=== PATIENT | male | born 1940 | race Caucasian/White ===

== ENCOUNTER 2020-10-21 09:58 | Outpatient (REF) | payer MEDICARE, OTHER, SELFPAY ==
--- NOTE | ~2020-10-21 | US_ITS ---
EXAMINATION: US ABDOMEN COMPLETE CLINICAL INFORMATION: Left upper quadrant pain. COMPARISON: CT abdomen and pelvis 06/17/2015. Renal ultrasound 06/08/2018. TECHNIQUE: Real-time imaging of the abdominal viscera. Technically difficult study secondary to bowel gas, and rib spaces. FINDINGS: PANCREAS: The body of the pancreas is normal. The head and tail of the pancreas are not well visualized due to bowel gas. ABDOMINAL AORTA: Not well visualized due to bowel gas. INFERIOR VENA CAVA: Not well visualized due to bowel gas LIVER: The left lobe of the liver is not well visualized. The liver is normal in size. The liver contour is normal. Liver echotexture is increased probably representing fatty infiltration. No focal hepatic lesion. There is no intrahepatic biliary duct dilatation seen. GALLBLADDER: The gallbladder is physiologically distended. Multiple mobile gallstones are present. No evidence of gallbladder wall thickening or pericholecystic fluid. COMMON BILE DUCT: Not seen. RIGHT KIDNEY: Normal. No hydronephrosis. No renal calculi or focal parenchymal lesions. The kidney measures 9.7 cm in maximum dimension. LEFT KIDNEY: Normal. No hydronephrosis. No renal calculi or focal parenchymal lesions. The kidney measures 10.4 cm in maximum dimension. SPLEEN: Normal. The spleen measures 10.1 cm in maximum dimension. FREE FLUID: None. US/US abdomen complete IMPRESSION: Limited exam due to body habitus. In particular, the pancreas, aorta, common bile duct and left lobe of the liver are not well seen. Gallstones. Echogenic liver probably representing fatty lesion.
== END 2020-10-21 09:59 | disposition home or self-care (01) ==
LOC: HO.US 09:58
PROVIDERS: PCP Family Medicine; Visit Provider Family Medicine
DX: R10.9 Unspecified abdominal pain (principal)
CPT/HCPCS: 76700

== ENCOUNTER 2021-01-27 13:38 | Outpatient (REF) | payer MEDICARE, OTHER, SELFPAY ==
--- NOTE | ~2021-01-27 | XR_ITS ---
EXAMINATION: XR SHOULDER , RIGHT CLINICAL INFORMATION: Pain COMPARISON: None available at the time of this dictation. TECHNIQUE: AP external rotation, Grashey, scapular Y, and axillary views of the shoulder. FINDINGS: BONES: There is no fracture or dislocation, no osteolytic or osteoblastic lesion. JOINTS: Loss of joint space and sclerotic changes of articular surfaces suggest degenerative osteoarthritis of the glenohumeral joint. There is mild degenerative osteoarthritis of the acromioclavicular joint. SOFT TISSUE AND INCLUDED LUNG: Soft tissue calcification superior to humeral head suggesting calcific tendinitis. XR/XR shoulder RT min 2V IMPRESSION: 1. 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 2. Soft tissue calcifications suggest calcific tendinosis.
== END 2021-01-27 13:39 | disposition home or self-care (01) ==
LOC: HO.XRAY 13:38
PROVIDERS: PCP Family Medicine; Visit Provider Family Medicine
DX: M25.511 Pain in right shoulder (principal)
CPT/HCPCS: 73030

== ENCOUNTER 2021-09-27 12:51 | Outpatient (REF) | payer MEDICARE, OTHER, SELFPAY ==
--- NOTE | ~2021-09-27 | CT_ITS ---
EXAMINATION: CT HEAD WITHOUT CONTRAST CLINICAL INFORMATION: Unspecified injury. COMPARISON: None TECHNIQUE: Contiguous axial imaging was performed from the skull base to vertex without intravenous administration of contrast. This CT examination was performed using dose optimization techniques as appropriate, variously including the following: *Automated exposure control *Adjustment of mA and/or kV according to patient size (this includes techniques or standardized protocols for targeted exams where dose is matched to indication/reason for exam; i.e. extremities or head) *Use of iterative reconstruction technique DLP: 1335 mGy-cm FINDINGS: There is a low-density subdural collection along the right frontoparietal convexity which measures up to 6 mm in thickness on coronal imaging and may represent a subdural hygroma or chronic subdural hematoma. There is a mixed attenuation left frontoparietal cerebral convexity extra-axial subdural collection with small areas of high attenuation and measures up to 7 mm in short axis dimension on coronal imaging, indicative for a subacute on chronic subdural hematoma. Generalized parenchymal volume loss is noted. There are no imaging findings of hydrocephalus. There is no evidence of an acute territorial infarction. No abnormal mass effect or midline shift is seen. Yanez to white matter differentiation is well preserved. Mild chronic white matter microangiopathic changes present. The osseous structures and soft tissues are normal. The mastoid air cells and visualized portions of the paranasal sinuses are well aerated. CT/CT head/brain wo con IMPRESSION: Low-density right cerebral convexity subdural collection which may represent a chronic subdural hematoma or subdural hygroma. Additional mixed attenuation left cerebral convexity subdural collection, indicative for a subacute on chronic subdural hematoma. No significant mass effect or midline shift of structures.
== END 2021-09-27 12:52 | disposition home or self-care (01) ==
LOC: HO.CT 12:51
PROVIDERS: Visit Provider Student in an Organized Health Care Education/Training Program
DX: S09.90XA Unspecified injury of head, initial encounter (principal)
CPT/HCPCS: 70450

== ENCOUNTER 2021-10-15 09:57 | Outpatient (REF) | payer MEDICARE, OTHER, SELFPAY ==
--- NOTE | ~2021-10-15 | XR_ITS ---
EXAMINATION: RIGHT SHOULDER AND CERVICAL SPINE. CLINICAL INFORMATION: Unspecified injury. COMPARISON: None TECHNIQUE: Right shoulder 3 views. Cervical spine 5 views. FINDINGS: Cervical spine: There is normal cervical lordosis. The vertebral heights and alignment is normal. There is loss of C3-C4, C4-C5, C5-C6 and C6-C7 disc heights with mild ventral spondylosis. The vertebral heights and alignment is normal. The neural foramina are bilaterally narrowed from C3-C4, C4-C5 and C5-C6 disc levels from uncovertebral hypertrophic changes. No visible acute fracture or dislocation seen. There is no lytic process. The prevertebral soft tissues are normal. Right shoulder: There is moderate loss of glenohumeral joint space with inferior large enthesophyte along the humeral head. There is a diffuse AC joint space as well. There are small calcifications along the insertion of rotator cuff suggestive of calcific tendinitis. No acute fractures seen there is no dislocation. XR/XR cervical spine min 6V IMPRESSION: Degenerative disc changes C3-C4, C4-C5, C5-C6 and C6-C7 disc levels with bilateral moderate narrowing of neural foramina C3-C4 through C5-C6 disc levels. No visible acute fracture or dislocation seen. Significant degenerative arthritic changes right shoulder glenohumeral joint. Calcific right rotator cuff tendinitis.
--- NOTE | ~2021-10-15 | XR_ITS ---
EXAMINATION: RIGHT SHOULDER AND CERVICAL SPINE. CLINICAL INFORMATION: Unspecified injury. COMPARISON: None TECHNIQUE: Right shoulder 3 views. Cervical spine 5 views. FINDINGS: Cervical spine: There is normal cervical lordosis. The vertebral heights and alignment is normal. There is loss of C3-C4, C4-C5, C5-C6 and C6-C7 disc heights with mild ventral spondylosis. The vertebral heights and alignment is normal. The neural foramina are bilaterally narrowed from C3-C4, C4-C5 and C5-C6 disc levels from uncovertebral hypertrophic changes. No visible acute fracture or dislocation seen. There is no lytic process. The prevertebral soft tissues are normal. Right shoulder: There is moderate loss of glenohumeral joint space with inferior large enthesophyte along the humeral head. There is a diffuse AC joint space as well. There are small calcifications along the insertion of rotator cuff suggestive of calcific tendinitis. No acute fractures seen there is no dislocation. XR/XR shoulder RT min 2V IMPRESSION: Degenerative disc changes C3-C4, C4-C5, C5-C6 and C6-C7 disc levels with bilateral moderate narrowing of neural foramina C3-C4 through C5-C6 disc levels. No visible acute fracture or dislocation seen. Significant degenerative arthritic changes right shoulder glenohumeral joint. Calcific right rotator cuff tendinitis.
== END 2021-10-15 09:58 | disposition home or self-care (01) ==
LOC: HO.XRAY 09:57
PROVIDERS: PCP Family Medicine; Visit Provider Emergency Medicine
DX: S19.9XXD Unspecified injury of neck, subsequent encounter (principal); S49.91XD Unspecified injury of right shoulder and upper arm, subsequent encounter; X58.XXXD Exposure to other specified factors, subsequent encounter
CPT/HCPCS: 72052; 73030

== ENCOUNTER 2021-11-08 17:02 | Emergency (ER) | payer MEDICARE, OTHER, SELFPAY ==
--- NOTE | ~2021-11-08 | CT_ITS ---
EXAMINATION: CT HEAD WITHOUT CONTRAST CLINICAL INFORMATION: Fall, head strike/injury COMPARISON: 09/27/2021 TECHNIQUE: Contiguous axial imaging was performed from the skull base to vertex without intravenous administration of contrast. This CT examination was performed using dose optimization techniques as appropriate, variously including the following: *Automated exposure control *Adjustment of mA and/or kV according to patient size (this includes techniques or standardized protocols for targeted exams where dose is matched to indication/reason for exam; i.e. extremities or head) *Use of iterative reconstruction technique DLP: 690 mGy-cm FINDINGS: Previously seen mixed attenuation extra-axial fluid collection at the left vertex is decreased in size and density it measures at most 4 mm in width, previously 6 mm. The low density subdural collection along the right frontoparietal convexity is similar in density, essentially CSF density and similar in width, 5-6 mm. No new acute intracranial hemorrhage. Ventricles and sulci are similar in configuration to the prior study. No mass effect or midline shift. Globes and orbits are normal. No evidence of acute sinusitis. CT/CT head/brain wo con IMPRESSION: No new/acute intracranial hemorrhage since the prior study 09/27/2021. Previously seen mixed attenuation extra-axial fluid collection at the left cerebral convexity is decreased in thickness in density consistent with an improving acute on chronic subdural hematoma. Low density right subdural fluid collection remains CSF density, perhaps minimally smaller in size, consistent with a subdural hygroma or chronic subdural hematoma.
[2021-11-08 18:52] VITALS: BP 124/84; PULSE 61; RESP 18; TEMP 36.7; O2SAT 96; BMI 28.1
--- NOTE | 2021-11-08 22:42 | ED.HEATRA ---
HPI - Head Injury General Chief complaint: Head Injury Stated complaint: dr fitzgerald-previous/hit head yestarday, has lump Time Seen by Provider: 11/08/21 22:42 Source: patient Mode of arrival: ambulatory Limitations: no limitations History of Present Illness HPI Narrative: Patient with history of recurrent falls with history of subdural hematoma in 10/03 yesterday patient fell again with no loss of consciousness complained of slight headache according to him his legs gave out and fell hitting his head to the ground patient with baby aspirin no seizures no loss of consciousness patient called his PCP was seemed to get CT scan Related Data Allergies Allergy/AdvReac Type Severity Reaction Status Date / Time tetracycline [TETRACYCLINE] Allergy Intermediate RASH Verified 11/08/21 18:54 Review of Systems Review of Systems: Yes all other systems are reviewed and are negative [facility] Social History Social History Alcohol intake: never Patient Tobacco Use Status: Former Tobacco user Smoked in Last 30 Days: No Use of substances other than those prescribed or required for medical reasons: No Physical Exam Vital Signs: Vital Signs: Last Vital Signs Temp 98.1 F 11/08/21 18:52 Pulse 61 11/08/21 18:52 Resp 18 11/08/21 18:52 BP 124/84 11/08/21 18:52 Pulse Ox 96 11/08/21 18:52 O2 Del Method 11/08/21 18:52 BMI result Body Mass Index 28.1 Appearance: Alert. Oriented X3. No acute distress. Eyes: PERRLA, No Nystagmus HEENT: Pharynx normal. Oral Mucosa moist soft tissue swelling neck in occipital area Neck: Normal inspection. Neck supple. CVS: Normal heart rate and rhythm. Pulses normal. Respiratory: No respiratory distress. Equal air entry bilateral, no wheezing/rales/rhonchi Abdomen: Soft and nontender. Bowel sounds are present, no mass palpable, no CVA tenderness Skin: Skin warm and dry. Normal skin color. Normal skin turgor. Extremities: No lower extremity edema. No calf tenderness bilateral arthritis Neuro: Oriented X 3. No motor deficit. MDM - Head Injury MDM Narrative Medical decision making narrative: Patient head CT scan showed resolving subdural hematoma no acute bleed patient ambulated discharge patient home Differential Diagnosis Differential diagnosis: Likely closed head injury and subarachnoid hematoma Imaging Data CT scan - head: Attestation: I personally reviewed and interpreted this imaging study as follows: Radiologist's impression: No new/acute intracranial hemorrhage since the prior study 09/27/2021. ? Previously seen mixed attenuation extra-axial fluid collection at the left cerebral convexity is decreased in thickness in density consistent with an improving acute on chronic subdural hematoma. ? Low density right subdural fluid collection remains CSF density, perhaps minimally smaller in size, consistent with a subdural hygroma or chronic subdural hematoma. Discharge Plan Discharge Clinical Impression: Closed head injury Patient Disposition: Home, Self-Care Instructions: Fall Prevention for Older Adults (ED), Head Injury (ED) Additional Instructions: Care and advised as advised Tylenol for headache
--- NOTE | 2021-11-08 23:03 | PC.NURSE ---
Pt presented to ER after hitting his head yesterday. There is a bruise on the back of his head that it tender to the touch. Pt presents A&O, GCS 15. Pt passed neurological tests, equal strength in all four quadrants. 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
[2021-11-08 23:05] VITALS: BP 148/88; PULSE 65; RESP 16; O2SAT 96
== END 2021-11-08 23:14 | disposition home or self-care (01) ==
LOC: HO.ED 23:13
PROVIDERS: Emergency Provider Internal Medicine; PCP Emergency Medicine
DX: S00.03XA Contusion of scalp, initial encounter (principal); R51.9 Headache, unspecified; W01.0XXA Fall on same level from slipping, tripping and stumbling without subsequent striking against object, initial encounter; Y93.9 Activity, unspecified; Y92.9 Unspecified place or not applicable; Y99.9 Unspecified external cause status; Z87.891 Personal history of nicotine dependence; Z91.81 History of falling
CPT/HCPCS: 70450; 99284

== ENCOUNTER → 2021-12-30 14:52 | Outpatient (BNVA) | payer MEDICARE, OTHER, SELFPAY | PROVIDERS: PCP Emergency Medicine; Visit Provider Physician Assistant | DX: M19.011 Primary osteoarthritis, right shoulder (principal) | CPT/HCPCS: 99202 ==

== ENCOUNTER 2023-01-05 12:03 | Outpatient (REF) | payer MEDICARE, SELFPAY ==
[2023-01-05 13:44] LABS: MANUAL DIFF FLAG NO
[2023-01-05 13:50] LABS: Basophils Percent Auto 0.4 % (0-2); Eosinophils Absolute Auto 0.2 X10*3/uL (0.0-0.4); Eosinophils Percent Auto 2.1 % (0-4); Hematocrit 43.7 % (42.0-52.0); Hemoglobin 14.4 g/dl (14.0-18.0); Imm Gran Abs Auto 0.01 X10*3/uL (0.00-0.03); Imm Gran Pct Auto 0.1 % (0.0-0.4); Lymphocytes Absolute Auto 1.8 X10*3/uL (1.2-4.9); Lymphocytes Percent Auto 25.6 % (20-40); Mean Corpuscular Hemoglobin 30.8 pg (27.0-33.0); Mean Corpuscular Volume 93.6 fL (80.0-98.0); Mean Platelet Volume 11.2 fL (9.4-12.4); Monocytes Absolute Auto 0.8 X10*3/uL (0.1-1.2); Monocytes Percent Auto 10.5 % (2-11); Neutrophils Absolute Auto 4.4 x10*3/uL (2.0-8.3); Neutrophils Percent Auto 61.3 % (45-73); Platelet Count 206 X10*3/uL (160-400); Red Blood Count 4.67 X10*6/uL (4.60-5.80); Red Cell Distribution Width 13.4 % (11.0-16.0); White Blood Count 7.2 X10*3/uL (4.8-10.8)
[2023-01-05 14:32] LABS: Alanine Aminotransferase 10 U/L (0-40); Albumin Level 3.9 g/dL (3.5-5.0); Alkaline Phosphatase 58 U/L (39-117); Anion Gap 8 (12-20); Aspartate Amino Transferase 14 U/L (5-37); Bilirubin Total 0.6 mg/dL (0.0-1.0); Blood Urea Nitrogen 15 mg/dL (9-16); C Reactive Protein 0.15 mg/dL (< or = 0.50); Calcium 9.1 mg/dL (8.4-10.2); Carbon Dioxide 28 mmol/L (22-29); Chloride 110 mmol/L (96-108); Estimated Glomerular Filt Rate > 60; Glucose Random 96 mg/dL (60-115); Potassium 3.9 mmol/L (3.3-5.1); Sodium 142 mmol/L (135-145); Total Protein 6.5 g/dL (6.5-8.0)
[2023-01-05 14:35] LABS: TSH reflex Free T4 0.75 uIU/mL (0.32-4.0)
[2023-01-05 16:20] LABS: Erythrocyte Sedimentation Rate 4 MM/HR (0-15)
[2023-01-05 17:22] LABS: Folate 13.5 ng/mL (> or = 4.0); Vitamin B12 186 pg/mL (200-900)
== END 2023-01-05 12:04 | disposition home or self-care (01) ==
LOC: HO.HHCL 12:03
PROVIDERS: Visit Provider Family Medicine
DX: E53.8 Deficiency of other specified B group vitamins (principal); I49.3 Ventricular premature depolarization; R63.4 Abnormal weight loss; I10 Essential (primary) hypertension
CPT/HCPCS: 36415; 80053; 82607; 82746; 84443; 85025; 85652; 86140

== ENCOUNTER 2023-06-29 12:25 | Outpatient (REF) | payer MEDICARE, MEDICAID, SELFPAY ==
--- NOTE | ~2023-06-29 | XR_ITS ---
EXAMINATION: XR CHEST CLINICAL INFORMATION: Chest tightness. Bradycardia. Cough. COMPARISON: Most recent chest radiograph dated 06/27/2019. TECHNIQUE: 2 views of the chest were obtained. FINDINGS: Minimal linear atelectasis versus scarring redemonstrated within the right lung base. No new airspace consolidation. No pleural effusion or pneumothorax. Stable cardiomediastinal silhouette. XR/XR chest 2V IMPRESSION: No acute cardiopulmonary findings.
== END 2023-06-29 12:26 | disposition home or self-care (01) ==
LOC: HO.HHCX 12:25
PROVIDERS: Visit Provider Family Medicine
DX: R07.89 Other chest pain (principal); K21.9 Gastro-esophageal reflux disease without esophagitis
CPT/HCPCS: 36415; 71046; 80053; 84443

== ENCOUNTER 2023-06-29 12:42 | Outpatient (REF) | payer MEDICARE, SELFPAY ==
[2023-06-29 16:32] LABS: Alanine Aminotransferase 11 U/L (0-40); Albumin Level 4.2 g/dL (3.5-5.0); Alkaline Phosphatase 74 U/L (39-117); Anion Gap 11 (12-20); Aspartate Amino Transferase 14 U/L (5-37); Bilirubin Total 0.6 mg/dL (0.0-1.0); Blood Urea Nitrogen 11 mg/dL (9-16); Calcium 9.9 mg/dL (8.4-10.2); Carbon Dioxide 29 mmol/L (22-29); Chloride 107 mmol/L (96-108); Estimated Glomerular Filt Rate > 60; Glucose Random 92 mg/dL (60-115); Sodium 143 mmol/L (135-145); Total Protein 7.1 g/dL (6.5-8.0)
[2023-06-29 16:40] LABS: TSH reflex Free T4 0.88 uIU/mL (0.32-4.0)
== END 2023-06-29 12:43 | disposition home or self-care (01) ==
LOC: HO.HHCL 12:42
PROVIDERS: Visit Provider Family Medicine
DX: Z13.89 Encounter for screening for other disorder (principal)
CPT/HCPCS: 36415; 80053; 84443

== ENCOUNTER → 2023-07-10 09:00 | Outpatient (BNV) | payer MEDICARE, SELFPAY | PROVIDERS: PCP Emergency Medicine; Visit Provider Internal Medicine Cardiovascular Disease | DX: I48.91 Unspecified atrial fibrillation (principal) | CPT/HCPCS: 93227 ==

== ENCOUNTER → 2023-07-10 10:51 | Outpatient (REF) | payer MEDICARE, SELFPAY ==
--- NOTE | 2023-07-10 | HM_ITS ---
Conclusion: 1. Patient was monitored for total period of 1 day and 2 hours 2. Baseline was normal sinus rhythm with intermittent atrial fibrillation/flutter 22% of the time with average heart of 74 beats per minute during sinus rhythm 3. No significant pauses noted 4. Frequent PACs noted, 2.6% of the time 5. Patient marked 1 counter with no associated symptoms correlating with isolated PVCs MTDD
== END ==
LOC: HO.CARD 10:51
PROVIDERS: PCP Emergency Medicine; Visit Provider Family Medicine
DX: R00.1 Bradycardia, unspecified (principal)
CPT/HCPCS: 93225

== ENCOUNTER 2023-08-11 10:05 | Emergency (ER) | payer MEDICARE, OTHER, SELFPAY ==
--- NOTE | ~2023-08-11 | US_ITS ---
EXAMINATION: US VENOUS ULTRASOUND WITH DOPPLER LOWER EXTREMITY, LEFT CLINICAL INFORMATION: Swelling COMPARISON: None available. TECHNIQUE: Ultrasound of the deep veins is performed from the hip to the calf with compression sonography and color and pulse Doppler assessment. Spectral analysis with color-flow imaging is performed. FINDINGS: There is normal venous compression and respiratory variation and augmented flow. The visualized common femoral vein, superficial femoral vein, profunda femoral vein, popliteal vein, and the trifurcation region shows no evidence of deep venous thrombosis. Left peroneal veins not well visualized. There is no significant popliteal fossa cyst. If the patient's symptoms persist, followup ultrasound in 5 days 7 days might be of value to exclude proximal propagation from a non-visualized calf vein. US/US venous duplex LE LT IMPRESSION: No DVT demonstrated in the left lower extremity. Left peroneal veins not well visualized.
--- NOTE | ~2023-08-11 | XR_ITS ---
EXAMINATION: XR CHEST CLINICAL INFORMATION: Cough COMPARISON: Previous chest x-ray June 2023 TECHNIQUE: Frontal view of the chest was obtained. FINDINGS: No significant abnormality is noted involving the heart, lungs, mediastinum, bony thorax or soft tissues. Degenerative changes of the spine and right shoulder. XR/XR chest 1V IMPRESSION: No evidence for acute disease in the chest.
[2023-08-11 10:14] VITALS: BP 124/67; PULSE 60; RESP 16; TEMP 36.8; O2SAT 97; BMI 27.5
--- NOTE | 2023-08-11 10:22 | ECG_ITS ---
Test Reason : SWOLLEN ANKLES Blood Pressure : / mmHG Vent. Rate : 054 BPM Atrial Rate : 286 BPM P-R Int : 000 ms QRS Dur : 092 ms QT Int : 420 ms P-R-T Axes : 043 -23 -01 degrees QTc Int : 398 ms Atrial flutter with variable A-V block Nonspecific ST abnormality Abnormal ECG No previous ECGs available Referred By: Generic ED Physician Electronically Signed By:Julius Beavers
[2023-08-11 10:43] LABS: MANUAL DIFF FLAG NO
[2023-08-11 10:48] LABS: Basophils Percent Auto 0.3 % (0-2); Eosinophils Absolute Auto 0.1 X10*3/uL (0.0-0.4); Eosinophils Percent Auto 0.9 % (0-4); Hematocrit 43.3 % (42.0-52.0); Hemoglobin 14.2 g/dl (14.0-18.0); Imm Gran Abs Auto 0.03 X10*3/uL (0.00-0.03); Imm Gran Pct Auto 0.3 % (0.0-0.4); Lymphocytes Absolute Auto 1.3 X10*3/uL (1.2-4.9); Mean Corpuscular HGB Conc 32.8 g/dl (31.0-36.0); Mean Corpuscular Hemoglobin 30.6 pg (27.0-33.0); Mean Corpuscular Volume 93.3 fL (80.0-98.0); Mean Platelet Volume 10.5 fL (9.4-12.4); Monocytes Percent Auto 10.4 % (2-11); Neutrophils Absolute Auto 7.1 x10*3/uL (2.0-8.3); Neutrophils Percent Auto 74.1 % (45-73); Platelet Count 203 X10*3/uL (160-400); Red Blood Count 4.64 X10*6/uL (4.60-5.80); White Blood Count 9.6 X10*3/uL (4.8-10.8)
--- NOTE | 2023-08-11 10:51 | ED.GENADULT ---
HPI - General Adult General Chief complaint: General Medical Stated complaint: sent from [facility], [facility] Time Seen by Provider: 08/11/23 10:36 Source: patient Mode of arrival: ambulatory History of Present Illness HPI narrative: 83-year-old male who states that he has a remote history of irregular heartbeat and states that for the past couple weeks he has had issues with swelling within his lower extremities but denies any shortness of breath. He also reports that over the past week he has noted a wound to the instep of the left foot with surrounding erythema that he attributes to his underlying bone spur. He denies being on any chronic anticoagulation. [facility] sent patient in for noting irregular heartbeat in the swollen extremity. Related Data Home Medications Medication Instructions Recorded Confirmed acetaminophen 500 mg capsule 500 mg PO QID PRN 12/30/21 amlodipine 2.5 mg tablet 2.5 mg PO DAILY 12/30/21 aspirin 81 mg tablet,delayed 81 mg PO DAILY 12/30/21 release cholecalciferol (vitamin D3) 25 25 mcg PO DAILY 12/30/21 mcg (1,000 unit) capsule (Vitamin D3) cyanocobalamin (vitamin B-12) 1,000 mcg PO DAILY 12/30/21 1,000 mcg tablet fluticasone propionate 50 1 spray intranasal BID 12/30/21 mcg/actuation nasal spray,suspension loratadine 10 mg tablet (Allergy 10 mg PO DAILY 12/30/21 Relief (loratadine)) omeprazole 20 mg capsule,delayed 20 mg PO DAILY 12/30/21 release ondansetron HCl 4 mg tablet 4 mg PO Q6H 12/30/21 simethicone 125 mg capsule (Gas 125 mg PO BID-QID PRN 12/30/21 Relief (simethicone)) Previous Rx's Medication Instructions Recorded apixaban 5 mg tablet (Eliquis) 5 mg PO BID 30 days #60 tabs 08/11/23 Allergies Allergy/AdvReac Type Severity Reaction Status Date / Time tetracycline [TETRACYCLINE] Allergy Intermediate RASH Verified 12/30/21 15:17 Review of Systems Review of Systems: Pertinent positives and negatives as stated in HPI [facility] Past Medical History Source: nursing notes reviewed Medical History Subdural hematoma History of kidney stones Dysthymic disorder Calculus of gallbladder without cholangitis or cholecystitis Ganglion cyst of finger of left hand B12 deficiency Sensorineural hearing loss Pes planovalgus Malignant neoplasm of urinary bladder Actinic keratosis Osteoarthritis Depression Allergic rhinitis Primary osteoarthritis involving multiple joints Pulmonary hypertension Essential hypertension Pain, dental GERD (gastroesophageal reflux disease) Frequent PVCs Social History Social History Alcohol intake: never Patient Tobacco Use Status: Former Tobacco user Smoked in Last 30 Days: No Advance Directives: Yes Advance Directives Information Provided: Yes Advance Directives on File: No Physical Exam ED Vital Signs: Vital Signs - 24 hr 08/11/23 10:14 08/11/23 11:16 Temperature 98.3 F 98.4 F Pulse Rate 60 77 Respiratory Rate 16 16 Blood Pressure 124/67 131/75 Pulse Oximetry 97 97 Oxygen Delivery Method Room Air Room Air BMI result Body Mass Index 27.5 VITAL SIGNS: Reviewed. GENERAL: Well developed, well nourished, in no acute distress. HEAD: Normocephalic/atraumatic EYES: PERRLA, EOMI EARS: Ext canals without abnormality NOSE: Nares patent bilateral OROPHARYNX: no oral lesions noted, posterior pharynx clear NECK: Supple, no adenopathy LUNGS: Normal breath sounds. No adventitious sounds or accessory muscle use. SpO2<97> CARDIOVASCULAR: Regular rate and rhythm without noted murmurs, no JVD but left lower extremity 2+ pitting edema noted ABDOMEN: Soft, non-tender, non-distended with bowel sounds. MUSCULOSKELETAL: No tenderness, deformities, or effusions noted on gross inspection. EXTREMITIES: No cyanosis, clubbing or edema. LLE: There is edema noted to the left lower extremity as well as what appears to be a noninfectious wound but there is surrounding erythema without ulceration. SKIN: Inspection of the skin reveals no rashes NEUROLOGIC: Alert and oriented x 4. Strength and sensation to light touch were grossly intact x 4. Medications Administered Discontinued Medications Generic Name Dose Route Start Last Admin Trade Name Freq PRN Reason Stop Dose Admin Apixaban 5 mg 08/11/23 11:31 08/11/23 11:52 Apixaban 5 Mg Tablet PO 08/11/23 11:32 5 mg ONCE ONE Administration Medical Decision Making Medical Decision Making MDM Narrative: 83-year-old male with history and clinical presentation, DDX: Intermittent irregular heartbeat, at this presentation most consistent with atrial flutter but during my interview with the patient he was noted to no longer be in atrial flutter and repeat EKG was obtained. My concern at this time is that patient may have DVT within the left lower extremity. Chads Vasc-4 and will be started on Eliquis. 1137: Discussed with Dr Beavers who agrees with plan to discharge patient on chronic anticoagulation. I reviewed all investigations and hematologic indices are negative for leukocytosis/anemia/thrombocytopenia. Chemistry indices are grossly within normal limits without evidence of CATE or electrolyte/liver enzyme derangements. BNP-77. Chest x-ray negative for infiltrate or venous congestion otherwise my interpretation is in agreement with radiology's impression. Venous duplex negative for evidence to suggest DVT. 1345: Venous duplex negative for evidence of DVT, patient has no respiratory symptoms, all results and findings were discussed with him at bedside as well as the explanation for being on blood thinners. He was also instructed to stop taking aspirin and to avoid ibuprofen. Differential Diagnosis Differential Diagnoses: The differential diagnosis associated with the presentation includes Please see the discussion above Admission/Observation Consideration of admission/observation: Escalation of care including admission/observation considered Please see the discussion above Consult Healthcare Provider Management of the patient was discussed with: Supervisor [employer] Please see the discussion above Lab Data MDM Lab Attestation statement: I reviewed the patient's lab results. Please see the discussion above 08/11/23 10:35 08/11/23 10:35 Labs: Lab Results 08/11/23 08/11/23 Range/Units 10:35 10:57 WBC 9.6 (4.8-10.8) X10*3/uL RBC 4.64 (4.60-5.80) X10*6/uL Hgb 14.2 (14.0-18.0) g/dl Hct 43.3 (42.0-52.0) % MCV 93.3 (80.0-98.0) fL MCH 30.6 (27.0-33.0) pg MCHC 32.8 (31.0-36.0) g/dl RDW 14.0 (11.0-16.0) % Plt Count 203 (160-400) X10*3/uL MPV 10.5 (9.4-12.4) fL Immature Gran % (Auto) 0.3 (0.0-0.4) % Neut % (Auto) 74.1 H (45-73) % Lymph % (Auto) 14.0 L (20-40) % Gooding % (Auto) 10.4 (2-11) % Eos % (Auto) 0.9 (0-4) % Baso % (Auto) 0.3 (0-2) % Lymph # (Auto) 1.3 (1.2-4.9) X10*3/uL Gooding # (Auto) 1.0 (0.1-1.2) X10*3/uL Eos # (Auto) 0.1 (0.0-0.4) X10*3/uL Baso # (Auto) 0.0 (0.0-0.2) X10*3/uL Abs Immat Gran (auto) 0.03 (0.00-0.03) X10*3/uL Absolute Neuts (auto) 7.1 (2.0-8.3) x10*3/uL Absolute Nucleated RBC 0.000 (0.0-0.012) X10*3/uL Nucleated RBC % (auto) 0.0 (0.0-0.2) /100WBC Sodium 143 (135-145) mmol/L Potassium 3.8 (3.3-5.1) mmol/L Chloride 111 H (96-108) mmol/L Carbon Dioxide 25 (22-29) mmol/L Anion Gap 11 L (12-20) BUN 15 (9-16) mg/dL Creatinine 0.80 (0.5-1.4) mg/dL Estim Creat Clear Calc 69.6 Estimated GFR > 60 Random Glucose 99 (60-115) mg/dL Calcium 8.9 D (8.4-10.2) mg/dL Total Bilirubin 0.7 (0.0-1.0) mg/dL AST 15 (5-37) U/L ALT 13 (0-40) U/L Alkaline Phosphatase 69 (39-117) U/L B-Natriuretic Peptide 77 (<100) pg/mL Total Protein 6.6 (6.5-8.0) g/dL Albumin 3.9 (3.5-5.0) g/dL Independent Interpretation I performed an independent interpretation of an: EKG Interpretation: 1026: Atrial flutter with variable AV block, HR-54, QRS/QTC within normal limits. 1113: Sinus rhythm, HR-81, KS/QRS/QTC is within normal limits. Radiology Impression Discussion of test interpretation with radiology: I have reviewed the radiologist's reading. External Record Review External record reviewed: Office record, Outpatient record, Prior outpatient labs and Prior outpatient radiology Critical Care Time Critical Care Time Critical Care Time: Yes Total Critical Care Time: 60 Attestation: I personally attest to this time spent taking care of the patient. Discharge Plan Discharge Clinical Impression: Paroxysmal atrial fibrillation Patient Disposition: Home, Self-Care Instructions: A-fib (Atrial Fibrillation) (ED), Blood Thinners (ED) Additional Instructions: 1. Resume all home medications except aspirin, you should no longer use aspirin or ibuprofen as you have now been started on blood thinners. 2. Please follow-up with your primary care doctor and call the office of Cardiology, the referral is provided to you below. Return to the ER for any worsening symptoms. Prescriptions: New Eliquis 5 mg tablet 5 mg PO BID 30 Days Qty: 60 0RF No Action cholecalciferol (vitamin D3) [Vitamin D3] 25 mcg (1,000 unit) capsule 25 mcg PO DAILY cyanocobalamin (vitamin B-12) 1,000 mcg tablet 1,000 mcg PO DAILY omeprazole 20 mg capsule,delayed release(DR/EC) 20 mg PO DAILY fluticasone propionate 50 mcg/actuation spray,suspension 1 spray intranasal BID amlodipine 2.5 mg tablet 2.5 mg PO DAILY aspirin 81 mg tablet,delayed release (DR/EC) 81 mg PO DAILY simethicone [Gas Relief (simethicone)] 125 mg capsule 125 mg PO BID-QID PRN loratadine [Allergy Relief (loratadine)] 10 mg tablet 10 mg PO DAILY ondansetron HCl 4 mg tablet 4 mg PO Q6H acetaminophen 500 mg capsule 500 mg PO QID PRN Referrals: Apolonia Ragland MD [Primary Care Provider] - Julius Beavers MD [Physician] -
--- NOTE | 2023-08-11 11:07 | ECG_ITS ---
Test Reason : RHYTHM CHANGE Blood Pressure : / mmHG Vent. Rate : 081 BPM Atrial Rate : 081 BPM P-R Int : 200 ms QRS Dur : 092 ms QT Int : 392 ms P-R-T Axes : 000 -22 005 degrees QTc Int : 455 ms Sinus rhythm with marked sinus arrhythmia with occasional Premature ventricular complexes Nonspecific ST abnormality Abnormal ECG When compared with ECG of 11-AUG-2023 10:26, Sinus rhythm has replaced Atrial flutter Vent. rate has increased BY 27 BPM QT has lengthened Referred By: Candie Paz Electronically Signed By:Julius Beavers
[2023-08-11 11:11] LABS: Alanine Aminotransferase 13 U/L (0-40); Albumin Level 3.9 g/dL (3.5-5.0); Alkaline Phosphatase 69 U/L (39-117); Anion Gap 11 (12-20); Aspartate Amino Transferase 15 U/L (5-37); Bilirubin Total 0.7 mg/dL (0.0-1.0); Blood Urea Nitrogen 15 mg/dL (9-16); Calcium 8.9 mg/dL (8.4-10.2); Carbon Dioxide 25 mmol/L (22-29); Chloride 111 mmol/L (96-108); Creatinine Clr Calc Pharmacy 69.6; Estimated Glomerular Filt Rate > 60; Glucose Random 99 mg/dL (60-115); Potassium 3.8 mmol/L (3.3-5.1); Sodium 143 mmol/L (135-145); Total Protein 6.6 g/dL (6.5-8.0)
[2023-08-11 11:16] VITALS: BP 131/75; PULSE 77; RESP 16; TEMP 36.9; O2SAT 97
[2023-08-11 11:24] LABS: B Type Natriuretic Peptide 77 pg/mL (<100)
[2023-08-11] MEDS: Apixaban 5 MG TABLET PO (11:52)
--- NOTE | 2023-08-11 11:58 | PC.NURSE ---
this RN resumed care of pt at this time. a&ox4. vss and up to date. nsr on the pvc monitor. pt no longer in aflutter - repeat ekg performed by tech. pt denies chest pain/palpitations. pt denies feeling sob. no signs of wob noted. respirations even and unlabored. pt medicated per provider order. pt aware of plan of care in regards to US/chest xray being taken. plan of care ongoing. call ghosh placed within reach.
[2023-08-11 14:13] VITALS: BP 146/77; PULSE 73; RESP 16; TEMP 36.9; O2SAT 96
[2023-08-11] MEDS: Acetaminophen 325 MG TABLET 975 MG PO (14:19)
[2023-08-11 14:33] VITALS: BP 146/77; PULSE 73; RESP 16; TEMP 36.9; O2SAT 96
== END 2023-08-11 14:33 | disposition home or self-care (01) ==
PROVIDERS: Emergency Provider Student in an Organized Health Care Education/Training Program; PCP Family Medicine
DX: I48.0 Paroxysmal atrial fibrillation (principal); M79.89 Other specified soft tissue disorders; I10 Essential (primary) hypertension; Z85.51 Personal history of malignant neoplasm of bladder
CPT/HCPCS: 36415; 71045; 80053; 83880; 85025; 93005; 93971; 99284

== ENCOUNTER → 2023-08-11 10:22 | Outpatient (BNV) | payer MEDICARE, SELFPAY | PROVIDERS: Emergency Provider Student in an Organized Health Care Education/Training Program; PCP Family Medicine; Visit Provider Internal Medicine Cardiovascular Disease | DX: R00.0 Tachycardia, unspecified (principal) | CPT/HCPCS: 93010 ==

== ENCOUNTER 2023-08-17 14:17 | Outpatient (REF) | payer MEDICARE, SELFPAY ==
--- NOTE | ~2023-08-17 | XR_ITS ---
EXAMINATION: XR FOOT, LEFT CLINICAL INFORMATION: Left foot pain and cellulitis, rule out osteomyelitis. COMPARISON: None available. TECHNIQUE: AP, lateral, and oblique views of the left foot. FINDINGS: There is hallux valgus deformity and changes of osteoarthritis in the first and second metatarsophalangeal joints. There is pes planus deformity and plantar calcaneus spur. There is significant soft tissue edema seen dorsally without evidence of gas in the soft tissues. XR/XR foot LT min 3V IMPRESSION: Hallux valgus deformity and changes of osteoarthritis in the first and second metatarsophalangeal joints. Cellulitis
--- NOTE | ~2023-08-17 | XR_ITS ---
EXAMINATION: XR ABDOMEN KUB CLINICAL INDICATION: Hematuria rule out kidney stones COMPARISON: None available. TECHNIQUE: AP view of the abdomen. FINDINGS: The bowel gas pattern is normal with no evidence of ileus or obstruction. No unusual soft tissue calcifications are noted. There is levoscoliosis of lumbar spine and changes of degenerative spondylosis. XR/XR KUB IMPRESSION: No evidence of nephrolithiasis
== END 2023-08-17 14:18 | disposition home or self-care (01) ==
LOC: HO.HHCX 14:17
PROVIDERS: Visit Provider Internal Medicine
DX: M79.672 Pain in left foot (principal); M21.962 Unspecified acquired deformity of left lower leg; L03.818 Cellulitis of other sites; R31.9 Hematuria, unspecified; R39.9 Unspecified symptoms and signs involving the genitourinary system
CPT/HCPCS: 73630; 74018; 87086

== ENCOUNTER 2023-08-24 13:31 | Outpatient (REF) | payer MEDICARE, SELFPAY ==
[2023-08-24 16:05] LABS: MANUAL DIFF FLAG NO
[2023-08-24 16:19] LABS: Basophils Percent Auto 0.4 % (0-2); Eosinophils Absolute Auto 0.2 X10*3/uL (0.0-0.4); Eosinophils Percent Auto 2.9 % (0-4); Hematocrit 43.1 % (42.0-52.0); Imm Gran Abs Auto 0.03 X10*3/uL (0.00-0.03); Imm Gran Pct Auto 0.4 % (0.0-0.4); Lymphocytes Absolute Auto 1.5 X10*3/uL (1.2-4.9); Lymphocytes Percent Auto 21.8 % (20-40); Mean Corpuscular HGB Conc 32.5 g/dl (31.0-36.0); Mean Corpuscular Hemoglobin 30.8 pg (27.0-33.0); Mean Corpuscular Volume 94.9 fL (80.0-98.0); Mean Platelet Volume 11.1 fL (9.4-12.4); Monocytes Absolute Auto 0.8 X10*3/uL (0.1-1.2); Monocytes Percent Auto 11.2 % (2-11); Neutrophils Absolute Auto 4.4 x10*3/uL (2.0-8.3); Neutrophils Percent Auto 63.3 % (45-73); Platelet Count 224 X10*3/uL (160-400); Red Blood Count 4.54 X10*6/uL (4.60-5.80); Red Cell Distribution Width 14.2 % (11.0-16.0); White Blood Count 6.9 X10*3/uL (4.8-10.8)
[2023-08-24 16:31] LABS: Alanine Aminotransferase 14 U/L (0-40); Albumin Level 3.7 g/dL (3.5-5.0); Alkaline Phosphatase 66 U/L (39-117); Anion Gap 9 (12-20); Aspartate Amino Transferase 13 U/L (5-37); Bilirubin Total 0.4 mg/dL (0.0-1.0); Blood Urea Nitrogen 13 mg/dL (9-16); Calcium 8.9 mg/dL (8.4-10.2); Carbon Dioxide 25 mmol/L (22-29); Chloride 110 mmol/L (96-108); Estimated Glomerular Filt Rate > 60; Glucose Random 102 mg/dL (60-115); Potassium 4.3 mmol/L (3.3-5.1); Sodium 140 mmol/L (135-145); Total Protein 6.4 g/dL (6.5-8.0)
== END 2023-08-24 13:32 | disposition home or self-care (01) ==
LOC: HO.CHCLDS 13:31
PROVIDERS: Visit Provider General Practice
DX: R31.9 Hematuria, unspecified (principal)
CPT/HCPCS: 36415; 80053; 85025

== ENCOUNTER 2023-08-25 13:59 | Outpatient (AMB) | payer MEDICARE, MEDICAID, SELFPAY ==
--- NOTE | 2023-08-25 14:19 | MHC.OFFVIS ---
Intake Vital Signs 08/25/23 14:21 Height 5 ft 6 in Weight 149 lb 14.629 oz BMI 24.2 BP 122/70 Blood Pressure Location Lt brachial Position Sitting Pulse 72 Intake Visit [place]asons[place] [facility] [place]- ([place]) Intake Note: pt states he is having nose bleeds , is tired and discolored urine after taking Eliquis Allergies tetracycline [TETRACYCLINE] Allergy (Intermediate, Verified 12/30/21 15:17) RASH Medication List - Last Reconciled 08/25/23 by Barbie Mendoza NP acetaminophen 500 mg PO QID PRN amlodipine 2.5 mg PO DAILY apixaban (Eliquis) 5 mg PO BID 30 days cholecalciferol (vitamin D3) (Vitamin D3) 25 mcg PO DAILY cyanocobalamin (vitamin B-12) 1,000 mcg PO DAILY fluticasone propionate 50 mcg/actuation 1 spray intranasal BID loratadine (Allergy Relief (loratadine)) 10 mg PO DAILY omeprazole 20 mg PO DAILY ondansetron HCl 4 mg PO Q6H simethicone (Gas Relief (simethicone)) 125 mg PO BID-QID PRN HPI HPI Comments History of Present Illness Details 83-year-old male presents today for a follow-up after the emergency room / new patient for paroxysmal atrial fibrillation. Patient was in the emergency room on 08/11/2023 for atrial fibrillation. He was sent from [facility]. He was started on Eliquis. He had seen [facility], [place] in the past - will request records. He reports he does not feel when he is in atrial fibrillation. He reports he feels fatigue but otherwise normal. He reports he has been getting nose bleeds which he is able to control. [facility] Medical History (Updated 08/25/23 @ 16:01 by Barbie Mendoza NP) Epistaxis Hypersomnia Paroxysmal atrial fibrillation Subdural hematoma History of kidney stones Dysthymic disorder Calculus of gallbladder without cholangitis or cholecystitis Ganglion cyst of finger of left hand B12 deficiency Sensorineural hearing loss Pes planovalgus Malignant neoplasm of urinary bladder Actinic keratosis Osteoarthritis Depression Allergic rhinitis Primary osteoarthritis involving multiple joints Pulmonary hypertension Essential hypertension Pain, dental GERD (gastroesophageal reflux disease) Frequent PVCs Social History Alcohol intake: never Patient Tobacco Use Status: Former Tobacco user Review of Systems Const Denies weakness ENT Denies dizziness Card Denies chest pain, Denies chest pain with activity, Denies syncope, Denies rapid heart rate, Denies pedal edema, Denies edema, Denies leg edema, Denies lightheadedness, Denies palpitations, Denies dyspnea, Denies dyspnea on exertion and Denies orthopnea Resp Denies cough, Denies dyspnea and Denies dyspnea on exertion GI Denies hematochezia and Denies change in stool character Musc Denies abnormal gait, Denies muscle cramps, Denies muscle weakness, Denies numbness, Denies radiating pain into limb and Denies tingling Neuro Denies abnormal gait, Denies dizziness, Denies syncope, Denies numbness, Denies tingling and Denies weakness Endo Denies palpitations Physical Exam Vital Signs: Last Vital Signs Pulse 72 08/25/23 14:21 BP 122/70 08/25/23 14:21 BMI result Body Mass Index 24.2 Const General: healthy appearing and no acute distress Orientation/consciousness: patient oriented x3 HEENT Head: Yes normal to inspection Eyes General: appearance normal, both eyes and all related structures Neck Neck: Yes normal visual inspection Chest Chest palpation & inspection: normal inspection of the chest Resp Effort & Inspection: normal respiratory effort Auscultation: clear to auscultation bilaterally Cardio Jugular venous distension: no JVD Palpation: normal PMI Rate: regular rate Rhythm: regular rhythm Heart sounds: S1 normal heart sound present, S2 normal heart sound present, no click, no gallops, no murmurs and no rubs GI Inspection: Yes normal to inspection Palpation (GI): Soft to palpation Skin General skin exam: no rashes or lesions noted Neuro General: patient oriented x3 Extrem General: Yes normal to inspection Psych Appearance: grossly normal Assessment & Plan Assessment & Plan (1) Paroxysmal atrial fibrillation: Code(s): I48.0 - Paroxysmal atrial fibrillation (2) Hypersomnia: Code(s): G47.10 - Hypersomnia, unspecified Plan Paroxysmal atrial fibrillation noted at [facility]. Will get holter to assess rhythm and rate. Echo to assess for structural changes. Will assess for ischemia with stress testing. Will Request records from prior management professor. Patient isnt aware of what testing he has had done. Sleep study for hypersomnia. Last HGB 14, HCT 43.1, and Cr 0.85. Orders: Orders RT home sleep study 08/25/23 G47.10 - Hypersomnia, unspecified CA lexiscan stress w arnel 08/25/23 CA echo transthoracic complete 08/25/23 I48.0 - Paroxysmal atrial fibrillation NM cardiolite stress test 08/25/23 I48.91 - Unspecified atrial fibrillation Coding Level of Care Code New Pt Level 3 (85128) Diagnoses Paroxysmal atrial fibrillation I48.0 Hypersomnia G47.10
[2023-08-25 14:21] VITALS: BP 122/70; PULSE 72; BMI 24.2
== END 2023-08-25 15:17 | disposition home or self-care (01) ==
PROVIDERS: PCP Family Medicine; Visit Provider Nurse Practitioner
DX: I48.0 Paroxysmal atrial fibrillation (principal); G47.10 Hypersomnia, unspecified
CPT/HCPCS: 99203

== ENCOUNTER → 2023-08-25 13:59 | Outpatient (BNVA) | payer MEDICARE, MEDICAID, SELFPAY | PROVIDERS: PCP Family Medicine; Visit Provider Nurse Practitioner | DX: I48.0 Paroxysmal atrial fibrillation (principal); G47.10 Hypersomnia, unspecified | CPT/HCPCS: 99202 ==

== ENCOUNTER 2023-09-28 08:15 | Outpatient (REF) | payer MEDICARE, MEDICAID, SELFPAY ==
[2023-09-28 11:51] LABS: C Reactive Protein 0.33 mg/dL (< or = 0.50); Cholesterol 144 mg/dL (<200); HDL Cholesterol 43 mg/dL (>40); LDL Cholesterol Calculated 85 mg/dL (<100); Triglycerides 83 mg/dL (<150); Uric Acid 5.5 mg/dL (3.4-7.0)
[2023-09-28 12:17] LABS: Erythrocyte Sedimentation Rate 5 MM/HR (0-15)
[2023-09-28 12:43] LABS: Reflex LDLD? No
[2023-09-28 13:03] LABS: Microalbumin Urine < 5.0 mg/L
== END 2023-09-28 08:16 | disposition home or self-care (01) ==
LOC: HO.HHCL 08:15
PROVIDERS: Visit Provider Family Medicine
DX: M25.50 Pain in unspecified joint (principal); I10 Essential (primary) hypertension
CPT/HCPCS: 80061; 82043; 82570; 84550; 85652; 86140

== ENCOUNTER → 2023-10-06 08:43 | Outpatient (REF) | payer MEDICARE, MEDICAID, SELFPAY ==
--- NOTE | ~2023-10-06 | NM_ITS ---
Lexiscan Myocardial perfusion study Indication: Premature ventricular ectopy, atrial fibrillation Technique: The patient was brought in for a Lexiscan perfusion study on 10/06/2023 and was injected 0.4 mg of Lexiscan intravenously. Within a minute of this injection 25 mCi of sestamibi was given intravenously. Images were obtained using the SPECT gamma camera interlaced with the gating device. Images were obtained in supine position. Resting perfusion study was performed on 10/13/2023. Patient was administered 25 mCi of sestamibi intravenously at rest. Images were then obtained in supine position. Total DLP 120mGy-cm. Images were processed with the software and compared side to side in short axis, horizontal long axis and vertical long axis views. Findings: Raw acquisition reviewed. Arms by the patient's side. The stress perfusion study showed no significant perfusion abnormality. Both uncorrected as well as CT attenuation corrected images were reviewed. The gated study shows normal LV systolic function with calculated LVEF of 60%. LV cavity is normal in size. The gated study shows normal wall thickening and contraction of segments. Resting study shows no significant perfusion abnormality. Gating at rest reveals normal wall motion with ejection fraction at 59%. The findings are consistent with no clear reversible or fixed perfusion abnormality. NM/NM cardiolite stress test Impression: 1. Myocardial perfusion imaging study shows normal myocardial perfusion. 2. Gated LVEF is 50% during stress and 59% during rest. 3. Transient ischemic dilatation not present. EKG component of the test reported separately.
--- NOTE | 2023-10-06 08:49 | CA_ITS ---
Acquisition Time: 2023-10-06 10:17:20 Total Exercise Time: 00:02:00 Test Indications: PVC'S AFIB Medications: SEE H Protocol: LEXISCAN Max HR: 084 BPM 60% of Pred: 138 BPM Max BP: 140/090 mmHG Max Work Load: 1.0 METS Pharmacological stress test with Lexiscan inejction while sitting, without anginal symptoms, with isolated PVCS, with normotensive resposne to injection, with nondiagnoisitic EKGs. Aminophylline 75mg IVP given to reverse Lexiscan. Nuclear images pending. Test reviewed with Dr. Beavers. Referred By: Barbie Mendoza Overread By: Barbie Mendoza
--- NOTE | 2023-10-06 08:49 | CA_ITS ---
Transthoracic Echocardiogram Patient (Last, First, Middle): Colton Black, Gender: Male Date of : 1940 Age: 83 Procedure Date: 10/06/2023 Procedure Type: Transthoracic Echocardiogram Location: OP Height: 167.64 cm Weight: 79.38 kg BSA: 1.89 m2 Heart Rate: bpm BP: 110 / 70 mmHg Bad Work Gatherer: TO Referring MD: Barbie Mendoza NP Symptoms: I48.0 - Paroxysmal atrial fibrillation Study Quality: Fair Conclusions: - Normal left ventricular size and systolic function. There is mildly increased left ventricular wall thickness. The visually estimated ejection fraction is between 55-60%. - Normal right ventricular cavity size and systolic function. - The left atrium is moderately dilated. - There is mild dilatation of the sinuses of Valsalva measuring 3.80 cm and mild dilatation of the ascending aorta measuring 3.90 cm. Findings Left Ventricle Normal left ventricular size and systolic function. There is mildly increased left ventricular wall thickness. The visually estimated ejection fraction is between 55-60%. There is no evidence of regional wall motion abnormalities. Diastolic function is indeterminate on the basis of available data. Right Ventricle Normal right ventricular cavity size and systolic function. Atria The left atrium is moderately dilated. The right atrium is normal in size. Aortic Valve Normal aortic valve structure and function. There is no aortic valve stenosis. There is no aortic valve regurgitation. Mitral Valve Normal mitral valve structure and function. There is no mitral valve regurgitation. There is no mitral valve stenosis. Pulmonic Valve The pulmonic valve is normal. There is trace pulmonic valve regurgitation. Tricuspid Valve Normal tricuspid valve structure. There is no tricuspid valve regurgitation. Normal right atrial pressure. There is no evidence of pulmonary hypertension. Great Vessels There is mild dilatation of the sinuses of Valsalva measuring 3.80 cm and mild dilatation of the ascending aorta measuring 3.90 cm. The visualized portions of the pulmonary artery and branches are normal. Venous The inferior vena cava is normal in size and collapses greater than 50% with inspiration. Pericardium/Pleural There is no evidence of pericardial effusion. Measurements 2D Linear Measurements IVSd: 1.29 0.6-0.9/0.6-1.0 cm LVIDd: 3.44 3.9-5.3/4.2-5.9 cm LVIDd Index: 1.82 2.4-3.2/2.2-3.1 cm/m2 LVIDs: 2.73 2.0-3.6 cm LVPWd: 1.03 0.7-1.1 cm LA Diam: 3.50 2.7-3.8/3.0-4.0 cm LAIDs Index: 1.85 1.5-2.3 cm/m2 LV Mass: 156.41 67-162/88-224 g LV Mass Index: 82.76 43-95/49-115 g/m2 LVOT Diam: 2.20 3.0+(-)1.3 cm 2D Systolic Function EF 4C: 49.40 >55% EF 2C: 54.70 >55% EF BiP: 52.60 >55% Mitral Valve MV Pk E: 0.77 MV Decel Time: 234.00 E'Lateral: 8.74 E'Medial: 7.39 E/E' Med: 10.40 E/E' Lat: 8.80 PHT: 68.00 MVA PHT: 3.24 Decel Cayey: 3.36 Aortic Valve AoV Pk Jayson: 0.94 AoV Mn Jayson: 0.62 AoV VTI: 0.19 AoV Pk Grad: 4.00 Aov Mn Grad: 2.00 GO Cont.VTI: 2.56 LVOT LVOT Pk Jayson: 0.65 LVOT Mn Jayson: 0.42 LVOT VTI: 0.13 LVOT Pk Grad: 2.00 LVOT Mn Grad: 1.00 LVOT Diam: 2.20 LVOT Area: 3.80 Diastolic Function MV Pk E: 0.77 E'Medial: 7.39 E/E' Med: 10.40 E' Laterial: 8.74 E/E' Lat: 8.80 Right Ventricle TAPSE (mm): 17.50 TVS' Jayson: 10.70 Tricuspid Valve TR Pk Jayson: 2.06 TR Pk Grad: 17.00 RA Press: 3.00 RVSP: 20.00 Great Vessels Aorta Sinus of Valsalva: 3.80 2.0-3.5 cm Ao Asc: 3.90 2.1-3.4 cm Ao Arch: 3.10 Updated in Other Vendor System with Status of Final Julius Beavers MD electronically signed on 10/09/2023 9:28:36 PM with status of Final
== END ==
LOC: HO.CARD 08:43
PROVIDERS: PCP Family Medicine; Visit Provider Nurse Practitioner
DX: I48.0 Paroxysmal atrial fibrillation (principal)
CPT/HCPCS: 78452; 93017; 93306; A9500; J0280; J2785

== ENCOUNTER → 2023-10-06 08:49 | Outpatient (BNV) | payer MEDICARE, SELFPAY | PROVIDERS: PCP Family Medicine; Visit Provider Internal Medicine Cardiovascular Disease | DX: I51.7 Cardiomegaly (principal); I48.0 Paroxysmal atrial fibrillation; R93.1 Abnormal findings on diagnostic imaging of heart and coronary circulation | CPT/HCPCS: 78452; 93016; 93018; 93350 ==

== ENCOUNTER 2023-10-17 13:59 | Outpatient (AMB) | payer MEDICARE, SELFPAY ==
--- NOTE | 2023-10-17 14:05 | A.OFFVIS_ITS ---
Vital Signs 10/17/23 14:06 Height 5 ft 6 in Weight 174 lb 2.643 oz BMI 28.1 BP 118/60 Blood Pressure Location Lt brachial Position Sitting Pulse 86 Pulse Source Pulse Oximeter Intake Visit Reasons: 8wk f/wh-ytyw-gihn-home sleep Allergies tetracycline [TETRACYCLINE] Allergy (Intermediate, Verified 12/30/21 15:17) RASH Medication List - Last Reconciled 10/23/23 by Barbie Mendoza NP acetaminophen 500 mg PO QID PRN amlodipine 2.5 mg PO DAILY apixaban (Eliquis) 5 mg PO BID cholecalciferol (vitamin D3) (Vitamin D3) 25 mcg PO DAILY fluticasone propionate 50 mcg/actuation 1 spray intranasal BID loratadine (Allergy Relief (loratadine)) 10 mg PO DAILY omeprazole 20 mg PO DAILY ondansetron HCl 4 mg PO Q6H simethicone (Gas Relief (simethicone)) 125 mg PO BID-QID PRN HPI Comments Details: 83-year-old male presents today for a follow-up regarding paroxysmal atrial fibrillation. Patient was in the emergency room on 08/11/2023 for atrial fibrillation. He was sent from [facility]. He was started on Eliquis but recently switched to Xarelto but went back to Eliquis due to Xarelto making nose bleeds worse. He reports he does not feel when he is in atrial fibrillation. He reports he feels fatigue but otherwise normal. He reports he has been getting nose bleeds which he is able to control and has improved. Denies any other signs of bleeding currently. Patient refused sleep study. [facility] Medical History Paroxysmal atrial fibrillation Epistaxis Hypersomnia Subdural hematoma History of kidney stones Dysthymic disorder Calculus of gallbladder without cholangitis or cholecystitis Ganglion cyst of finger of left hand B12 deficiency Sensorineural hearing loss Pes planovalgus Malignant neoplasm of urinary bladder Actinic keratosis Osteoarthritis Depression Allergic rhinitis Primary osteoarthritis involving multiple joints Pulmonary hypertension Essential hypertension Pain, dental GERD (gastroesophageal reflux disease) Frequent PVCs Social History Alcohol intake: never Patient Tobacco Use Status: Former Tobacco user Review of Systems Const Denies weakness ENT Denies dizziness Card Denies chest pain, Denies chest pain with activity, Denies syncope, Denies rapid heart rate, Denies pedal edema, Denies edema, Denies leg edema, Denies lightheadedness, Denies palpitations, Denies dyspnea, Denies dyspnea on exertion and Denies orthopnea Resp Denies cough, Denies dyspnea and Denies dyspnea on exertion GI Denies hematochezia and Denies change in stool character Musc Denies abnormal gait, Denies muscle cramps, Denies muscle weakness, Denies numbness, Denies radiating pain into limb and Denies tingling Neuro Denies abnormal gait, Denies dizziness, Denies syncope, Denies numbness, Denies tingling and Denies weakness Endo Denies palpitations Physical Exam Vital Signs: Last Vital Signs Pulse 86 10/17/23 14:06 BP 118/60 10/17/23 14:06 BMI result Body Mass Index 28.1 Results Reviewed Results Reviewed: Echo Conclusions: - Normal left ventricular size and systolic function. There is mildly increased left ventricular wall thickness. The visually estimated ejection fraction is between 55-60%. - Normal right ventricular cavity size and systolic function. - The left atrium is moderately dilated. - There is mild dilatation of the sinuses of Valsalva measuring 3.80 cm and mild dilatation of the ascending aorta measuring 3.90 cm. NM/NM cardiolite stress test Impression: 1. Myocardial perfusion imaging study shows normal myocardial perfusion. 2. Gated LVEF is 50% during stress and 59% during rest. 3. Transient ischemic dilatation not present. Assessment & Plan Assessment & Plan (1) Paroxysmal atrial fibrillation: Code(s): I48.0 - Paroxysmal atrial fibrillation Category: Medical Plan: Does not feel atrial fibrillation. Discussed pathophysiology of atrial fibrillation, signs and symptoms, and risk of stroke. He resumed back to [facility]. Mildly dilated atrium and mildly increased left ventricular wall thickness on echocardiogram. Normal EF. Blood pressure and rate control importance discussed. (2) Epistaxis: Code(s): R04.0 - Epistaxis Category: Medical Plan: He reports has gotten better. He is going to see ENT. Coding Level of Care Code Est Pt Level 3 (10339) Diagnoses Paroxysmal atrial fibrillation I48.0 Epistaxis R04.0
[2023-10-17 14:06] VITALS: BP 118/60; PULSE 86; BMI 28.1
== END 2023-10-17 14:57 | disposition home or self-care (01) ==
PROVIDERS: PCP Family Medicine; Visit Provider Nurse Practitioner
DX: I48.0 Paroxysmal atrial fibrillation (principal); R04.0 Epistaxis
CPT/HCPCS: 99213

== ENCOUNTER → 2023-10-17 13:59 | Outpatient (BNVA) | payer MEDICARE, OTHER, SELFPAY | PROVIDERS: PCP Family Medicine; Visit Provider Nurse Practitioner | DX: I48.0 Paroxysmal atrial fibrillation (principal); R04.0 Epistaxis; Z79.01 Long term (current) use of anticoagulants | CPT/HCPCS: 99212 ==

== ENCOUNTER 2023-11-01 12:12 | Outpatient (REF) | payer MEDICARE, SELFPAY ==
--- NOTE | ~2023-11-01 | XR_ITS ---
EXAMINATION: XR RIGHT KNEE XR LEFT KNEE XR RIGHT SHOULDER CLINICAL INFORMATION: Left knee pain, right knee pain, swelling medial aspect. Right shoulder pain with decreased range of motion, patient unable to abduct arm COMPARISON: 04/20/2016, 03/20/2015. TECHNIQUE: 3 views of each knee. FINDINGS: RIGHT KNEE: The bones are diffusely demineralized. Trace joint effusion. Advanced degenerative changes with marked narrowing of the medial and patellofemoral compartments as well as marginal osteophytes. Redemonstration of a cortical defect along the articular surface of the right medial femoral condyle suggestive of a possible osteochondral defect. Vascular calcifications. LEFT KNEE: Moderate narrowing of the medial compartment. Small medial marginal and posterior patellar osteophytes. Vascular calcifications. RIGHT SHOULDER: The bones are diffusely demineralized. Severe degenerative changes in the glenohumeral joint with subchondral sclerosis, and remodeling of articular surfaces and narrowing of the glenohumeral joint space. Mild degenerative changes in the acromioclavicular joint with joint space narrowing and hypertrophic change. Increased calcifications along the lateral aspect of the humeral head are suggestive of rotator cuff pathology. XR/XR knee LT 3V IMPRESSION: 1. Advanced degenerative changes right knee. 2. Moderate degenerative changes left knee. 3. Severe degenerative changes in the glenohumeral joint.
--- NOTE | ~2023-11-01 | XR_ITS ---
EXAMINATION: XR RIGHT KNEE XR LEFT KNEE XR RIGHT SHOULDER CLINICAL INFORMATION: Left knee pain, right knee pain, swelling medial aspect. Right shoulder pain with decreased range of motion, patient unable to abduct arm COMPARISON: 04/20/2016, 03/20/2015. TECHNIQUE: 3 views of each knee. FINDINGS: RIGHT KNEE: The bones are diffusely demineralized. Trace joint effusion. Advanced degenerative changes with marked narrowing of the medial and patellofemoral compartments as well as marginal osteophytes. Redemonstration of a cortical defect along the articular surface of the right medial femoral condyle suggestive of a possible osteochondral defect. Vascular calcifications. LEFT KNEE: Moderate narrowing of the medial compartment. Small medial marginal and posterior patellar osteophytes. Vascular calcifications. RIGHT SHOULDER: The bones are diffusely demineralized. Severe degenerative changes in the glenohumeral joint with subchondral sclerosis, and remodeling of articular surfaces and narrowing of the glenohumeral joint space. Mild degenerative changes in the acromioclavicular joint with joint space narrowing and hypertrophic change. Increased calcifications along the lateral aspect of the humeral head are suggestive of rotator cuff pathology. XR/XR shoulder RT min 2V IMPRESSION: 1. Advanced degenerative changes right knee. 2. Moderate degenerative changes left knee. 3. Severe degenerative changes in the glenohumeral joint.
--- NOTE | ~2023-11-01 | XR_ITS ---
EXAMINATION: XR RIGHT KNEE XR LEFT KNEE XR RIGHT SHOULDER CLINICAL INFORMATION: Left knee pain, right knee pain, swelling medial aspect. Right shoulder pain with decreased range of motion, patient unable to abduct arm COMPARISON: 04/20/2016, 03/20/2015. TECHNIQUE: 3 views of each knee. FINDINGS: RIGHT KNEE: The bones are diffusely demineralized. Trace joint effusion. Advanced degenerative changes with marked narrowing of the medial and patellofemoral compartments as well as marginal osteophytes. Redemonstration of a cortical defect along the articular surface of the right medial femoral condyle suggestive of a possible osteochondral defect. Vascular calcifications. LEFT KNEE: Moderate narrowing of the medial compartment. Small medial marginal and posterior patellar osteophytes. Vascular calcifications. RIGHT SHOULDER: The bones are diffusely demineralized. Severe degenerative changes in the glenohumeral joint with subchondral sclerosis, and remodeling of articular surfaces and narrowing of the glenohumeral joint space. Mild degenerative changes in the acromioclavicular joint with joint space narrowing and hypertrophic change. Increased calcifications along the lateral aspect of the humeral head are suggestive of rotator cuff pathology. XR/XR knee RT 3V IMPRESSION: 1. Advanced degenerative changes right knee. 2. Moderate degenerative changes left knee. 3. Severe degenerative changes in the glenohumeral joint.
== END 2023-11-01 12:13 | disposition home or self-care (01) ==
LOC: HO.XRAY 12:12
PROVIDERS: PCP Family Medicine; Visit Provider Family Medicine
DX: M25.561 Pain in right knee (principal); M25.562 Pain in left knee; M25.511 Pain in right shoulder; G89.29 Other chronic pain
CPT/HCPCS: 73030; 73562

== ENCOUNTER 2023-11-17 11:33 | Outpatient (AMB) | payer MEDICARE, MEDICAID, SELFPAY ==
--- NOTE | 2023-11-17 11:36 | MHC.OFFVIS ---
Intake Visit Reasons: hematuria/ hx of bladder cancer Intake Note: Patient is present for HEMATURIA/HX OF BLADDER CANCER Urology Medication:NONE Antibiotic Allergy:TETRACTCLINE Blood Thinner:NONE Commercial Airline Pilot Required: No Allergies tetracycline [TETRACYCLINE] Allergy (Intermediate, Verified 11/17/23 11:38) RASH HPI Comments Details: Colton is a pleasant male. He is a patient of Dr. Ragland. He has seen for the following urologic conditions. - hematuria Hematuria Had multiple episodes of hematuria after starting anticoagulation for AFib Has mostly resolved after cutting down anticoagulation dosage Per history had bladder lesion in the past Recommend check cystoscopy [facility] Medical History Paroxysmal atrial fibrillation Epistaxis Hypersomnia Subdural hematoma History of kidney stones Dysthymic disorder Calculus of gallbladder without cholangitis or cholecystitis Ganglion cyst of finger of left hand B12 deficiency Sensorineural hearing loss Pes planovalgus Malignant neoplasm of urinary bladder Actinic keratosis Osteoarthritis Depression Allergic rhinitis Primary osteoarthritis involving multiple joints Pulmonary hypertension Essential hypertension Pain, dental GERD (gastroesophageal reflux disease) Frequent PVCs Social History Alcohol intake: never Patient Tobacco Use Status: Former Tobacco user Review of Systems Const Denies chills and Denies fever(s) Card Reports no additional complaints and Denies syncope Resp Denies cough GI Denies abdominal pain and Denies heartburn Reports as per HPI and Denies change in libido Neuro Denies syncope Psych Denies change in libido Endo Denies change in libido Physical Exam Const General: cooperative, healthy appearing, comfortable and no acute distress Orientation/consciousness: patient oriented x3 HEENT Face and sinus: Yes normal facial exam Mouth: moist mucous membranes Neck Neck: Yes normal visual inspection, Yes full ROM and Yes trachea midline Chest Chest palpation & inspection: normal inspection of the chest Resp Effort & Inspection: normal respiratory effort, able to speak in complete sentences and no respiratory distress GI Inspection: Yes normal to inspection Back/Spine/Pelvis Cervical Spine: normal cervical lordosis Thoracic/Lumbar Spine: thoracic and lumbar spine normal to inspection Skin General skin exam: no rashes or lesions noted Neuro General: patient oriented x3, gait normal, tone normal and moves all extremities Extrem General: Yes normal to inspection and Yes capillary refill normal Results AMB Urinalysis, Automated UA Leukoctes 15 Leila/uL Last Edit by MILEY Frey on 11/17/23 11:49 UA Nitrite Negative Last Edit by MILEY Frey on 11/17/23 11:49 UA Urobilinogen 0.2 mg/dL Last Edit by Bethanie Mooney [facility] on 11/17/23 11:49 UA Protein 15 mg/dL Last Edit by Bethanie Mooney [facility] on 11/17/23 11:49 UA pH 6.0 Last Edit by Bethanie Mooney [facility] on 11/17/23 11:49 UA Blood 25 Diego/uL Last Edit by Bethanie Mooney [facility] on 11/17/23 11:49 UA Specific [place] 1.020 Last Edit by MILEY Frey on 11/17/23 11:49 UA Ketone Negative Last Edit by Bethanie Mooney [facility] on 11/17/23 11:49 UA Bilirubin 0 mg/dL Last Edit by Bethanie Mooney [facility] on 11/17/23 11:49 UA Glucose 0 mg/dL Last Edit by Bethanie Mooney [facility] on 11/17/23 11:49 Assessment & Plan Assessment & Plan (1) Gross hematuria: Code(s): R31.0 - Gross hematuria Category: Medical Plan Office cystoscopy Orders: Orders AMB Urinalysis Automated Today Z13.9 - Encounter for screening, unspecified Patient Instructions: Imaging studies, laboratory and physical exam results were discussed and reviewed in detail. No major barriers to patient understanding were identified. An opportunity to ask questions regarding the treatment plan was provided. All questions were answered. The patient expressed understanding and agreement with the above treatment plan. The patient is aware they should contact our office by phone for worsening of their current condition or the appearance of new urologic symptoms. Compliance is encouraged with any medications and followup testing that is ordered. It is a privilege to participate in the urologic care of your patient. If you have any questions or concerns regarding treatment for the above conditions, or other urologic issues, please do not hesitate to contact me. The office telephone contact is [phone]. This note is constructed using voice recognition software. While every effort has been made to ensure accuracy financial institution vice president errors may have been included. Yours sincerely, Dr Ronald Maxwell MD, PAVEL [facility] - Urology Providers of Expert, Compassionate Care for the Genitourinary System Coding Level of Care Code New Pt Level 4 (77707) Diagnoses Gross hematuria R31.0
== END 2023-11-17 12:06 | disposition home or self-care (01) ==
PROVIDERS: PCP Family Medicine; Visit Provider Urology
DX: R31.0 Gross hematuria (principal); Z13.9 Encounter for screening, unspecified
CPT/HCPCS: 99204

== ENCOUNTER → 2023-11-17 11:33 | Outpatient (BNVA) | payer MEDICARE, MEDICAID, SELFPAY | PROVIDERS: PCP Family Medicine; Visit Provider Urology | DX: R31.0 Gross hematuria (principal); Z85.51 Personal history of malignant neoplasm of bladder | CPT/HCPCS: 81003; 99202 ==

== ENCOUNTER 2024-03-13 14:03 | Outpatient (REF) | payer MEDICARE, MEDICAID, SELFPAY ==
[2024-03-13 16:39] LABS: Urine Cytology See Pathology rpt
== END 2024-03-13 14:04 | disposition home or self-care (01) ==
LOC: HO.LAB 14:03
PROVIDERS: PCP Family Medicine; Visit Provider Urology
DX: C67.9 Malignant neoplasm of bladder, unspecified (principal); R31.0 Gross hematuria; I48.91 Unspecified atrial fibrillation; Z79.01 Long term (current) use of anticoagulants; Z98.890 Other specified postprocedural states
CPT/HCPCS: 52000; 81003; 88112; 99212

== ENCOUNTER 2024-03-13 14:03 | Outpatient (AMB) | payer MEDICARE, MEDICAID, SELFPAY ==
--- NOTE | 2024-03-13 14:27 | A.OFFVIS_ITS ---
Intake Visit Reasons: Cystoscopy(HX Bladder CA) Intake Note: Patient is Present for Cystoscopy(Hx Bladder Ca) Urology Med: None Antibiotic Allergy: Tertracycline Blood Thinner: Eliquis Bladder Biopsy report scanned in. Dr Velez performed biopsy in 2019 Uro G HD Disposable Cystoscope: LOT: [id number] EXP:06/15/2026 Bleaching Machine Operator Required: No Accompanied by: Self / Same As Patient Allergies tetracycline [TETRACYCLINE] Allergy (Intermediate, Verified 03/13/24 14:40) RASH Medication List - Last Reconciled 03/13/24 by Ronald Maxwell MD acetaminophen 500 mg PO QID PRN amlodipine 2.5 mg PO DAILY apixaban (Eliquis) 5 mg PO BID cholecalciferol (vitamin D3) (Vitamin D3) 25 mcg PO DAILY fluticasone propionate 50 mcg/actuation 1 spray intranasal BID loratadine (Allergy Relief (loratadine)) 10 mg PO DAILY omeprazole 20 mg PO DAILY ondansetron HCl 4 mg PO Q6H simethicone (Gas Relief (simethicone)) 125 mg PO BID-QID PRN HPI Comments Details: Colton is a pleasant male. He is a patient of Dr. Ragland. He has seen for the following urologic conditions. - hematuria - bladder cancer Here for check cystoscopy Recurrent multifocal superficial bladder cancer Recommend TURBT with mitomycin-C Will need upper tract imaging Hematuria Had multiple episodes of hematuria after starting anticoagulation for AFib Has mostly resolved after cutting down anticoagulation dosage Bladder cancer - high-grade T1 2019 TURBT 2019 high-grade T1 PFSH Medical History (Updated 03/13/24 @ 15:01 by Ronald Maxwell MD) Paroxysmal atrial fibrillation Epistaxis Hypersomnia Subdural hematoma History of kidney stones Dysthymic disorder Calculus of gallbladder without cholangitis or cholecystitis Ganglion cyst of finger of left hand B12 deficiency Sensorineural hearing loss Pes planovalgus Malignant neoplasm of urinary bladder Actinic keratosis Osteoarthritis Depression Allergic rhinitis Primary osteoarthritis involving multiple joints Pulmonary hypertension Essential hypertension Pain, dental GERD (gastroesophageal reflux disease) Frequent PVCs Social History Alcohol intake: never Patient Tobacco Use Status: Former Tobacco user Review of Systems Const Denies chills and Denies fever(s) Card Reports no additional complaints and Denies syncope Resp Denies cough GI Denies abdominal pain and Denies heartburn Reports as per HPI and Denies change in libido Neuro Denies syncope Psych Denies change in libido Endo Denies change in libido Physical Exam Const General: cooperative, healthy appearing, comfortable and no acute distress Orientation/consciousness: patient oriented x3 HEENT Face and sinus: Yes normal facial exam Mouth: moist mucous membranes Neck Neck: Yes normal visual inspection, Yes full ROM and Yes trachea midline Chest Chest palpation & inspection: normal inspection of the chest Resp Effort & Inspection: normal respiratory effort, able to speak in complete sentences and no respiratory distress GI Inspection: Yes normal to inspection Back/Spine/Pelvis Cervical Spine: normal cervical lordosis Thoracic/Lumbar Spine: thoracic and lumbar spine normal to inspection Skin General skin exam: no rashes or lesions noted Neuro General: patient oriented x3, gait normal, tone normal and moves all extremities Extrem General: Yes normal to inspection and Yes capillary refill normal Office Procedures Cystoscopy Consent Discussed risk and benefit or proposed procedure with the patient. Information consent for procedure given to the patient. Discussed technical aspects, risks, benefits and alternatives in full. Addressed all of the patient's questions and concerns regarding the procedure. The patient demonstrated knowledge and understanding. They wish to proceed with this procedure. Preparation The patient was prepped in the usual manner. A fabrication operator was present and in the room. Genitalia was prepped with betadine solution in a sterile manner. Lidocaine Jelly 2% was placed into the urethra and 16Fr flexible Olympus cystoscope was inserted into the meatus after adequate lubrication. Procedure Cystoscopy performed using a disposable Urovue digital 16 Montserratian cystoscope. Meatus circumcised Urethra anterior and posterior urethra normal Prostatic Urethra TURP defect with superficial bladder cancer Bladder examination with retroflexion of cystoscope Bladder Orifices normal shape and position Bladder Capacity median Trabeculations grade 2 Cellule Formation yes Diverticulum Formation no Mucosal Erythema normal Bladder Tumor multifocal superficial 1 cm bladder cancer [id number] DISPOSABLE SCOPE URO-G FLEXIBLE SCOPE Procedure code (CPT) selection complete Office Meds lidocaine HCl 2 % mucosal jelly in applicator Performing Provider: Ronald Maxwell MD [facility] Administered by: Venkat Monteiro LPN on 03/13/24 14:42 Dose Route Admin Location Dispensed Lot Number Expiration Date [facility] Day Care Aide 10 mL intra-urethral 10 mL nitrofurantoin monohydrate/macrocrystals 100 mg capsule Performing Provider: Ronald Maxwell MD Performing Location: [facility] Documented (not given) by: Venkat Monteiro LPN on 03/13/24 14:42 Reason Not Given: No Longer Necessary naproxen 500 mg tablet Performing Provider: Ronald Maxwell MD Performing Location: [facility] Administered by: Venkat Monteiro LPN on 03/13/24 14:42 Dose Route Admin Location Dispensed Lot Number Expiration Date [facility] Day Care Aide 500 mg PO 1 tab Results AMB Urinalysis, Automated UA Leukoctes 0 Leila/uL Last Edit by Marcelle Nayak [facility] on 03/13/24 14:40 UA Nitrite Negative Last Edit by Marcelle Nayak [facility] on 03/13/24 14:40 UA Urobilinogen 0.2 mg/dL Last Edit by Marcelle Nayak A on 03/13/24 14:4 0 UA Protein 0 mg/dL Last Edit by Marcelle Nayak [facility] on 03/13/24 14:40 UA pH 6.0 Last Edit by Marcelle Nayak A on 03/13/24 14:40 UA Blood 0 Diego/uL Last Edit by Marcelle Nayak [facility] on 03/13/24 14:40 UA Specific [place] 1.015 Last Edit by Marcelle Nayak [facility] on 03/13/24 14: 40 UA Ketone Negative Last Edit by Marcelle Nayak [facility] on 03/13/24 14:40 UA Bilirubin 0 mg/dL Last Edit by Marcelle Nayak [facility] on 03/13/24 14:40 UA Glucose 0 mg/dL Last Edit by Marcelle Nayak [facility] on 03/13/24 14:40 Results Reviewed Results Reviewed: Laboratory Last Values Urine pH (Auto) 6.0 03/13/24 14:39 Specific [place] (Auto) 1.015 03/13/24 14:39 Urine Protein (Auto) 0 mg/dL 03/13/24 14:39 Glucose (UA)(Auto) 0 mg/dL 03/13/24 14:39 Urine Ketones (Auto) Negative 03/13/24 14:39 Urine Blood (Auto) 0 Diego/uL 03/13/24 14:39 Urine Nitrite (Auto) Negative 03/13/24 14:39 Urine Bilirubin (Auto) 0 mg/dL 03/13/24 14:39 Urine Urobilinogen (Auto) 0.2 mg/dL 03/13/24 14:39 Leukocyte Esterase (Auto) 0 Leila/uL 03/13/24 14:39 Assessment & Plan Assessment & Plan (1) Malignant neoplasm of urinary bladder: Code(s): C67.9 - Malignant neoplasm of bladder, unspecified Category: Medical (2) Gross hematuria: Code(s): R31.0 - Gross hematuria Category: Medical Plan Risks, benefits and alternatives to therapy were discussed. These include but are not limited to infection, bleeding, damage to local organs and tissues, need for further interventions. Anesthetic risks regarding cardiac arrhythmia, blood clots, and potential mortality were discussed. The patient understands the typical recovery time and the outpatient nature of the procedure. After consideration of these risks the patient gives full infor med consent and they wish to move ahead with the procedure. TURBT with mitomycin instillation Orders: Orders CT urogram Today C67.9 - Malignant neoplasm of bladder, unspecified, R31.0 - Gross hematuria AMB Urinalysis Automated Today Z13.9 - Encounter for screening, unspecified Urine Cytology Today Z85.51 - Personal history of malignant neoplasm of bladder AMB Cystoscopy Today R31.0 - Gross hematuria Patient Instructions: Imaging studies, laboratory and physical exam results were discussed and reviewed in detail. No major barriers to patient understanding were identified. An opportunity to ask questions regarding the treatment plan was provided. All questions were answered. The patient expressed understanding and agreement with the above treatment plan. The patient is aware they should contact our office by phone for worsening of their current condition or the appearance of new urologic symptoms. Compliance is encouraged with any medications and followup testing that is ordered. It is a privilege to participate in the urologic care of your patient. If you have any questions or concerns regarding treatment for the above conditions, or other urologic issues, please do not hesitate to contact me. The office telephone contact is [phone]. This note is constructed using voice recognition software. While every effort has been made to ensure accuracy copper tapper errors may have been included. Yours sincerely, Dr Ronald Maxwell MD, PAVEL [facility] - Urology Providers of Expert, Compassionate Care for the Genitourinary System Coding Level of Care Code Est Pt Level 4 (27745) Diagnoses Malignant neoplasm of urinary bladder C67.9 Gross hematuria R31.0 CPT Codes Cystoscopy - CPT: [id number] ([id number])
== END 2024-03-13 15:09 | disposition home or self-care (01) ==
LOC: HO.HUSH 14:03
PROVIDERS: PCP Family Medicine; Visit Provider Urology
DX: C67.9 Malignant neoplasm of bladder, unspecified (principal); R31.0 Gross hematuria; Z13.9 Encounter for screening, unspecified
CPT/HCPCS: 52000; 99214

== ENCOUNTER 2024-03-22 10:34 | Outpatient (AMB) | payer MEDICARE, MEDICAID, SELFPAY ==
[2024-03-22 10:58] VITALS: BP 134/62; PULSE 60; BMI 28.4
--- NOTE | 2024-03-22 10:58 | A.OFFVIS_ITS ---
Vital Signs 03/22/24 10:58 Height 5 ft 6 in Weight 175 lb 14.862 oz BMI 28.4 BP 134/62 Blood Pressure Location Rt brachial Position Sitting Pulse 60 Pulse Source Pulse Oximeter Intake Visit Reasons: 4 mth f/up per AC Intake Note: 4 mth f/up Chop Saw Operator Required: No Accompanied by: Self / Same As Patient Allergies tetracycline [TETRACYCLINE] Allergy (Intermediate, Verified 03/13/24 14:40) RASH Medication List - Last Reconciled 03/22/24 by Julius Beavers MD acetaminophen 500 mg PO QID PRN amlodipine 2.5 mg PO DAILY apixaban (Eliquis) 5 mg PO BID cholecalciferol (vitamin D3) (Vitamin D3) 25 mcg PO DAILY fluticasone propionate 50 mcg/actuation 1 spray intranasal BID loratadine (Allergy Relief (loratadine)) 10 mg PO DAILY omeprazole 20 mg PO DAILY ondansetron HCl 4 mg PO Q6H simethicone (Gas Relief (simethicone)) 125 mg PO BID-QID PRN HPI Comments Details: [age] year gentleman with background history of paroxysmal atrial fibrillation. He is on apixaban 5 mg twice a day. He returns for follow-up today. He is saying that he was getting left nostril nosebleeds and he has been using Eliquis twice a day 3 times a week. We discussed in detail that this strategy is not studied and he still has stroke risk if he does not take Eliquis regularly. He unfortunately also has been diagnosed with bladder cancer and will require surgery. He is quite concerned about bleeding and apprehensive about the surgery. He had Lexiscan recently which is normal. His ECHO did not show any LV dysfunction. He is denying any chest pain or shortness of breath otherwise too. [facility] Medical History (Updated 03/13/24 @ 15:01 by Ronald Maxwell MD) Paroxysmal atrial fibrillation Epistaxis Hypersomnia Subdural hematoma History of kidney stones Dysthymic disorder Calculus of gallbladder without cholangitis or cholecystitis Ganglion cyst of finger of left hand B12 deficiency Sensorineural hearing loss Pes planovalgus Malignant neoplasm of urinary bladder Actinic keratosis Osteoarthritis Depression Allergic rhinitis Primary osteoarthritis involving multiple joints Pulmonary hypertension Essential hypertension Pain, dental GERD (gastroesophageal reflux disease) Frequent PVCs Social History Alcohol intake: never Patient Tobacco Use Status: Former Tobacco user Review of Systems Const Denies chills, Denies fatigue, Denies fever(s), Denies frequent falls, Denies weakness, Denies weight gain and Denies weight loss ENT Denies dizziness Card Denies chest pain, Denies leg edema, Denies lightheadedness, Denies palpitations, Denies dyspnea and Denies dyspnea on exertion Resp Denies cough, Denies dyspnea and Denies dyspnea on exertion GI Denies hematochezia Musc Denies abnormal gait, Denies muscle weakness, Denies numbness, Denies radiating pain into limb and Denies tingling Neuro Denies abnormal gait, Denies dizziness, Denies frequent falls, Denies numbness, Denies tingling and Denies weakness Endo Denies fatigue and Denies palpitations Physical Exam Vital Signs: Last Vital Signs Pulse 60 03/22/24 10:58 BP 134/62 03/22/24 10:58 BMI result Body Mass Index 28.4 GENERAL APPEARANCE: in no acute distress, pleasant. NECK: no carotid bruit, no jugular venous distention. SKIN: no suspicious lesions, warm and dry. HEART: no murmurs, regular rate and rhythm. LUNGS: clear to auscultation bilaterally. ABDOMEN: soft, nontender. EXTREMITIES: no edema. PERIPHERAL PULSES: equal. NEUROLOGIC: No gross deficits, AAO X 3 Assessment & Plan Assessment & Plan (1) Paroxysmal atrial fibrillation: Code(s): I48.0 - Paroxysmal atrial fibrillation Category: Medical (2) Epistaxis: Code(s): R04.0 - Epistaxis Category: Medical (3) Malignant neoplasm of urinary bladder: Code(s): C67.9 - Malignant neoplasm of bladder, unspecified Category: Medical Plan [age] year gentleman with paroxysmal atrial fibrillation and hypertension. Blood pressure well controlled. He is in sinus rhythm currently. I have advised him to take Eliquis 5 mg twice a day regularly. We are referring him to ENT for further assessment or epistaxis. He has bladder cancer unfortunately and will require surgery. If he goes for surgery Eliquis can be held for 3-5 days-as per surgery recommendations. I discussed with him about Watchman device in case bleeding becomes a concern in the future. Overall he is intermediate risk for perioperative cardiovascular complications. Follow-up in 3-4 months with [facility]. Thank you for allowing me to participate in the care of your patient. Please feel free to contact me if you have any questions. Orders: Referrals Ear/Nose/Throat Referral R04.0 - Epistaxis Coding Level of Care Code Est Pt Level 5 (59179) Diagnoses Paroxysmal atrial fibrillation I48.0 Epistaxis R04.0 Malignant neoplasm of urinary bladder C67.9
== END 2024-03-22 11:41 | disposition home or self-care (01) ==
PROVIDERS: PCP Family Medicine; Visit Provider Internal Medicine Cardiovascular Disease
DX: I48.0 Paroxysmal atrial fibrillation (principal); R04.0 Epistaxis; C67.9 Malignant neoplasm of bladder, unspecified
CPT/HCPCS: 99214

== ENCOUNTER → 2024-03-22 10:34 | Outpatient (BNVA) | payer MEDICARE, MEDICAID, SELFPAY | PROVIDERS: PCP Family Medicine; Visit Provider Internal Medicine Cardiovascular Disease | DX: I48.0 Paroxysmal atrial fibrillation (principal); R04.0 Epistaxis; C67.9 Malignant neoplasm of bladder, unspecified | CPT/HCPCS: 99212 ==

== ENCOUNTER 2024-05-02 13:49 | Outpatient (AMB) | payer MEDICARE, MEDICAID, SELFPAY ==
--- NOTE | 2024-05-02 13:47 | A.OFFVIS_ITS ---
Intake Visit Reasons: Questions on Procedure Intake Note: Patient is present for QUESTIONS ON PROCEDURE Urology Medication:NONE Antibiotic Allergy:TETRACYCLINE Blood Thinner:APIXABAN I&C Technician Required: No Allergies tetracycline [TETRACYCLINE] Allergy (Intermediate, Verified 05/02/24 13:51) RASH HPI Comments Details: Colton is a pleasant male. He is a patient of Dr. Ragland. He has seen for the following urologic conditions. - hematuria - bladder cancer Telemedicine Evaluation 15 min Consultation [employer] V[facility] Video Had recent COVID with lingering effects Cystoscopy - Recurrent multifocal superficial bladder cancer Recommend TURBT with mitomycin-C Questions answered regarding length of procedure, same day status, anticoagulation Hematuria secondary to AFib Had multiple episodes of hematuria after starting anticoagulation for AFib Has mostly resolved after cutting down anticoagulation dosage Has complications from blood thinners Bladder cancer - high-grade T1 2019 TURBT 2019 high-grade T1 PFSH Medical History (Updated 05/02/24 @ 14:54 by Ronald Maxwell MD) Paroxysmal atrial fibrillation Epistaxis Hypersomnia Subdural hematoma History of kidney stones Dysthymic disorder Calculus of gallbladder without cholangitis or cholecystitis Ganglion cyst of finger of left hand B12 deficiency Sensorineural hearing loss Pes planovalgus Malignant neoplasm of urinary bladder Actinic keratosis Osteoarthritis Depression Allergic rhinitis Primary osteoarthritis involving multiple joints Pulmonary hypertension Essential hypertension Pain, dental GERD (gastroesophageal reflux disease) Frequent PVCs Social History Alcohol intake: never Patient Tobacco Use Status: Former Tobacco user Review of Systems Const All systems reviewed & are unremarkable except as noted in HPI and below Reports no additional complaints Resp Reports no additional complaints GI Reports no additional complaints Reports as per HPI Musc Reports no additional complaints Physical Exam Telemedicine evaluation Appropriate responses Regular breathing rate and rhythm HEENT Head: Yes normal to inspection Ears: hearing grossly normal bilaterally Eyes General: appearance normal, both eyes and all related structures Neck Neck: Yes normal visual inspection Chest Chest palpation & inspection: normal inspection of the chest Resp Effort & Inspection: normal respiratory effort and able to speak in complete sentences Telehealth Telehealth Location of provider rendering services: practice address Location of patient: address on file Patient Identification confirmed using: Name, : Yes Telehealth method: voice only Patient verbally consented to treatment: Yes Patient verbally consented to billing insurance company: Yes Patient informed of any privacy concerns related to visit: Yes Assessment & Plan Assessment & Plan (1) Malignant neoplasm of urinary bladder: Code(s): C67.9 - Malignant neoplasm of bladder, unspecified Category: Medical (2) Nocturia associated with benign prostatic hyperplasia: Code(s): N40.1 - Benign prostatic hyperplasia with lower urinary tract symptoms; R35.1 - Nocturia Category: Medical Plan Schedule procedure Risks, benefits and alternatives to therapy were discussed. These include but are not limited to infection, bleeding, damage to local organs and tissues, need for further interventions. Anesthetic risks regarding cardiac arrhythmia, blood clots, and potential mortality were discussed. The patient understands the typical recovery time and the outpatient nature of the procedure. After consideration of these risks the patient gives full informed consent and they wish to move ahead with the procedure. TURBT with mitomycin-C instillation Orders: Orders CT urogram Today C67.9 - Malignant neoplasm of bladder, unspecified, R31.0 - Gross hematuria Patient Instructions: Imaging studies, laboratory and physical exam results were discussed and reviewed in detail. No major barriers to patient understanding were identified. An opportunity to ask questions regarding the treatment plan was provided. All questions were answered. The patient expressed understanding and agreement with the above treatment plan. The patient is aware they should contact our office by phone for worsening of their current condition or the appearance of new urologic symptoms. Compliance is encouraged with any medications and followup testing that is ordered. It is a privilege to participate in the urologic care of your patient. If you have any questions or concerns regarding treatment for the above conditions, or other urologic issues, please do not hesitate to contact me. The office telephone contact is [phone]. This note is constructed using voice recognition software. While every effort has been made to ensure accuracy estate and trust tax principal errors may have been included. Yours sincerely, Dr Ronald Maxwell MD, [facility] - Urology Providers of Expert, Compassionate Care for the Genitourinary System Coding Level of Care Code Tele Est Pt Level 3 (83720) Diagnoses Malignant neoplasm of urinary bladder C67.9 Nocturia associated with benign prostatic hyperplasia N40.1; R35.1
--- OUTSIDE RECORDS SUMMARY | 2024-05-02 13:51 | XMS_ITS | Data Portability ---
Author Organization [facility], [facility] Address [address] [place] [address] Care Team Providers Care Hamper Maker Name Role Phone CHAPIN HARDING Primary Care Provider [phone] Assessment No assessment recorded. Plan of Treatment Reminders Order Date Submit Date Provider Last Modified By Organization Details Last Modified Time Details Appointments None record ed. Lab None record ed. Referral None record ed. Procedures None record ed. Surgeries None record ed. Imaging None record ed. Medication Orders None record ed. Patient TargetsNo targets recorded. Patient InstructionsNo instructions recorded. Reason for Referral None Reported. Results Created Date Observation Date Name Description Value Unit Range Abnormal Flag Note LastModifiedBy Organization Detail LastModifiedTime 11/23/19 24 11/01/2023 XR, knee No observ ation record ed. [email or web address] [facility] (Medical Records) [address] [place], [address], 11/24/2023 16:31:04 01/13/20 24 06/15/2018 imagi ng/di agnos tic resul t No observ ation record ed. [email or web address] Not Available 12/15 01:55:36 01/13/20 24 06/15/2018 imagi ng/di agnos tic resul t No observ ation record ed. [email or web address] Not Available 12/15 01:55:37 Result Notes None recorded. Procedures Surgical History Date Name Laterality Status Provider Name and Address Organization Details Recorded Time 4 Sports Shoulder completed Kera Wan MD [address], [place], [address], [place] - [facility] 11/15/2023 11:21:03 Imaging Results Imaging Date Name Status LastModified by Organiz ation Details LastModified Time 11/01/2023 XR, knee completed [email or web address] [facility] (Medical Records) [address] [place], [address], 11/24/2023 16:31:04 06/15/2018 imaging/diag nostic result completed Information not available 01/13/2024 01:55:36 06/15/2018 imaging/diag nostic result completed Information not available 01/13/2024 01:55:37 Procedure Notes None recorded. Medical Equipment None Reported. Allergies Allergen ID Allergen Name Allergen Category Reaction Reaction Severity Criticality Documentation Date Start Date Code Code System Note Provider Name and Address Organization Details Recorded Time 34966 tetracycl ine hydrochlo ride medicatio n Not available Not available Not available 07/17/20232018 53385 6 RxNorm Not Available [facility] 12:19:21 Medications Name Sig Start Date Stop Date Status Note LastModified by Organization Details LastModified Time cetirizine 5 mg tablet TAKE 1 TABLET BY MOUTH DAILY IN THE MORNING active Not Available Not Available No t Available amlodipine 2.5 mg tablet TAKE 1 TABLET BY MOUTH EVERY DAY, MAY INCREASE TO 2 TABLETS IF YOUR BLOOD PRESSURE IS still high active Not Available Not Available No t Available sulfamethox azole 800 mg-trimetho prim 160 mg tablet TAKE 1 TABLET BY MOUTH TWICE DAILY FOR 10 DAYS active Not Available Not Available No t Available acetaminoph en 500 mg tablet TAKE 1 TO 2 TABLETS BY MOUTH one OR TWO TIMES DAILY NEEDED active Not Available Not Available No t Available hydrocortis one 1 % topical cream APPLY A THIN LAYER TO AFFECTED AREA(S) ONCE DAILY active Not Available Not Available No t Available erythromyci n 5 mg/gram (0.5 %) eye ointment APPLY 0.5 INCH RIBBON TO IN THE LEFT EYE AT BEDTIME active Not Available Not Available No t Available cyanocobala min (vit B-12) 1,000 mcg/mL injection solution INJECT 1 ML INTRAMUSC ULARLY EVERY MONTH active Not Available Not Available No t Available fluticasone propionate 50 mcg/actuati on nasal spray,suspe nsion INSTILL 1 SPRAY IN EACH NOSTRIL TWICE DAILY active Not Available Not Available No t Available Vitamin D3 25 mcg (1,000 unit) capsule TAKE 1 CAPSULE BY MOUTH EVERY MORNING active Not Available Not Available No t Available blood pressure test kit-large cuff USE TO CHECK BLOOD PRESSURE EVERY DAY NEEDED 11/14 completed Not Available Not Available Not Available Xarelto 20 mg tablet TAKE 1 TABLET BY MOUTH EVERY DAY WITH DINNER active Not Available Not Available No t Available Eliquis 5 mg tablet TAKE 1 TABLET BY MOUTH TWICE DAILY active Not Available Not Available No t Available Vitals Date Recorded Body height Body mass index (BMI) Body weight Provider Name and Address Organization Details Last Updated DateTime 11/15/2023 170.18 cm 27.4 kg/m2 35514.66 g GABRIEL WATTERS [place] - [facility] 11/15/2023 10:38:25 Social History None recorded. Functional Status None recorded. Mental Status None recorded. Family History Nothing Reported. Medical History No medical history recorded. Past Encounters Encounter ID Performer Location Encounter Start Date Encounter Closed Date Diagnosis/Indication Diagnosis SNOMED-CT Code Diagnosis ICD10 Code [id number] [facility] [address] [address] [place] [address] 11/15/2023 10:29:45 11/15/2023 12:48:42 Osteoarthritis of joint of right shoulder region [id number] M19.011 Health Concerns Section Related Observation LastModified by Organization Detai ls LastModified Time None Recorded Concern Status LastModified by Organization Details LastModified Time None Recorded Advance Directives Directive None Recorded Payers Encounter Date Sequence Insurance Name Policy Number Policy Schmidt Covered Member ID Schmidt Member ID Guarantor Name 11/15/2023 1 MEDICARE B-[place]: [employer] [facility] Colton Black [id number] Colton Black Notes Date Note Type Note Provider Name and Address Organization Details Recorded Time 11/15/2023 text/html Chief Complaint: Right shoulder pain HPI: This is an 83-year-old izrav-vmri-frmrnnwx gentleman with chronic multi focal joint pain. Tells me he has been given a diagnosis of arthritis in the past. Right shoulder is particularly bothersome. Notes limited range of motion, crepitus. No blanca weakness. Denies numbness or tingling. Has been taking Tylenol for this, no other treatment. PMH: refused to fill out medical history PSH: refused to fill out medical history Meds: refused to fill out medical history Allergies: refused to fill out medical history Social Hx: Lives alone. refused to fill out medical history Family Hx: noncontributory ROS: Negative x12 except as noted above in the HPI Past family, medical, social history and review of systems have been reviewed and updated on the medical history sheet saved to the patient's chart. A 12-point review of systems is negative x12 except as noted above and/or on the medical history sheet. Examination: 83-year-old gentleman in no acute distress. 5 feet 7 inches, 175 pounds. On exam of the right upper extremity, skin over the shoulder is intact. No effusion, no gross atrophy. Mild tenderness to palpation over the bicipital groove. Active and passive forward elevation 90, external rotation 30, internal rotation back pocket. 4/5 strength with external rotation and with empty can, 5/5 with internal rotation. Negative Yergason's, though grinding sensation noted with this movement. Sensation intact in an axillary distribution. Fires EPL, FPL and intrinsics. Hand is warm and well-perfused. Imaging: Patient refused xrays here today. Had some recently at [facility], will try to get a copy of his disc to drop off at our office for later review. 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 Plan: Diagnosis of arthritis discussed. Options for management reviewed. Recommended starting with a course of conservative treatment. As tylenol does not seem to be helping, will go forward with a cortisone injection today. If helpful, this can be repeated as often as every 3 months. For occasional aches and pains, the patient can take hoyf-kzo-rbocmrx medication such as Tylenol or anti-inflammatories as needed; risks and benefits of medication discussed. Should call with more persistent pain. We will leave follow up open ended at this point. However should symptoms worsen or fail to improve to the patient's satisfaction, he is encouraged to give the office a call to be seen back for further evaluation and management. [facility] speech recognition soft sugar supervisor software was used to create portions of this document. An attempt at proofreading has been made to minimize errors. Please call for corrections. Kera Wan MD [address] [place], [place] [address], [place], [address], [facility] - [facility] 11/15/2023 12:09:43
== END 2024-05-02 15:56 | disposition home or self-care (01) ==
LOC: HO.HUSH 13:49
PROVIDERS: PCP Family Medicine; Visit Provider Urology
DX: C67.9 Malignant neoplasm of bladder, unspecified (principal); N40.1 Benign prostatic hyperplasia with lower urinary tract symptoms; R35.1 Nocturia
CPT/HCPCS: 99442

== ENCOUNTER 2024-05-13 09:41 | Outpatient (REF) | payer MEDICARE, MEDICAID, SELFPAY ==
--- NOTE | ~2024-05-13 | CT_ITS ---
CLINICAL HISTORY: C67.9 - Malignant neoplasm of bladder, unspecified CT abdomen and pelvis with and with the IV contrast. COMPARISON: None FINDINGS: Minimal atelectasis along the lung bases bilaterally. Mild bronchiectasis along the partially visualized right lung base. Hepatic steatosis. Cholelithiasis layering within the gallbladder. No pericholecystic inflammatory changes. Spleen, pancreas and adrenal glands are unremarkable. Nonobstructing 3 mm left renal calculus. Nonobstructing right renal calculi measuring 2 mm and 3 mm of the inferior pole of the right kidney. No hydronephrosis bilaterally. No ureteral calculus bilaterally. Symmetric renal enhancement. No renal mass identified. Appendix is not seen. No pericecal inflammatory changes. Moderate distal colonic diverticulosis without evidence of diverticulitis. Mild colonic stool burden. No bowel obstruction. No mesenteric or retroperitoneal lymphadenopathy. Moderate aortoiliac atherosclerotic vascular calcifications. 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 Urinary bladder is unremarkable. No focal bladder wall thickening identified. Prostate calcifications present. No inguinal or pelvic lymphadenopathy. Rightward curvature of the lower lumbar spine. Grade 1 anterolisthesis of L4 on L5, degenerative. Advanced multilevel spondylosis. No acute fracture or suspicious bone lesion. IMPRESSION: 1. No evidence of renal obstruction. No renal mass or urinary bladder mass identified. 2. Nonobstructing renal calculi present bilaterally measuring up to 3 mm. 3. 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 4. Hepatic steatosis. This document has been electronically signed by: Luis De La Cruz MD on 05/13/2024 14:34:19
[2024-05-13 10:43] LABS: Blood Urea Nitrogen 9 mg/dL (9-16); Estimated Glomerular Filt Rate > 60
[2024-05-13] MEDS: iohexoL 350 MG/ML 100 ML INFUS..BTL IV (11:21)
== END 2024-05-13 09:42 | disposition home or self-care (01) ==
LOC: HO.CT 09:41
PROVIDERS: PCP Family Medicine; Visit Provider Urology
DX: C67.9 Malignant neoplasm of bladder, unspecified (principal); R31.0 Gross hematuria
CPT/HCPCS: 36415; 74178; 82565; 84520; Q9967

== ENCOUNTER → 2024-05-13 10:10 | Outpatient (BNV) | payer MEDICARE, MEDICAID, SELFPAY | PROVIDERS: PCP Family Medicine; Visit Provider Radiology Diagnostic Radiology | DX: C67.9 Malignant neoplasm of bladder, unspecified (principal) | CPT/HCPCS: 74178 ==

== ENCOUNTER 2024-05-28 15:09 | Outpatient (AMB) | payer OTHER, MEDICAID, SELFPAY ==
--- NOTE | 2024-05-28 15:10 | A.OFFVIS_ITS ---
Intake Visit Reasons: CT scan results(set) Intake Note: Patient is present for CT SCAN RESULTS Urology Medication:NONE Antibiotic Allergy:TETRACYCLINE Blood Thinner:APIXABAN Associate Sales Representative Required: No Allergies tetracycline [TETRACYCLINE] Allergy (Intermediate, Verified 05/28/24 15:11) RASH HPI Comments Details: Colton is a pleasant male. He is a patient of Dr. Ragland. He has seen for the following urologic conditions. - hematuria - bladder cancer Telemedicine Evaluation 15 min Consultation [employer] V[facility]ha Video Cystoscopy - Recurrent multifocal superficial bladder cancer Recommend TURBT with mitomycin-C Questions answered regarding length of procedure, same day status, anticoagulation Imaging stable - 05/07 CT Urinary bladder is unremarkable. No focal bladder wall thickening identified. Prostate calcifications present. No inguinal or pelvic lymphadenopathy. Hematuria secondary to AFib Had multiple episodes of hematuria after starting anticoagulation for AFib Has mostly resolved after cutting down anticoagulation dosage Has complications from blood thinners Bladder cancer - high-grade T1 2019 TURBT 2019 high-grade T1 PFSH Medical History (Updated 05/02/24 @ 14:54 by Ronald Maxwell MD) Paroxysmal atrial fibrillation Epistaxis Hypersomnia Subdural hematoma History of kidney stones Dysthymic disorder Calculus of gallbladder without cholangitis or cholecystitis Ganglion cyst of finger of left hand B12 deficiency Sensorineural hearing loss Pes planovalgus Malignant neoplasm of urinary bladder Actinic keratosis Osteoarthritis Depression Allergic rhinitis Primary osteoarthritis involving multiple joints Pulmonary hypertension Essential hypertension Pain, dental GERD (gastroesophageal reflux disease) Frequent PVCs Social History Alcohol intake: never Patient Tobacco Use Status: Former Tobacco user Review of Systems Const All systems reviewed & are unremarkable except as noted in HPI and below Reports no additional complaints Resp Reports no additional complaints GI Reports no additional complaints Reports as per HPI Musc Reports no additional complaints Physical Exam Telemedicine evaluation Appropriate responses Regular breathing rate and rhythm HEENT Head: Yes normal to inspection Ears: hearing grossly normal bilaterally Eyes General: appearance normal, both eyes and all related structures Neck Neck: Yes normal visual inspection Chest Chest palpation & inspection: normal inspection of the chest Resp Effort & Inspection: normal respiratory effort and able to speak in complete sentences Telehealth Telehealth Telehealth Platform: [employer] Location of provider rendering services: practice address Location of patient: address on file Patient Identification confirmed using: Name, : Yes Telehealth method: video Patient verbally consented to treatment: Yes Patient verbally consented to billing insurance company: Yes Patient informed of any privacy concerns related to visit: Yes Minutes spent on Phone/Video with Pt.: 15 Assessment & Plan Assessment & Plan (1) Malignant neoplasm of urinary bladder: Code(s): C67.9 - Malignant neoplasm of bladder, unspecified Category: Medical Plan Plan procedure upcoming Patient Instructions: Imaging studies, laboratory and physical exam results were discussed and reviewed in detail. No major barriers to patient understanding were identified. An opportunity to ask questions regarding the treatment plan was provided. All questions were answered. The patient expressed understanding and agreement with the above treatment plan. The patient is aware they should contact our office by phone for worsening of their current condition or the appearance of new urologic symptoms. Compliance is encouraged with any medications and followup testing that is ordered. It is a privilege to participate in the urologic care of your patient. If you have any questions or concerns regarding treatment for the above conditions, or other urologic issues, please do not hesitate to contact me. The office telephone contact is [phone]. This note is constructed using voice recognition software. While every effort has been made to ensure accuracy convention services manager errors may have been included. Yours sincerely, Dr Ronald Maxwell MD, P[facility] - Urology Providers of Expert, Compassionate Care for the Genitourinary System Coding Level of Care Code Tele Est Pt Level 3 (56470) Diagnoses Malignant neoplasm of urinary bladder C67.9
--- OUTSIDE RECORDS SUMMARY | 2024-05-28 17:38 | XMS_ITS | Data Portability ---
Author Organization [facility], [facility] Address [address] [place] [address] Care Team Providers Care Progress Developer Name Role Phone CHAPIN HARDING Primary Care Provider Assessment No assessment recorded. Plan of Treatment [...] knee No observ ation record ed. [email or web address] [facility] (Medical Records) [address] [place], [address], 11/24/2023 16:31:04 01/13/20 24 06/15/2018 imagi ng/di [...] Sports Shoulder completed Kera Wan MD [address] [facility] [address], [place], [address], [place] - [facility] 11/15/2023 11:21:03 Imaging Results Imaging Date Name Status LastModified by Organiz ation Details LastModified Time 11/01/2023 XR, knee completed [email or web address] [facility] (Medical Records) [address] [place], [address], 11/24/2023 16:31:04 06/15/2018 imaging/diag nostic result completed Information not available 01/13/2024 01:55:36 06/15/2018 imaging/diag nostic result completed Information not available 01/13/2024 01:55:37 Procedure Notes None recorded. Medical Equipment None Reported. Allergies Allergen ID Allergen Name Allergen Category Reaction Reaction Severity Criticality Documentation Date Start Date Code Code System Note Provider Name and Address Organization Details Recorded Time 25902 tetracycl ine hydrochlo ride medicatio n Not available Not available Not available 07/17/20232018 19190 6 RxNorm Not Available [facility] 12:19:21 Medications Name Sig Start Date [...] Updated DateTime 11/15/2023 170.18 cm 27.4 kg/m2 34915.66 g GABRIEL WATTERS [place] - [facility] 11/15/2023 10:38:25 Social History None recorded. Functional Status None recorded. Mental Status None recorded. Family History Nothing Reported. Medical History No medical history recorded. Past Encounters Encounter ID Performer Location Encounter Start Date Encounter Closed Date Diagnosis/Indication Diagnosis SNOMED-CT Code Diagnosis ICD10 Code Diagnosis Note [id number] [facility] [address] [place] [address] 11/15/2023 10:29:45 11/15/2023 12:48:42 Osteoarthritis of joint of right shoulder region [id number] 01340 M19.011 Health Concerns Section Related Observation LastModified by Organization Detai ls LastModified Time None Recorded Concern Status LastModified by Organization Details LastModified Time None Recorded Advance Directives Directive None Recorded Payers Encounter Date Sequence Insurance Name Policy Number Policy Schmidt Covered Member ID Schmidt Member ID Guarantor Name 11/15/2023 1 [place]ICARE [place] [employer] [id number] [place] [employer] Notes Date Note Type Note Provider Name and Address Organization Details Recorded Time 11/15/2023 text/html Chief Complaint: Right shoulder pain HPI: This is an 83-year-old mhvyk-jstv-knecyzhp gentleman with chronic multi focal joint pain. [...] xrays here today. Had some recently at [facility], will try to get a copy of his disc to drop off at our office for later review. Impression: 83-year-old bxoiv-xgcw-lvskiewh gentleman with right shoulder pain due to [...] aches and pains, the patient can take bxfz-zvj-cfhgzfm medication such as Tylenol or anti-inflammatories as needed; risks and benefits of medication discussed. Should call with more persistent pain. We will leave follow up open ended at this point. However should symptoms worsen or fail to improve to the patient's satisfaction, he is encouraged to give the office a call to be seen back for further evaluation and management. [employer] speech recognition network applications specialist software was used to create portions of this document. An attempt at proofreading has been made to minimize errors. Please call for corrections. Kera Wan MD [address] [place], [place] [address], [place], [address], [facility] - [facility] 11/15/2023 12:09:43
== END 2024-05-28 16:38 | disposition home or self-care (01) ==
LOC: HO.HUSH 15:09
PROVIDERS: PCP Family Medicine; Visit Provider Urology
DX: C67.9 Malignant neoplasm of bladder, unspecified (principal)
CPT/HCPCS: 99213

== ENCOUNTER → 2024-05-28 15:09 | Outpatient (BNVA) | payer OTHER, MEDICAID, SELFPAY | PROVIDERS: PCP Family Medicine; Visit Provider Urology ==

== ENCOUNTER 2024-07-16 09:45 | Outpatient (REF) | payer MEDICARE, SELFPAY ==
--- OUTSIDE RECORDS SUMMARY | 2024-07-16 11:13 | XMS_ITS | Encounter Summary ---
Author Organization [employer] Address [address] [place] [address] Care Team Providers Care Brickmason Helper Name Role Phone Apolonia Ragland MD Primary Care Provider [phone] Julius Beavers Unavailable Ronald Maxwell MD Unavailable [phone] Marcelino Purcell Unavailable Reason for Visit * Reason Onset Date Comments Nurse Triage 09/28/2023 Encounter Details Date Type Department Care Team (Late st Contact Info) Description 09/28/2023 Telephone [facility] [address] [place], [place] [phone] Apolonia Ragland MD [address] [place], [place] [phone] Nurse Triage Social History Tobacco Use Types Packs/Day Years Used Date Smoking Tobacco: Former Cigarettes Passive Smoke Exposure: Past Smokeless Tobacco: Never Housing Stability Answer Date Recorded What is your housing situation today? I have brandie haile 03/31/[address] you li ve. Do you have problems with any of the following? None of the above 03/31/2023 Food Insecurity Answer Date Recorded Within the past 12 months, y ou worried that your food would run out before you got money to buy more: Never True 03/06/2023 Within the past 12 months,th e food you bought just didn't last and you didn't have enough money to get more: Never True Transportation Answer Date Recorded In the past 12 months, has l ack of transportation kept you from medical appts, meetings, work or from getting things needed for daily living? No 03/06/2023 Utilities Answer Date Recorded In the past 12 months, has t he electric, gas, oil or water company threatened to shut off services in your home? No 03/31/2023 Depression Answer Date Recorded Patient Health Questionnaire-2 Score 3 10/03/2022 Sex and Gender Information Value Date Recorded Sex Assigned at Male 03/14/2022 10:20 AM EDT Legal Sex Male 10:20 AM EDT Gender Identity Male 03/14/2022 10:20 AM EDT Sexual Orientation Straight 03/14/2022 10 :20 AM EDT documented as of this encounter Miscellaneous Notes * Telephone Encounter - Laverne Melo - 09/28/2023 9:49 AM EDT Symptom: Abdominal Pain - Male Outcome: Schedule an urgent appointment (within 4 hours) or talk to a nurse or provider soon Reason: Started within the past 3 days The caller accepted this outcome Please contact pt at [phone] documented in this encounter Plan of Treatment Upcoming Encounters Date Type Department Care Team (Late st Contact Info) Description 08/02/2024 10:15 AM EDT Nurse Only [facility] [address] [place] [phone] 09/10/2024 11:30 AM EDT Office Visit [facility] [address] [place] [phone] Apolonia Ragland MD [address] [place] [phone] documented as of this encounter Visit Diagnoses Not on filedocumented in this encounter Care Teams Brickmason Helper Relationship Specialty Start Date End Date Apolonia Ragland MD [address] [place] [address] PCP - General Family Medicine 05/15/18 Julius Beavers [address] [place] [address] Pairing Machine Operator Cardiology 08/25/23 Ronald Maxwell MD [address] [place] [address] Urology 11/17/23 Marcelino Purcell [address] [facility] [address] [place] [address] Orthopaedic Surgery 08/24/23 Flor Mason RN Care Manager 04/21/23 Kera Wan MD [facility] [address] [place] [phone] 11/15/23 [facility] [address] [place] [phone] Orthopaedic Surgery 12/07/23 documented as of this encounter
--- OUTSIDE RECORDS SUMMARY | 2024-07-16 11:13 | XMS_ITS | Clinical Summary ---
Author Organization [employer] Address [address] [facility] [address] [place] [address] Care Team Providers Care Mastic Man Name Role Phone Apolonia Harding MD Primary Care Provider [phone] Julius Beavers Unavailable Ronald Maxwell MD Unavailable [phone] Marcelino Purcell Unavailable Allergies Active Allergy Reactions Criticality Noted Date Comments Lisinopril 01/15/2013 Other reaction(s): weakness Tetracycline Rash,Unknown High 07/05/2018 Tetracyclines & Related 05/19/2010 Other reaction(s): unspecified Medications cetirizine (ZyrTEC) 5 MG tablet Take 1 tablet (5 mg) by mouth in the morning. 90 tablet 3 01/06/20 23 Active Vitamin D High Potency 25 MCG (1000 UT) capsuleIndication s:Primary osteoarthritis involving multiple joints TAKE 1 CAPSULE BY MOUTH DAILY IN THE MORNING 90 capsule 03/27/20 23 Active Acetaminophen Extra Strength 500 MG tabletIndications :Primary osteoarthritis involving multiple joints TAKE 1 OR 2 TABLETS BY MOUTH ONE OR TWO TIMES DAILY NEEDED 90 tablet 1 08/14/19 24 Active Additional Information Patient taking differently: 500 mg Oral 3 times daily, Patient reports purchasing OTC instead of calling to request refills, Indications: Pain, Informant: Self, Reported on 05/01/2024 fluticasone (Flonase) 50 MCG/ACT nasal spray Administer 1 spray into each nostril 2 times daily. Shake gently. Before first use, prime pump. After use, clean tip and replace cap. 48 g 1 01/23/20 24 Active amLODIPine (Norvasc) 2.5 MG tablet TAKE 1 TABLET BY MOUTH EVERY DAY. MAY TAKE 2 TABLETS IF YOUR BLOOD PRESSURE IS STILL ELEVATED 180 tablet 3 01/24/20 24 Active ammonium lactate (Lac-Hydrin) 12 % lotion Apply topically if needed for dry skin. 04/10/20 24 025 Active Eliquis 5 MG tablet Take 5 mg by mouth 2 times daily. Active cyanocobalamin (Vitamin B-12) 1000 MCG/ML injection INJECT 1 ML INTRAMUSCULARLY EVERY MONTH 1 mL 06/06/19 25 Active Blood Pressure Monitoring (Omron 3 Series BP Monitor) device USE TO CHECK BLOOD PRESSURE EVERY DAY NEEDED 1 each 06/07/19 25 Active chlorhexidine (Peridex) 0.12 % solution SWISH FOR 30 SECONDS WITH 15 ML (ONE CAPFUL) OF UNDILUTED ORAL RINSE AFTER TOOTHBRUSHING, THEN EXPECTORATE; REPEAT TWICE DAILY (MORNING AND EVENING) UNTIL SYMPTOMS RESOLVE. 473 mL 06/28/19 25 Active Hospital, Clinic, or Other Facility Administered Medication Ordered Dose Route Frequency Start Date End Date Status cyanocobalamin (Vitamin B-12) injection 1,000 mcgIndications:Vitamin B12 deficiency 1000 mcg IM Every 30 days 08/21/2023 07/16/2024 Ended Active Problems Patient Care Coordination No te Formatting of this note migh t be different from the original. C3/CM Flor Mason RN Problem Noted Date Diagnosed Date Epistaxis 05/30/2024 At high risk for falls 05/30/2024 Actinic keratosis 05/30/2024 Assessment & Plan (06/04/2024 9:25 AM EST): - previously Dx AK - there are miko suspicious skin lesions (possible BCC or SCC). Refer back to Derm clinic Periodontal disease 03/05/2024 Assessment & Plan (03/05/2024 11:17 AM EDT): - patient does not currently have a dental plan - will prescribe antibiotic and chlorhexidine rinse - patient was advised to see a dentist if these medications do not help At increased risk for cardiovascular disease Assessment & Plan (06/04/2024 9:23 AM EST): - he does not want to take statin - work on lifestyle modifications Assessment & Plan (11/01/2023 10:45 AM EDT): -[id number] Score: 3 - continue apixaban 2.5 mg bid - no rate or rhythm control - advised to complete sleep study - continue risk factor management Assessment & Plan (09/30/2023 6:35 PM EDT): - continue apixaban - patient states apixaban was switched to rivaroxaban by firestopper installer; however, patient seems to be taking 5 mg bid. Due to his age, recommended to restart apixaban 2.5 mg bid. Patient agrees to restart apixaban and will decrease 2.5 mg bid if epistaxis or hematuria recurs. 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 [facility] -10/06/23 LVEF 55-60%. Moderately dilated left atrium. Mild dilation of the sinuses of Valsalva measuring 3.80 cm and mild dilation of the ascending aorta measuring 3.90 cm. -Last nuclear stress test with MPI 10/06/23 no ischemia -Sleep study was ordered by [facility], but patient has not completed it yet Assessment & Plan (03/05/2024 10:42 AM EDT): -Artificial Flowers Dyer: previously [facility], and recently started [place] [facility] 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 [facility] -10/06/23 LVEF 55-60%. Moderately dilated left atrium. Mild dilation of the sinuses of Valsalva measuring 3.80 cm and mild dilation of the ascending aorta measuring 3.90 cm. -Last nuclear stress test with MPI 10/06/23 no ischemia -Sleep study was ordered by [facility], but patient has not completed it yet Assessment & Plan (11/01/2023 10:37 AM EDT): -Artificial Flowers Dyer: previously [facility], and recently started following with [facility]. 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 [facility] -10/06/23 LVEF 55-60%. Moderately dilated left atrium. Mild dilation of the sinuses of Valsalva measuring 3.80 cm and mild dilation of the ascending aorta measuring 3.90 cm. -Last nuclear stress test with MPI 10/06/23 no ischemia -Sleep study was ordered by [facility], but patient has not completed it yet Assessment & Plan (09/27/2023 5:45 AM EDT): [id number] Score: 3 -Artificial Flowers Dyer: previously [facility], and recently started [place] [facility] -Rate control: none -Rhythm control: none -Anticoagulation: apixaban -Last Holter monitor: 07/10/23 -Last transthoracic echocardiogram: Done at [facility] on 10/25/22 TTE LVEF 55-60%; 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 Ordered by [facility] recently -Last stress test 10/07/22 nuclear stress test with MPI wnl -Sleep study was ordered by [facility] Assessment & Plan (08/24/2023 4:49 PM EDT): Here from previous ER visit, started on Eliquis for prevention - not tolerating well due to more bleeds - recommend talk to the firestopper installer about whether he should continue Eliquis as he is moderate risk by [id number] - he will continue for now and monitor for bleeding Hematuria 08/17/2023 Assessment & Plan (06/03/2024 7:56 AM EST): - Hx nephrolithiasis and bladder cancer - in a setting of apixaban for a-fib - off ASA - seen by urologist on 11/17/23. Patient postponed cystoscopy and is now scheduled on 03/13/24 - continue apixaban Assessment & Plan (03/05/2024 11:19 AM EDT): - Hx nephrolithiasis and bladder cancer - in a setting of apixaban for a-fib - off ASA - seen by urologist on 11/17/23. Patient postponed cystoscopy and is now scheduled on 03/13/24 - continue apixaban Assessment & Plan (11/01/2023 10:40 AM EDT): - Hx nephrolithiasis and bladder cancer - in a setting of apixaban for a-fib - off ASA - referred to urologist for cystoscopy - continue apixaban Assessment & Plan (09/27/2023 5:48 AM EDT): - Hx nephrolithiasis and bladder cancer - in a setting of apixaban for a-fib - off ASA - referred to urologist for cystoscopy - continue apixaban Assessment & Plan (08/17/2023 2:26 PM EDT): Possibly due to elequis but also patient has h/o UTIs and kidney stones KUB ordered I prescribed bactrim for cellulitis and it will cover also UTI If hematuria persists or worse Ia advise to go to the hospital UA and culture done today Left foot pain 08/17/2023 Acquired deformity of left foot 08/17/2023 Cardiac dysrhythmia 08/17/2023 Assessment & Plan (09/27/2023 5:40 AM EDT): -previously frequent PVCs and PACs -Holter monitor on 07/10/23 showed normal sinus rhythm with intermittent atrial fibrillation/flutter 22% of the time with average heart of 74 beats per minute during sinus rhythm, and frequent PACs and PVCs. -Seen in ED on 08/11/23 for new onset A-fib. 1st EKG showed atrial flutter with variable AV block and 2nd EKG showed sinus rhythm with marked sinus arrhythmia with occasional PVCs -Usually asymptomatic -Started on apixaban since 08/10/23 -Following with [facility] since August 2023, last seen on 08/25/23. Sleep study, transthoracic echocardiogram, and stress test were ordered. -Optimize risk factor management Assessment & Plan (08/17/2023 2:21 PM EDT): I advise to continue with elequis 5mg BID I advise not to miss his appointment with cardiology on 08/30/23 Bradycardia 07/03/2023 Assessment & Plan (03/05/2024 10:42 AM EDT): - evaluate with Holter monitor Assessment & Plan (07/03/2023 6:10 AM EST): - evaluate with Holter monitor Ascending aorta dilatation 01/05/2023 Assessment & Plan (06/03/2024 7:56 AM EST): - 10/25/22 transthoracic echocardiogram Ascending aorta 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 -10/06/23 transthoracic echocardiogram Mild dilation of the sinuses of Valsalva measuring 3.80 cm and mild dilation of the ascending aorta measuring 3.90 cm. Assessment & Plan (03/05/2024 10:42 AM EDT): - 10/25/22 transthoracic echocardiogram Ascending aorta 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 -10/06/23 transthoracic echocardiogram Mild dilation of the sinuses of Valsalva measuring 3.80 cm and mild dilation of the ascending aorta measuring 3.90 cm. Assessment & Plan (11/01/2023 10:39 AM EDT): - 10/25/22 transthoracic echocardiogram Ascending aorta 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 -10/06/23 transthoracic echocardiogram Mild dilation of the sinuses of Valsalva measuring 3.80 cm and mild dilation of the ascending aorta measuring 3.90 cm. Assessment & Plan (09/27/2023 5:46 AM EDT): - 10/25/22 TTE normal LV sfunction with EF 55-60%. 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 - Currently following [place] [facility] and transthoracic echocardiogram was ordered Assessment & Plan (06/29/2023 4:46 AM EST): - 10/25/22 TTE normal LV sfunction with EF 55-60%. 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 - Follow-up with firestopper installer in 6 mo - TTE at least yearly Assessment & Plan (04/24/2023 6:07 AM EST): - 10/25/22 TTE normal LV sfunction with EF 55-60%. 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 - Follow-up with firestopper installer in 6 mo - TTE at least yearly Assessment & Plan (01/05/2023 6:51 AM EDT): - 10/25/22 TTE normal LV sfunction with EF 55-60%. 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 - Follow-up with firestopper installer in 6 mo - TTE at least yearly Depressive disorder 09/28/2022 Assessment & Plan (06/04/2024 9:24 AM EST): - pt declines BHS and medication - patient does not want to go to senior center - patient has a therapy animal Assessment & Plan (09/28/2023 5:49 PM EDT): - pt declines BHS and medication Assessment & Plan (06/29/2023 4:48 AM EST): - pt declines BHS and medication Assessment & Plan (04/24/2023 6:08 AM EST): - pt declines BHS and medication Assessment & Plan (01/06/2023 7:14 AM EDT): - pt declines BHS and medication History of subdural hematoma 06/05/2022 Assessment & Plan (10/31/2023 4:56 AM EDT): -Closed head injury, no LOC in 2021 -seen by neurosurgeon and had CT scan on 10/28/21 -pt held ASA for a few weeks. resumed on 11/07/21. Neurosurgeon gave pt reassurance that the hematoma was resolving. Continue preventative measures for another head injury. given fall precaution -pt was recommended that he can stop or hold ASA due to nose bleeding -pt does not have indication for ASA use Assessment & Plan (06/05/2022 6:07 PM EST): -seen by neurosurgeon and had CT scan on 10/28/21 -pt held ASA for a few weeks. resumed on 11/07/21. Neurosurgeon gave pt reassurance that the hematoma was resolving. Continue preventative measures for another head injury. given fall precaution -pt was recommended that he can stop or hold ASA due to nose bleeding -pt does not have indication for ASA use Tinnitus of both ears 06/05/2022 Assessment & Plan (06/05/2022 6:08 PM EST): -evaluated by ENT and progressive care nurse -pt has severe hearing loss -pt is seeing ENT this afternoon Dysthymia 06/02/2022 Assessment & Plan (07/03/2023 6:08 AM EST): - pt declines BHS - recommended to decrease use of Internet Assessment & Plan (04/24/2023 6:08 AM EST): - pt declines BHS - recommended to decrease use of Internet Assessment & Plan (01/06/2023 7:14 AM EDT): - pt declines BHS - recommended to decrease use of Internet Malignant tumor of urinary bladder 06/02/2022 Assessment & Plan (06/03/2024 7:56 AM EST): - previously following [place] [facility] - Transurethral resection of bladder tumor on 11/20/18 Pathology report High-grade papillary urothelial carcinoma - seen by urologist on 11/17/23; upcoming appt on 03/13/24 Assessment & Plan (03/05/2024 11:20 AM EDT): - previously following with [facility] - Transurethral resection of bladder tumor on 11/20/18 Pathology report High-grade papillary urothelial carcinoma - seen by urologist on 11/17/23; upcoming appt on 03/13/24 Assessment & Plan (11/01/2023 10:39 AM EDT): - previously following [place] [facility] - Transurethral resection of bladder tumor on 11/20/18 Pathology report High-grade papillary urothelial carcinoma - Referred to urology; upcoming appt Assessment & Plan (09/27/2023 5:53 AM EDT): - previously following with [facility] - Transurethral resection of bladder tumor on 11/20/18 Pathology report High-grade papillary urothelial carcinoma - Referred to urology; will check its status Assessment & Plan (08/24/2023 4:39 PM EDT): Refer to urology due to recurrent hematuria for followup and determination for need of repeat cystoscopy Pulmonary hypertension 06/02/2022 Toothache 02/27/2017 Vitamin B12 deficiency 05/02/2016 Assessment & Plan (03/05/2024 11:52 AM EDT): - continue vitamin B12 IM treatment Assessment & Plan (08/24/2023 4:33 PM EDT): Injection today Assessment & Plan (06/29/2023 4:48 AM EST): - 10/03/22 B12 155pg/ml, low. Normal CBC - 12/31/15 Intrinsic factor antibody negative - in a setting of GERD symptom - pt declines GI referral for possible evaluation with EGD Assessment & Plan (01/06/2023 7:11 AM EDT): - 10/03/22 B12 155pg/ml, low. Normal CBC - 12/31/15 Intrinsic factor antibody negative - in a setting of GERD symptom - pt declines GI referral for possible evaluation with EGD Assessment & Plan (10/04/2022 9:00 AM EDT): 10/03/22 labs: -Lipid Profile: TC 148; TG 130; HDL 42; LDL 83 -TSH 1.03 -CMP normal -CBC normal Congenital pes planus 05/02/2016 Assessment & Plan (06/03/2024 7:56 AM EST): - bilateral - previously evaluated by specialist and recommended surgery Assessment & Plan (06/05/2022 6:11 PM EST): - bilateral - previously evaluated by specialist and recommended surgery Sensorineural hearing loss, bilateral 05/02/2016 Assessment & Plan (06/03/2024 7:57 AM EST): -pt is recommended to use hearing aid however pt insurance does not cover hearing aid - pt was supposed to see ENT for another hearing test and hearing aids fitting, but pt did not go to appt. Assessment & Plan (03/05/2024 10:42 AM EDT): -pt is recommended to use hearing aid however pt insurance does not cover hearing aid - pt was supposed to see ENT for another hearing test and hearing aids fitting, but pt did not go to appt. Assessment & Plan (10/31/2023 11:02 AM EDT): -pt is recommended to use hearing aid however pt insurance does not cover hearing aid - pt was supposed to see ENT for another hearing test and hearing aids fitting, but pt did not go to appt. Assessment & Plan (09/28/2023 5:49 PM EDT): -pt is recommended to use hearing aid however pt insurance does not cover hearing aid - pt was supposed to see GI for another hearing test and hearing aids fitting Assessment & Plan (06/29/2023 4:48 AM EST): -pt is recommended to use hearing aid however pt insurance does not cover hearing aid - pt was supposed to see GI for another hearing test and hearing aids fitting Assessment & Plan (04/24/2023 6:08 AM EST): -pt is recommended to use hearing aid however pt insurance does not cover hearing aid - pt was supposed to see GI for another hearing test and hearing aids fitting Assessment & Plan (01/06/2023 7:13 AM EDT): -pt is recommended to use hearing aid however pt insurance does not cover hearing aid - pt was supposed to see GI for another hearing test and hearing aids fitting Assessment & Plan (10/03/2022 12:35 PM EDT): -pt is recommended to use hearing aid however pt insurance does not cover hearing aid -pt is having another appt with ENT today to choose new hearing aid Assessment & Plan (06/05/2022 6:08 PM EST): -pt is recommended to use hearing aid however pt insurance does not cover hearing aid -pt is having another appt with ENT today to choose new hearing aid Gallstone 07/14/2015 Ganglion of hand 07/14/2015 Essential hypertension 2015 Assessment & Plan (06/03/2024 7:55 AM EST): -Goal BP < 150/90 per JNC-8, < 130/80 per ACC/AHA guideline. -BP at goal today -Encouraged to work on life style modifications. -Echo on 10/25/22 EF 55-60%. Ascending aorta 4.0 cm. Previously pulmonary HTN, no mention in most recent study -Continue amlodipine 2.5 mg once daily, may take 2 tablets if SBP is > 140 -Last lipid profile: 09/28/23 TC 144 ; TG 83 ; HDL 43 ; LDL 85 -Continue lifestyle modification. -Follow up in 6 mo or sooner prn Assessment & Plan (03/05/2024 10:41 AM EDT): -Goal BP < 150/90 per JNC-8, < 130/80 per ACC/AHA guideline. -BP at goal today -Encouraged to work on life style modifications. -Echo on 10/25/22 EF 55-60%. Ascending aorta 4.0 cm. Previously pulmonary HTN, no mention in most recent study -Continue amlodipine 2.5 mg once daily, may take 2 tablets if SBP is > 140 -Last lipid profile: 09/28/23 TC 144 ; TG 83 ; HDL 43 ; LDL 85 -Continue lifestyle modification. -Follow up in 6 mo or sooner prn Assessment & Plan (10/31/2023 8:50 AM EDT): -Goal BP < 150/90 per JNC-8, < 130/80 per ACC/AHA guideline. -Encouraged to work on life style modifications. -Echo on 10/25/22 EF 55-60%. Ascending aorta 4.0 cm. Previously pulmonary HTN, no mention in most recent study -Continue amlodipine 2.5 mg once daily, may take 2 tablets if SBP is > 140 -Last lipid profile: 09/28/23 TC 144 ; TG 83 ; HDL 43 ; LDL 85 -Continue lifestyle modification. -Follow up in 6 mo or sooner prn Assessment & Plan (09/30/2023 6:31 PM EDT): -Goal BP < 150/90 per JNC-8, < 130/80 per ACC/AHA guideline. -Encouraged to work on life style modifications. -Echo on 10/25/22 EF 55-60%. Ascending aorta 4.0 cm. Previously pulmonary HTN, no mention in most recent study -Continue amlodipine 2.5 mg once daily, may take 2 tablets if SBP is > 140 -Last lipid profile: 09/28/23 TC 144 ; TG 83 ; HDL 43 ; LDL 85 -Continue lifestyle modification. -Follow up in 6 mo or sooner prn Assessment & Plan (06/29/2023 4:46 AM EST): -Goal BP < 150/90 per JNC-8, < 130/80 per ACC/AHA guideline. -Encouraged to work on life style modifications. -Echo on 10/25/22 EF 55-60%. Ascending aorta 4.0 cm. Previously pulmonary HTN, no mention in most recent study -Continue amlodipine 2.5 mg bid -Continue ASA. -Last lipid profile: 10/03/22 TC 148 ; TG 130 ; HDL 42 ; LDL 83 -Continue lifestyle modification. -Follow up in 6 mo or sooner prn Assessment & Plan (04/24/2023 6:06 AM EST): -Goal BP < 150/90 per JNC-8, < 130/80 per ACC/AHA guideline. -Encouraged to work on life style modifications. -Echo on 10/25/22 EF 55-60%. Ascending aorta 4.0 cm. Previously pulmonary HTN, no mention in most recent study -Continue amlodipine 2.5 mg bid -Continue ASA. -Last lipid profile: 10/03/22 TC 148 ; TG 130 ; HDL 42 ; LDL 83 -Continue lifestyle modification. -Follow up in 6 mo or sooner prn Assessment & Plan (01/06/2023 7:07 AM EDT): -Goal BP < 150/90 per JNC-8, < 130/80 per ACC/AHA guideline. -Encouraged to work on life style modifications. -Echo on 10/25/22 EF 55-60%. Ascending aorta 4.0 cm. Previously pulmonary HTN, no mention in most recent study -Continue amlodipine 2.5 mg bid -Continue ASA. -Last lipid profile: 10/03/22 TC 148 ; TG 130 ; HDL 42 ; LDL 83 -Continue lifestyle modification. -Follow up in 6 mo or sooner prn Assessment & Plan (10/04/2022 8:55 AM EDT): -Goal BP < 150/90 per JNC-8, < 130/80 per ACC/AHA guideline. -Encouraged to work on life style modifications. -Echo on 12/12/18 EF 50-55%, mild pulmonary HTN -Continue amlodipine 2.5 mg bid -Continue ASA. -Last lipid profile: 10/03/22 TC 148 ; TG 130 ; HDL 42 ; LDL 83 -Continue lifestyle modification. -Follow up in 6 mo or sooner prn Assessment & Plan (06/05/2022 6:06 PM EST): -Goal BP < 150/90 per JNC-8, < 130/80 per ACC/AHA guideline. -Encouraged to work on life style modifications. -Echo on 12/12/18 EF 50-55%, mild pulmonary HTN -Continue amlodipine 2.5 mg bid -Continue ASA. -Last lipid profile: 05/28/21 TC 160; TG 169; HDL 35; LDL 969 Discussed about stopping annual lipid profile check as he does not want to take statin anyway. However, he prefers to get it done, just in case. -Continue lifestyle modification. -Follow up in 6 mo or sooner prn Seasonal allergic rhinitis 2015 Assessment & Plan (03/05/2024 10:42 AM EDT): - restart cetirizine and Flonase - consider montelukast Assessment & Plan (06/29/2023 4:48 AM EST): - restart cetirizine and Flonase - consider montelukast Assessment & Plan (04/24/2023 6:08 AM EST): - restart cetirizine and Flonase - consider montelukast Assessment & Plan (10/03/2022 12:25 PM EDT): - restart cetirizine and Flonase - consider montelukast Assessment & Plan (06/05/2022 6:09 PM EST): - continue loratadine and Flonase - consider montelukast Osteoarthritis 11/13/2014 Assessment & Plan (06/04/2024 9:26 AM EST): - following with [facility] providers, last seen on 12/05/23, received steroid injection to right shoulder - pt declined further evaluation by orthopedist due to outstanding charge - continue taking Tylenol PRN for pain - encouraged ice and heat therapy Assessment & Plan (05/30/2024 5:20 AM EST): >>ASSESSMENT AND PLAN FOR PRIMARY OSTEOARTHRITIS INVOLVING MULTIPLE JOINTS WRITTEN ON 06/29/2023 4:47 AM BY APOLONIA HARDING MD - previously seen by [facility] providers - pt declines further evaluation by orthopedist due to outstanding charges Assessment & Plan (05/30/2024 5:20 AM EST): >>ASSESSMENT AND PLAN FOR PRIMARY OSTEOARTHRITIS INVOLVING MULTIPLE JOINTS WRITTEN ON 09/28/2023 5:48 PM BY FRANKY EDL TORO - previously seen by [facility] providers - pt declines further evaluation by orthopedist due to outstanding charges Assessment & Plan (05/30/2024 5:20 AM EST): >>ASSESSMENT AND PLAN FOR PRIMARY OSTEOARTHRITIS INVOLVING MULTIPLE JOINTS WRITTEN ON 10/31/2023 10:53 AM BY KRISHNA LIVINGSTON - previously seen by [facility] providers - pt declined further evaluation by orthopedist due to outstanding charge - will refer to orthopedist at [facility] for reevaluation - discussed taking Tylenol PRN for pain - encouraged ice and heat therapy Assessment & Plan (05/30/2024 5:20 AM EST): >>ASSESSMENT AND PLAN FOR PRIMARY OSTEOARTHRITIS INVOLVING MULTIPLE JOINTS WRITTEN ON 03/05/2024 11:23 AM BY SUSAN CARVALHO - following with [facility] providers, last seen on 12/05/23, received steroid injection to right shoulder - pt declined further evaluation by orthopedist due to outstanding charge - continue taking Tylenol PRN for pain - encouraged ice and heat therapy Assessment & Plan (05/30/2024 5:20 AM EST): >>ASSESSMENT AND PLAN FOR OSTEOARTHRITIS WRITTEN ON 01/06/2023 7:10 AM BY APOLONIA HARDING MD - multiple joints - difficulty walking - pt will benefit from SLIDE ATTENDANT service; will check the status of SLIDE ATTENDANT service >>ASSESSMENT AND PLAN FOR PRIMARY OSTEOARTHRITIS INVOLVING MULTIPLE JOINTS WRITTEN ON 01/06/2023 7:10 AM BY APOLONIA HARDING MD - previously seen by [facility] providers - pt declines further evaluation by orthopedist due to outstanding charges Assessment & Plan (06/05/2022 6:10 PM EST): - multiple joints - difficulty walking - pt will benefit from SLIDE ATTENDANT service Frequent [facility] 04/02/2012 Assessment & Plan (03/05/2024 10:41 AM EDT): -10/07/22 nuclear stress test with MPI wnl -10/25/22 TTE LVEF 55-60%; 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 -Follow up with firestopper installer as scheduled Assessment & Plan (09/27/2023 5:44 AM EDT): -10/07/22 nuclear stress test with MPI wnl -10/25/22 TTE LVEF 55-60%; 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 -Follow up with firestopper installer as scheduled Assessment & Plan (07/03/2023 6:08 AM EST): -Seen by [facility] firestopper installer in November 2022. -Asymptomatic. 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 -Follow up with firestopper installer as scheduled -Bradycardiac lately; will schedule Holter monitor Assessment & Plan (04/24/2023 6:06 AM EST): -Seen by [facility] firestopper installer in November 2022. -Asymptomatic. 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 -Follow up with firestopper installer as scheduled Assessment & Plan (01/06/2023 7:06 AM EDT): -Seen by [facility] firestopper installer in November 2022. -Asymptomatic. 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 -Follow up with firestopper installer as scheduled Assessment & Plan (10/03/2022 12:26 PM EDT): -Seen by [facility] firestopper installer in July 2022. -Asymptomatic. -Possibly starting CCB or BB -Follow up with firestopper installer as scheduled -Being scheduled for stress test and has a follow up with firestopper installer in near future Assessment & Plan (06/05/2022 6:03 PM EST): -Seen by [facility] firestopper installer in Jan 2022. -Asymptomatic. -Possibly starting CCB or BB -Follow up with firestopper installer as scheduled Gastroesophageal reflux disease 04/02/2012 Assessment & Plan (09/28/2023 5:48 PM EDT): - Continue Omeprazole 20 mg as needed - B12 deficiency, IF antibody negative - discussed about evaluation by GI; pt declines Assessment & Plan (06/29/2023 4:47 AM EST): - Continue Omeprazole 20 mg as needed - B12 deficiency, IF antibody negative - discussed about evaluation by GI; pt declines Assessment & Plan (04/24/2023 6:07 AM EST): - Continue Omeprazole 20 mg as needed - B12 deficiency, IF antibody negative - discussed about evaluation by GI; pt declines Assessment & Plan (01/06/2023 7:08 AM EDT): - Continue Omeprazole 20 mg as needed - B12 deficiency, IF antibody negative - discussed about evaluation by GI; pt declines Assessment & Plan (10/03/2022 12:34 PM EDT): Continue Omeprazole 20 mg as needed Resolved Problems Problem Noted Date Diagnosed Date Resolved Date 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 01/05/2023 Encounters Date Type Department Care Team Description 07/05/2024 10:30 AM EST Nurse Only [facility] [address] [place] [address] Tiana Ramirez LPN B12 deficiency 07/05/2024 Travel 06/28/2024 Orders Only [facility] [address] [place] [address] Apolonia Harding MD B12 deficiency (Primary Dx); Paroxysmal atrial fibrillation (CMS/HCC); Essential hypertension 06/28/2024 Refill [facility] [address] [place] [phone] Apolonia Harding MD 06/21/2024 [address] [place] [address] Apolonia Harding MD FYI 06/18/2024 6:40 PM EST Office Visit [facility] [place] [address] Jacques Foster MD Fall, initial encounter (Primary Dx); Acute pain of right knee; Abrasion of right elbow, initial encounter 06/18/[address] [place] [address] Apolonia Harding MD Referral 06/18/[address] [address] Apolonia Harding MD Nurse Triage 06/07/2024 11:20 AM EST Nurse Only [address] [address] Tiana Ramirez LPN B12 deficiency 06/07/[address] [address] Apolonia Harding MD telephone call 06/07/[address] [address] Apolonia Harding MD 06/07/[address] [address] Apolonia Harding MD telephone call; Durable Medical Equipment (BPM) 06/06/[address] [address] Apolonia Harding MD 05/30/2024 11:15 AM EST Office Visit [address] [address] Apolonia Harding MD Paroxysmal atrial fibrillation (CMS/HCC) (Primary Dx); Essential hypertension; Ascending aorta dilatation (CMS/HCC); Malignant neoplasm of urinary bladder, unspecified site (CMS/HCC); Hematuria, unspecified type; Primary osteoarthritis involving multiple joints; Congenital pes planus, unspecified laterality; Acquired deformity of left foot; Sensorineural hearing loss, bilateral; Depressive disorder; At increased risk for cardiovascular disease; Epistaxis; At high risk for falls; Skin lesions; Actinic keratosis; Dietary counseling; Exercise counseling; Overweight 05/30/2024 Telephone [facility] [address] [place] [phone] Apolonia Harding MD 05/13/2024 Orders Only GENERIC EXTERNAL DATA DEPARTMENT Provider, Generic External Data 05/06/2024 9:15 AM EST Nurse Only [address] [address] Tiana Ramirez LPN B12 deficiency 05/06/2024 Travel 05/01/2024 9:00 AM EST Office Visit [address] [address] Martine Joseph MD Encounter for general adult medical examination with abnormal findings (Primary Dx); At risk for falling 05/01/2024 Travel 04/26/[address] [address] Krystyna Ontiveros, FARIDA AWV prep from Last 3 Months Immunizations Name Administration Dates Next Due Hep A, Adult 07/13/2006,06/09/2006 Hep B, adult 10/17/2007,07/13/2006,06/09/2006 Influenza injectable quadriv alent IIV4 with preservative 04/10/2017,02/05/2015 Influenza injectable quadriv alent preservative free 02/14/2019,04/20/2016,02/12/2014 Influenza, IIV3, injectable 02/04/2011,1 06/01/2009,04/28/2009,02/26,06/09/2006 Influenza, Split (incl. alex fied surface antigen) 01/14/2015,03/15/2013,04/27/2012 MMR 09/12/2006 Pneumococcal Conjugate PCV 13 2015 Pneumococcal Polysaccharide PPSV23 04/15/2015, TD (adult), 2 Lf tetanus tox oid, preservative free, adsorbed 06/09/2006 Tdap 08/12/2011 Family History Medical History Relation Name Comments Heart disease Father Rey at 70 No Known Problems Father's Brother Charlie Palmer paola Relationship-only met once No Known Problems Maternal Grandfather Nii Wa s a mitchell in [place] No Known Problems Maternal Grandmother Lidya Pacemaker Mother Carson at 88 No Known Problems Mother's Brother 1 Abdon No Known Problems Mother's Brother 2 Enrico Pimentel ziggy believes he may have passed from a heart attack No Known Problems Mother's Brother 3 Jose No Known Problems Mother's Sister 1 Nelda No Known Problems Mother's Sister 2 Licha Montano No Known Problems Nephew Collin No Known Problems Paternal Grandfather Ron Pa ssed away in 1941 (at 42 years old) No Known Problems Paternal Grandmother Coco Pa ssed away in the mid s No Known Problems Sister Paloma Relation Name Status Comments Father Rey Father's Brother Charlie Maternal Grandfather Nii Maternal Grandmother Lidya Mother Carson Mother's Brother 1 Abdon Mother's Brother 2 Enrico Mother's Brother 3 Jose Mother's Sister 1 Nelda Mother's Sister 2 Licha Montano Nephew Collin Unknown Paternal Grandfather Ron Paternal Grandmother Coco Sister Paloma Alive Social History Tobacco Use Types Packs/Day Years Used Date Smoking Tobacco: Former Cigarettes 0.5 2 1 960 - 1961 Passive Smoke Exposure: Past Smokeless Tobacco: Never Tobacco Cessation:Counseling Given: Not Answered Passive Exposure Comments:1/2 pack per week for 2 years in college Alcohol Use Standard Drinks/Week Comments Not Currently 3 (1 standard drink = 0.6 oz pure alcohol) drank only during college years Depression Answer Date Recorded Patient Health Questionnaire-9 Score 3 05/01/2024 Patient Health Questionnaire-9 Score 3 05/01/2024 Last PHQ-9: Questionnaire Data Not on file 1 07/02/2023 Housing Stability Answer Date Recorded What is your housing situation today? I have brandie haile 03/31/[address] you li ve. Do you have problems with any of the following? None of the above 03/31/2023 Food Insecurity Answer Date Recorded Within the past 12 months, y ou worried that your food would run out before you got money to buy more: Sometimes True 2023 Within the past 12 months,th e food you bought just didn't last and you didn't have enough money to get more: Sometimes True 05/01/2024 Transportation Answer Date Recorded In the past [...] Answer Date Recorded Patient Health Questionnaire-2 Score 1 05/01/2024 Internet Access Answer Date Recorded Internet Access Q1 Yes 01/13/2024 Internet Access Q2 Not on file 01/13/2024 Sex and Gender Information Value Date Recorded Sex Assigned at Male 03/14/2022 10:20 AM EDT Legal Sex Male 10:20 AM EDT Gender Identity Male 03/14/2022 10:20 AM EDT Sexual Orientation Straight 03/14/2022 10 :20 AM EDT Last Filed Vital Signs Vital Sign Reading Time Taken Comments Blood Pressure 111/62 06/18/2024 6:41 PM EST Pulse 88 06/18/2024 6:41 PM EST Temperature 36.6 ??C (97.8 ??F) 06/18/2024 6:41 PM ES T Respiratory Rate 16 06/18/2024 6:41 PM EST Oxygen Saturation 94% 06/18/2024 6:41 PM EST Inhaled Oxygen Concentration - - Weight 79.4 kg (175 lb) 06/18/2024 6:41 PM EST Height 167.6 cm (5' 6 ) 05/30/2024 11:22 AM EST Body Mass Index 28.25 05/30/2024 11:22 AM EST Plan of Treatment Upcoming Encounters Date Type Department Care Team (Late st Contact Info) Description 08/02/2024 10:15 AM EDT Nurse Only [facility] [address] [place] [phone] 09/10/2024 11:30 AM EDT Office Visit [facility] [address] [place] [phone] Apolonia Harding MD [address] [place] [address] Health Maintenance Due Date Last Done Comments Zoster Vaccines (1 of 2) 1991 RSV Patients and Patients Aged 60 years or older (1 - 1-dose 75+ series) 2016 DTaP/Tdap/Td Vaccines (2 - Td or Tdap) 08/11/2021 08/12/2011, 06/09/2006 COVID-19 Vaccine (3 - season) 2024 07/28/2020, 06/30/2020 Influenza Vaccine (#1) 2024 9, 04/10/2017, 04/20/2016, Additional history exists Alcohol/Substance Use Screening 05/01/2025 05/01/2024 Depression Screening 05/01/2025 05/01/2024, 05/01/20 24 SDOH Screening 05/01/2025 05/01/2024 Tobacco Screening 05/30/2025 05/30/2024 Lipid Panel 09/27/2028 09/28/2023, 09/13, 05/28/2021, Additional history exists Hepatitis A Vaccines Aged Out 07/13/2006, 06/09/19 07 No longer eligible based on patient's age to complete this topic Hepatitis B Vaccines Completed 10/17/2007, 07/13/2006, 06/09/2006 Pneumococcal Vaccine: 50+ Years Completed 04/15/2015, 2015, 01/24/2008 HIB Vaccines Aged Out No longer eligi ble based on patient's age to complete this topic HPV Vaccines Aged Out No longer eligi ble based on patient's age to complete this topic IPV Vaccines Aged Out No longer eligi ble based on patient's age to complete this topic Meningococcal Vaccine Aged Out No dave nolberto eligible based on patient's age to complete this topic RSV under 20 months Aged Out No longe r eligible based on patient's age to complete this topic Rotavirus Vaccines Aged Out No longer eligible based on patient's age to complete this topic Procedures Procedure Name Priority Date/Time Associated Diagnosis Comments CT UROGRAM WO CONTRAST Routine 05/13/2024 2:34 PM EST CREATININE, SERUM Routine 05/13/2024 10: 07 AM EST UREA NITROGEN (BUN) Routine 05/13/2024 10:07 AM EST LIPID PANEL WITH REFLEX TO DIRECT LDL Routine 09/28/2023 8:17 AM EDT Essential hypertension from Last 3 Months or Most Recently Relevant to Health Maintenance Results * CT Urogram w/o Contrast (05/13/2024 2:34 PM EST) Anatomical Region Laterality Modality Ureter, Upper urinary tract Comp uted Tomography 05/13/2024 2:34 PM EST Narrative 05/13/2024 2:35 PM EST ? [facility] ?[address] ?[place] [address] ? CT Scan Report ? Signed ? Patient: Colton Black ?MR#: [id number] ?? [id number] ? : 1940 ?Acct:[id number] ? Age/Sex: 84 / M ?ADM Date: 05/13/24 ? Loc: HO.CT ? Attending Dr: Ronald Maxwell MD ? Ordering Physician: Ronald Maxwell MD ?? Date of Service: 05/13/24 ?? Procedure(s): CT urogram ?? Accession Number(s): [id number] ? cc: Ronald Maxwell MD; Apolonia Harding MD ? Report Number: ?? [id number]: Total DLP = ??968.00 mGy-cm ? CLINICAL HISTORY: C67.9 - Malignant neoplasm of bladder, unspecified ? CT abdomen and pelvis with and with the IV contrast. ? COMPARISON: None ? FINDINGS: ?? Minimal atelectasis along the lung bases bilaterally. Mild bronchiectasis ?? along the partially visualized right lung base. ?? Hepatic steatosis. Cholelithiasis layering within the gallbladder. No ?? pericholecystic inflammatory changes. ?? Spleen, pancreas and adrenal glands are unremarkable. ? Nonobstructing 3 mm left renal calculus. Nonobstructing right renal ?? calculi measuring 2 mm and 3 mm of the inferior pole of the right kidney. ?? No hydronephrosis bilaterally. No ureteral calculus bilaterally. ?? Symmetric renal enhancement. No renal mass identified. ? Appendix is not seen. No pericecal inflammatory changes. Moderate distal ?? colonic diverticulosis without evidence of diverticulitis. Mild colonic ?? stool burden. No bowel obstruction. ?? No mesenteric or retroperitoneal lymphadenopathy. ?? Moderate aortoiliac atherosclerotic vascular calcifications. 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 ? Urinary bladder is unremarkable. No focal bladder wall thickening ?? identified. ?? Prostate calcifications present. ?? No inguinal or pelvic lymphadenopathy. ?? Rightward curvature of the lower lumbar spine. Grade 1 anterolisthesis of ?? L4 on L5, degenerative. Advanced multilevel spondylosis. No acute fracture ?? or suspicious bone lesion. ? IMPRESSION: ?? 1. No evidence of renal obstruction. No renal mass or urinary bladder mass ?? identified. ?? 2. Nonobstructing renal calculi present bilaterally measuring up to 3 mm. ?? 3. 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 ?? 4. Hepatic steatosis. ? This document has been electronically signed by: Luis De La Cruz MD on ?? 05/13/2024 14:34:19 ? Dictated By: ?Luis De La Cruz MD ? Signed By: ?<Electronically signed by Luis De La Cruz MD in OV> ?05/13/24 1435 ? DD/ 1434 ? TD/TT: 05/13/24 1434 ? [facility]: ? Procedure Note El, Cece - 05/13/[address] [place] [address] [address] Scan Report Signed Patient: Tram Black#: [id number] : 1940cct:[id number] Age/Sex: 84 / MADM Date: 05/13/24 Loc: HO.CT Attending Dr: Ronald Maxwell MD Ordering Physician: Ronald Maxwell MD Date of Service: 05/13/24 Procedure(s): CT urogram Accession Number(s): [id number] cc: Ronald Maxwell MD; Apolonia Harding MD Report Number: [id number]: Total DLP = 968.00 mGy-cm CLINICAL HISTORY: C67.9 - Malignant neoplasm of bladder, unspecified CT abdomen and pelvis with and with the IV contrast. COMPARISON: None FINDINGS: Minimal atelectasis along the lung bases bilaterally. Mild bronchiectasis along the partially visualized right lung base. Hepatic steatosis. Cholelithiasis layering within the gallbladder. No pericholecystic inflammatory changes. Spleen, pancreas and adrenal glands are unremarkable. Nonobstructing 3 mm left renal calculus. Nonobstructing right renal calculi measuring 2 mm and 3 mm of the inferior pole of the right kidney. No hydronephrosis bilaterally. No ureteral calculus bilaterally. Symmetric renal enhancement. No renal mass identified. Appendix is not seen. No pericecal inflammatory changes. Moderate distal colonic diverticulosis without evidence of diverticulitis. Mild colonic stool burden. No bowel obstruction. No mesenteric or retroperitoneal lymphadenopathy. Moderate aortoiliac atherosclerotic vascular calcifications. 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 Urinary bladder is unremarkable. No focal bladder wall thickening identified. Prostate calcifications present. No inguinal or pelvic lymphadenopathy. Rightward curvature of the lower lumbar spine. Grade 1 anterolisthesis of L4 on L5, degenerative. Advanced multilevel spondylosis. No acute fracture or suspicious bone lesion. IMPRESSION: 1. No evidence of renal obstruction. No renal mass or urinary bladder mass identified. 2. Nonobstructing renal calculi present bilaterally measuring up to 3 mm. 3. 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 4. Hepatic steatosis. This document has been electronically signed by: Luis De La Cruz MD on 05/13/2024 14:34:19 Dictated By: Luis De La Cruz MD Signed By: <Electronically signed by Luis De La Cruz MD in OV> 05/13/24 1435 DD/ 1434 TD/TT: 05/13/24 1434 [facility] [employer] [facility]: us [facility] External Provider IMG CT PROCEDURES Final Result * Creatinine, Serum (05/13/2024 10:07 AM EST) Creatinine, Serum 0.80 0.5 - 1.4 mg/dL [facility] Estimated Glomerular Filt Rate >60 [facility] Comment:Chronic Kidney Disea se: Estimated GFR < 60 mL/min/1.88b7Mfsfxs Kidney Disease: Estimated GFR < 15 mL/min/1.73m2 05/13/2024 10:0 7 AM EST 05/13/2024 10:07 AM EST us Generic External Data Provider LAB BLOOD ORDERAB LES Final Result Performing Organization Address City/[facility]/ZIP Co de Phone Number [facility] [address] [place] [phone] * BUN (Blood Urea Nitrogen) (05/13/2024 10:07 AM EST) Urea Nitrogen (BUN) 9 9 - 16 mg/dL [facility] 05/13/2024 10:0 7 AM EST 05/13/2024 10:07 AM EST Generic External Data Provider LAB BLOOD ORDERAB LES Final Result Performing Organization Address [facility] Co de Phone Number [facility] [address] [place] [phone] * Lipid Panel with Reflex to Direct LDL (09/28/2023 8:17 AM EDT) Triglycerides 83 <150 mg/dL [facility] Comment:Desirable Triglyceri de: less than 150 mg/dLBorderline High Triglyceride 150-199 mg/dLHigh Triglyceride: 200-499 mg/dLVery High Triglyceride: greater than or equal to 5OO mg/dL Cholesterol 144 <200 mg/dL [facility] Comment:Desirable Cholestero l: less than 200 mg/dLBorderline High Cholesterol: 200-239 mg/dLHigh Cholesterol: greater than 239 mg/dL LDL Cholesterol Calculated 85 <100 mg/dL [facility] Comment:Desirable LDL: less than 100 mg/dLNear Optimal/Above Optimal LDL: 110- 129 mg/dLBorderline High LDL: 130-159 mg/dLHigh LDL: 160-189 mg/dLVery High LDL: greater than or equal to 190 mg/dL HDL Cholesterol 43 >40 mg/dL [facility] Comment:Desirable HDL: great er than 40 mg/dL Note: This HDL assay may give artificially low results in patients with liver disease. Blood 09/28/2023 8:17 AM EDT 09/28/2023 11:20 AM EDT us Apolonia Harding MD LAB BLOOD ORDERABLES Final Resul t [facility] [address] [place] [address] [phone] from Last 3 Months or Most Recently Relevant to Health Maintenance Insurance [place]IC[place] [id number] [facility] MEDICARE ADVANTAGE Care Teams Mastic Man Relationship Specialty Start Date End Date Apolonia Harding MD [address] [place] [address] PCP - General Family Medicine 05/15/18 Julius Beavers [address] [place] [address] Artificial Flowers Dyer Cardiology 08/25/23 Ronald Maxwell MD [address] [place] [address] Urology 11/17/23 Marcelino Purcell [address] [facility] [address] [place] [address] Orthopaedic Surgery 08/24/23 Flor Mason RN Care Manager 04/21/23 Kera Wan MD [address] [phone] 11/15/23 Manisha Henao [facility] Medical [facility] [address] [facility] [address] [place] [phone] Orthopaedic Surgery 12/07/23
--- OUTSIDE RECORDS SUMMARY | 2024-07-16 11:13 | XMS_ITS | Encounter Summary ---
Author Organization [employer] Address [address] [place] [address] Care Team Providers Care Special Procedures Technologist Name Role Phone Apolonia Ragland MD Primary Care Provider [phone] Julius Beavers Unavailable Ronald Maxwell MD Unavailable [phone] Marcelino Purcell Unavailable Reason for Visit * Reason Onset Date Comments Returning Call 03/19/2024 Encounter Details Date Type Department Care Team (Late st Contact Info) Description 03/19/2024 Telephone [facility] [address] [place], [place] [phone] Apolonia Ragland MD [address] [place], [place] [phone] Returning Call Social History Tobacco Use Types Packs/Day Years [...] Recorded Patient Health Questionnaire-2 Score 3 10/03/2022 Internet Access Answer Date Recorded Internet Access [...] encounter Miscellaneous Notes * Telephone Encounter - Ziyad Murray - 03/19/2024 11:53 AM EST Tc from pt retuning call regarding message below. CC Lina placed outbound call to patient for Annual Wellness Visit outreach. Pt stated she received message in [place], he stated he does not speak or read [place] and requestsfurther messages to be sent in egyptian. documented in this encounter Plan of Treatment Upcoming Encounters Date Type Department Care Team (Late st Contact Info) Description 08/02/2024 10:15 AM EDT Nurse Only [facility] [address] [place] [phone] 09/10/2024 11:30 AM EDT Office Visit [facility] [address] [place] [phone] Apolonia Ragland MD [address] [place] [phone] documented as of this encounter Visit Diagnoses Not on filedocumented in this encounter Care Teams Special Procedures Technologist Relationship Specialty Start Date End Date Apolonia Ragland MD [address] [place] [phone] PCP - General Family Medicine 05/15/18 Julius Beavers [address] [place] [address] Telegraph Inspector Cardiology 08/25/23 Ronald Maxwell MD [address] [place] [address] Urology 11/17/23 Marcelino Purcell [address] [facility] [address] [place] [address] Orthopaedic Surgery 08/24/23 Flor Mason RN Care Manager 04/21/23 Kera Wan MD [address] [phone] 11/15/23 Manisha Henao [facility] [address] [facility] [address] [place] [phone] Orthopaedic Surgery 12/07/23 documented as of this encounter
--- OUTSIDE RECORDS SUMMARY | 2024-07-16 11:14 | XMS_ITS | Encounter Summary ---
Author Organization [email or web address] Address [address] [facility] [address] 7t [place] [address] Care Team Providers Care Bundle Tier Name Role Phone Apolonia Ragland MD Primary Care Provider [phone] Julius Beavers Unavailable Ronald Maxwell MD Unavailable [phone] Marcelino Purcell Unavailable Reason for Visit * Reason Onset Date Comments Nurse Triage 08/16/2023 Encounter Details Date Type Department Care Team (Late st Contact Info) Description 08/16/[address] [facility] MEDICINE 230 [place], [place] [phone] Apolonia Ragland MD 230 [place], [place] [phone] Nurse Triage Social History Tobacco Use Types [...] encounter Miscellaneous Notes * Telephone Encounter - Ansley Soto RN - 08/16/2023 4:55 PM EDT Triage call Pt was seen in [facility] 08/11/23 ED dx of atrial fibrillation. Pt was prescribed eliquis 5mg bid. Pt had been taking ASA 81mg daily . Pt started eliquis 08/14/23 and stopped ASA the same day. Pt is calling regarding some pinkish/reddish colored urine, neg for burning but, always has frequency. Pt also reports having a bloody nose x1 . Pt is advised to come to [facility] for provider to see Pt. Pt reports is in [place] and will try to come to [facility] open till 8pm and other logan will come to [facility] in the morning opens at 830am. Pt is cautioned to seek eval at ED if bleeding should increase and Pt agrees. Pt does have follow up apt [facility] 08/30/23 and another [address] with [facility] 08/21/23. Pt agrees with dispostion. Protocol Used: Urine - Blood In (Adult) Protocol-Based Disposition: See in Office or Video Visit Today or Tomorrow Positive Triage Question: * All other patients with blood in urine (Exception: Could be normal menstrual bleeding.) * All higher-acuity triage questions were negative Care Advice Discussed: * Reasons To Call Back - Fever or pain occurs - You become worse * Telephone Encounter - Ziyad Murray - 08/16/2023 4:20 PM EDT Symptom: Urine - Blood In Outcome: Schedule a same-day appointment or talk to a nurse or provider today Reason: Just a small amount of blood and patient feels normal (acts normal) documented in this encounter Plan of Treatment Upcoming Encounters Date Type Department Care Team (Late st Contact Info) Description 08/02/2024 10:15 AM EDT Nurse Only [facility] MEDICINE [address] [place] [address] 09/10/2024 11:30 AM EDT Office Visit [facility] [address] [place] [address] Apolonia Ragland MD 230 [place] [address] documented as of this encounter Visit Diagnoses Not on filedocumented in this encounter Care Teams Bundle Tier Relationship Specialty Start Date End Date Apolonia Ragland MD 230 [place] [address] PCP - General Family Medicine 05/15/18 Julius Beavers [address] 3rd [place] [address] Die Baker Cardiology 08/25/23 Ronald Maxwell MD [address] [place] [address] Urology 11/17/23 Marcelino Purcell 175 [facility] 110 [place] [address] Orthopaedic Surgery 08/24/23 Flor Mason RN Care Manager 04/21/23 Kera Wan MD [address] [address] 11/15/23 Manisha Henao [facility] 175 [facility] [address] [place] [phone] Orthopaedic Surgery 12/07/23 documented as of this encounter
--- OUTSIDE RECORDS SUMMARY | 2024-07-16 11:14 | XMS_ITS | Encounter Summary ---
Author Organization [employer] Address [address] [facility] [address] 7t [place] [address] Care Team Providers Care Blackener Name Role Phone Apolonia Ragland MD Primary Care Provider [phone] Julius Beavers Unavailable Ronald Maxwell MD Unavailable [phone] Marcelino Purcell Unavailable Reason for Visit * Reason Onset Date Comments Lab Orders 01/19/2024 Encounter Details Date Type Department Care Team (Late st Contact Info) Description 01/19/2024 Telephone [facility] MEDICINE 230 [place], [place] [phone] Apolonia Ragland MD 230 [place], [place] [phone] Lab Orders Social History Tobacco Use Types Packs/Day Years [...] encounter Miscellaneous Notes * Telephone Encounter - Gabo Obrien - 01/19/2024 12:29 PM EDT Tc from patient requesting if lab work needed prior to appt on 03/05 also would like to know if thepatient should continue B-12 injection documented in this encounter Plan of Treatment Upcoming Encounters Date Type Department Care Team (Late st Contact Info) Description 08/02/2024 10:15 AM EDT Nurse Only [facility] MED[facility]INE [address] [place] [address] 09/10/2024 11:30 AM EDT Office Visit [facility] [address] [place] [address] Apolonia Ragland MD [address] [place] [address] documented as of this encounter Visit Diagnoses Not on filedocumented in this encounter Care Teams Blackener Relationship Specialty Start Date End Date Apolonia Ragland MD [address] [place] [address] PCP - General Family Medicine 05/15/18 Julius Beavers [address] [place] [address] 3rd [place] [address] Salvage Laborer Cardiology 08/25/23 Ronald Maxwell MD [address] [place] [address] Urology 11/17/[address] 175 [facility] 110 [place] [address] Orthopaedic Surgery 08/24/23 Flor Mason RN Care Manager 04/21/23 Kera Wan MD [facility] [address] [place] [address] 11/15/23 Manisha Henao [facility] 175 [facility] [address] [place] [address] Orthopaedic Surgery 12/07/23 documented as of this encounter
--- OUTSIDE RECORDS SUMMARY | 2024-07-16 11:14 | XMS_ITS | Encounter Summary ---
Author Organization [employer] Address [address] [facility] [address] 7t [place] [address] Care Team Providers Care Gear Inspector Name Role Phone Apolonia Ragland MD Primary Care Provider [phone] Julius Beavers Unavailable Ronald Maxwell MD Unavailable [phone] Marcelino Purcell Unavailable Reason for Visit * Reason Onset Date Comments Nurse Triage 06/18/2024 Encounter Details Date Type Department Care Team (Late st Contact Info) Description 06/18/2024 Telephone [facility] MEDICINE 230 [place], [place] [phone] Apolonia Ragland MD 230 [place], [place] [phone] Nurse Triage Social History Tobacco Use Types Packs/Day Years Used Date Smoking Tobacco: Former Cigarettes 0.5 2 1 960 - 1962 Passive Smoke Exposure: Past Smokeless Tobacco: Never Passive Exposure Comments:1/ 2 pack per week for 2 years in [...] encounter Miscellaneous Notes * Telephone Encounter - Danielle Andres RN - 06/18/2024 11:11 AM EST Call returned to Colton Black to triage below. Reports having a fall on Monday afternoon.Pt slipped on ice and landed on right side , pt having bruising on right elbow and right knee. Pt also having bruising on right hip. Pt did not seek ER or UC after fall. Per pt having mild pain with ambulation. Pt does not recall if any head injury. Pt had stopped taking Eliquis on 06/05/24. Pt was supposed to see Urology to have procedure on Monday06/17/24 and had stopped the med. Pt advised to contact Cardiology once has a rescheduled date for procedure to make sure if following proper steps for resuming eliquis. Pt advised of disposition regarding fall, agrees to seek WIC today Reviewed WIC o perating hours and that wait times vary. Reviewed reasons to call back. Protocol Used: Hip Injury (Adult) Protocol-Based Disposition: See in Office or Video Visit Today or Tomorrow Video visit offer not recorded Positive Triage Questions: * Moderate pain (e.g., interferes with normal activities, limping) and high-risk adult (e.g., age > 60 years, osteoporosis, chronic steroid use) * Large swelling or bruise (> 2 inches or 5 cm) * All higher-acuity triage questions were negative Care Advice Discussed: * Reassurance and Education - Direct Blow (Minor Bruise, Contusion) * Reasons To Call Back - You become worse * Telephone Encounter - Odette Jones - 06/18/2024 10:08 AM EST Symptoms: Fall, Bruises - From Injury Outcome: Schedule an urgent appointment (within 1 hour) or talk to a nurse or provider soon Reason: Severe pain now The caller accepted this outcome. Contact pt at [phone] documented in this encounter Plan of Treatment Upcoming Encounters Date Type Department Care Team (Late st Contact Info) Description 08/02/2024 10:15 AM EDT Nurse Only [address] [address] 09/10/2024 11:30 AM EDT Office Visit [address] [address] Apolonia Ragland MD [address] [place] [address] documented as of this encounter Visit Diagnoses Not on filedocumented in this encounter Additional Health Concerns Assessment Noted Time PHQ-9 Depression Total Score: 3 05/01/20 24 9:55 AM EST documented as of this encounter Care Teams Gear Inspector Relationship Specialty Start Date End Date Apolonia Ragland MD [address] [place] [address] PCP - General Family Medicine 05/15/18 Julius Beavers [address] 3rd [place] [address] Swing Frame Grinder Operator Cardiology 08/25/23 Ronald Maxwell MD [address] [place] [address] Urology 11/17/23 Marcelino Purcell 175 [facility] 110 [place] [address] Orthopaedic Surgery 08/24/23 Flor Mason RN Care Manager 04/21/23 Kera Wan MD [address] [address] 11/15/23 Manisha Henao [facility] [address] [facility] [address] [phone] Orthopaedic Surgery 12/07/23 documented as of this encounter
--- OUTSIDE RECORDS SUMMARY | 2024-07-16 11:14 | XMS_ITS | Data Portability ---
Author Organization [facility], [facility] Address [address] [place] [address] Care Team Providers Care Computer Hardware Designer Name Role Phone CHAPIN HARDING Primary Care Provider [phone] Assessment No assessment recorded. Plan of Treatment [...] knee No observ ation record ed. [email or web address] [facility] (Medical Records) [address] [place], [address], 11/24/2023 16:31:04 01/13/20 24 06/15/2018 imagi ng/di agnos tic resul t No observ ation record ed. [email or web address] Not Available 12/15 01:55:36 01/13/20 24 06/15/2018 imagi ng/di agnos tic resul t No observ ation record ed. [email or web address] Not Available 12/15 01:55:37 Result Notes None recorded. Procedures Surgical History Date Name Laterality Status Provider Name and Address Organization Details Recorded Time Sports Shoulder completed Kera Wan MD [address] [facility] [address], [place], [address], [place] - [facility] 11/15/2023 11:21:03 Imaging Results Imaging Date Name Status LastModified by Organiz ation Details LastModified Time 11/01/2023 XR, knee completed [email or web address] [facility] (Medical Records) [address] [place], [address], 11/24/2023 16:31:04 06/15/2018 imaging/diag nostic result completed Information not available 01/13/2024 01:55:36 06/15/2018 imaging/diag nostic result completed Information not available 01/13/2024 01:55:37 Procedure Notes None recorded. Medical Equipment None Reported. Allergies Allergen ID Allergen Name Allergen Category Reaction Reaction Severity Criticality Documentation Date Start Date Code Code System Note Provider Name and Address Organization Details Recorded Time 16308 tetracycl ine hydrochlo ride medicatio n Not available Not available Not available 07/17/20232018 10390 6 RxNorm Not Available [facility] 12:19:21 Medications Name Sig Start Date Stop [...] Updated DateTime 11/15/2023 170.18 cm 27.4 kg/m2 97091.66 g GABRIEL WATTERS [place] - [facility] 11/15/2023 10:38:25 Social History None recorded. Functional Status None recorded. Mental Status None recorded. Family History Nothing Reported. Medical History No medical history recorded. Past Encounters Encounter ID Performer Location Encounter Start Date Encounter Closed Date Diagnosis/Indication Diagnosis SNOMED-CT Code Diagnosis ICD10 Code Diagnosis Note [id number] [facility] [address] [place] [address] 11/15/2023 10:29:45 11/15/2023 12:48:42 Osteoarthritis of joint of right shoulder region 3140398598 44439 M19.011 Health Concerns Section Related Observation LastModified by Organization Detai ls LastModified Time None Recorded Concern Status LastModified by Organization Details LastModified Time None Recorded Advance Directives Directive None Recorded Payers Encounter Date Sequence Insurance Name Policy Number Policy Schmidt Covered Member ID Schmidt Member ID Guarantor Name 11/15/2023 1 [place]ICARE B-[place]: [employer] Colton Black [id number] Colton Black Notes Date Note Type Note Provider Name and Address Organization Details Recorded Time 11/15/2023 text/html Chief Complaint: Right shoulder pain HPI: This is an 83-year-old vofzf-umuq-epvitxyp gentleman with chronic multi focal joint pain. [...] xrays here today. Had some recently at [facility], will try to get a copy of his disc to drop off at our office for later review. Impression: 83-year-old enohq-gpyb-mzctkpeo gentleman with right shoulder pain due to [...] aches and pains, the patient can take xvhe-sce-uqpjbqj medication such as Tylenol or anti-inflammatories as needed; risks and benefits of medication discussed. Should call with more persistent pain. We will leave follow up open ended at this point. However should symptoms worsen or fail to improve to the patient's satisfaction, he is encouraged to give the office a call to be seen back for further evaluation and management. [employer] speech recognition teacher physically impaired software was used to create portions of this document. An attempt at proofreading has been made to minimize errors. Please call for corrections. Kera Wan MD [address] [place], [place] [address], [place], [address], [facility] - [facility] 11/15/2023 12:09:43
--- OUTSIDE RECORDS SUMMARY | 2024-07-16 11:14 | XMS_ITS | Encounter Summary ---
Author Organization [employer] Address [address] [place] [address] 7t [place] [address] Care Team Providers Care Integrity Director Name Role Phone Apolonia Ragland MD Primary Care Provider [phone] Julius Beavers Unavailable Ronald Maxwell MD Unavailable [phone] Marcelino Purcell Unavailable Encounter Details Date Type Department Care Team (Late st Contact Info) Description 10/11/2022 Abstract [employer] [facility] 230 [place] [address] Apolonia Ragland MD 230 [place], [place] [phone] Social History Tobacco Use Types Packs/Day Years Used Date Smoking Tobacco: Former Cigarettes Passive Smoke Exposure: Past Smokeless Tobacco: Never Depression Answer Date Recorded Patient Health Questionnaire-2 Score 3 10/03/2022 Sex and Gender Information Value Date Recorded Sex Assigned at Male 03/14/2022 10:20 AM EDT Legal Sex Male 10:20 AM EDT Gender Identity Male 03/14/2022 10:20 AM EDT Sexual Orientation Straight 03/14/2022 10 :20 AM EDT COVID-19 Exposure Response Date Recorded In the last 10 days, have yo u been in contact with someone who was confirmed or suspected to have Coronavirus/COVID-19? No / Unsure 10/03/2022 10:23 AM EDT documented as of this encounter Plan of Treatment Upcoming Encounters Date Type Department Care Team (Late st Contact Info) Description 08/02/2024 10:15 AM EDT Nurse Only [facility] MEDICINE 230 [place] [address] 09/10/2024 11:30 AM EDT Office Visit [facility] MEDICINE 230 [place] [address] Apolonia Ragland MD [address] [place] [address] documented as of this encounter Visit Diagnoses Not on filedocumented in this encounter Care Teams Integrity Director Relationship Specialty Start Date End Date Apolonia Ragland MD 230 [place] [address] PCP - General Family Medicine 05/15/18 Julius Beavers [address] 3rd [place] [address] Lsw Cardiology 08/25/23 Ronald Maxwell MD [address] [place] [address] Urology 11/17/23 Marcelino Purcell 175 [facility] 110 [place] [address] Orthopaedic Surgery 08/24/23 Flor Mason mortgage loan processor 04/21/23 Kera Wan MD [address] [address] 11/15/23 Manisha Henao [facility] 175 [facility] [address] [place] [phone] Orthopaedic Surgery 12/07/23 documented as of this encounter
--- OUTSIDE RECORDS SUMMARY | 2024-07-16 11:14 | XMS_ITS | Encounter Summary ---
Author Organization [employer] Address 75 [facility] [address] 7t [place] [address] Care Team Providers Care Interpretive Program Coordinator Name Role Phone Apolonia Ragland MD Primary Care Provider [phone] Julius Beavers Unavailable Ronald Maxwell MD Unavailable [phone] Marcelino Purcell Unavailable Reason for Visit * Reason Onset Date Comments Referral 06/18/2024 Encounter Details Date Type Department Care Team (Late st Contact Info) Description 06/18/2024 Telephone [facility] MEDICINE [address] [place], [place] [phone] Apolonia Ragland MD [address] [place], [place] [phone] Referral Social History Tobacco Use Types Packs/Day Years [...] encounter Miscellaneous Notes * Telephone Encounter - Bia Capps - 06/18/2024 3:41 PM EST T/c to [facility] Speech & Hearing [phone] verify what they needed to schedule appt, per office they received everything left message to pt to call and schedule appt. T/c to pt to inform him that all he need to do is called and and schedule appt, pt agrees to plan. * Telephone Encounter - Odette Jones - 06/18/2024 10:13 AM EST Tc from pt regarding referral for audiology. Pt stated he was advise by [facility] that additional insurance information is needed to schedule appointment. Emergency Doctor advise will send a message. Please contact pt at [phone] or [facility] audiology for clarification. documented in this encounter Plan of Treatment Upcoming Encounters Date Type Department Care Team (Late st Contact Info) Description 08/02/2024 10:15 AM EDT Nurse Only [facility] MEDICINE [address] [place] [address] 09/10/2024 11:30 AM EDT Office Visit [facility] MEDICINE [address] [place] [address] Apolonia Ragland MD 230 [place] [address] documented as of this encounter Visit Diagnoses Not on filedocumented in this encounter Additional Health Concerns Assessment Noted Time PHQ-9 Depression Total Score: 3 05/01/20 9:55 AM EST documented as of this encounter Care Teams Interpretive Program Coordinator Relationship Specialty Start Date End Date Apolonia Ragland MD [address] [place] [address] PCP - General Family Medicine 05/15/18 Julius Beavers [address] 3rd [place] [address] Agriculture Scientist Cardiology 08/25/23 Ronald Maxwell MD [address] [place] [address] Urology 11/17/23 Marcelino Purcell 175 [facility] 110 [place] [address] Orthopaedic Surgery 08/24/23 Flor Mason facilities maintenance supervisor 04/21/23 Kera Wan MD [address] [address] 11/15/23 Manisha Henao [facility] 175 [facility] [address] [place] [phone] Orthopaedic Surgery 12/07/23 documented as of this encounter
--- OUTSIDE RECORDS SUMMARY | 2024-07-16 11:14 | XMS_ITS | Encounter Summary ---
Author Organization [employer] Address [address] [facility] [address] 7t [place] [address] Care Team Providers Care Low Voltage Technician Name Role Phone Apolonia Ragland MD Primary Care Provider [phone] Julius Beavers Unavailable Ronald Maxwell MD Unavailable [phone] Marcelino Purcell Unavailable Reason for Visit * Reason Onset Date Comments FYI 06/21/2024 Encounter Details Date Type Department Care Team (Late st Contact Info) Description 06/21/2024 Telephone [facility] MEDICINE 230 [place], [place] [phone] Apolonia Ragland MD 230 [place], [place] [phone] FY Social History Tobacco Use Types Packs/Day Years [...] encounter Miscellaneous Notes * Telephone Encounter - Yessenia Michelle RN - 06/21/2024 12:44 PM EST Noted. * Telephone Encounter - Sravan Guaman - 06/21/2024 12:28 PM EST TC from pt stating that he had to reschedule apt for Surgery due to the Fall that he had Monday06/15/24. Pt Surgery was Supposed to be on that Monday the but was Moved to 08/05/24. Pt also wanted to let PCP know that he got back on Blood thinners today 06/21/24. Contact pt at [phone] documented in this encounter Plan of Treatment Upcoming Encounters Date Type Department Care Team (Late st Contact Info) Description 08/02/2024 10:15 AM EDT Nurse Only [facility] MEDICINE 230 [place] [address] 09/10/2024 11:30 AM EDT Office Visit [facility] MEDICINE 230 [place] [address] Apolonia Ragland MD 230 [place] [address] documented as of this encounter Visit Diagnoses Not on filedocumented in this encounter Additional Health Concerns Assessment Noted Time PHQ-9 Depression Total Score: 3 05/01/20 9:55 AM EST documented as of this encounter Care Teams Low Voltage Technician Relationship Specialty Start Date End Date Apolonia Ragland MD 230 [place] [address] PCP - General Family Medicine 05/15/18 Julius Beavers [address] 3rd [place] [address] Gift Basket Packer Cardiology 08/25/23 Ronald Maxwell MD [address] [place] [address] Urology 11/17/23 Marcelino Purcell 175 [facility] 110 [place] [address] Orthopaedic Surgery 08/24/23 Flor Mason RN Care Manager 04/21/23 Kera Wan MD [facility] [address] [place] [phone] 11/15/23 Manisha Henao [facility] 175 [facility] [address] [place] [phone] Orthopaedic Surgery 12/07/23 documented as of this encounter
--- OUTSIDE RECORDS SUMMARY | 2024-07-16 11:14 | XMS_ITS | Encounter Summary ---
Author Organization [employer] Address [address] [facility] [address]t [place] [address] Care Team Providers Care Java Programming Professor Name Role Phone Apolonia Ragland MD Primary Care Provider [phone] Julius Beavers Unavailable Ronald Maxwell MD Unavailable [phone] Marcelino Purcell Unavailable Encounter Details Date Type Department Care Team (Late st Contact Info) Description 06/18/2024 6:40 PM EST Office Visit [facility] [address] [place], [place] [phone] Jacques Foster MD [address] [place], [place] [phone] Fall, initial encounter (Primary Dx); Acute pain of right knee; Abrasion of right elbow, initial encounter Social History Tobacco Use Types Packs/Day Years [...] AM EDT documented as of this encounter Last Filed Vital Signs Vital Sign Reading Time Taken Comments Blood Pressure 111/62 06/18/2024 6:41 PM EST Pulse 88 06/18/2024 6:41 PM EST Temperature 36.6 ??C (97.8 ??F) 06/18/2024 6:41 PM ES T Respiratory Rate 16 06/18/2024 6:41 PM EST Oxygen Saturation 94% 06/18/2024 6:41 PM EST Inhaled Oxygen Concentration - - Weight 79.4 kg (175 lb) 06/18/2024 6:41 PM EST Height - - Body Mass Index 28.25 05/30/2024 11:22 AM EST documented in this encounter Progress Notes * Jacques Foster MD - 06/18/2024 6:40 PM EST Subjective History was provided by the patient. Colton Black is a 84 y.o. male who presents after a fall 3 days ago. Was walking his dog and slipped on ice, landing on his right hip and shoulder area. Did not seek medical care until now. His SURPLUS PROPERTY DISPOSAL AGENT has been helping out at home. Reports pain in the right shoulder, elbow, hip, and knee, but tolerable. Able to ambulate without difficulty. States he has a bruise on his hip area and abrasion on his elbow, but getting better. Denies any head injury. No LOC or MS change. Underlying paroxysmal Afib on Eliquis, but stopped this medication on 06/05/2024 due to scheduled urologic procedure (cystoscopy for bladder cancer). The procedure was scheduled for yesterday, but patient called and canceled due to not feeling well. Currently waiting for the procedure to be rescheduled. Has not resumed his Eliquis. Denies any CP/SOB/MONROE or palpitations. Objective Vitals: 06/18/24 1841 BP: 111/62 BP Location: Right arm Patient Position: Sitting BP Cuff Size: Adult Pulse: 88 Resp: 16 Temp: 97.8 ??F (36.6 ??C) TempSrc: Temporal SpO2: 94% Weight: 175 lb (79.4 kg) Physical Exam Constitutional: General: He is not in acute distress. Appearance: Normal appearance. He is normal weight. He is not ill-appearing, toxic-appearing or diaphoretic. HENT: Head: Normocephalic and atraumatic. Right Ear: External ear normal. Left Ear: External ear normal. Nose: Nose normal. Mouth/Throat: Mouth: Mucous membranes are moist. Pharynx: Oropharynx is clear. Eyes: Extraocular Movements: Extraocular movements intact. Conjunctiva/sclera: Conjunctivae normal. Cardiovascular: Rate and Rhythm: Normal rate and regular rhythm. Heart sounds: Normal heart sounds. Pulmonary: Effort: Pulmonary effort is normal. Breath sounds: Normal breath sounds. Abdominal: General: Abdomen is flat. Palpations: Abdomen is soft. Musculoskeletal: Cervical back: Neck supple. Right lower leg: No edema. Left lower leg: No edema. Comments: Right knee without effusion or edema; negative anterior/posterior drawer's; negative Abigail's; negative David's; no varus/valgus instability; right shoulder tenderness in the upper fibers of trapezius area; limited AROM with FF/ABD 100, ER 45; motor strength 5/5 BUE/BLE Skin: General: Skin is warm and dry. Findings: Bruising (Right hip ecchymosis (5cm x 5cm)) present. Comments: Right elbow area with 4cm x 3cm abrasion without surrounding erythema Neurological: General: No focal deficit present. Mental Status: He is alert and oriented to person, place, and time. Motor: No weakness. Gait: Gait normal. Diagnoses and all orders for this visit: Fall, initial encounter (Primary) Acute pain of right knee Abrasion of right elbow, initial encounter Patient presents to [facility] after a fall 3 days ago No head trauma; no LOC or MS change Fell on ice; denies preceding dizziness or lightheadedness Pain in the right shoulder, elbow, hip, and knee Discussed right elbow wound care Topical Bacitracin and non-stick dressing provided Right shoulder limited ROM, but at baseline No ligament instability or meniscal signs of the knee No effusion/edema Right hip ecchymosis (5cm x 5cm); encouraged to apply ice Using Acetaminophen for pain Able to ambulate without difficulty Advised to call Urology office again; if unable to re-schedule his cystoscopy + bladder CA resection within 10 days, recommended to resume Eliquis Indications for UC/ER use reviewed Advised to contact the clinic if any worsening or persistent symptoms Patient agrees with the plan documented in this encounter Plan of Treatment Upcoming Encounters Date Type Department Care Team (Late st Contact Info) Description 08/02/2024 10:15 AM EDT Nurse Only [facility] [address] [place] [address] 09/10/2024 11:30 AM EDT Office Visit [facility] [address] [place] [address] Apolonia Ragland MD [address] [place] [address] documented as of this encounter Visit Diagnoses Diagnosis Fall, initial encounter- Primary Acute pain of right knee Abrasion of right elbow, initial encounter documented in this encounter Additional Health Concerns Assessment Noted Time PHQ-9 Depression Total Score: 3 05/01/20 24 9:55 AM EST documented as of this encounter Care Teams Java Programming Professor Relationship Specialty Start Date End Date Apolonia Ragland MD [address] [place] [address] PCP - General Family Medicine 05/15/18 Julius Beavers [address] 3rd [place] [address] Rail Technician Cardiology 08/25/23 Ronald Maxwell MD [address] [place] [address] Urology 11/17/23 Marcelino Purcell 175 [facility] 110 [place] [address] Orthopaedic Surgery 08/24/23 Flor Mason RN Care Manager 04/21/23 Kera Wan MD [address] [address] 11/15/23 Manisha Henao [facility] 175 [facility] [address] [place] [phone] Orthopaedic Surgery 12/07/23 documented as of this encounter
--- OUTSIDE RECORDS SUMMARY | 2024-07-16 11:14 | XMS_ITS | Encounter Summary ---
Author Organization [employer] Address 75 [facility] [address] 7t [place] [address] Care Team Providers Care Utility Bagger Name Role Phone Apolonia Ragland MD Primary Care Provider [phone] Julius Beavers Unavailable Ronald Maxwell MD Unavailable [phone] Marcelino Purcell Unavailable Encounter Details Date Type Department Care Team (Late st Contact Info) Description 06/28/2024 Orders Only [facility] 230 [place], [place] [phone] Apolonia Ragland MD [address] [place], [place] [phone] B12 deficiency (Primary Dx); Paroxysmal atrial fibrillation (CMS/HCC); Essential hypertension Social History Tobacco Use Types Packs/Day Years [...] 08/02/2024 10:15 AM EDT Nurse Only [facility] [address] [place] [address] 09/10/2024 11:30 AM EDT Office Visit [facility] [address] [place] [address] Apolonia Ragland MD [address] [place] [address] Scheduled Orders Name Type Priority Associated Diagnoses Orde r Schedule Vitamin B12 (Cobalamin) and Folate Panel, Serum Lab Routine B12 deficiency Expected: 06/28/2024 (Approximate), Expires: 06/28/2025 CBC auto differential Lab Routine B12 deficiency Expected: 06/28/2024 (Approximate), Expires: 06/28/2025 Comprehensive Metabolic Panel Lab Routine Essential hypertension Expected: 06/28/2024 (Approximate), Expires: 06/28/2025 Lipid Panel with Reflex to Direct LDL Lab Routine Essential hypertension Expected: 06/28/2024 (Approximate), Expires: 06/28/2025 Albumin, Random Urine W/Creatinine Lab Routine Essential hypertension Expected: 06/28/2024 (Approximate), Expires: 06/28/2025 documented as of this encounter Visit Diagnoses Diagnosis B12 deficiency- Primary Paroxysmal atrial fibrillation (CMS/HCC) Atrial fibrillation Essential hypertension Unspecified essential hypertension documented in this encounter Additional Health Concerns Assessment Noted Time PHQ-9 Depression Total Score: 3 05/01/20 9:55 AM EST documented as of this encounter Care Teams Utility Bagger Relationship Specialty Start Date End Date Apolonia Ragland MD [address] [place] [address] PCP - General Family Medicine 05/15/18 Julius Beavers [address] 3rd [place] [address] Hvac Manager Cardiology 08/25/23 Ronald Maxwell MD [address] [place] [address] Urology 11/17/23 Marcelino Purcell 175 [facility] 110 [place] [address] Orthopaedic Surgery 08/24/23 Flor Mason RN Care Manager 04/21/23 Kera Wan MD [address] [address] 11/15/23 Manisha Henao [facility] 175 [facility] [address] [place] [phone] Orthopaedic Surgery 12/07/23 documented as of this encounter
--- OUTSIDE RECORDS SUMMARY | 2024-07-16 11:14 | XMS_ITS | Encounter Summary ---
Author Organization [employer] Address [address] [facility] [address] 7t [place] [address] Care Team Providers Care Rn Emergency Room Name Role Phone Apolonia Ragland MD Primary Care Provider [phone] Julius Beavers Unavailable Ronald Maxwell MD Unavailable [phone] Marcelino Purcell Unavailable Encounter Details Date Type Department Care Team (Late st Contact Info) Description 07/05/2024 10:30 AM EST Nurse Only [facility] 230 [place] [address] Tiana Ramirez LPN B12 deficiency Social History Tobacco Use Types Packs/Day Years [...] AM EDT documented as of this encounter Progress Notes * Tiana Ramirez LPN - 07/05/2024 10:30 AM EST SUBJECTIVE: Colton Black is a 84 y.o. year old male who presents for No chief complaint on file. Preferred language for medical information: Japanese Spanish Speaking Nanny needed: No Standing Ordered verified: Yes, standing order expiration date: 07/16/2024 Colton Black denies any difficulties with previous injection that was received. Allergies Allergen Reactions Tetracycline Rash and Unknown Lisinopril Other reaction(s): weakness Tetracyclines & Related Other reaction(s): unspecified OBJECTIVE: B-12 injection given in Left Deltoid, medication was tolerated well. ASSESSMENT: Vitamin B12 deficiency PLAN: Colton Black will return for next injection on 08/02/2024 . [x] Advised to monitor injection site for any increased redness or swelling [x] Next appointment given Colton Black agrees with plan of care and verbalized understanding of instructions/education. Tiana Ramirez LPN documented in this encounter Plan of Treatment Upcoming Encounters Date Type Department Care Team (Late st Contact Info) Description 08/02/2024 10:15 AM EDT Nurse Only [facility] [address] [place] [address] 09/10/2024 11:30 AM EDT Office Visit [facility] [address] [place] [address] [place] [address] documented as of this encounter Visit Diagnoses Diagnosis B12 deficiency documented in this encounter Administered Medications Inactive Administered Medications - up to 3 most recent administrations Medication Order MAR Action Action Date Dose Rate Site cyanocobalamin (Vitamin B-12) injection 1,000 mcg 1,000 mcg, Intramuscular, Every 30 days, First dose on Mon08/21/23 at 1500, For 11 dosesIndications:Vitamin B12 deficiency Given 07/05/2024 9:00 AM EST 1,000 mcg Left Deltoid Given 06/07/2024 9:00 AM EST 1,000 mcg Le ft Deltoid Given 05/06/2024 9:00 AM EST 1,000 mcg Le ft Deltoid documented in this encounter Additional Health Concerns Assessment Noted Time PHQ-9 Depression Total Score: 3 05/01/20 9:55 AM EST documented as of this encounter Care Teams Rn Emergency Room Relationship Specialty Start Date End Date Apol[place] [address] PCP - General Family Medicine 05/15/18 Julius Beavers [address] 3rd [place] [address] Language Tutor Cardiology 08/25/23 Ronald Maxwell MD [address] [place] [address] Urology 11/17/23 Marcelino Purcell [address] [address] Orthopaedic Surgery 08/24/23 Flor Mason RN Care Manager 04/21/23 Kera Wan MD [facility] [address] [place] [address] 11/15/23 Manisha Henao [facility] [address] [place] [phone] Orthopaedic Surgery 12/07/23 documented as of this encounter
--- OUTSIDE RECORDS SUMMARY | 2024-07-16 11:14 | XMS_ITS | Encounter Summary ---
Author Organization [employer] Address [address] [facility] [address] 7t [place] [address] Care Team Providers Care Solar Design Engineer Name Role Phone Apolonia Ragland MD Primary Care Provider [phone] Julius Beavers Unavailable Ronald Maxwell MD Unavailable [phone] Marcelino Purcell Unavailable Reason for Visit * Reason Onset Date Comments Med Refill 06/28/2024 Encounter Details Date Type Department Care Team (Late st Contact Info) Description 06/28/2024 Refill [facility] 230 [place], [place] [phone] Apolonia Ragland MD 230 [place] [address] Social History Tobacco Use Types Packs/Day Years [...] encounter Miscellaneous Notes * Telephone Encounter - Marcelle Lebron LPN - 06/28/2024 9:23 AM EST Last seen 06/18/24. * Telephone Encounter - Sravan Guaman - 06/28/2024 9:09 AM EST TC from pt requesting medication refill. Medications needing refill : chlorhexidine (Peridex) 0.12 % solution To be sent to: [facility] - [place], [place] - [address] [facility] documented in this encounter Plan of Treatment Upcoming Encounters Date Type Department Care Team ([facility] st Contact Info) Description 08/02/2024 10:15 AM EDT Nurse Only [facility] 230 [place] [address] 09/10/2024 11:30 AM EDT Office Visit [facility] [address] [place] [address] Apolonia Ragland MD 230 [place] [address] documented as of this encounter Visit Diagnoses Not on filedocumented in this encounter Additional Health Concerns Assessment Noted Time PHQ-9 Depression Total Score: 3 05/01/20 9:55 AM EST documented as of this encounter Care Teams Solar Design Engineer Relationship Specialty Start Date End Date Apolonia Ragland MD 230 [place] [address] PCP - General Family Medicine 05/15/18 Julius Beavers [address] 3rd [place] [address] [employer] Wheel Operator Cardiology 08/25/23 Ronald Maxwell MD [address] [place] [address] Urology 11/17/23 Marcelino Purcell 175 [facility] 110 [place] [address] Orthopaedic Surgery 08/24/23 Flor Mason RN Care Manager 04/21/23 Kera Wan MD [address] [address] 11/15/23 Manisha Henao [facility] 175 [facility] [address] [place] [phone] Orthopaedic Surgery 12/07/23 documented as of this encounter
--- OUTSIDE RECORDS SUMMARY | 2024-07-16 11:14 | XMS_ITS | Encounter Summary ---
Author Organization [employer] Address [address] [facility] [address] 7t [place] [address] Care Team Providers Care Sheep Sorter Name Role Phone Apolonia Ragland MD Primary Care Provider Julius Beavers Unavailable Ronald Maxwell MD Unavailable [phone] Marcelino Purcell Unavailable Encounter Details Date Type Department Care Team (Late st Contact Info) Description 08/14/2023 Orders Only [facility] 230 [place], [place] [phone] Apolonia Ragland MD 230 [place], [place] [phone] Primary osteoarthritis involving multiple joints Social History Tobacco Use Types Packs/Day Years [...] Description 08/02/2024 10:15 AM EDT Nurse Only [facility] [address] [place] [address] 09/10/2024 11:30 AM EDT Office Visit [facility] [address] [place] [address] Apolonia Ragland MD [address] [place] [address] documented as of this encounter Visit Diagnoses Diagnosis Primary osteoarthritis involving multiple joints documented in this encounter Care Teams Sheep Sorter Relationship Specialty Start Date End Date Apolonia Ragland MD 230 [place] [address] PCP - General Family Medicine 05/15/18 Julius Beavers [address]rd [place] [address] Haz Tech Cardiology 08/25/23 Ronald Maxwell MD [address] [place] [address] Urology 11/17/23 Marcelino Purcell [address] [place] [address] Orthopaedic Surgery 08/24/23 Flor Mason RN Care Manager 04/21/23 Kera Wan MD [facility] [address] [place] [address] 11/15/23 Manisha Henao [facility] [address] [place] [address] [place] [phone] Orthopaedic Surgery 12/07/23 documented as of this encounter
--- OUTSIDE RECORDS SUMMARY | 2024-07-16 11:14 | XMS_ITS | Encounter Summary ---
Author Organization [employer] Address [address] [facility] [address] 7t [place] [address] Care Team Providers Care Door Clamper Name Role Phone Apolonia Ragland MD Primary Care Provider [phone] Julius Beavers Unavailable Ronald Maxwell MD Unavailable [phone] Marcelino Purcell Unavailable Encounter Details Date Type Department Care Team (Latest Contact Info) Description 07/05/2024 Travel Social History Tobacco Use Types Packs/Day Years [...] Description 08/02/2024 10:15 AM EDT Nurse Only [facility] [address] [place] [address] 09/10/2024 11:30 AM EDT Office Visit [facility] [address] [place] [address] Apolonia Ragland MD [address] [place] [address] documented as of this encounter Visit Diagnoses Not on filedocumented in this encounter Additional Health Concerns Assessment Noted Time PHQ-9 Depression Total Score: 3 05/01/20 24 9:55 AM EST documented as of this encounter Care Teams Door Clamper Relationship Specialty Start Date End Date Apolonia Ragland MD [address] [place] [address] PCP - General Family Medicine 05/15/18 Julius Beavers [address]rd [place] [address] Army Senior Officer Cardiology 08/25/23 Ronald Maxwell MD [address] [place] [address] Urology 11/17/23 BinhMarcelino oneal 175 [facility] 110 [place] [address] Orthopaedic Surgery 08/24/23 Flor Mason RN Care Manager 04/21/23 Kear Wan MD [facility] 300 [place] [address] 11/15/23 Manisha Henao [facility] 175 [facility] [address] [place] [phone] Orthopaedic Surgery 12/07/23 documented as of this encounter
--- OUTSIDE RECORDS SUMMARY | 2024-07-16 11:14 | XMS_ITS | Encounter Summary ---
Author Organization [employer] Address [address] [facility] [address] 7t [place] [address] Care Team Providers Care Sheet Rock Sander Name Role Phone Apolonia Ragland MD Primary Care Provider [phone] Julius Beavers Unavailable Ronald Maxwell MD Unavailable [phone] Marcelino Purcell Unavailable Reason for Visit * Reason Onset Date Comments telephone call 06/07/2024 Durable Medical Equipment 06/07/2024 BPM Encounter Details Date Type Department Care Team (Late st Contact Info) Description 06/07/2024 Telephone [facility] 230 [place], [place] [phone] Apolonia Ragland MD 230 [place], [place] [phone] telephone call; Durable Medical Equipment (BPM) Social History Tobacco Use Types Packs/Day Years [...] encounter Miscellaneous Notes * Telephone Encounter - Rosangela Murray - 06/24/2024 10:14 AM EST DME for Blood Pressure Monitor signed and faxed to [facility] . Confirmation received and sent toscan. If patient calls to check status on above, please advise them to contact [facility] . * Telephone Encounter - Nimo Tay - 06/14/2024 10:36 AM EST DME RX for BPM generated and placed on providers desk for signature. * Telephone Encounter - Concepcion Garcia - 06/07/2024 10:47 AM EST Pt walked in stating he spoke with their pcp about writing down everyday their blood pressure numbers . Pt said if its possible they can get a prescription for a blood pressure monitor. documented in this encounter Plan of Treatment Upcoming Encounters Date Type Department Care Team (Late st Contact Info) Description 08/02/2024 10:15 AM EDT Nurse Only [address] [address] 09/10/2024 11:30 AM EDT Office Visit [facility] [address] [place] [address] Apolonia Ragland MD 230 [place] [address] documented as of this encounter Visit Diagnoses Not on filedocumented in this encounter Additional Health Concerns Assessment Noted Time PHQ-9 Depression Total Score: 3 05/01/20 9:55 AM EST documented as of this encounter Care Teams Sheet Rock Sander Relationship Specialty Start Date End Date Apolonia Ragland MD 230 [place] [address] PCP - General Family Medicine 05/15/18 Julius Beavers [address] 3rd [place] [address] Sap Fico Architect Cardiology 08/25/23 Ronald Maxwell MD [address] [place] [address] Urology 11/17/23 Marcelino Purcell 175 [facility] 110 [place] [address] Orthopaedic Surgery 08/24/23 Flor Mason RN Care Manager 04/21/23 Kera Wan MD [facility] [address] [place] [phone] 11/15/23 Manisha Henao [facility] 175 [facility] [address] [place] [address] Orthopaedic Surgery 12/07/23 documented as of this encounter
--- OUTSIDE RECORDS SUMMARY | 2024-07-16 11:14 | XMS_ITS | Encounter Summary ---
Author Organization [employer] Address [address] [facility] [address] 7t [place] [address] Care Team Providers Care Rivet Bucker Name Role Phone Apolonia Ragland MD Primary Care Provider [phone] Julius Beavers Unavailable Ronald Maxwell MD Unavailable [phone] Marcelino Purcell Unavailable Reason for Visit * Reason Onset Date Comments Referral 05/22/2023 Encounter Details Date Type Department Care Team (Late st Contact Info) Description 05/22/2023 Telephone [facility] [address] [place], [place] [phone] Apolonia Ragland MD 230 [place], [place] [phone] Referral Social History Tobacco Use Types Packs/Day [...] encounter Miscellaneous Notes * Telephone Encounter - Delilahnavjot Nic Sow - 05/22/2023 4:26 PM EST Tc from pt requesting A new Cardiovascular doctor due to pt current one not accepting insurance andpt owing money to facility so appt previously scheduled was canceled. Please contact pt @ [phone] documented in this encounter Plan of Treatment Upcoming Encounters Date Type Department Care Team (Late st Contact Info) Description 08/02/2024 10:15 AM EDT Nurse Only [facility] [address] [place] [phone] 09/10/2024 11:30 AM EDT Office Visit [facility] [address] [place] [address] Apolonia Ragland MD [address] [place] [address] documented as of this encounter Visit Diagnoses Not on filedocumented in this encounter Care Teams Rivet Bucker Relationship Specialty Start Date End Date Apolonia Ragland MD [address] [place] [address] PCP - General Family Medicine 05/15/18 Julius Beavers [address] 3rd [place] [address] Char Conveyor Tender Cellar Cardiology 08/25/23 Ronald Maxwell MD [address] [place] [address] Urology 11/17/23 Marcelino Purcell 175 [facility] 110 [place] [address] Orthopaedic Surgery 08/24/23 Flor Mason RN Care Manager 04/21/23 Kera Wan MD [facility] [address] [place] [address] 11/15/23 [facility] 175 [facility] [address] [place] [address] Orthopaedic Surgery 12/07/23 documented as of this encounter
--- OUTSIDE RECORDS SUMMARY | 2024-07-16 11:14 | XMS_ITS | Encounter Summary ---
Author Organization [employer] Address [address] [facility] [address] 7t [place] [address] Care Team Providers Care Bulk Plant Manager Name Role Phone Apolonia Ragland MD Primary Care Provider [phone] Julius Beavers Unavailable Ronald Maxwell MD Unavailable [phone] Marcelino Purcell Unavailable Encounter Details Date Type Department Care Team (Late st Contact Info) Description 05/23/2023 Orders Only [facility] 230 [place], [place] [phone] Apolonia Ragland MD 230 [place], [place] [phone] Frequent PVCs (Primary Dx) Social History Tobacco Use Types Packs/Day Years [...] Description 08/02/2024 10:15 AM EDT Nurse Only [facility] [address] [place] [address] 09/10/2024 11:30 AM EDT Office Visit [facility] [address] [place] [address] Apolonia Ragland MD [address] [place] [address] documented as of this encounter Visit Diagnoses Diagnosis Frequent PVCs- Primary documented in this encounter Care Teams Bulk Plant Manager Relationship Specialty Start Date End Date Apolonia Ragland MD 230 [place] [address] PCP - General Family Medicine 05/15/18 Julius Beavers [address] 3rd [place] [address] Ag Equipment Field Service Technician Cardiology 08/25/23 Ronald Maxwell MD [address] [place] [address] Urology 11/17/23 Marcelino Purcell [address] [place] [address] Orthopaedic Surgery 08/24/23 Flor Mason cloth feeder 04/21/23 Kera Wan MD [facility] [address] [place] [address] 11/15/23 Manisha Henao [facility] [address] [place] [address] [place] [phone] Orthopaedic Surgery 12/07/23 documented as of this encounter
--- OUTSIDE RECORDS SUMMARY | 2024-07-16 11:15 | XMS_ITS | Encounter Summary ---
Author Organization [employer] Address [address] [facility] [address] 7t [place] [address] Care Team Providers Care Physical Therapist Technician Name Role Phone Apolonia Ragland MD Primary Care Provider Julius Beavers Unavailable Ronald Maxwell MD Unavailable [phone] Marcelino Purcell Unavailable Encounter Details Date Type Department Care Team (Late Contact Info) Description 06/02/2022 Abstract [facility] 230 [place] [address] Apolonia Ragland MD 230 [place], [place] [phone] Social History Tobacco Use Types Packs/Day Years Used Date Smoking Tobacco: Former Cigarettes Passive Smoke Exposure: Past Smokeless Tobacco: Never Sex and Gender Information Value Date Recorded [...] suspected to have Coronavirus/COVID-19? No / Unsure 06/02/2022 10:54 AM EST documented as of this encounter Plan of Treatment Upcoming Encounters Date Type Department Care Team (Late Contact Info) Description 08/02/2024 10:15 AM EDT Nurse Only [facility] 230 [place] [address] 09/10/2024 11:30 AM EDT Office Visit [facility] 230 [place] [address] Apolonia Ragland MD 230 [place] [address] documented as of this encounter Visit Diagnoses Not on filedocumented in this encounter Care Teams Physical Therapist Technician Relationship Specialty Start Date End Date Apolonia Ragland MD [address] [place] [address] PCP - General Family Medicine 05/15/18 Julius Beavers [address] 3rd [place] [address] Inspector And Hand Packager Cardiology 08/25/23 Ronald Maxwell MD [address] [place] [address] Urology 11/17/23 Marcelino Purcell 175 [facility] 110 [place] [address] Orthopaedic Surgery 08/24/23 Flor Mason courtesy car driver 04/21/23 Kera Wan MD [address] [address] 11/15/23 Manisha Henao [facility] 175 [facility] [address] [place] [address] Orthopaedic Surgery 12/07/23 documented as of this encounter
--- OUTSIDE RECORDS SUMMARY | 2024-07-16 11:15 | XMS_ITS | Encounter Summary ---
Author Organization [employer] Address [address] [facility] [address] 7t [place] [address] Care Team Providers Care Acquisition Specialist Name Role Phone Apolonia Ragland MD Primary Care Provider [phone] Julius Beavers Unavailable Ronald Maxwell MD Unavailable [phone] Marcelino Purcell Unavailable Encounter Details Date Type Department Care Team (Late Contact Info) Description 06/07/2022 Telephone [facility] [address] [place] [address] Ana Lancaster LPN Social History Tobacco Use Types Packs/Day Years [...] Description 08/02/2024 10:15 AM EDT Nurse Only [address] [phone] 09/10/2024 11:30 AM EDT Office Visit [address] [address] Apolonia Ragland MD 230 [place] [address] documented as of this encounter Visit Diagnoses Not on filedocumented in this encounter Care Teams Acquisition Specialist Relationship Specialty Start Date End Date Apolonia Ragland MD 230 [place] [address] PCP - General Family Medicine 05/15/18 Julius Beavers [address] 3rd [place] [address] Telemetry Registered Nurse Cardiology 08/25/23 Ronald Maxwell MD [address] [place] [address] Urology 11/17/23 Marcelino Purcell 175 [facility] 110 [place] [address] Orthopaedic Surgery 08/24/23 Flor Mason supervisor adult education 04/21/23 Kera Wan MD [address] [address] 11/15/23 Manisha Henao [facility] 175 [facility] [address] [place] [phone] Orthopaedic Surgery 12/07/23 documented as of this encounter
--- OUTSIDE RECORDS SUMMARY | 2024-07-16 11:15 | XMS_ITS | Clinical Summary ---
Author Organization [address] [place] [address] Address 175 [place] [address] Phone Care Team Providers Care Iv Therapy Nurse Name Role Phone Apolonia Ragland MD Primary Care Provider [phone] Allergies Active Allergy Reactions Criticality Noted Date Comments Lisinopril 01/15/2013 Other reaction(s): weakness Tetracycline Rash 03/13/2019 Medications apixaban (Eliquis) 5 mg tablet TAKE 1 TABLET BY MOUTH TWICE DAILY Active amLODIPine (NORVASC) 2.5 mg tablet Take 2.5 mg by mouth daily. Active acetaminophen (TYLENOL) 500 mg tablet Take 500 mg by mouth Once. Active loratadine 10 mg capsule Take 10 mg by mouth daily. Active cyanocobalamin (VITAMIN B-12) 50 mcg tablet Take 50 mcg by mouth daily. Active cholecalciferol (VITAMIN D-3) 10 mcg (400 unit) tablet Take 400 mg by mouth daily. Active omeprazole (PriLOSEC) [address] capsule Take 20 mg by mouth daily. Active fluticasone propionate (FLONASE) 50 mcg/actuation nasal spray 2 Sprays by Each Nare route as needed. Active ammonium lactate (AmLactin) 12 % lotion Apply topically if needed for dry skin. 400 g 2 4 04/10/20 25 Active Active Problems Problem Noted Date Diagnosed Date Mild pulmonary hypertension 03/13/2019 Chronic diastolic congestive heart failure 03/13 Asbestos exposure 03/13/2019 Social History Tobacco Use Types Packs/Day Years Used Date Smoking Tobacco: Former Smokeless Tobacco: Never Tobacco Cessation:Counseling Given: Not Answered Sex and Gender Information Value Date Recorded Sex Assigned at Not on file Legal Sex Male 3:38 PM EST Gender Identity Not on file Sexual Orientation Not on file Obstetrics History Last Filed Vital Signs Vital Sign Reading Time Taken Comments Blood Pressure - - Pulse - - Temperature - - Respiratory Rate - - Oxygen Saturation - - Inhaled Oxygen Concentration - - Weight 80.3 kg (177 lb) 04/10/2024 1:38 PM EST Height 170.2 cm (5' 7.01 ) 04/10/2024 1:38 PM ES T Body Mass Index 27.72 04/10/2024 1:38 PM EST Plan of Treatment Upcoming Encounters Date Type Department Care Team (Late st Contact Info) Description 07/17/2024 2:00 PM EST Office Visit Orthopedic Surgery - [address] [phone] Marcelino Purcell, [place] [address] [address] Health Maintenance Due Date Last Done Comments Zoster Vaccines (1 of 2) 1960 RSV Immunization Patients 60+ Years Old (1 - 1-dose 75+ series) 2016 COVID-19 Vaccine (3 - Moderna risk series) 08/25/2020 07/28/2020, 06/30/2020 DTaP,Tdap,and Td Vaccines (3 - Td or Tdap) 08/11/2021 08/12/2011, 06/09/2006 Cholesterol Screening (Lipid Panel) 12/12/2023 Depression Screening 12/12/2023 Falls Risk Assessment 12/12/2023 Hypertension/CHF/CAD Annual BMP Blood Test 12/12/2023 Medicare Annual Wellness Visit 12/12/2023 Social Influencers of Health Screening 12/12/2023 Influenza Vaccine (#1) 2024 9, 04/10/2017, 04/20/2016, Additional history exists Hepatitis A Vaccines Aged Out 07/13/2006, 06/09/19 07 No longer eligible based on patient's age to complete this topic MMR Vaccines Aged Out 09/12/2006 No longer eligi ble based on patient's [...] patient's age to complete this topic Meningococcal ACWY Vaccine Aged Out N o longer eligible based on patient's age to complete this topic Meningococcal B Vacine Aged Out No lo nger eligible based on patient's age to complete this topic RSV Immunization Patients Under 20 months Aged Out No longer eligible based on patient's age to complete this topic Varicella Vaccines Aged Out No longer eligible based on patient's age to complete this topic Insurance MEDICARE Care Teams Iv Therapy Nurse Relationship Specialty Start Date End Date Apolonia Ragland MD [address] [place] [phone] PCP - General 03/25/13
--- OUTSIDE RECORDS SUMMARY | 2024-07-16 11:15 | XMS_ITS | Encounter Summary ---
Author Organization [employer] Address 75 [facility] [address] 7t [place] [address] Care Team Providers Care Coding Machine Operator Name Role Phone Apolonia Ragland MD Primary Care Provider [phone] Julius Beavers Unavailable Ronald Maxwell MD Unavailable [phone] Marcelino Purcell Unavailable Reason for Visit * Reason Onset Date Comments Med Refill 08/16/2022 Encounter Details Date Type Department Care Team (Late st Contact Info) Description 08/16/2022 Telephone [facility] 230 [place], [place] [phone] Apolonia Ragland MD 230 [place], [place] [phone] Med Refill Social History Tobacco Use Types Packs/Day Years [...] suspected to have Coronavirus/COVID-19? No / Unsure 07/29/2022 10:08 AM EDT documented as of this encounter Miscellaneous Notes * Telephone Encounter - Ghislaine Bermudez LPN - 08/16/2022 10:24 AM EDT Med pended to pcp today awaiting approval. * Telephone Encounter - Himanshu Mackeyfelipe Sow - 08/16/2022 10:08 AM EDT Tc from pt request new med refill script for amLODIPine (Norvasc) 2.5 MG tablet Please sent to [facility] [place], [place] - [address] [place] [address] documented in this encounter Plan of Treatment Upcoming Encounters Date Type Department Care Team (Late st Contact Info) Description 08/02/2024 10:15 AM EDT Nurse Only [facility] [address] [place] [address] 09/10/2024 11:30 AM EDT Office Visit [facility] [address] [place] [address] Apolonia Ragland MD 230 [place] [address] documented as of this encounter Visit Diagnoses Not on filedocumented in this encounter Care Teams Coding Machine Operator Relationship Specialty Start Date End Date Apolonia Ragland MD 230 [place] [address] PCP - General Family Medicine 05/15/18 Julius Beavers [address] 3rd [place] [address] Butcher Fish Cardiology 08/25/23 Ronald Maxwell MD [address] [place] [address] Urology 11/17/23 Marcelino Purcell [address] [address] Orthopaedic Surgery 08/24/23 Flor Mason windows systems engineer 04/21/23 Kera Wan MD [facility] [address] [place] [address] 11/15/23 Manisha Henao [facility] [address] [place] [phone] Orthopaedic Surgery 12/07/23 documented as of this encounter
== END 2024-07-16 09:46 | disposition home or self-care (01) ==
LOC: HO.SH 09:45
PROVIDERS: Visit Provider Family Medicine
DX: Z01.118 Encounter for examination of ears and hearing with other abnormal findings (principal); H90.3 Sensorineural hearing loss, bilateral
CPT/HCPCS: 92557; 92567

== ENCOUNTER 2024-08-05 10:17 | Day surgery (SDC) | payer MEDICARE, SELFPAY ==
--- NOTE | 2024-08-02 09:06 | P.CONAN_ITS ---
Documented by User: Liberty Perez NP 08/02/24 09:08 HPI - Anesthesia Eval Consult details Narrative: 84yo M for TUR Bladder Tumor with Mitomycin Follows [facility] Cardioloyg for afib (eliquis). Stable at 05/2024 office visit. Intermit epitaxis. Referred to ENT, visit pending [facility] Active Problems Active Problems: All Active Problems Anticoagulant long-term use (Acute) Nocturia associated with benign prostatic hyperplasia (Acute) Gross hematuria (Acute) Arthritis of right glenohumeral joint (Acute) Malignant neoplasm of urinary bladder (Acute) Paroxysmal atrial fibrillation (Acute) Epistaxis (Acute) Hypersomnia (Acute) Past Medical History Medical History (Updated 08/05/24 @ 11:22 by Jannette Eller RN) Bilateral tinnitus Ascending aorta dilatation Afib Arrhythmia Epistaxis Hypersomnia Paroxysmal atrial fibrillation Subdural hematoma History of kidney stones Dysthymic disorder Calculus of gallbladder without cholangitis or cholecystitis Ganglion cyst of finger of left hand B12 deficiency Sensorineural hearing loss Pes planovalgus Malignant neoplasm of urinary bladder Actinic keratosis Osteoarthritis Depression Allergic rhinitis Primary osteoarthritis involving multiple joints Pulmonary hypertension Essential hypertension Pain, dental GERD (gastroesophageal reflux disease) Frequent PVCs Surgical History Surgical History (Updated 08/05/24 @ 11:22 by Jannette Eller RN) Hx of tonsillectomy Social History Social History Alcohol intake: never Comment: slippery outside Patient Tobacco Use Status: Former Tobacco user Use of substances other than those prescribed or required for medical reasons: No Are you DNR?: No Advance Directives: No Advance Directives Information Provided: Yes Meds Allergies Allergy/AdvReac Type Severity Reaction Status Date / Time tetracycline [TETRACYCLINE] Allergy Intermediate RASH Verified 08/05/24 11:22 Home Medications ?Medication ?Instructions ?Recorded ?Confirmed ?Last Taken ?Type amlodipine 2.5 mg tablet 2.5 mg PO DAILY 12/30/21 06/13/24 08/05/24 06:30 History cholecalciferol (vitamin D3) 25 25 mcg PO DAILY 12/30/21 06/13/24 Unknown History mcg (1,000 unit) capsule (Vitamin D3) fluticasone propionate 50 1 spray intranasal BID 12/30/21 06/13/24 Unknown History mcg/actuation nasal spray,suspension loratadine 10 mg tablet (Allergy 10 mg PO DAILY 12/30/21 06/13/24 Unknown H istory Relief (loratadine)) simethicone 125 mg capsule (Gas 125 mg PO BID-QID PRN 12/30/21 06/13/24 Unknown History Relief (simethicone)) Gastrointestinal Spasms Or Cramping acetaminophen 500 mg tablet 500 - 1,000 mg PO BID PRN Pain 06/07/24 06/13/24 Unknown History ammonium lactate 12 % lotion 1 appl topical DAILY 06/07/24 06/13/24 Unknown History cyanocobalamin (vitamin B-12) 1,000 mcg IM QMONTH 06/07/24 06/13/24 Unknown History 1,000 mcg/mL injection solution Exam Narrative Narrative: Holter monitor done 07/10/2023 for 1 day showed sinus rhythm with intermittent AFib 22% of the time, overall average heart rate 74 beats per minute. Echocardiogram done 10/06/2023 showed EF 55-60%, left atrium moderately dilated. Nuclear stress test done 10/13/2023 showed normal myocardial perfusion imaging. EKG 2023 Vent. Rate : 054 BPM Atrial Rate : 286 BPM P-R Int : 000 ms QRS Dur : 092 ms QT Int : 420 ms P-R-T Axes : 043 -23 -01 degrees QTc Int : 398 ms Atrial flutter with variable A-V block Nonspecific ST abnormality Abnormal ECG No previous ECGs available Assessment and Plan Assessment Anesthesia Assessment: Chart Reviewed Documented by User: David Choudhary MD 08/05/24 12:35 [facility] Past Medical History Medical History (Updated 08/05/24 @ 11:22 by Jannette Eller RN) Bilateral tinnitus Ascending aorta dilatation Afib Arrhythmia Epistaxis Hypersomnia Paroxysmal atrial fibrillation Subdural hematoma History of kidney stones Dysthymic disorder Calculus of gallbladder without cholangitis or cholecystitis Ganglion cyst of finger of left hand B12 deficiency Sensorineural hearing loss Pes planovalgus Malignant neoplasm of urinary bladder Actinic keratosis Osteoarthritis Depression Allergic rhinitis Primary osteoarthritis involving multiple joints Pulmonary hypertension Essential hypertension Pain, dental GERD (gastroesophageal reflux disease) Frequent PVCs Family History Family history of problems with anesthesia: No Surgical History Surgical History (Updated 08/05/24 @ 11:22 by Jannette Eller RN) Hx of tonsillectomy History of Problems with Anesthesia: No Social History Social History Alcohol intake: never Comment: slippery outside Patient Tobacco Use Status: Former Tobacco user Use of substances other than those prescribed or required for medical reasons: No Are you DNR?: No Advance Directives: No Advance Directives Information Provided: Yes Meds Allergies Allergy/AdvReac Type Severity Reaction Status Date / Time tetracycline [TETRACYCLINE] Allergy Intermediate RASH Verified 08/05/24 11:22 Home Medications ?Medication ?Instructions ?Recorded ?Confirmed ?Last Taken ?Type amlodipine 2.5 mg tablet 2.5 mg PO DAILY 12/30/21 06/13/24 08/05/24 06:30 History cholecalciferol (vitamin D3) 25 25 mcg PO DAILY 12/30/21 06/13/24 Unknown History mcg (1,000 unit) capsule (Vitamin D3) fluticasone propionate 50 1 spray intranasal BID 12/30/21 06/13/24 Unknown History mcg/actuation nasal spray,suspension loratadine 10 mg tablet (Allergy 10 mg PO DAILY 12/30/21 06/13/24 Unknown History Relief (loratadine)) simethicone 125 mg capsule (Gas 125 mg PO BID-QID PRN 12/30/21 06/13/24 Unknown History Relief (simethicone)) Gastrointestinal Spasms Or Cramping acetaminophen 500 mg tablet 500 - 1,000 mg PO BID PRN Pain 06/07/24 06/13/24 Unknown History ammonium lactate 12 % lotion 1 appl topical DAILY 06/07/24 06/13/24 Unknown History cyanocobalamin (vitamin B-12) 1,000 mcg IM QMONTH 06/07/24 06/13/24 Unknown History 1,000 mcg/mL injection solution Exam Airway Mallampati Class: II TM Dist: <=3cm Neck ROM: Full Partial: Upper and Lower Loose/Missing/Broken Teeth: Yes, Upper and Lower Heart: ok. h/o PAfib. SR now. No Eliquis x 1 week. Lungs: OK. Assessment and Plan Assessment Anesthesia Assessment: Anesthesia Plan Discussed Final Anesthetic Review Family History of Problems with Anesthesia: No History of Problems with Anesthesia: No NPO: Yes ASA Class: III and IV Final Preanesthetic Review: No Changes in Pt Med Stat, Meds/Allgs Chart Reviewed, Consent Obtained/Reviewed and Anes Risks/Benef Reviewed Patient Risk: High Procedure Risk: Low Anesthetic Plan Anesthetic Plan: Spinal (Pt insisted on no GA. OK w GA if SAB fails.) and Agree w/ Assess. and Plan Disposition: Standard PACU
[2024-08-05] VITALS (10 sets, daily range): BP systolic 130–148; BP diastolic 72–100; PULSE 57–90; RESP 15–20; TEMP 36.7–36.9; O2SAT 95–98; BMI 26.3
[2024-08-05] MEDS: Lactated Ringers 1,000 ML 100 ML IVCONT (11:55)
--- NOTE | 2024-08-05 12:03 | P.HPSUR_ITS ---
Pre-Procedural Eval Section A - 24 Hr Update-Section A only Date of Service: 08/05/24 The patient is an INPATIENT: No Changes since office visit: No Cold of Flu in the past 2 weeks, No New Medical Problems, No Changes in Medication and No Patient answered all questions The patient has been examined within 24 hours of the surgical procedure. The History & Physical has been completed within 30 days and I have reviewed it.: No Section B - Complete if H&P > 30 days Chief Complaint: Malignant neoplasm of bladder, unspecified Details of Present Illness: TURBT multiple locations, mitomycin-C Relevant Family History (Specify if Yes): No Relevant Social History: None Present Medications: see Short Stay Collaborative assessment Medical History: No relevant PMH History of Previous Operations: Relevant previous surgery/procedure and date(s) Allergies: Allergies Allergy/AdvReac Type Severity Reaction Status Date / Time tetracycline [TETRACYCLINE] Allergy Intermediate RASH Verified 08/05/24 11:22 Review of Systems Sugical H&P ROS: Negative: Constitution, Cardiovascular, Respiratory, Neurological, Psychiatric, Hem-Onc, Allergic/Immunologic, Gastrointestinal, Gen itourinary, Musculoskeletal, Integumentary, Endocrine and Eyes/Ears/Nose/Throat Exam Surgical H&P Exam: Normal: HEENT, Normal: Heart, Normal: Lungs, Normal: Extremities, Normal: Abdomen, Normal: Skin and Normal: Neurological Plan Diagnosis/Plan: Unchanged (Transurethral resection bladder tumor with mitomycin- C installation) I have reviewed the history and physical and performed a pertinent physical examination on my patient. No changes have occurred unless specified. Time Spent With Patient Time: Total time managing care of this patient today ____ minutes.
[2024-08-05] MEDS: ceFAZolin Sodium/Dextrose,Iso 2 GM/50 ML PIGGYBACK IV (12:38)
[2024-08-05] MEDS: Acetaminophen 325 MG TABLET 975 MG PO (13:51)
--- NOTE | 2024-08-05 13:53 | P.OP_ITS ---
Operative Note Operative Note Date of Service: 08/05/24 Narrative: PreOperative Diagnosis: bladder cancer Post Operative Diagnosis: bladder cancer - Tumor size multiple tumors at least 6 ranging in size from 0.5 to 2-1/2 cm, location primary tumors in prostatic fossa x 3, posterior bladder wall, anterior bladder neck, left bladder sidewall. TURBT large Procedure: TURBT and mitomycin-C installation Surgeon: Dr Ronald Maxwell Anesthesia: general Indications for procedure: Prior high-grade superficial in 2019 Presents with recurrent hematuria Found to have multiple recurrent tumors on cystoscopy in office Procedure: After informed consent was verified the patient was brought to the operating room and placed in a supine position. Anesthesia was administered per protocol. The patient was placed in a modified dorsal lithotomy position and prepped and draped in a sterile fashion. Safety pause time-out was performed. Antibiotics were confirmed. A 26 Bulgarian continuous flow resectoscope was inserted per urethra. The visual obturator was used in order to minimize potential for urethral damage. Tumor seen in prostatic fossa consistent with prior cystoscopy. Using a bipolar resectoscope the tumor was resected. There was a 2.5 cm tumor on the left and a 2-1/2 cm tumor on the right. There was seen to be intervening tissue partic ularly around the anterior aspect. Prior TURP. There was noted to be superficial tumor around the anterior bladder neck running from the 10 o'clock to 2 o'clock position. This was fulgurated. Tumor seen on posterior wall. This was resected and fulgurated. This was proximally 2 cm in diameter. Using narrow band imaging multiple other regions were seen with small 0.5 cm tumors. These were all fulgurated. At the completion of the procedure the bladder was irrigated. The cystoscope was removed. A [address] Sommer catheter was inserted into the bladder. 10 cc was placed in the balloon. 50 mg of gemcitabine in 40 cc normal saline was instilled into the bladder. The flow from the catheter was left clamped. The inflow to the catheter was attached to a 3 L normal saline bag. The patient tolerated the procedure well. They were extubated in the operating room and transferred in stable condition to the recovery area. Mitomycin-C will remain in the bladder for 1 hour. At the completion of 1 hour the clamp will be removed. The mitomycin-C will be allowed to egress to the urine collection bag. The 3 L bag of normal saline will be run at maximum rate through the bladder in order to dilute any residual mitomycin-C. The Sommer catheter will then be removed. Pathology: Bladder tumor Drains: Catheter
== END 2024-08-05 15:53 | disposition home or self-care (01) ==
PROVIDERS: PCP Family Medicine; Visit Provider Urology
PROC: 0TBB8ZZ Excision of Bladder, Via Natural or Artificial Opening Endoscopic (ICD-10-PCS; CPT 52234; principal; 2024-08-05 12:00)
DX: C67.8 Malignant neoplasm of overlapping sites of bladder (principal); I48.0 Paroxysmal atrial fibrillation; R31.9 Hematuria, unspecified; I49.9 Cardiac arrhythmia, unspecified; Z87.442 Personal history of urinary calculi; I10 Essential (primary) hypertension; I27.20 Pulmonary hypertension, unspecified; Z79.01 Long term (current) use of anticoagulants; Z79.899 Other long term (current) drug therapy; Z88.1 Allergy status to other antibiotic agents; Z87.891 Personal history of nicotine dependence
CPT/HCPCS: 52234; 51720; 88307; J0690; J2003; J2704; J3010; J9100; J9280

== ENCOUNTER → 2024-08-05 10:17 | Outpatient (BNV) | payer MEDICARE, SELFPAY | PROVIDERS: PCP Family Medicine; Visit Provider Urology | DX: C67.8 Malignant neoplasm of overlapping sites of bladder (principal) | CPT/HCPCS: 52240 ==

== ENCOUNTER 2024-08-16 13:39 | Outpatient (AMB) | payer MEDICARE, SELFPAY ==
--- NOTE | 2024-08-16 13:40 | A.OFFVIS_ITS ---
Intake Visit Reasons: TURBT- follow up Intake Note: Patient is present via telehealth for a follow up/TURBT Urology Medication:Bactrim, Vitamin B12 Antibiotic Allergy:TETRACYCLINE Blood Thinner:APIXABAN Consumer Affairs Director Required: No Allergies tetracycline [TETRACYCLINE] Allergy (Intermediate, Verified 08/16/24 13:40) RASH HPI Comments Details: Colton is a pleasant male. He is a patient of Dr. Ragland. He has seen for the following urologic conditions. - hematuria - bladder cancer Telemedicine Evaluation 15 min Consultation Doximity Varsha Video Pathology reviewed Recommend induction with mitomycin-C cytarabine Imaging stable - 05/07 CT Urinary bladder is unremarkable. No focal bladder wall thickening identified. Prostate calcifications present. No inguinal or pelvic lymphadenopathy. 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 TURBT 2019 high-grade T1 TURBT 08/06 Procedure: Transurethral resection Tumor site: Multiple sites Histologic type: Papillary carcinoma Histologic grade: High grade Muscularis propria: Present Extent of invasion: Lamina propria Lymphovascular invasion: Not identified [facility] Medical History Bilateral tinnitus Ascending aorta dilatation Afib Arrhythmia Epistaxis Hypersomnia Paroxysmal atrial fibrillation Subdural hematoma History of kidney stones Dysthymic disorder Calculus of gallbladder without cholangitis or cholecystitis Ganglion cyst of finger of left hand B12 deficiency Sensorineural hearing loss Pes planovalgus Malignant neoplasm of urinary bladder Actinic keratosis Osteoarthritis Depression Allergic rhinitis Primary osteoarthritis involving multiple joints Pulmonary hypertension Essential hypertension Pain, dental GERD (gastroesophageal reflux disease) Frequent PVCs Surgical History Hx of tonsillectomy Social History Alcohol intake: never Comment: slippery outside Patient Tobacco Use Status: Former Tobacco user Review of Systems Const All systems reviewed & are unremarkable except as noted in HPI and below Reports no additional complaints Resp Reports no additional complaints GI Reports no additional complaints Reports as per HPI Musc Reports no additional complaints Physical Exam Telemedicine evaluation Appropriate responses Regular breathing rate and rhythm HEENT Head: Yes normal to inspection Ears: hearing grossly normal bilaterally Eyes General: appearance normal, both eyes and all related structures Neck Neck: Yes normal visual inspection Chest Chest palpation & inspection: normal inspection of the chest Resp Effort & Inspection: normal respiratory effort and able to speak in complete sentences Telehealth Telehealth Telehealth Platform: EventTool Location of provider rendering services: practice address Location of patient: address on file Patient Identification confirmed using: Name, : Yes Telehealth method: video Patient verbally consented to treatment: Yes Patient verbally consented to billing insurance company: Yes Patient informed of any privacy concerns related to visit: Yes Minutes spent on Phone/Video with Pt.: 15 Assessment & Plan Assessment & Plan (1) Malignant neoplasm of urinary bladder: Code(s): C67.9 - Malignant neoplasm of bladder, unspecified Category: Medical (2) Urinary urgency: Code(s): R39.15 - Urgency of urination Category: Medical Plan Bladder immunotherapy Bladder immuno/chemotherapy was discussed today. These medications are used to create an immune reaction against bladder cancer. The intention is to destroy any tumor cells left on the bladder surface. Since BCG and gemcitabine involved immunostimulation they are not indicated in situations where there is immune weakness. Medications are placed directly into the bladder. It should be held for one to 2 hours. The toilet should be disinfected with a cap full of household bleach prior to urination. Side effects from BCG and gemcitabine generally include mucosa-related changes such as urinary urgency and/or frequency, and hematuria BCG may also invoke an infection type response. An elevated temperature may be indicative of more serious issues and should be reported to the Dr. The intention with bladder immunotherapy is to reduce the frequency of bladder cancer recurrence by 50%. Availability of BCG is highly variable. There is a single manufacture who has had difficulty with software quality automation engineer since 2016. 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 Crossref DOI link:? https://doi.org/10.1200/JCO.3.41.6_suppl.507 ) Will undergo - combo MMC and cytarabine Medications: New phenazopyridine 100 mg PO Q8H 6 days PRN 12 tabs 0RF Pain R39.15 - Urgency of urination Patient Instructions: This note is constructed using voice recognition software. While every effort has been made to ensure accuracy demolition crane operator errors may have been included. Imaging studies, laboratory and physical exam results were discussed and reviewed in detail. No major barriers to patient understanding were identified. An opportunity to ask questions regarding the treatment plan was provided. All questions were answered. The patient expressed understanding and agreement with the above treatment plan. The patient is aware they should contact our office by phone for worsening of their current condition or the appearance of new urologic symptoms. Compliance i s encouraged with any medications and followup testing that is ordered. It is a privilege to participate in the urologic care of your patient. If you have any questions or concerns regarding treatment for the above conditions, or other urologic issues, please do not hesitate to contact me. The office telephone contact is [phone]. Sincerely, Dr Ronald Maxwell MD, [facility] - Urology Compassionate Specialist Care for the Genitourinary System Coding Level of Care Code Tele Est Pt Level 4 (25159) Complex EM visit Add On G2211 Diagnoses Malignant neoplasm of urinary bladder C67.9 Urinary urgency R39.15
--- OUTSIDE RECORDS SUMMARY | 2024-08-16 15:28 | XMS_ITS | Encounter Summary ---
Author Organization [employer] Address [address] [place] [address] Care Team Providers Care Bacteriologist Fishery Name Role Phone Apolonia Ragland MD Primary Care Provider [phone] Julius Beavers Unavailable Ronald Maxwell MD Unavailable [phone] Marcelino Purcell Unavailable Reason for Visit * Reason Onset Date Comments Nurse Triage 09/28/2023 Encounter Details Date Type Department Care Team (Late st Contact Info) Description 09/28/2023 Telephone [facility] [address] [place], [place] [phone] Apolonia Ragland MD [address] [place], [place] [phone] Nurse Triage Social History Tobacco Use Types [...] accepted this outcome Please contact pt at [phone] documented in this encounter Plan of Treatment Upcoming Encounters Date Type Department Care Team (Late st Contact Info) Description 08/30/2024 10:00 AM EDT Nurse Only [facility] [address] [place] [phone] 09/10/2024 11:30 AM EDT Office Visit [facility] [address] [place] [phone] Apolonia Ragland MD [address] [place] [phone] documented as of this encounter Visit Diagnoses Not on filedocumented in this encounter Care Teams Bacteriologist Fishery Relationship Specialty Start Date End Date Apolonia Ragland MD [address] [place] [phone] PCP - General Family Medicine 05/15/18 Julius Beavers [address] [place] [address] Sign Poster Cardiology 08/25/23 Ronald Maxwell MD [address] [place] [address] Urology 11/17/23 Marcelino Purcell [address] [facility] [address] [place] [address] Orthopaedic Surgery 08/24/23 Flor Mason RN Care Manager 04/21/23 Kera Wan MD [facility] [address] [place] [phone] 11/15/23 [facility] [address] [facility] [address] [place] [phone] Orthopaedic Surgery 12/07/23 documented as of this encounter
--- OUTSIDE RECORDS SUMMARY | 2024-08-16 15:28 | XMS_ITS | Encounter Summary ---
Author Organization [employer] Address [address] [place] [address] Care Team Providers Care Electric Powerline Examiner Name Role Phone Apolonia Ragland MD Primary Care Provider [phone] Julius Beaevrs Unavailable Ronald Maxwell MD Unavailable [phone] Marcelino Purcell Unavailable Reason for Visit * Reason Onset Date Comments Returning Call 03/19/2024 Encounter Details Date Type Department Care Team (Late st Contact Info) Description 03/19/2024 Telephone [facility] [address] [place], [place] [phone] Apolonia Ragland MD [address] [place], [place] [phone] Returning Call Social History Tobacco Use Types [...] outreach. Pt stated she received message in german, he stated he does not speak or read german and requestsfurther messages to be sent in bruneian. documented in this encounter Plan of Treatment Upcoming Encounters Date Type Department Care Team (Late st Contact Info) Description 08/30/2024 10:00 AM EDT Nurse Only [facility] [address] [place] [phone] 09/10/2024 11:30 AM EDT Office Visit [facility] [address] [place] [phone] Apolonia Ragland MD [address] [place] [phone] documented as of this encounter Visit Diagnoses Not on filedocumented in this encounter Care Teams Electric Powerline Examiner Relationship Specialty Start Date End Date Apolonia Ragland MD [address] [place] [phone] PCP - General Family Medicine 05/15/18 Julius Beavers [address] [place] [address] Aviation Tactical Readiness Officer Cardiology 08/25/23 Ronald Maxwell MD [address] [place] [address] Urology 11/17/23 Marcelino Purcell [address] [facility] [address] [place] [address] Orthopaedic Surgery 08/24/23 Flor Mason RN Care Manager 04/21/23 Kera Wan MD [address] [phone] 11/15/23 Manisha Henao [facility] [address] [facility] [address] [place] [phone] Orthopaedic Surgery 12/07/23 documented as of this encounter
--- OUTSIDE RECORDS SUMMARY | 2024-08-16 15:28 | XMS_ITS | Clinical Summary ---
Author Organization [employer] Address [address] [place] [address] 7t [place] [address] Care Team Providers Care Newscast Director Name Role Phone Apolonia Harding MD Primary Care Provider [phone] Julius Beavers Unavailable Ronald Maxwell MD Unavailable [phone] Marcelino Purcell Unavailable Allergies Active Allergy Reactions Criticality Noted Date Comments Lisinopril 01/15/2013 Other reaction(s): weakness Tetracycline Rash,Unknown High 07/05/2018 Tetracyclines & Related 05/19/2010 Other reaction(s): unspecified Medications cetirizine (ZyrTEC) 5 MG tablet Take 1 tablet (5 mg) by mouth in the morning. 90 tablet 3 023 Active Vitamin D High Potency 25 MCG (1000 UT) capsuleIndicatio ns:Primary osteoarthritis involving multiple joints TAKE 1 CAPSULE BY MOUTH DAILY IN THE MORNING 90 capsule 023 Active Acetaminophen Extra Strength 500 MG tabletIndication s:Primary osteoarthritis involving multiple joints TAKE 1 OR 2 TABLETS BY MOUTH ONE OR TWO TIMES DAILY NEEDED 90 tablet 1 024 Active Additional Information Patient taking differently: 500 mg Oral 3 times daily, Patient reports purchasing OTC instead of calling to request refills, Indications: Pain, Informant: Self, Reported on 05/01/2024 fluticasone (Flonase) 50 MCG/ACT nasal spray Administer 1 spray into each nostril 2 times daily. Shake gently. Before first use, prime pump. After use, clean tip and replace cap. 48 g 1 09/10/2 024 Active amLODIPine (Norvasc) 2.5 MG tablet TAKE 1 TABLET BY MOUTH EVERY DAY. MAY TAKE 2 TABLETS IF YOUR BLOOD PRESSURE IS STILL ELEVATED 180 tablet 3 Active ammonium lactate (Lac-Hydrin) 12 % lotion Apply topically if needed for dry skin. 024 2024 Active Eliquis 5 MG tablet Take 5 mg by mouth 2 times daily. Active cyanocobalamin (Vitamin B-12) 1000 MCG/ML injection INJECT 1 ML INTRAMUSCULARLY EVERY MONTH 1 mL Active Blood Pressure Monitoring (Omron 3 Series BP Monitor) device USE TO CHECK BLOOD PRESSURE EVERY DAY NEEDED 1 each Active chlorhexidine (Peridex) 0.12 % solution SWISH 15 ML IN THE MOUTH OR THROAT FOR 30 SECONDS THEN SPIT OUT AFTER BRUSHING TEETH, TWICE DAILY IN THE MORNING AND IN THE EVENING UNTIL SYMPTOMS RESOLVED 473 mL 025 Active chlorhexidine (Peridex) 0.12 % solution SWISH FOR 30 SECONDS WITH 15 ML (ONE CAPFUL) OF UNDILUTED ORAL RINSE AFTER TOOTHBRUSHING, THEN EXPECTORATE; REPEAT TWICE DAILY (MORNING AND EVENING) UNTIL SYMPTOMS RESOLVE. 473 mL 025 2024 Discontinued Hospital, Clinic, or Other Facility Administered Medication Ordered Dose Route Frequency Start Date End Date Status cyanocobalamin (Vitamin B-12) injection 1,000 mcgIndications:B12 deficiency 1000 mcg IM Once 08/02/2024 08/02/2024 Ended Active Problems Patient Care Coordination No [...] Assessment & Plan (11/01/2023 10:45 AM EDT): -[id number] Score: 3 - continue apixaban 2.5 mg bid - no rate or rhythm control - advised to complete sleep study - continue risk factor management Assessment & Plan (09/30/2023 6:35 PM EDT): - continue apixaban - patient states apixaban was switched to rivaroxaban by general operator; however, patient seems to be taking 5 [...] Assessment & Plan (06/03/2024 7:55 AM EST): -Curling Machine Operator: previously [facility], and recently started following with [facility]. Last seen on 10/17/23 -Rate control: none [...] ischemia -Sleep study was ordered by [facility] Cardiology, but patient has not completed it yet Assessment & Plan (03/05/2024 10:42 AM EDT): -Curling Machine Operator: [facility], and [facility] started following with [facility]. Last seen on 10/17/23 -Rate control: none [...] ischemia -Sleep study was ordered by [facility] Cardiology, but patient has not completed it yet Assessment & Plan (11/01/2023 10:37 AM EDT): -Curling Machine Operator: previously [facility], and recently started following with [facility]. Last seen on 10/17/23 -Rate control: none [...] ischemia -Sleep study was ordered by [facility] Cardiology, but patient has not completed it yet Assessment & Plan (09/27/2023 5:45 AM EDT): [id number] Score: 3 -Curling Machine Operator: previously [facility], and recently started following with [facility] -Rate control: none -Rhythm control: none -Anticoagulation: apixaban -Last Holter monitor: 07/10/23 -Last transthoracic echocardiogram: Done at [facility] on 10/25/22 TTE LVEF 55-60%; 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 Ordered by [facility] Cardiology recently -Last stress test 10/07/22 nuclear stress test with MPI wnl -Sleep study was ordered by [facility] Card[facility] Assessment & Plan (08/24/2023 4:49 PM EDT): Here from previous ER visit, started on Eliquis for prevention - not tolerating well due to more bleeds - recommend talk to the general operator about whether he should continue Eliquis as he is moderate risk by [id number] - he will continue for now and [...] on apixaban since 08/10/23 -Following with [facility] cardiology since August 2023, last seen on [...] 4.0 cm. - Currently following with [facility] cardiology and transthoracic echocardiogram was ordered Assessment & Plan (06/29/2023 4:46 AM EST): - 10/25/22 TTE normal LV sfunction with EF 55-60%. 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 - Follow-up with general operator in 6 mo - TTE at least yearly Assessment & Plan (04/24/2023 6:07 AM EST): - 10/25/22 TTE normal LV sfunction with EF 55-60%. 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 - Follow-up with general operator in 6 mo - TTE at least yearly Assessment & Plan (01/05/2023 6:51 AM EDT): - 10/25/22 TTE normal LV sfunction with EF 55-60%. 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 - Follow-up with general operator in 6 mo - TTE at least [...] 6:08 PM EST): -evaluated by ENT and basic sciences professor -pt has severe hearing loss -pt is [...] AM EST): - previously following with [facility] urology - Transurethral resection of bladder tumor on 11/20/18 Pathology report High-grade papillary urothelial carcinoma - seen by urologist on 11/17/23; upcoming appt on 03/13/24 Assessment & Plan (03/05/2024 11:20 AM EDT): - previously following with [facility] urology - Transurethral resection of bladder tumor on 11/20/18 Pathology report High-grade papillary urothelial carcinoma - seen by urologist on 11/17/23; upcoming appt on 03/13/24 Assessment & Plan (11/01/2023 10:39 AM EDT): - previously following with [facility] urology - Transurethral resection of bladder tumor on 11/20/18 Pathology report High-grade papillary urothelial carcinoma - Referred to urology; upcoming appt Assessment & Plan (09/27/2023 5:53 AM EDT): - previously following with [facility] urology - Transurethral resection of bladder tumor [...] mg bid -Continue ASA. -Last lipid profile: 5/22/23 TC 148 ; TG 130 ; HDL [...] WRITTEN ON 09/28/2023 5:48 PM BY FRANKY DEL TORO - previously seen by [facility] providers - pt declines further evaluation by orthopedist due to outstanding charges Assessment & Plan (05/30/2024 5:20 AM EST): >>ASSESSMENT AND PLAN FOR PRIMARY OSTEOARTHRITIS INVOLVING MULTIPLE JOINTS WRITTEN ON 10/31/2023 10:53 AM BY KRISHNA LIVINGSTON - previously seen by [facility] providers - pt declined further evaluation by orthopedist due to outstanding charge - will refer to orthopedist at [facility] for reevaluation - discussed taking Tylenol PRN for pain - encouraged ice and heat therapy Assessment & Plan (05/30/2024 5:20 AM EST): >>ASSESSMENT AND PLAN FOR PRIMARY OSTEOARTHRITIS INVOLVING MULTIPLE JOINTS WRITTEN ON 03/05/2024 11:23 AM BY SUSAN CARVALHO - following with [facility] providers, last seen [...] difficulty walking - pt will benefit from UNDERWRITING SUPPORT MANAGER service; will check the status of UNDERWRITING SUPPORT MANAGER service >>ASSESSMENT AND PLAN FOR PRIMARY OSTEOARTHRITIS INVOLVING MULTIPLE JOINTS WRITTEN ON 01/06/2023 7:10 AM BY APOLONIA HARDING MD - previously seen by [facility] providers - pt declines further evaluation by orthopedist due to outstanding charges Assessment & Plan (06/05/2022 6:10 PM EST): - multiple joints - difficulty walking - pt will benefit from UNDERWRITING SUPPORT MANAGER service 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 -Follow up with general operator as scheduled Assessment & Plan (07/03/2023 6:08 AM EST): -Seen by [facility] general operator in November 2022. -Asymptomatic. 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 -Follow up with general operator as scheduled -Bradycardiac lately; will schedule Holter monitor Assessment & Plan (04/24/2023 6:06 AM EST): -[facility]. -Asymptomatic. 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 -Follow up with general operator as scheduled Assessment & Plan (01/06/2023 7:06 AM EDT): -Seen by [facility] general operator in November 2022. -Asymptomatic. 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 -Follow up with general operator as scheduled Assessment & Plan (10/03/2022 12:26 PM EDT): -Seen by [facility] general operator in July 2022. -Asymptomatic. -Possibly starting CCB or BB -Follow up with general operator as scheduled -Being scheduled for stress test and has a follow up with general operator in near future Assessment & Plan (06/05/2022 6:03 PM EST): -Seen by [facility] general operator in Jan 2022. -Asymptomatic. -Possibly starting CCB or BB -Follow up with general operator as scheduled Gastroesophageal reflux disease 04/02/2012 Assessment [...] Encounters Date Type Department Care Team Description 08/09/2024 Refill [facility] [address] [place] [address] Apolonia Harding MD 08/05/2024 Orders Only GENERIC EXTERNAL DATA DEPARTMENT Provider, Generic External Data 08/02/2024 10:15 AM EDT Nurse Only [address] [address] Tiana Ramirez LPN B12 deficiency (Primary Dx) 08/02/2024 Travel 07/26/2024 Population Health Risk Score [facility] () [address] [phone] Provider, Population Health Generic 07/05/2024 10:30 AM EST Nurse Only [facility] [place] [address] Tiana Ramirez LPN B12 deficiency 07/05/2024 Travel 06/28/2024 Orders Only [facility] [place] [address] Apolonia Harding MD B12 deficiency (Primary Dx); Paroxysmal atrial fibrillation (CMS/HCC); Essential hypertension 06/28/2024 Refill [facility] [place] [address] Aoplonia Harding MD 06/21/2024 Telephone [facility] [place] [address] Apolonia Harding MD FYI 06/18/2024 6:40 PM EST Office Visit [facility] [place] [address] Jacques Foster MD Fall, initial encounter (Primary Dx); Acute pain of right knee; Abrasion of right elbow, initial encounter 06/18/2024 Telephone [facility] [place] [address] Apolonia Harding MD Referral 06/18/2024 Telephone [facility] [place] [address] Apolonia Harding MD Nurse Triage 06/07/2024 11:20 AM EST Nurse Only [facility] [place] [address] Tiana Ramirez LPN B12 deficiency 06/07/2024 Telephone [facility] [place] [address] Apolonia Harding MD telephone call 06/07/2024 Refill [facility] [place] [address] Apolonia Harding MD 06/07/[address] [address] Apolonia Harding MD telephone call; Durable Medical Equipment (BPM) 06/06/[address] [address] Apolonia Harding MD 05/30/2024 11:15 AM EST Office Visit [address] [address] Apolonia Harding MD Paroxysmal atrial fibrillation (CMS/HCC) [...] Dietary counseling; Exercise counseling; Overweight 05/30/[address] [address] Apolonia Harding MD from Last 3 Months Immunizations Name Administration [...] 71 No Known Problems Father's Brother Charlie guevara Relationship-only met once No Known Problems Maternal Grandfather Nii Wa s a mitchell in [place] No Known Problems Maternal Grandmother Lidya Pacemaker Mother Carson at 88 No Known Problems Mother's Brother 1 Abdon No Known Problems Mother's Brother 2 Enrico Pimentel ent believes he may have passed from a [...] Former Cigarettes 0.5 2 1 960 - 196 Passive Smoke Exposure: Past Smokeless Tobacco: Never [...] Description 08/30/2024 10:00 AM EDT Nurse Only [facility] [address] [place] [address] 09/10/2024 11:30 AM EDT Office Visit [facility] [address] [place] [address] [phone] Apolonia Harding MD [address] [place] [address] Health Maintenance Due Date Last Done Comments Zoster Vaccines (1 of 2) 1991 RSV Patients and Patients Aged 60 years or older (1 - 1-dose 75+ series) 2016 DTaP/Tdap/Td Vaccines (2 - Td or Tdap) 08/11/2021 08/12/2011, 06/09/2006 COVID-19 Vaccine (1 - season) 2024 Influenza Vaccine (#1) 2024 9, 04/10/2017, 04/20/2016, [...] Procedure Name Priority Date/Time Associated Diagnosis Comments GROSS AND MICROSCOPIC LEVEL 5 Routine 08/05/2024 1:40 PM EDT LIPID PANEL WITH REFLEX TO DIRECT LDL Routine 09/28/2023 8:17 AM EDT Essential hypertension from Last 3 Months or Most Recently Relevant to Health Maintenance Results * Gross and Microscopic Level 5 (08/05/2024 1:40 PM EDT) 08/05/2024 1:40 PM EDT 08/05/2024 2:21 PM EDT [facility] - 08/07/2024 3:04 PM EDT ----- ------- Name: Colton Black ? Age/Sex: 84/M ? : 1940 Unit#: [id number] ?? Attend Dr: Ronald Maxwell MD ?Re08/05/24 ?Status: DEP SDC ? Location: HO.SSS ?Disch: ? ----- ------- SPEC : [id number] ? RECD: 08/05/24-1420 ? STATUS: ??SOUT ? REQ NUM: [id number] ? BETHANY: 08/05/24-1340 ? SUBM DR: Ronald Maxwell MD ? ENTERED: ??08/05/24-1422 ?SP TYPE: Surgical ? OTHR DR: Apolonia Harding MD ? ORDERED: ??Gross Micro L5 ? Diagnosis ?? Bladder, transurethral resection: ?- High grade papillary urothelial carcinoma, invasive into lamina propria. ?- Muscularis propria present. ? Bladder, transurethral resection/biopsy ? Procedure: ?Transurethral resection ?? Tumor site: ?Multiple sites ?? Histologic type: ?? Papillary carcinoma ?? Histologic grade: ?? High grade ?? Muscularis propria: ?? Present ?? Extent of invasion: ?? Lamina propria ?? Lymphovascular invasion: ?? Not identified ?Clinical History Malignant neoplasm of bladder ?Microscopic Description Microscopic sections reviewed. ? Material Received ?? Bladder tumor ? Gross Description Received in formalin labeled ?bladder tumor? are multiple focally cauterized, velvety, micropapillomatous, rubi-martin and martin-pink fragments and chips of tissue versus tumor ranging from 0.4-0.9 cm and aggregating 2.5 x 2.0 x 0.45 cm, submitted in toto in a cassette labeled A. ??CEDS This case was reviewed intradepartmentally. Copies To: ?? Ronald Maxwell MD ?? [facility] ?? [address] ?? [place] [address] ?? [phone] ? CONTINUED ON NEXT PAGE ----- ------- Name: Colton Black ? Age/Sex: 84/M ? : 1940 Unit#: [id number] ?? Attend Dr: Ronald Maxwell MD ?Re08/05/24 ?Status: DEP SDC ? Location: HO.SSS ?Disch: ? ----- ------- SPEC : [id number] ? RECD: 08/05/24-1420 ? STATUS: ??SOUT ? REQ NUM: [id number] ? BETHANY: 08/05/24-0 ? SUBM DR: Ronald Maxwell MD ? ENTERED: ??08/05/24-1421 ?SP TYPE: Surgical ? OTHR DR: Apolonia Harding MD ? ORDERED: ??Gross Micro L5 ? Copies To: ??(Continued) ?? Apolonia Harding MD ?? [facility] ?? [address] [facility] ?? [place] [address] ?? [phone] ----- ------- Signed (signature on file) Binh Nielsen MD 08/07/24 9886 ? ----- ------- ? END OF REPORT ? us Generic External Data Provider LAB BLOOD ORDERAB LES Final Result [facility] [address] [place] [address] [phone] * Lipid Panel with Reflex to Direct LDL (09/28/2023 8:17 AM EDT) Triglycerides 83 <150 mg/dL [facility] Comment:Desirable Triglyceri de: less than 150 mg/dLBorderline High Triglyceride 150-199 mg/dLHigh Triglyceride: 200-499 mg/dLVery High Triglyceride: greater than or equal to 5OO mg/dL Cholesterol 144 <200 mg/dL [facility] Comment:Desirable Cholestero l: less than 200 mg/dLBorderline High Cholesterol: 200-239 mg/dLHigh Cholesterol: greater than 239 mg/dL LDL Cholesterol Calculated 85 <100 mg/dL [facility] Comment:Desirable LDL: less than 100 mg/dLNear Optimal/Above Optimal LDL: 110- 129 mg/dLBorderline High LDL: 130-159 mg/dLHigh LDL: 160-189 mg/dLVery High LDL: greater than or equal to 190 mg/dL HDL Cholesterol 43 >40 mg/dL [facility] Comment:Desirable HDL: great er than 40 mg/dL Note: This HDL assay may give artificially low results in patients with liver disease. Blood 09/28/2023 8:17 AM EDT 09/28/2023 11:20 AM EDT us Apolonia Harding MD LAB BLOOD ORDERABLES Final Resul t [facility] [address] [place] [address] [phone] from Last 3 Months or Most Recently Relevant to Health Maintenance Insurance [facility] MEDICARE ADVANTAGE HMO Care Teams Newscast Director Relationship Specialty Start Date End Date Apolonia Harding MD [address] [place], [place] PCP - General Family Medicine 05/15/18 Julius Beavers [address] [place] [address] Curling Machine Operator Cardiology 08/25/23 Ronald Maxwell MD [address] [place] [address] Urology 11/17/23 Marcelino Purcell [address] [place] [address] Orthopaedic Surgery 08/24/23 Flor Mason RN Care Manager 04/21/23 Kera Wan MD [facility] [address] [place] [address] 11/15/23 Manisha Henao [facility] [address] [place] [phone] Orthopaedic Surgery 12/07/23
--- OUTSIDE RECORDS SUMMARY | 2024-08-16 15:29 | XMS_ITS | Encounter Summary ---
Author Organization [employer] Address [address] [place] [address] Care Team Providers Care Coding Clerks Supervisor Name Role Phone Apolonia Ragland MD Primary Care Provider [phone] Julius Beavers Unavailable Ronald Maxwell MD Unavailable [phone] Marcelino Purcell Unavailable Encounter Details Date Type Department Care Team (Late st Contact Info) Description 08/14/2023 Orders Only [facility] [address] [place], [place] [phone] Apolonia Ragland MD [address] [place], [place] [phone] Primary osteoarthritis involving multiple joints Social History [...] Description 08/30/2024 10:00 AM EDT Nurse Only [facility] [address] [place] [phone] 09/10/2024 11:30 AM EDT Office Visit [facility] [address] [place] [phone] Apolonia Ragland MD [address] [place] [phone] documented as of this encounter Visit Diagnoses Diagnosis Primary osteoarthritis involving multiple joints documented in this encounter Care Teams Coding Clerks Supervisor Relationship Specialty Start Date End Date Apolonia Ragland MD [address] [place] [address] PCP - General Family Medicine 05/15/18 Julius Beavers [address]rd [place] [address] Sales Representative Gas Service Cardiology 08/25/23 Ronald Maxwell MD [address] [place] [address] Urology 11/17/23 Marcelino Purcell [address] [place] [address] Orthopaedic Surgery 08/24/23 Flor Mason RN Care Manager 04/21/23 Kera Wan MD [facility] [address] [place] [address] 11/15/23 Manisha Henao [facility] [address] [place] [address] [place] [phone] Orthopaedic Surgery 12/07/23 documented as of this encounter
--- OUTSIDE RECORDS SUMMARY | 2024-08-16 15:29 | XMS_ITS | Encounter Summary ---
Author Organization [employer] Address [address] [place] [address] Care Team Providers Care Cookie Mixer Helper Name Role Phone Apolonia Ragland MD Primary Care Provider [phone] Julius Beavers Unavailable Ronald Maxwell MD Unavailable Marcelino Purcell Unavailable Reason for Visit * Reason Onset Date Comments Referral 05/22/2023 Encounter Details Date Type Department Care Team (Late st Contact Info) Description 05/22/2023 Telephone [facility] [address] [place], [place] [phone] Apolonia Ragland MD [address] [place], [place] [phone] Referral Social History Tobacco Use Types Packs/Day [...] encounter Miscellaneous Notes * Telephone Encounter - Himanshu Sow - 05/22/2023 4:26 PM EST Tc from pt requesting A new Cardiovascular doctor due to pt current one not accepting insurance andpt owing money to facility so appt previously scheduled was canceled. Please contact pt @ [phone] documented in this encounter Plan of Treatment Upcoming Encounters Date Type Department Care Team (Late st Contact Info) Description 08/30/2024 10:00 AM EDT Nurse Only [facility] [address] [place] [phone] 09/10/2024 11:30 AM EDT Office Visit [facility] [address] [place] [address] Apolonia Ragland MD [address] [place] [phone] documented as of this encounter Visit Diagnoses Not on filedocumented in this encounter Care Teams Cookie Mixer Helper Relationship Specialty Start Date End Date Apolonia Ragland MD [address] [place] [phone] PCP - General Family Medicine 05/15/18 Julius Beavers [address] [place] [address] Geoscience Technician Cardiology 08/25/23 Ronald Maxwell MD [address] [place] [address] Urology 11/17/23 Marcelino Purcell [address] [facility] [address] [place] [address] Orthopaedic Surgery 08/24/23 Flor Mason RN Care Manager 04/21/23 Kera Wan MD [facility] [address] [place] [address] 11/15/23 [facility] [address] [facility] [address] [place] [address] Orthopaedic Surgery 12/07/23 documented as of this encounter
--- OUTSIDE RECORDS SUMMARY | 2024-08-16 15:29 | XMS_ITS | Encounter Summary ---
Author Organization [employer] Address [address] [facility] [address] 7t [place] [address] Care Team Providers Care Lead Database Developer Name Role Phone Apolonia Ragland MD Primary Care Provider [phone] Julius Beavers Unavailable Ronald Maxwell MD Unavailable [phone] Marcelino Purcell Unavailable Encounter Details Date Type Department Care Team (Late st Contact Info) Description 05/23/2023 Orders Only [facility] 230 [place], [place] [phone] Apolonia Ragland MD 230 [place], [place] [phone] Frequent PVCs (Primary Dx) Social History Tobacco [...] Description 08/30/2024 10:00 AM EDT Nurse Only [facility] [address] [place] [address] 09/10/2024 11:30 AM EDT Office Visit [facility] [address] [place] [address] Apolonia Ragland MD [address] [place] [address] documented as of this encounter Visit Diagnoses Diagnosis Frequent PVCs- Primary documented in this encounter Care Teams Lead Database Developer Relationship Specialty Start Date End Date Apolonia Ragland MD 230 [place] [address] PCP - General Family Medicine 05/15/18 Julius Beavers [address] 3rd [place] [address] Seal Skinner Cardiology 08/25/23 Ronald Maxwell MD [address] [place] [address] Urology 11/17/23 Marcelino Purcell [address] [place] [address] Orthopaedic Surgery 08/24/23 Flor Mason collateral clerk 04/21/23 Kera Wan MD NEOS [address] [place] [address] 11/15/23 Manisha Henao [facility] [address] [place] [address] [place] [phone] Orthopaedic Surgery 12/07/23 documented as of this encounter
--- OUTSIDE RECORDS SUMMARY | 2024-08-16 15:29 | XMS_ITS | Encounter Summary ---
Author Organization [employer] Address [address] [facility] [address] 7t [place] [address] Care Team Providers Care Packing Clerk Name Role Phone Apolonia Ragland MD Primary Care Provider [phone] Julius Beavers Unavailable Ronald Maxwell MD Unavailable [phone] Marcelino Purcell Unavailable Encounter Details Date Type Department Care Team (Late st Contact Info) Description 06/28/2024 Orders Only [facility] MED[facility]INE 230 [place], [place] [phone] Apolonia Ragland MD 230 [place], [place] [phone] B12 deficiency (Primary Dx); Paroxysmal atrial fibrillation [...] Description 08/30/2024 10:00 AM EDT Nurse Only [facility]INE [address] [place] [address] 09/10/2024 11:30 AM EDT Office Visit [facility] [address] [place] [address] Apolonia Ragland MD [address] [place] [address] Scheduled Orders Name Type Priority Associated Diagnoses [...] documented as of this encounter Care Teams Packing Clerk Relationship Specialty Start Date End Date Apolonia Ragland MD 230 [place] [address] PCP - General Family Medicine 05/15/18 Julius Beavers [address] 3rd [place] [address] Dental Nurse Cardiology 08/25/23 Ronald Maxwell MD [address] [place] [address] Urology 11/17/23 Marcelino Purcell 175 [facility] 110 [place] [address] Orthopaedic Surgery 08/24/23 Flor Mason RN Care Manager 04/21/23 Kera Wan MD [address] [address] 11/15/23 Manisha Henao [facility] 175 [facility] [address] [place] [phone] Orthopaedic Surgery 12/07/23 documented as of this encounter
--- OUTSIDE RECORDS SUMMARY | 2024-08-16 15:29 | XMS_ITS | Encounter Summary ---
Author Organization [employer] Address [address] [facility] [address] 7t [place] [address] Care Team Providers Care Oracle Erp Architect Name Role Phone Apolonia Ragland MD Primary Care Provider [phone] Julius Beavers Unavailable Ronald Maxwell MD Unavailable [phone] Marcelino Purcell Unavailable Reason for Visit * Reason Onset Date Comments Lab Orders 01/19/2024 Encounter Details Date Type Department Care Team (Late st Contact Info) Description 01/19/2024 Telephone [facility] MEDICINE 230 [place], [place] [phone] Apolonia Ragland MD 230 [place], [place] [phone] Lab Orders Social History Tobacco Use Types [...] Description 08/30/2024 10:00 AM EDT Nurse Only [facility] MEDICINE [address] [place] [address] 09/10/2024 11:30 AM EDT Office Visit [facility] MEDICINE [address] [place] [address] Apolonia Ragland MD [address] [place] [address] documented as of this encounter Visit Diagnoses Not on filedocumented in this encounter Care Teams Oracle Erp Architect Relationship Specialty Start Date End Date Apolonia Ragland MD [address] [place] [address] PCP - General Family Medicine 05/15/18 Julius Beavers [address] [place] [address] 3rd [place] [address] House Builder Cardiology 08/25/23 Ronald Maxwell MD [address] [place] [address] Urology 11/17/23 Marcelino Purcell 175 [facility] 110 [place] [address] Orthopaedic Surgery 08/24/23 Flor Mason RN Care Manager 04/21/23 Kera Wan MD NEOS 300 [place] [address] 11/15/23 Manisha Henao [facility] 175 [facility] [address] [place] [phone] Orthopaedic Surgery 12/07/23 documented as of this encounter
--- OUTSIDE RECORDS SUMMARY | 2024-08-16 15:29 | XMS_ITS | Encounter Summary ---
Author Organization [employer] Address [address] [facility] [address] 7t [place] [address] Care Team Providers Care Electronic Page Makeup System Operator Name Role Phone Apolonia Ragland MD Primary Care Provider [phone] Julius Beavers Unavailable Ronald Maxwell MD Unavailable [phone] Marcelino Purcell Unavailable Encounter Details Date Type Department Care Team (Late Contact Info) Description 06/02/2022 Abstract [facility] MED[facility]INE 230 [place] [address] pAolonia Ragland MD 230 [place], [place] [phone] Social History Tobacco Use Types Packs/Day Years [...] Department Care Team (Late Contact Info) Description 08/30/2024 10:00 AM EDT Nurse Only [facility] 230 [place] [address] 09/10/2024 11:30 AM EDT Office Visit [facility] 230 [place] [address] Apolonia Ragland MD 230 [place] [address] documented as of this encounter Visit Diagnoses Not on filedocumented in this encounter Care Teams Electronic Page Makeup System Operator Relationship Specialty Start Date End Date Apolonia Ragland MD 230 [facility] [place] [address] PCP - General Family Medicine 05/15/18 Julius Beavers [address] 3rd [place] [address] Machine Heel Seat Laster Cardiology 08/25/23 Ronald Maxwell MD [address] [place] [address] Urology 11/17/23 Marcelino Purcell 175 [facility] 110 [place] [address] Orthopaedic Surgery 08/24/23 Flor Mason medication coordinator 04/21/23 Kera Wan MD [address] [address] 11/15/23 Manisha Henao [facility] Medical [facility] 175 [facility] [address] [place] [address] Orthopaedic Surgery 12/07/23 documented as of this encounter
--- OUTSIDE RECORDS SUMMARY | 2024-08-16 15:29 | XMS_ITS | Encounter Summary ---
Author Organization [employer] Address [address] [facility] [facility] [address] 7t [place] [address] Care Team Providers Care Creative Services Producer Name Role Phone Apolonia Ragalnd MD Primary Care Provider [phone] Julius Beavers Unavailable Ronald Maxwell MD Unavailable [phone] Marcelino Purcell Unavailable Reason for Visit * Reason Onset Date Comments Med Refill 08/16/2022 Encounter Details Date Type Department Care Team (Late st Contact Info) Description 08/16/2022 Telephone [facility] MEDICINE 230 [place], [place] [phone] Apolonia Ragland MD 230 [place], [place] [phone] Med Refill Social History Tobacco Use Types [...] today awaiting approval. * Telephone Encounter - Courtneydeirdre Nic Sow - 08/16/2022 10:08 AM EDT Tc from pt request new med refill script for amLODIPine (Norvasc) 2.5 MG tablet Please sent to [facility] - [place], [place] - [address] [place] [address] documented in this encounter Plan of Treatment Upcoming Encounters Date Type Department Care Team (Late st Contact Info) Description 08/30/2024 10:00 AM EDT Nurse Only [facility] MEDICINE [address] [place] [address] 09/10/2024 11:30 AM EDT Office Visit [facility] MEDICINE [address] [place] [address] Apolonia Ragland MD 230 [place] [address] documented as of this encounter Visit Diagnoses Not on filedocumented in this encounter Care Teams Creative Services Producer Relationship Specialty Start Date End Date Apolonia Ragland MD 230 [place] [address] PCP - General Family Medicine 05/15/18 Julius Beavers [address] 3rd [place] [address] Health Analytics Consultant Cardiology 08/25/23 Ronald Maxwell MD [address] [place] [address] Urology 11/17/23 Marcelino Purcell [address] [address] Orthopaedic Surgery 08/24/23 Flor Mason associate medical director 04/21/23 Kera Wan MD [facility] 300 [place] [address] 11/15/23 Manisha Henao [facility] [address] [place] [phone] Orthopaedic Surgery 12/07/23 documented as of this encounter
--- OUTSIDE RECORDS SUMMARY | 2024-08-16 15:29 | XMS_ITS | Clinical Summary ---
Author Organization [address] [place] [address] Address 175 [place] [address] Phone Care Team Providers Care Regional Director Of Finance Name Role Phone Apolonia Ragland MD Primary Care Provider [phone] Allergies Active Allergy Reactions Criticality Noted Date [...] Care Team (Late st Contact Info) Description 09/17/2024 1:15 PM EDT Office Visit [facility] - [place] [address] [address] Marcelino Purcell, [place] [address] [address] Health Maintenance Due Date Last Done Comments Zoster Vaccines (1 of 2) 1960 RSV Immunization Adult Patients (1 - 1-dose 75+ series) 2016 COVID-19 [...] complete this topic Insurance MEDICARE Care Teams Regional Director Of Finance Relationship Specialty Start Date End Date Apolonia Ragland MD [address] [place] [phone] PCP - General 03/25/13
--- OUTSIDE RECORDS SUMMARY | 2024-08-16 15:29 | XMS_ITS | Encounter Summary ---
Author Organization [employer] Address [address] [facility] [address] 7t [place] [address] Care Team Providers Care Cloth Desizing Range Tender Name Role Phone Apolonia Ragland MD Primary Care Provider [phone] Jluius Beavers Unavailable Ronald Maxwell MD Unavailable [phone] Marcelino Purcell Unavailable Reason for Visit * Reason Onset Date Comments Nurse Triage 08/16/2023 Encounter Details Date Type Department Care Team (Late st Contact Info) Description 08/16/2023 Telephone [facility] MEDICINE 230 [place], [place] [phone] Apolonia Ragland MD 230 [place], [place] [phone] Nurse Triage Social History Tobacco Use Types [...] EDT Triage call Pt was seen in [facility] 08/11/23 ED dx of atrial fibrillation. Pt was prescribed eliquis 5mg bid. Pt had been taking ASA 81mg daily . Pt started eliquis 08/14/23 and stopped ASA the same day. Pt is calling regarding some pinkish/reddish colored urine, neg for burning but, always has frequency. Pt also reports having a bloody nose x1 . Pt is advised to come to [facility] for provider to see Pt. Pt reports is in [place] and will try to come to [facility] open till 8pm and other logan will come to [facility] in the morning opens at 830am. Pt is cautioned to seek eval at ED if bleeding should increase and Pt agrees. Pt does have follow up apt [facility] 08/30/23 and another apt with [facility] 08/21/23. Pt agrees with dispostion. Protocol Used: [...] Description 08/30/2024 10:00 AM EDT Nurse Only [facility] MEDICINE [address] [place] [address] 09/10/2024 11:30 AM EDT Office Visit [facility] MEDICINE [address] [place] [address] Apolonia Ragland MD 230 [place] [address] documented as of this encounter Visit Diagnoses Not on filedocumented in this encounter Care Teams Cloth Desizing Range Tender Relationship Specialty Start Date End Date Apolonia Ragland MD 230 [place] [address] PCP - General Family Medicine 05/15/18 Julius Beavers [address] 3rd [place] [address] Manufacturing Plant Technician Cardiology 08/25/23 Ronald Maxwell MD [address] [place] [address] Urology 11/17/[address] [facility] 110 [place] [address] Orthopaedic Surgery 08/24/23 Flor Mason RN Care Manager 04/21/23 Kera Wan MD [address] [address] 11/15/23 Manisha Henao [facility] 175 [facility] [address] [place] [phone] Orthopaedic Surgery 12/07/23 documented as of this encounter
--- OUTSIDE RECORDS SUMMARY | 2024-08-16 15:29 | XMS_ITS | Encounter Summary ---
Author Organization [employer] Address [address] [facility] [address] 7t [place] [address] Care Team Providers Care Recreation Engineer Name Role Phone Apolonia Ragland MD Primary Care Provider [phone] Julius Beavers Unavailable Ronald Maxwell MD Unavailable [phone] Marcelino Purcell Unavailable Encounter Details Date Type Department Care Team (Late Contact Info) Description 06/07/2022 Telephone [facility] MEDICINE [address] [place] [address] Ana Lancaster LPN Social History Tobacco Use [...] Description 08/30/2024 10:00 AM EDT Nurse Only [address] [phone] 09/10/2024 11:30 AM EDT Office Visit [address] [address] Apolonia Ragland MD 230 [place] [address] documented as of this encounter Visit Diagnoses Not on filedocumented in this encounter Care Teams Recreation Engineer Relationship Specialty Start Date End Date Apolonia Ragland MD 230 [place] [address] PCP - General Family Medicine 05/15/18 Julius Beavers [address] 3rd [place] [address] Culinary Artist Cardiology 08/25/23 Ronald Maxwell MD [address] [place] [address] Urology 11/17/23 Marcelino Purcell 175 [facility] 110 [place] [address] Orthopaedic Surgery 08/24/23 Flor Mason rehab trainer 04/21/23 Kera Wan MD [address] [address] 11/15/23 Manisha Henao [facility] 175 [facility] [address] [place] [address] Orthopaedic Surgery 12/07/23 documented as of this encounter
--- OUTSIDE RECORDS SUMMARY | 2024-08-16 15:29 | XMS_ITS | Encounter Summary ---
Author Organization [employer] Address [address] [place] [address] 7t [place] [address] Care Team Providers Care Asset Administrator Name Role Phone Apolonia Ragland MD Primary Care Provider [phone] Julius Beavers Unavailable Ronald Maxwell MD Unavailable [phone] Marcelino uPrcell Unavailable Encounter Details Date Type Department Care Team (Late st Contact Info) Description 10/11/2022 Abstract [facility] [employer] [facility] 230 [place] [address] Apolonia Ragland MD 230 [place], [place] [phone] Social History Tobacco Use Types Packs/Day Years [...] Description 08/30/2024 10:00 AM EDT Nurse Only [facility] 230 [place] [address] 09/10/2024 11:30 AM EDT Office Visit [facility] 230 [place] [address] Apolonia Ragland MD 230 [place] [address] documented as of this encounter Visit Diagnoses Not on filedocumented in this encounter Care Teams Asset Administrator Relationship Specialty Start Date End Date Apolonia Ragland MD 230 [place] [address] PCP - General Family Medicine 05/15/18 Julius Beavers [address] 3rd [place] [address] Residential Mortgage Underwriter Cardiology 08/25/23 Ronald Maxwell MD [address] [place] [address] Urology 11/17/23 Marcelino Purcell 175 [facility] 110 [place] [address] Orthopaedic Surgery 08/24/23 Flor Mason surgery nurse 04/21/23 Kera Wan MD [address] [address] 11/15/23 Manisha Henao [facility] 175 [facility] [address] [place] [phone] Orthopaedic Surgery 12/07/23 documented as of this encounter
== END 2024-08-16 14:57 | disposition home or self-care (01) ==
LOC: HO.HUSH 13:39
PROVIDERS: PCP Family Medicine; Visit Provider Urology
DX: C67.9 Malignant neoplasm of bladder, unspecified (principal); R39.15 Urgency of urination
CPT/HCPCS: 99214; G2211

== ENCOUNTER → 2024-08-16 13:39 | Outpatient (BNVA) | payer MEDICARE, SELFPAY | PROVIDERS: PCP Family Medicine; Visit Provider Urology ==

== ENCOUNTER 2024-08-26 09:12 | Outpatient (AMB) | payer MEDICARE, SELFPAY ==
--- NOTE | 2024-08-26 09:16 | MHC.OFFVIS ---
Vital Signs 08/26/24 09:17 Height 5 ft 7 in Weight 171 lb 8.314 oz BMI 26.9 BP 112/64 Blood Pressure Location Lt brachial Position Sitting Pulse 58 Pulse Source Monitor Intake Visit Reasons: r/s 07/22/24 4 mos followup Social Insurance Administrator Required: No Allergies tetracycline [TETRACYCLINE] Allergy (Intermediate, Verified 08/26/24 09:21) RASH Medication List - Last Reconciled 08/26/24 by GERTRUDE Wetzel acetaminophen 500 - 1,000 mg PO BID PRN amlodipine 2.5 mg PO DAILY ammonium lactate 12% 1 appl topical DAILY cholecalciferol (vitamin D3) (Vitamin D3) 25 mcg PO DAILY cyanocobalamin (vitamin B-12) 1,000 mcg IM QMONTH fluticasone propionate 50 mcg/actuation 1 spray intranasal BID loratadine (Allergy Relief (loratadine)) 10 mg PO DAILY simethicone (Gas Relief (simethicone)) 125 mg PO BID-QID PRN HPI HPI r/s 07/22/24 4 mos followup: Details: Colton is 84-year-old male with past medical history of hypertension, bladder cancer, paroxysmal AFib, epistaxis who presents for follow-up. Today he reports that he stopped Eliquis in July for his bladder procedure and did not restart it. He says he does not want to restart nosebleeds. He has not seen the ENT provider in his received a call for an appointment. He is aware of the stroke risk that holding his anticoagulation can cause. He is being treated for bladder cancer and has not had any recent hematuria. He has not had neurological changes, speech disturbances. He has not felt any heart palpitations, no lightheadedness, presyncope, syncope. No chest discomfort at rest or with activity. No shortness of breath, PND, orthopnea. He does get some swelling in his legs which is not new. He reports light physical activities only. [facility] Medical History Bilateral tinnitus Ascending aorta dilatation Afib Arrhythmia Epistaxis Hypersomnia Paroxysmal atrial fibrillation Subdural hematoma History of kidney stones Dysthymic disorder Calculus of gallbladder without cholangitis or cholecystitis Ganglion cyst of finger of left hand B12 deficiency Sensorineural hearing loss Pes planovalgus Malignant neoplasm of urinary bladder Actinic keratosis Osteoarthritis Depression Allergic rhinitis Primary osteoarthritis involving multiple joints Pulmonary hypertension Essential hypertension Pain, dental GERD (gastroesophageal reflux disease) Frequent PVCs Surgical History Hx of tonsillectomy Social History Alcohol intake: never Comment: slippery outside Patient Tobacco Use Status: Former Tobacco user Review of Systems Const All systems reviewed & are unremarkable except as noted in HPI and below ENT Denies dizziness Card Denies chest pain, Denies chest pain at rest, Denies chest pain with activity, Denies rapid heart rate, Denies pedal edema, Denies edema, Denies leg edema, Denies lightheadedness, Denies palpitations, Denies dyspnea, Denies dyspnea on exertion and Denies orthopnea Resp Denies cough, Denies dyspnea and Denies dyspnea on exertion GI Denies hematochezia and Denies change in stool character Musc Denies abnormal gait, Denies limited range of motion, Denies muscle weakness, Denies numbness, Denies radiating pain into limb, Denies stiffness and Denies tingling Neuro Denies abnormal gait, Denies dizziness, Denies numbness and Denies tingling Endo Denies palpitations Physical Exam Vital Signs: Last Vital Signs Pulse 58 08/26/24 09:17 BP 112/64 08/26/24 09:17 BMI result Body Mass Index 26.9 Const General: cooperative, healthy appearing, comfortable and no acute distress Orientation/consciousness: patient oriented x3 Neck Neck: Yes normal visual inspection and Yes no JVD Resp Effort & Inspection: normal respiratory effort Auscultation: clear to auscultation bilaterally, no rales, no rhonchi and no wheezes Cardio Rate: regular rate Rhythm: abnormal rhythm Heart sounds: S1 normal heart sound present, S2 normal heart sound present, no murmurs and no rubs Neuro General: patient oriented x3 Extrem General: Yes normal to inspection and No no pedal edema Psych Appearance: grossly normal Mental Status: mental status grossly normal Speech and movement: Normal speech and movement present Office Procedures EKG Details: Today, read by me atrial flutter, left axis, low voltage QRS, rate 58, Qtc 374ms [id number], Complete Assessment & Plan Assessment & Plan (1) Paroxysmal atrial fibrillation: Comment: follows with [facility] Code(s): I48.0 - Paroxysmal atrial fibrillation Category: Medical Plan: History of paroxysmal atrial fibrillation . Last Holter monitor done 07/10/2023 for 1 day showed sinus rhythm with intermittent AFib 22% of the time, overall average heart rate 74 beats per minute. Echocardiogram done 10/06/2023 showed EF 55-60%, left atrium moderately dilated. Nuclear stress test done 10/13/2023 showed normal myocardial perfusion imaging. He has not required any rate slowing medications. He has not been taking Eliquis for last 3 weeks. Stroke risk while off anticoagulation reviewed with him in detail and he states understanding. He has issues with Epistaxis when he takes Eliquis. Will reorder Eliquis. Will referr him again to the ENT provider. EKG today shows atrial flutter, rate 58. Will keep him off rate slowing meds. Will order Holter monitor to assess AF burden and rates. Cardiology follow up 4 mo, sooner if needed (2) Epistaxis: Code(s): R04.0 - Epistaxis Category: Medical Plan: As above (3) Malignant neoplasm of urinary bladder: Code(s): C67.9 - Malignant neoplasm of bladder, unspecified Category: Medical Plan: Being treated by Dr. Maxwell. (4) Anticoagulant long-term use: Code(s): Z79.01 - exterminator (current) use of anticoagulants Category: Medical Plan: As above. If he continues to have issues with either epistaxis or hematuria setting of his bladder cancer and Watchman device can be considered. He has made decision to hold his anticoagulation at present however informed that is not recommended. (5) Atrial flutter: Code(s): I48.92 - Unspecified atrial flutter Category: Medical Plan: EKG today shows asymptomatic Atrial flutter. Checking holter Plan Time spent on chart review, document, interview, assess Orders: Referrals Ear/Nose/Throat Referral R04.0 - Epistaxis Medications: New apixaban (Eliquis) 5 mg PO BID 60 tabs 5RF Coding Level of Care Code Est Pt Level 4 (45246) Complex EM visit Add On G2211 Diagnoses Paroxysmal atrial fibrillation I48.0 Epistaxis R04.0 Malignant neoplasm of urinary bladder C67.9 Anticoagulant long-term use Z79.01 Atrial flutter I48.92 CPT Codes EKG - CPT: 34565-[id number], Complete ([id number]) Time Spent (min) 30
[2024-08-26 09:17] VITALS: BP 112/64; PULSE 58; BMI 26.9
--- OUTSIDE RECORDS SUMMARY | 2024-08-26 10:10 | XMS_ITS | Encounter Summary ---
Author Organization [employer] Address [address] [facility] [address] 7t [place] [address] Care Team Providers Care Primary Special Education Teacher Name Role Phone Apolonia Ragland MD Primary Care Provider [phone] Julius Beavers Unavailable Ronald Maxwell MD Unavailable [phone] aMrcelino Purcell Unavailable Encounter Details Date Type Department Care Team (Late st Contact Info) Description 06/28/2024 Orders Only [facility] 230 [place], [place] [phone] Apolonia Ragland MD 230 [place], [place] [phone] B12 deficiency (Primary Dx); Paroxysmal atrial fibrillation [...] 08/30/2024 10:00 AM EDT Nurse Only [facility] [address] [place] [address] 09/10/2024 11:30 AM EDT Office Visit [facility] [address] [place] [address] Apolonia Ragland MD [address] [place] [address] Scheduled Orders Name Type Priority Associated Diagnoses [...] documented as of this encounter Care Teams Primary Special Education Teacher Relationship Specialty Start Date End Date Apolonia Ragland MD 230 [place] [address] PCP - General Family Medicine 05/15/18 Julius Beavers [address] 3rd [place] [address] Environmental Services Specialist Cardiology 08/25/23 Ronald Maxwell MD [address] [place] [address] Urology 11/17/23 Marcelino Purcell [address] [facility] 110 [place] [address] Orthopaedic Surgery 08/24/23 Flor [place] RN Care Manager 04/21/23 Kera Wan MD [address] [address] 11/15/23 Manisha Henao [facility] 175 [facility] [address] [place] [phone] Orthopaedic Surgery 12/07/23 documented as of this encounter
--- OUTSIDE RECORDS SUMMARY | 2024-08-26 10:10 | XMS_ITS | Encounter Summary ---
Author Organization [employer] Address [address] [facility] [address] 7t [place] [address] Care Team Providers Care Mechanist Name Role Phone Apolonia Ragland MD Primary Care Provider Julius Beavers Unavailable Ronald Maxwell MD Unavailable [phone] Marcelino Purcell Unavailable Encounter Details Date Type Department Care Team (Late st Contact Info) Description 05/23/2023 Orders Only [facility] 230 [place], [place] [phone] Apolonia Ragland MD 230 [place], [place] [phone] Frequent PVCs (Primary Dx) Social History Tobacco [...] Nurse Only [facility] [address] [place] [address] 09/10/2024 11:30 AM EDT Office Visit [facility] [address] [place] [address] Apolonia Ragland MD [address] [place] [address] documented as of this encounter Visit Diagnoses Diagnosis Frequent PVCs- Primary documented in this encounter Care Teams Mechanist Relationship Specialty Start Date End Date Apolonia Ragland MD 230 [place] [address] PCP - General Family Medicine 05/15/18 Julius Beavers [address] 3rd [place] [address] Supervisory Investigative Specialist Cardiology 08/25/23 Ronald Maxwell MD [address] [place] [address] Urology 11/17/23 Marcelino Purcell [address] [place] [address] Orthopaedic Surgery 08/24/23 Flor [place] length control tester 04/21/23 Kera Wan MD [facility] [address] [place] [address] 11/15/23 Manisha Henao [facility] [address] [place] [address] [place] [phone] Orthopaedic Surgery 12/07/23 documented as of this encounter
--- OUTSIDE RECORDS SUMMARY | 2024-08-26 10:10 | XMS_ITS | Encounter Summary ---
Author Organization [employer] Address [address] [facility] [address] 7t [place] [address] Care Team Providers Care Residential Driver Name Role Phone Apolonia Ragland MD Primary Care Provider [phone] Julius Beavers Unavailable Ronald Maxwell MD Unavailable [phone] Marcelino Purcell Unavailable Reason for Visit * Reason Onset Date Comments Referral 05/22/2023 Encounter Details Date Type Department Care Team (Late st Contact Info) Description 05/22/2023 Telephone [facility] 230 [place], [place] [phone] Apolonia Ragland MD 230 [place], [place] [phone] Referral Social History Tobacco Use Types Packs/Day [...] scheduled was canceled. Please contact pt @ [phone] documented in this encounter Plan of Treatment Upcoming Encounters Date Type Department Care Team (Late st Contact Info) Description 08/30/2024 10:00 AM EDT Nurse Only [facility] [address] [place] [address] 09/10/2024 11:30 AM EDT Office Visit [facility] [address] [place] [address] Apolonia Ragland MD [address] [place] [address] documented as of this encounter Visit Diagnoses Not on filedocumented in this encounter Care Teams Residential Driver Relationship Specialty Start Date End Date Apolonia Ragland MD [address] [place] [address] PCP - General Family Medicine 05/15/18 Julius Beavers [address] 3rd [place] [address] Varitype Operator Cardiology 08/25/23 Ronald Maxwell MD [address] [place] [address] Urology 11/17/23 Marcelino Purcell 175 [facility] 110 [place] [address] Orthopaedic Surgery 08/24/23 Flor [place] RN Care Manager 04/21/23 Kera Wan MD [facility] 300 [place] [address] 11/15/23 [facility] 175 [facility] [address] [place] [address] Orthopaedic Surgery 12/07/23 documented as of this encounter
--- OUTSIDE RECORDS SUMMARY | 2024-08-26 10:10 | XMS_ITS | Encounter Summary ---
Author Organization [employer] Address [address] [facility] [address] 7t [place] [address] Care Team Providers Care Dual Rate Dealer Name Role Phone Apolonia Ragland MD Primary Care Provider [phone] Julius Beavers Unavailable Ronald Maxwell MD Unavailable [phone] Marcelino Purcell Unavailable Reason for Visit * Reason Onset Date Comments Returning Call 03/19/2024 Encounter Details Date Type Department Care Team (Late st Contact Info) Description 03/19/2024 Telephone [facility] 230 [place], [place] [phone] Apolonia Ragland MD 230 [place], [place] [phone] Returning Call Social History Tobacco Use Types [...] outreach. Pt stated she received message in syriac, he stated he does not speak or read syriac and requestsfurther messages to be sent in icelandic. documented in this encounter Plan of Treatment Upcoming Encounters Date Type Department Care Team (Late st Contact Info) Description 08/30/2024 10:00 AM EDT Nurse Only [facility] [address] [place] [address] 09/10/2024 11:30 AM EDT Office Visit [facility] [address] [place] [address] Apolonia Ragland MD [address] [place] [address] documented as of this encounter Visit Diagnoses Not on filedocumented in this encounter Care Teams Dual Rate Dealer Relationship Specialty Start Date End Date Apolonia Ragland MD [address] [place] [address] PCP - General Family Medicine 05/15/18 Julius Beavers [address] 3rd [place] [address] Bioinformatics Software Engineer Cardiology 08/25/23 Ronald Maxwell MD [address] [place] [address] Urology 11/17/23 Marcelino Purcell 175 [facility] 110 [place] [address] Orthopaedic Surgery 08/24/23 Flor [place] RN Care Manager 04/21/23 Kera Wan MD [address] [address] 11/15/23 Manisha Henao [facility] 175 [facility] [address] [place] [phone] Orthopaedic Surgery 12/07/23 documented as of this encounter
--- OUTSIDE RECORDS SUMMARY | 2024-08-26 10:10 | XMS_ITS | Encounter Summary ---
Author Organization [employer] Address [address] [facility] [address] 7t [place] [address] Care Team Providers Care Mica Machine Operator Name Role Phone Apolonia Ragland MD Primary Care Provider [phone] Julius Beavers Unavailable Ronald [place] MD Unavailable [phone] Marcelino Purcell Unavailable Reason for Visit * Reason Onset Date Comments Nurse Triage 08/16/2023 Encounter Details Date Type Department Care Team (Late st Contact Info) Description 08/16/2023 Telephone [facility] 230 [place], [place] [phone] Apolonia Ragland MD 230 [place], [place] [phone] Nurse Triage Social History Tobacco Use Types [...] EDT Triage call Pt was seen in [facility] 08/11/23 ED dx of atrial fibrillation. Pt was prescribed eliquis 5mg bid. Pt had been taking ASA 81mg daily . Pt started eliquis 08/14/23 and stopped ASA the same day. Pt is calling regarding some pinkish/reddish colored urine, neg for burning but, always has frequency. Pt also reports having a bloody nose x1 . Pt is advised to come to [facility] for provider to see Pt. Pt reports is in [place] and will try to come to [facility] open till 8pm and other [place] will come to [facility] in the morning opens at 830am. Pt is cautioned to seek eval at ED if bleeding should increase and Pt agrees. Pt does have follow up apt [facility] 08/30/23 and another apt with [facility] 08/21/23. Pt agrees with dispostion. Protocol [...] Description 08/30/2024 10:00 AM EDT Nurse Only [facility] [address] [place] [address] 09/10/2024 11:30 AM EDT Office Visit [facility] [address] [place] [address] Apolonia Ragland MD 230 [place] [address] documented as of this encounter Visit Diagnoses Not on filedocumented in this encounter Care Teams Mica Machine Operator Relationship Specialty Start Date End Date Apolonia Ragland MD 230 [place] [address] PCP - General Family Medicine 05/15/18 Julius Beavers [address] 3rd [place] [address] Ncr Operator Cardiology 08/25/23 Ronald Maxwell MD [address] [place] [address] Urology 11/17/23 Marcelino Purcell 175 [facility] 110 [place] [address] Orthopaedic Surgery 08/24/23 Flor [place] RN Care Manager 04/21/23 Kera Wan MD [address] [address] 11/15/23 Manisha Henao [facility] 175 [facility] [address] [place] [phone] Orthopaedic Surgery 12/07/23 documented as of this encounter
--- OUTSIDE RECORDS SUMMARY | 2024-08-26 10:10 | XMS_ITS | Encounter Summary ---
Author Organization [employer] Address [address] [facility] [address]t [place] [address] Care Team Providers Care Security Business Analyst Name Role Phone Apolonia Ragland MD Primary Care Provider [phone] Julius Beavers Unavailable Ronald Maxwell MD Unavailable [phone] Marcelino Purcell Unavailable Reason for Visit * Reason Onset Date Comments Lab Orders 01/19/2024 Encounter Details Date Type Department Care Team (Late st Contact Info) Description 01/19/2024 Telephone [facility] 230 [place], [place] [phone] Apolonia Ragland MD 230 [place], [place] [phone] Lab Orders Social History Tobacco Use Types [...] Description 08/30/2024 10:00 AM EDT Nurse Only [facility] [address] [place] [address] 09/10/2024 11:30 AM EDT Office Visit [facility] [address] [place] [address] Apolonia Ragland MD [address] [place] [address] documented as of this encounter Visit Diagnoses Not on filedocumented in this encounter Care Teams Security Business Analyst Relationship Specialty Start Date End Date Apolonia Ragland MD [address] [place] [address] PCP - General Family Medicine 05/15/18 Julius Beavers [address] [place] [address] 3rd [place] [address] Stripper Black And White Cardiology 08/25/23 Ronald Maxwell MD [address] [place] [address] Urology 11/17/23 [address] 175 [facility] 110 [place] [address] Orthopaedic Surgery 08/24/23 Flor [place] RN Care Manager 04/21/23 Kera Wan MD [facility] [address] [place] [address] 11/15/23 Manisha Henao [facility] 175 [facility] [address] [place] [phone] Orthopaedic Surgery 12/07/23 documented as of this encounter
--- OUTSIDE RECORDS SUMMARY | 2024-08-26 10:10 | XMS_ITS | Clinical Summary ---
Author Organization [employer] Address [address] [place] [address] 7t [place] [address] Care Team Providers Care Tool Keeper Name Role Phone Apolonia Harding MD Primary Care Provider [phone] Julius Beavers Unavailable Ronald Maxwell MD Unavailable [phone] Marcelino Purcell Unavailable Allergies Active Allergy Reactions [...] Assessment & Plan (11/01/2023 10:45 AM EDT): -[id number] Score: 3 - continue apixaban 2.5 mg bid - no rate or rhythm control - advised to complete sleep study - continue risk factor management Assessment & Plan (09/30/2023 6:35 PM EDT): - continue apixaban - patient states apixaban was switched to rivaroxaban by loading rack supervisor; however, patient seems to be taking 5 [...] Assessment & Plan (06/03/2024 7:55 AM EST): -Institutional Asset Manager: previously [facility], and recently started following with [facility]. Last seen on 10/17/23 -Rate control: none [...] no ischemia -Sleep study was ordered by [facility] Cardiology, but patient has not completed it yet Assessment & Plan (03/05/2024 10:42 AM EDT): -Institutional Asset Manager: [facility], and recently started following with [facility]. Last seen on 10/17/23 -Rate control: none [...] no ischemia -Sleep study was ordered by [facility] Card[facility], but patient has not completed it yet Assessment & Plan (11/01/2023 10:37 AM EDT): -Institutional Asset Manager: previously [facility], and recently started following with [facility]. Last seen on 10/17/23 -Rate control: none [...] no ischemia -Sleep study was ordered by [facility] Card[facility], but patient has not completed it yet Assessment & Plan (09/27/2023 5:45 AM EDT): [id number] Score: 3 -Institutional Asset Manager: previously [facility], and recently started following with [facility] -Rate control: none -Rhythm control: none -Anticoagulation: apixaban -Last Holter monitor: 07/10/23 -Last transthoracic echocardiogram: Done at [facility] on 10/25/22 TTE LVEF 55-60%; 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 Ordered by [facility] Cardiology recently -Last stress test 10/07/22 nuclear stress test with MPI wnl -Sleep study was ordered by [facility] Cardiology Assessment & Plan (08/24/2023 4:49 PM EDT): Here from previous ER visit, started on Eliquis for prevention - not tolerating well due to more bleeds - recommend talk to the loading rack supervisor about whether he should continue Eliquis as he is moderate risk by [id number] - he will continue for now and [...] -Started on apixaban since 08/10/23 -Following with [facility] cardiology since August 2023, last seen on [...] 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 - Currently following with [facility] cardiology and transthoracic echocardiogram was ordered Assessment & Plan (06/29/2023 4:46 AM EST): - 10/25/22 TTE normal LV sfunction with EF 55-60%. 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 - Follow-up with loading rack supervisor in 6 mo - TTE at least yearly Assessment & Plan (04/24/2023 6:07 AM EST): - 10/25/22 TTE normal LV sfunction with EF 55-60%. 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 - Follow-up with loading rack supervisor in 6 mo - TTE at least yearly Assessment & Plan (01/05/2023 6:51 AM EDT): - 10/25/22 TTE normal LV sfunction with EF 55-60%. 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 - Follow-up with loading rack supervisor in 6 mo - TTE at least [...] 6:08 PM EST): -evaluated by ENT and squeegee operator -pt has severe hearing loss -pt is [...] 7:56 AM EST): - previously following with [facility] urology - Transurethral resection of bladder tumor on 11/20/18 Pathology report High-grade papillary urothelial carcinoma - seen by urologist on 11/17/23; upcoming appt on 03/13/24 Assessment & Plan (03/05/2024 11:20 AM EDT): - previously following with [facility] u[facility] - Transurethral resection of bladder tumor on 11/20/18 Pathology report High-grade papillary urothelial carcinoma - seen by urologist on 11/17/23; upcoming appt on 03/13/24 Assessment & Plan (11/01/2023 10:39 AM EDT): - previously following with [facility] urology - Transurethral resection of bladder tumor on 11/20/18 Pathology report High-grade papillary urothelial carcinoma - Referred to urology; upcoming appt Assessment & Plan (09/27/2023 5:53 AM EDT): - previously following with [facility] u[facility] - Transurethral resection of bladder tumor [...] charge - will refer to orthopedist at [facility] for reevaluation - discussed taking Tylenol [...] difficulty walking - pt will benefit from COUNSELOR EDUCATION PROFESSOR service; will check the status of COUNSELOR EDUCATION PROFESSOR service >>ASSESSMENT AND PLAN FOR PRIMARY OSTEOARTHRITIS INVOLVING MULTIPLE JOINTS WRITTEN ON 01/06/2023 7:10 AM BY APOLONIA HARDING MD - previously seen by [facility] providers - pt declines further evaluation by orthopedist due to outstanding charges Assessment & Plan (06/05/2022 6:10 PM EST): - multiple joints - difficulty walking - pt will benefit from COUNSELOR EDUCATION PROFESSOR service 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 -Follow up with loading rack supervisor as scheduled Assessment & Plan (07/03/2023 6:08 AM EST): -Seen by [facility] loading rack supervisor in November 2022. -Asymptomatic. 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 -Follow up with loading rack supervisor as scheduled -Bradycardiac lately; will schedule Holter monitor Assessment & Plan (04/24/2023 6:06 AM EST): -[facility] loading [facility] supervisor in November 2022. -Asymptomatic. 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 -Follow up with loading rack supervisor as scheduled Assessment & Plan (01/06/2023 7:06 AM EDT): -Seen by [facility] loading rack supervisor in November 2022. -Asymptomatic. 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 -Follow up with loading rack supervisor as scheduled Assessment & Plan (10/03/2022 12:26 PM EDT): -Seen by [facility] loading rack supervisor in July 2022. -Asymptomatic. -Possibly starting CCB or BB -Follow up with loading rack supervisor as scheduled -Being scheduled for stress test and has a follow up with loading rack supervisor in near future Assessment & Plan (06/05/2022 6:03 PM EST): -Seen by [facility] loading rack supervisor in Jan 2022. -Asymptomatic. -Possibly starting CCB or BB -Follow up with loading rack supervisor as scheduled Gastroesophageal reflux disease 04/02/2012 Assessment [...] Type Department Care Team Description 08/09/2024 Refill [facility] [address] [place] [address] Apolonia Harding MD 08/05/2024 Orders Only GENERIC EXTERNAL DATA DEPARTMENT Provider, Generic External Data 08/02/2024 10:15 AM EDT Nurse Only [address] [address] Tiana Ramirez LPN B12 deficiency (Primary Dx) 08/02/2024 Travel 07/26/2024 Population Health Risk Score [facility] () [address] [phone] Provider, Population Health Generic 07/05/2024 10:30 AM EST Nurse [place] [address] Tiana Ramirez LPN B12 deficiency 07/05/2024 Travel 06/28/2024 Orders [place] [address] Apolonia Harding MD B12 deficiency (Primary Dx); Paroxysmal atrial fibrillation (CMS/HCC); Essential hypertension 06/28/2024 [place] [address] Apoloina Harding MD 06/21/2024 Telephone [facility] [place] [address] Apolonia Harding MD FYI 06/18/2024 6:40 PM EST Office Visit [facility] [place] [address] Jacques Foster MD Fall, initial encounter (Primary Dx); Acute pain of right knee; Abrasion of right elbow, initial encounter 06/18/2024 Telephone [place] [address] Apolonia Harding MD Referral 06/18/2024 Telephone [facility] [address] Apolonia Harding MD Nurse Triage 06/07/2024 11:20 AM EST Nurse [place] [address] Tiana Ramirez LPN B12 deficiency 06/07/2024 [place]phone [place] [address] Apolonia Harding MD telephone call 06/07/2024 [place] [address] Apolonia Harding MD 06/07/[address] [address] Apolonia Harding MD telephone call; Durable Medical Equipment (BPM) 06/06/[address] [address] Apolonia Harding MD 05/30/2024 11:15 AM EST Office Visit [address] [address] Apolonia Harding MD Paroxysmal atrial fibrillation (CMS/HCC) [...] Dietary counseling; Exercise counseling; Overweight 05/30/[address] [address] Apolonia Harding MD from Last 3 Months [...] Grandfather Nii Wa s a mitchell in [place] No Known Problems Maternal Grandmother Lidya Pacemaker [...] Nephew Collin No Known Problems Paternal Grandfather Rno Pa ssed away in 1941 (at 42 [...] 08/30/2024 10:00 AM EDT Nurse Only [facility] [address] [place] [address] 09/10/2024 11:30 AM EDT Office Visit [facility] [address] [place] [address] [phone] Apolonia Harding MD [address] [place] [address] Health Maintenance Due Date Last Done Comments [...] 1:40 PM EDT 08/05/2024 2:21 PM EDT [facility] - 08/07/2024 3:04 PM EDT ----- ------- Name: Colton Black ? Age/Sex: 84/M ? : 1940 Unit#: [id number] ?? Attend Dr: Ronald Maxwell MD ?Re08/05/24 ?Status: DEP SDC ? Location: HO.SSS ?Disch: ? ----- ------- SPEC : [id number] ? RECD: 08/05/24-1420 ? STATUS: ??SOUT ? REQ NUM: [id number] ? BETHANY: 08/05/24-1340 ? SUBM DR: Ronald [...] Copies To: ?? Ronald Maxwell MD ?? [facility] U[facility] Services ?? [address] ?? [place] [address] ?? [phone] ? CONTINUED ON NEXT PAGE ----- ------- Name: Colton Black ? Age/Sex: 84/M ? : 1940 Unit#: [id number] ?? Attend Dr: Ronald Maxwell MD ?Re08/05/24 ?Status: DEP SDC ? Location: HO.SSS ?Disch: ? ----- ------- SPEC : [id number] ? RECD: 08/05/24-1420 ? STATUS: ??SOUT ? REQ NUM: [id number] ? BETHANY: 08/05/24-0 ? SUBM DR: Ronald Maxwell MD ? ENTERED: ??08/05/24-1421 ?SP TYPE: Surgical ? OTHR DR: Apolonia Harding MD ? ORDERED: ??Gross Micro L5 ? Copies To: ??(Continued) ?? Apolonia Harding MD ?? [facility] ?? [address] [facility] ?? [place] [address] ?? [phone] ----- ------- Signed (signature on file) Binh Nielsen MD 08/07/24 2884 ? ----- ------- ? END OF REPORT ? us Generic External Data Provider LAB BLOOD ORDERAB LES Final Result [facility] [address] [place] [address] [phone] * Lipid Panel with Reflex to Direct LDL (09/28/2023 8:17 AM EDT) Triglycerides 83 <150 mg/dL [facility] Comment:Desirable Triglyceri de: less than 150 mg/dLBorderline High Triglyceride 150-199 mg/dLHigh Triglyceride: 200-499 mg/dLVery High Triglyceride: greater than or equal to 5OO mg/dL Cholesterol 144 <200 mg/dL [facility] Comment:Desirable Cholestero l: less than 200 mg/dLBorderline High Cholesterol: 200-239 mg/dLHigh Cholesterol: greater than 239 mg/dL LDL Cholesterol Calculated 85 <100 mg/dL [facility] Comment:Desirable LDL: less than 100 mg/dLNear Optimal/Above Optimal LDL: 110- 129 mg/dLBorderline High LDL: 130-159 mg/dLHigh LDL: 160-189 mg/dLVery High LDL: greater than or equal to 190 mg/dL HDL Cholesterol 43 >40 mg/dL [facility] Comment:Desirable HDL: great er than 40 mg/dL Note: This HDL assay may give artificially low results in patients with liver disease. Blood 09/28/2023 8:17 AM EDT 09/28/2023 11:20 AM EDT us Apolonia Harding MD LAB BLOOD ORDERABLES Final Resul t [facility] [address] [place] [address] [phone] from Last 3 Months or Most Recently Relevant to Health Maintenance Insurance [facility] MEDICARE ADVANTAGE HMO Care Teams Tool Keeper Relationship Specialty Start Date End Date Apolonia Harding MD [address], [place] PCP - General Family Medicine 05/15/18 Julius Beavers [address] 3rd [place] [address] Institutional Asset Manager Cardiology 08/25/23 Ronald Maxwell MD [address] [place] [address] Urology 11/17/23 Marcelino Purcell [address] [place] [address] Orthopaedic Surgery 08/24/23 Flor Mason RN Care Manager 04/21/23 Kera Wan MD [facility] [address] [place] [address] 11/15/23 Manisha Henao [facility] [address] [place] [phone] Orthopaedic Surgery 12/07/23
--- OUTSIDE RECORDS SUMMARY | 2024-08-26 10:10 | XMS_ITS | Encounter Summary ---
Author Organization [employer] Address [address] 7t [place] [address] Care Team Providers Care Field Assembly Supervisor Name Role Phone Apolonia Ragland MD Primary Care Provider [phone] Julius Beavers Unavailable Ronald Maxwell MD Unavailable [phone] Marcelino Purcell Unavailable Reason for Visit * Reason Onset Date Comments Nurse Triage 09/28/2023 Encounter Details Date Type Department Care Team (Late st Contact Info) Description 09/28/2023 Telephone [facility] [address] [place], [place] [phone] Apolonia Ragland MD [address] [place], [place] [phone] Nurse Triage Social History Tobacco Use Types [...] accepted this outcome Please contact pt at [phone] documented in this encounter Plan of Treatment Upcoming Encounters Date Type Department Care Team (Late st Contact Info) Description 08/30/2024 10:00 AM EDT Nurse Only [facility] [address] [place] [address] 09/10/2024 11:30 AM EDT Office Visit [facility] [address] [place] [address] Apolonia Ragland MD [address] [place] [address] documented as of this encounter Visit Diagnoses Not on filedocumented in this encounter Care Teams Field Assembly Supervisor Relationship Specialty Start Date End Date Apolonia Ragland MD [address] [place] [address] PCP - General Family Medicine 05/15/18 Julius Beavers [address] 3rd [place] [address] Stull Installer Cardiology 08/25/23 Ronald Maxwell MD [address] [place] [address] Urology 11/17/23 Marcelino Purcell [address] [facility] [address] [place] [address] Orthopaedic Surgery 08/24/23 Flor Mason RN Care Manager 04/21/23 Kera Wan MD [facility] [address] [place] [phone] 11/15/23 [facility] [address] [facility] [address] [place] [phone] Orthopaedic Surgery 12/07/23 documented as of this encounter
--- OUTSIDE RECORDS SUMMARY | 2024-08-26 10:10 | XMS_ITS | Encounter Summary ---
Author Organization [employer] Address [address] [place] [address] 7t [place] [address] Care Team Providers Care Bottling Line Attendant Name Role Phone Apolonia Ragland MD Primary Care Provider [phone] Julius Beavers Unavailable Ronald Maxwell MD Unavailable [phone] Marcelino Purcell Unavailable Encounter Details Date Type Department Care Team (Late st Contact Info) Description 10/11/2022 Abstract [employer] [address] [place] [address] Apoolnia Ragland MD [address] [place], [place] [phone] Social History Tobacco Use Types Packs/Day Years [...] Description 08/30/2024 10:[address] EDT [address] [facility] [address] [place] [address] 09/10/2024 11:30 AM EDT Office Visit [facility] [address] [place] [address] Apolonia Ragland MD [address] [place] [address] documented as of this encounter Visit Diagnoses Not on filedocumented in this encounter Care Teams Bottling Line Attendant Relationship Specialty Start Date End Date Apolonia Ragland MD [address] [place] [address] PCP - General Family Medicine 05/15/18 Julius Beavers [address] 3rd [place] [address] Screwhead Polisher Cardiology 08/25/23 Ronald Maxwell MD [address] [place] [address] Urology 11/17/23 Marcelino Purcell [address] [facility] [address] [place] [address] Orthopaedic Surgery 08/24/23 Flor Mason rotary operator 04/21/23 Kera Wan MD [address] [phone] 11/15/23 Manisah Henao [facility] [address] [facility] [address] [place] [phone] Orthopaedic Surgery 12/07/23 documented as of this encounter
--- OUTSIDE RECORDS SUMMARY | 2024-08-26 10:10 | XMS_ITS | Encounter Summary ---
Author Organization [employer] Address [address] 7t [place] [address] Care Team Providers Care Spare Hand Name Role Phone Apolonia Ragland MD Primary Care Provider [phone] Julius Beavers Unavailable Ronald Maxwell MD Unavailable [phone] Marcelino Purcell Unavailable Encounter Details Date Type Department Care Team (Late st Contact Info) Description 08/14/2023 Orders Only [facility] [address] [place], [place] [phone] Apolonia Ragland MD [address] [place], [place] [phone] Primary osteoarthritis involving multiple joints Social History [...] Description 08/30/2024 10:00 AM EDT Nurse Only [facility] [address] [place] [address] 09/10/2024 11:30 AM EDT Office Visit [facility] [address] [place] [address] Apolonia Ragland MD [address] [place] [address] documented as of this encounter Visit Diagnoses Diagnosis Primary osteoarthritis involving multiple joints documented in this encounter Care Teams Spare Hand Relationship Specialty Start Date End Date Apolonia Ragland MD [address] [place] [address] PCP - General Family Medicine 05/15/18 Julius Beavers [address] 3rd [place] [address] Application Manager Cardiology 08/25/23 Ronald Maxwell MD [address] [place] [address] Urology 11/17/23 Marcelino Purcell [address] [place] [address] Orthopaedic Surgery 08/24/23 Flor Mason RN Care Manager 04/21/23 Kera Wan MD [facility] [address] [place] [address] 11/15/23 Manisha Henao [facility] [address] [place] [address] [place] [phone] Orthopaedic Surgery 12/07/23 documented as of this encounter
--- OUTSIDE RECORDS SUMMARY | 2024-08-26 10:11 | XMS_ITS | Data Portability ---
Author Organization [facility] Address [address] [place] [address] Care Team Providers Care Curatorial Assistant Name Role Phone CHAPIN HARDING Primary Care Provider [phone] Assessment No assessment recorded. Plan of Treatment [...] knee No observ ation record ed. [email or web address] [facility] (Medical Records) [address] [facility], [place], [address], 11/24/2023 16:31:04 01/13/20 24 06/15/2018 imagi ng/di [...] Sports Shoulder completed Kera Wan MD [address] [facility] [address], [place], [address], [place] - [facility] 11/15/2023 11:21:03 Imaging Results Imaging Date Name Status LastModified by Organiz ation Details LastModified Time 11/01/2023 XR, knee completed [email or web address] [facility] [address] [place], [address], 11/24/2023 16:31:04 06/15/2018 imaging/diag nostic result completed Information not available 01/13/2024 01:55:36 06/15/2018 imaging/diag nostic result completed Information not available 01/13/2024 01:55:37 Procedure Notes None recorded. Medical Equipment None Reported. Allergies Allergen ID Allergen Name Allergen Category Reaction Reaction Severity Criticality Documentation Date Start Date Code Code System Note Provider Name and Address Organization Details Recorded Time 30559 tetracycl ine hydrochlo ride medicatio n Not available Not available Not available 07/17/20232018 93980 6 RxNorm Not Available [facility] 12:19:21 Medications Name Sig Start Date [...] Updated DateTime 11/15/2023 170.18 cm 27.4 kg/m2 37478.66 g GABRIEL WATTERS [place] - [facility] 11/15/2023 10:38:25 Social History None recorded. Functional Status None recorded. Mental Status None recorded. Family History Nothing Reported. Medical History No medical history recorded. Past Encounters Encounter ID Performer Location Encounter Start Date Encounter Closed Date Diagnosis/Indication Diagnosis SNOMED-CT Code Diagnosis ICD10 Code Diagnosis Note [id number] [facility] [address] [place] [address] 11/15/2023 10:29:45 11/15/2023 12:48:42 Osteoarthritis of joint of right shoulder region [id number] 13562 M19.011 Health Concerns Section Related Observation LastModified by Organization Detai ls LastModified Time None Recorded Concern Status LastModified by Organization Details LastModified Time None Recorded Advance Directives Directive None Recorded Payers Encounter Date Sequence Insurance Name Policy Number Policy Schmidt Covered Member ID Schmidt Member ID Guarantor Name 11/15/2023 1 [place]ICARE B-[place]: [employer] Colton Black [id number] Colton Black Notes Date Note Type Note Provider Name and Address Organization Details Recorded Time 11/15/2023 text/html Chief Complaint: Right shoulder pain HPI: This is an 83-year-old kobab-uzkh-mrcjflnb gentleman with chronic multi focal joint pain. [...] xrays here today. Had some recently at [facility], will try to get a copy of his disc to drop off at our office for later review. Impression: 83-year-old hwncd-stiv-ofodovyo gentleman with right shoulder pain due to [...] aches and pains, the patient can take nhlj-eqz-lwgeyol medication such as Tylenol or anti-inflammatories as needed; risks and benefits of medication discussed. Should call with more persistent pain. We will leave follow up open ended at this point. However should symptoms worsen or fail to improve to the patient's satisfaction, he is encouraged to give the office a call to be seen back for further evaluation and management. [employer] speech recognition senior drafter software was used to create portions of this document. An attempt at proofreading has been made to minimize errors. Please call for corrections. Kera Wan MD [address] [place], [place] [address], [place], [address], [facility] - [facility] 11/15/2023 12:09:43
--- OUTSIDE RECORDS SUMMARY | 2024-08-26 10:11 | XMS_ITS | Encounter Summary ---
Author Organization [employer] Address [address] 7t [place] [address] Care Team Providers Care Clean Out Driller Name Role Phone Apolonia Ragland MD Primary Care Provider [phone] Julius Beavers Unavailable Ronald Maxwell MD Unavailable [phone] Marcelino Purcell Unavailable Encounter Details Date Type Department Care Team (Late Contact Info) Description 06/02/2022 Abstract [facility] MEDICINE 230 [place] [address] Apolonia Ragland MD 230 [place], [place] [phone] Social History Tobacco Use Types Packs/Day Years [...] Description 08/30/2024 10:00 AM EDT Nurse Only [facility] MEDICINE 230 [place] [address] 09/10/2024 11:30 AM EDT Office Visit [facility] MEDICINE 230 [place] [address] Apolonia Ragland MD 230 [place] [address] documented as of this encounter Visit Diagnoses Not on filedocumented in this encounter Care Teams Clean Out Driller Relationship Specialty Start Date End Date Apolonia Ragland MD 230 [facility] [address] PCP - General Family Medicine 05/15/18 Julius Beavers [address] 3rd [place] [address] Registered Nurse Behavioral Health Cardiology 08/25/23 Ronald Maxwell MD [address] [place] [address] Urology 11/17/23 Marcelino Purcell 175 [facility] 110 [place] [address] Orthopaedic Surgery 08/24/23 Flor Mason spa director 04/21/23 Kera Wan MD [address] [address] 11/15/23 Manisha Henao [facility] Medical [facility] 175 [facility] [address] [place] [address] Orthopaedic Surgery 12/07/23 documented as of this encounter
--- OUTSIDE RECORDS SUMMARY | 2024-08-26 10:11 | XMS_ITS | Encounter Summary ---
Author Organization [employer] Address [address] [facility] [address] 7t [place] [address] Care Team Providers Care Stone Mason Name Role Phone Apolonia Ragland MD Primary Care Provider [phone] Julius Beavers Unavailable Ronald Maxwell MD Unavailable [phone] Marcelino Purcell Unavailable Encounter Details Date Type Department Care Team (Late Contact Info) Description 06/07/2022 Telephone [facility] MEDICINE [address] [place] [address] [place] LPN Social History Tobacco Use [...] Description 08/30/2024 10:00 AM EDT Nurse Only [address] [phone] 09/10/2024 11:30 AM EDT Office Visit [address] [address] Apolonia Ragland MD 230 [place] [address] documented as of this encounter Visit Diagnoses Not on filedocumented in this encounter Care Teams Stone Mason Relationship Specialty Start Date End Date Apolonia Ragland MD 230 [place] [address] PCP - General Family Medicine 05/15/18 Julius Beavers [address] 3rd [place] [address] Test Analyst Cardiology 08/25/23 Ronald Maxwell MD [address] [place] [address] Urology 11/17/23 Marcelino Purcell 175 [facility] 110 [place] [address] Orthopaedic Surgery 08/24/23 Flor Mason planer tailer 04/21/23 Kera Wan MD [address] [address] 11/15/23 Manisha Henao [facility] 175 [facility] [address] [place] [address] Orthopaedic Surgery 12/07/23 documented as of this encounter
--- OUTSIDE RECORDS SUMMARY | 2024-08-26 10:11 | XMS_ITS | Encounter Summary ---
Author Organization [employer] Address [address] [facility] [address] 7t [place] [address] Care Team Providers Care Assembler Wire Mesh Gate Name Role Phone Apolonia Ragland MD Primary Care Provider [phone] Julius Beavers Unavailable Ronald Maxwell MD Unavailable [phone] Marcelino Purcell Unavailable Reason for Visit * Reason Onset Date Comments Med Refill 08/16/2022 Encounter Details Date Type Department Care Team (Late st Contact Info) Description 08/16/2022 Telephone [facility] MEDICINE 230 [place], [place] [phone] Apolonia Ragland MD 230 [place], [place] [phone] Med Refill Social History Tobacco Use Types [...] (Norvasc) 2.5 MG tablet Please sent to [facility] - [place], [place] - [address] [place] [address] documented in this encounter Plan of Treatment Upcoming Encounters Date Type Department Care Team (Late st Contact Info) Description 08/30/2024 10:00 AM EDT Nurse Only [facility] MEDICINE [address] [place] [address] 09/10/2024 11:30 AM EDT Office Visit [facility] MEDICINE [address] [place] [address] Apolonia Ragland MD 230 [place] [address] documented as of this encounter Visit Diagnoses Not on filedocumented in this encounter Care Teams Assembler Wire Mesh Gate Relationship Specialty Start Date End Date Apolonia Ragland MD 230 [place] [address] PCP - General Family Medicine 05/15/18 Julius Beavers [address] 3rd [place] [address] Wood Carver Cardiology 08/25/23 Ronald Maxwell MD [address] [place] [address] Urology 11/17/23 Marcelino Purcell [address] [address] Orthopaedic Surgery 08/24/23 Flor Mason sitecore developer 04/21/23 Kera Wan MD [facility] [address] [place] [address] 11/15/23 Manisha Henao [facility] [address] [place] [address] Orthopaedic Surgery 12/07/23 documented as of this encounter
--- OUTSIDE RECORDS SUMMARY | 2024-08-26 10:11 | XMS_ITS | Clinical Summary ---
Author Organization [address] [place] [address] Address 175 [place] [address] Phone Care Team Providers Care Field Education Director Name Role Phone Apolonia Ragland MD Primary Care Provider [phone] Allergies Active Allergy Reactions Criticality Noted Date [...] Noted Date Diagnosed Date Mild pulmonary hypertension (CMS/HCC V24, CMS/HC C V28) 03/13/2019 Chronic diastolic congestive heart failure (CMS/HCC V24, CMS/HCC V28) 03/13/2019 Asbestos exposure 03/13/2019 Social History Tobacco Use [...] PM EDT Office Visit Orthopedic Surgery - [place] [phone] [phone] Marcelino Purcell, DPJaniya [address] [address] Health Maintenance Due Date Last Done Comments [...] Influencers of Health Screening 12/12/2023 Influenza Vaccine (Season Ended) 2025 02/14/2019, 04/10/2017, 04/20/2016, Additional history exists Hepatitis A [...] age to complete this topic Meningococcal B Vaccine Aged Out No l onger eligible based on patient's age to complete this topic RSV Immunization Patients Under 20 months Aged Out No longer eligible based on patient's age to complete this topic Varicella Vaccines Aged Out No longer eligible based on patient's age to complete this topic Insurance MEDICARE Care Teams Field Education Director Relationship Specialty Start Date End Date Apolonia Ragland MD [address] [place] [phone] PCP - General 03/25/13
== END 2024-08-26 09:58 | disposition home or self-care (01) ==
LOC: HO.HCS 09:14
PROVIDERS: PCP Family Medicine; Visit Provider Nurse Practitioner Family
DX: I48.0 Paroxysmal atrial fibrillation (principal); R04.0 Epistaxis; C67.9 Malignant neoplasm of bladder, unspecified; Z79.01 Long term (current) use of anticoagulants; I48.92 Unspecified atrial flutter; R94.31 Abnormal electrocardiogram [ECG] [EKG]
CPT/HCPCS: 93010; 99214; G2211

== ENCOUNTER → 2024-08-26 09:12 | Outpatient (BNVA) | payer MEDICARE, SELFPAY | PROVIDERS: PCP Family Medicine; Visit Provider Nurse Practitioner Family | DX: I10 Essential (primary) hypertension (principal); I48.0 Paroxysmal atrial fibrillation; I48.92 Unspecified atrial flutter; R04.0 Epistaxis; C67.9 Malignant neoplasm of bladder, unspecified; Z79.01 Long term (current) use of anticoagulants | CPT/HCPCS: 93005; 99212 ==

== ENCOUNTER 2024-09-10 13:03 | Outpatient (REF) | payer MEDICARE, SELFPAY ==
--- OUTSIDE RECORDS SUMMARY | 2024-09-10 15:01 | XMS_ITS | Encounter Summary ---
Author Organization [employer] Address [address] [facility] [address] 7t [place] [address] Care Team Providers Care [facility] Name Role Phone Apolonia Ragland MD Primary Care Provider [phone] Julius Beavers Unavailable Ronald [place] MD Unavailable [phone] Marcelino Purcell Unavailable Reason for Visit * Reason Onset Date Comments Nurse Triage 08/16/2023 Encounter Details Date Type Department Care Team (Late st Contact Info) Description 08/16/2023 Telephone [facility] MEDICINE 230 [place], [place] [phone] Apolonia Ragland MD 230 [place], [place] [phone] Nurse Triage Social History Tobacco Use Types [...] EDT Triage call Pt was seen in [facility] 08/11/23 ED dx of atrial fibrillation. Pt was prescribed eliquis 5mg bid. Pt had been taking ASA 81mg daily . Pt started eliquis 08/14/23 and stopped ASA the same day. Pt is calling regarding some pinkish/reddish colored urine, neg for burning but, always has frequency. Pt also reports having a bloody nose x1 . Pt is advised to come to [facility] for provider to see Pt. Pt reports is in [place] and will try to come to [facility] open till 8pm and other logan will come to [facility] in the morning opens at 830am. Pt is cautioned to seek eval at ED if bleeding should increase and Pt agrees. Pt does have follow up apt [facility] 08/30/23 and another [facility] [...] Care Team (Late st Contact Info) Description 09/30/2024 10:00 AM EDT Clinical Support [address] [address] 11/08/2024 10:15 AM EDT Office Visit [address] [address] Christiano Temple MD [address] [place] [address] 11/14/2024 11:30 AM EDT Office Visit [address] [address] Apolonia Ragland MD [address] [place] [address] documented as of this encounter Visit Diagnoses Not on filedocumented in this encounter Care Teams [facility] Relationship Specialty Start Date End Date Apolonia Ragland MD [address] [place] [address] PCP - General Family Medicine 05/15/18 Julius Beavers [address] 3rd [place] [address] Glass Breaker Cardiology 08/25/23 Ronald Maxwell MD [address] [place] [address] Urology 11/17/23 Marcelino Pucrell [address] [place] [address] Orthopaedic Surgery 08/24/23 Flor Mason RN Care Manager 04/21/23 Kera Wan MD [facility] [address] [place] [address] 11/15/23 Manisha Henao [facility] 175 [facility] [address] [place] [address] Orthopaedic Surgery 12/07/23 documented as of this encounter
--- OUTSIDE RECORDS SUMMARY | 2024-09-10 15:01 | XMS_ITS | Encounter Summary ---
Author Organization [employer] Address [address] [facility] [address] 7t [place] [address] Care Team Providers Care Coal Cutting Machine Operator Name Role Phone Apolonia Ragland MD Primary Care Provider [phone] Julius Beavers Unavailable Ronald Maxwell MD Unavailable [phone] Marcelino Purcell Unavailable Encounter Details Date Type Department Care Team (Late st Contact Info) Description 06/28/2024 Orders Only [facility] MEDICINE 230 [place], [place] [phone] Apolonia Ragland MD 230 [place], [place] [phone] B12 deficiency (Primary Dx); Paroxysmal atrial fibrillation [...] Description 09/30/2024 10:00 AM EDT Clinical Support [address] [address] 11/08/2024 10:15 AM EDT Office Visit [address] [address] Christiano Temple MD [address] [place] [address] 11/14/2024 11:30 AM EDT Office Visit [address] [address] Apolonia Ragland MD [address] [place] [address] Scheduled Orders Name Type Priority Associated Diagnoses [...] documented as of this encounter Care Teams Coal Cutting Machine Operator Relationship Specialty Start Date End Date Apolonia Ragland MD 230 [place] [address] PCP - General Family Medicine 05/15/18 Julius Beavers [address] 3rd [place] [address] Pony Edger Cardiology 08/25/23 Ronald Maxwell MD [address] [place] [address] Urology 11/17/23 Marcelino Purcell 175 [facility] 110 [place] [address] Orthopaedic Surgery 08/24/23 Flor Mason log washer 04/21/23 Kera Wan MD [address] [address] 11/15/23 Manisha Henao [facility] 175 [facility] [address] [place] [phone] Orthopaedic Surgery 12/07/23 documented as of this encounter
--- OUTSIDE RECORDS SUMMARY | 2024-09-10 15:01 | XMS_ITS | Encounter Summary ---
Author Organization [employer] Address [address] [facility] [address] 7t [place] [address] Care Team Providers Care Cloth Bleaching Range Tender Name Role Phone Apolonia Ragland MD Primary Care Provider [phone] Julius Beavers Unavailable Ronald Maxwell MD Unavailable [phone] Marcelino Purcell Unavailable Reason for Visit * Reason Onset Date Comments Referral 05/22/2023 Encounter Details Date Type Department Care Team (Late st Contact Info) Description 05/22/2023 Telephone [facility] MEDICINE 230 [place], [place] [phone] Apolonia Ragland MD 230 [place], [place] [phone] Referral Social History Tobacco Use Types Packs/Day [...] Miscellaneous Notes * Telephone Encounter - Himanshu Lucero Magi - 05/22/2023 4:26 PM EST Tc from pt requesting A new Cardiovascular doctor due to pt current one not accepting insurance andpt owing money to facility so appt previously scheduled was canceled. Please contact pt @ [phone] documented in this encounter Plan of Treatment Upcoming Encounters Date Type Department Care Team (Late st Contact Info) Description 09/30/2024 10:00 AM EDT Clinical Support [address] [address] 11/08/2024 10:15 AM EDT Office Visit [facility] MEDICINE [address] [place] [address] Christiano Temple MD [address] [place] [address] 11/14/2024 11:30 AM EDT Office Visit [facility] MEDICINE [address] [place] [address] Apolonia Ragland MD [address] [place] [address] documented as of this encounter Visit Diagnoses Not on filedocumented in this encounter Care Teams Cloth Bleaching Range Tender Relationship Specialty Start Date End Date Apolonia Ragland MD [address] [place] [address] PCP - General Family Medicine 05/15/18 Julius Beavers [address] 3rd [place] [address] Computer Networking Instructor Adjunct Cardiology 08/25/23 Ronald Maxwell MD [address] [place] [address] Urology 11/17/23 Marcelino Purcell 175 [facility] 110 [place] [address] Orthopaedic Surgery 08/24/23 Flor Mason art conservator 04/21/23 Kera Wan MD [address] [address] 11/15/23 Manisha Henao [facility] 175 [facility] [address] [place] [phone] Orthopaedic Surgery 12/07/23 documented as of this encounter
--- OUTSIDE RECORDS SUMMARY | 2024-09-10 15:01 | XMS_ITS | Encounter Summary ---
Author Organization [employer] Address [address] [facility] [address] 7t [place] [address] Care Team Providers Care Museum Guide Name Role Phone Apolonia Ragland MD Primary Care Provider [phone] Julius Beavers Unavailable Ronald Maxwell MD Unavailable [phone] Marcelino Purcell Unavailable Reason for Visit * Reason Onset Date Comments Returning Call 03/19/2024 Encounter Details Date Type Department Care Team (Late st Contact Info) Description 03/19/2024 Telephone [facility]INE 230 [place], [place] [phone] Apolonia Ragland MD 230 [place], [place] [phone] Returning Call Social History Tobacco Use Types [...] outreach. Pt stated she received message in amharic, he stated he does not speak or read amharic and requestsfurther messages to be sent in kiswahili. documented in this encounter Plan of Treatment Upcoming Encounters Date Type Department Care Team (Late st Contact Info) Description 09/30/2024 10:00 AM EDT Clinical Support [address] [address] 11/08/2024 10:15 AM EDT Office Visit [facility]INE [address] [place] [address] Christiano Temple MD [address] [place] [address] 11/14/2024 11:30 AM EDT Office Visit [facility] [address] [place] [address] Apolonia Ragland MD [address] [place] [address] documented as of this encounter Visit Diagnoses Not on filedocumented in this encounter Care Teams Museum Guide Relationship Specialty Start Date End Date Apolonia Ragland MD 230 [place] [address] PCP - General Family Medicine 05/15/18 Julius Beavers [address] 3rd [place] [address] Concrete Tester Cardiology 08/25/23 Ronald Maxwell MD [address] [place] [address] Urology 11/17/23 Marcelino Purcell 175 [facility] 110 [place] [address] Orthopaedic Surgery 08/24/23 Flor Mason RN Care Manager 04/21/23 Kera Wan MD [address] [address] 11/15/23 Manisha Henao [facility] 175 [facility] [address] [place] [address] Orthopaedic Surgery 12/07/23 documented as of this encounter
--- OUTSIDE RECORDS SUMMARY | 2024-09-10 15:01 | XMS_ITS | Encounter Summary ---
Author Organization [employer] Address [address] [facility] [address] 7t [place] [address] Care Team Providers Care Wrapping Machine Operator Name Role Phone Apolonia Ragland MD Primary Care Provider [phone] Julius Beavers Unavailable Ronald Maxwell MD Unavailable [phone] Marcelino Purcell Unavailable Reason for Visit * Reason Onset Date Comments Nurse Triage 09/28/2023 Encounter Details Date Type Department Care Team (Late st Contact Info) Description 09/28/2023 Telephone [facility] MEDICINE 230 [place], [place] [phone] Apolonia Ragland MD 230 [place], [place] [phone] Nurse Triage Social History Tobacco Use Types [...] accepted this outcome Please contact pt at [phone] documented in this encounter Plan of Treatment Upcoming Encounters Date Type Department Care Team (Late st Contact Info) Description 09/30/2024 10:00 AM EDT Clinical Support [address] [address] 11/08/2024 10:15 AM EDT Office Visit [facility] MEDICINE [address] [place] [address] Christiano Temple MD [address] [place] [address] 11/14/2024 11:30 AM EDT Office Visit [facility] MEDICINE [address] [place] [address] Apolonia Ragland MD [address] [place] [address] documented as of this encounter Visit Diagnoses Not on filedocumented in this encounter Care Teams Wrapping Machine Operator Relationship Specialty Start Date End Date Apolonia Ragland MD [address] [place] [address] PCP - General Family Medicine 05/15/18 Julius Beavers [address] 3rd [place] [address] Director Of Special Events Cardiology 08/25/23 Ronald aMxwell MD [address] [place] [address] Urology 11/17/23 Marcelino Purcell 175 [facility] 110 [place] [address] Orthopaedic Surgery 08/24/23 Flor Mason bottle cleaner 04/21/23 Kera Wan MD [address] [address] 11/15/23 Manisha Henao [facility] 175 [facility] [address] [place] [address] Orthopaedic Surgery 12/07/23 documented as of this encounter
--- OUTSIDE RECORDS SUMMARY | 2024-09-10 15:01 | XMS_ITS | Encounter Summary ---
Author Organization [employer] Address [address] [facility] [address] 7t [place] [address] Care Team Providers Care Teenage Program Director Name Role Phone Apolonia Ragland MD Primary Care Provider [phone] Julius Beavers Unavailable Ronald Maxwell MD Unavailable [phone] Marcelino Purcell Unavailable Encounter Details Date Type Department Care Team (Late st Contact Info) Description 08/14/2023 Orders Only [facility] MEDICINE 230 [place], [place] [phone] Apolonia Ragland MD 230 [place], [place] [phone] Primary osteoarthritis involving multiple joints Social History [...] Description 09/30/2024 10:00 AM EDT Clinical Support [facility] MEDICINE [address] [place] [address] 11/08/2024 10:15 AM EDT Office Visit [address] [address] Christiano Temple MD [address] [place] [address] 11/14/2024 11:30 AM EDT Office Visit [address] [address] Apolonia Ragland MD [address] [place] [address] documented as of this encounter Visit Diagnoses Diagnosis Primary osteoarthritis involving multiple joints documented in this encounter Care Teams Teenage Program Director Relationship Specialty Start Date End Date Apolonia Ragland MD [address] [place] [address] PCP - General Family Medicine 05/15/18 Julius Beavers [address] 3rd [place] [address] Construction Area Manager Cardiology 08/25/23 Ronald Maxwell MD [address] [place] [address] Urology 11/17/23 Marcelino Purcell 175 [facility] 110 [place] [address] Orthopaedic Surgery 08/24/23 Flor Mason emotional support teacher 04/21/23 Kera Wan MD [facility] 300 [place] [address] 11/15/23 Manisha Henao [facility] 175 [facility] [address] [place] [phone] Orthopaedic Surgery 12/07/23 documented as of this encounter
--- OUTSIDE RECORDS SUMMARY | 2024-09-10 15:01 | XMS_ITS | Clinical Summary ---
Author Organization [employer] Address [address] [facility] 7t [place] [address] Care Team Providers Care Mental Health Aide Name Role Phone Apolonia Harding MD Primary Care Provider [phone] Julius Beavers Unavailable Ronald Maxwell MD Unavailable Marcelino Purcell Unavailable Allergies Active Allergy Reactions [...] 1 ML INTRAMUSCULARLY EVERY MONTH 1 mL 11 06/06/19 25 Active Blood Pressure Monitoring (Omron 3 Series BP Monitor) device USE TO CHECK BLOOD PRESSURE EVERY DAY NEEDED 1 each 06/07/19 25 Active chlorhexidine (Peridex) 0.12 % solution SWISH 15 ML IN THE MOUTH OR THROAT FOR 30 SECONDS THEN SPIT OUT AFTER BRUSHING TEETH, TWICE DAILY IN THE MORNING AND IN THE EVENING UNTIL SYMPTOMS RESOLVED 473 mL 08/10/19 25 Active Hospital, Clinic, or Other Facility Administered Medication Ordered Dose Route Frequency Start Date End Date Status cyanocobalamin (Vitamin B-12) injection 1,000 mcgIndications:B12 deficiency 1000 mcg IM Once 08/30/2024 08/30/2024 Ended Active Problems Patient Care Coordination No [...] Assessment & Plan (11/01/2023 10:45 AM EDT): -[id number] Score: 3 - continue apixaban 2.5 mg bid - no rate or rhythm control - advised to complete sleep study - continue risk factor management Assessment & Plan (09/30/2023 6:35 PM EDT): - continue apixaban - patient states apixaban was switched to rivaroxaban by wildlife conservationist; however, patient seems to be taking 5 [...] Assessment & Plan (06/03/2024 7:55 AM EST): -Parent Trainer: previously [facility], and recently started following with [facility]. Last seen on 10/17/23 -Rate control: none [...] no ischemia -Sleep study was ordered by [facility] Cardiology, but patient has not completed it yet Assessment & Plan (03/05/2024 10:42 AM EDT): -Parent Trainer: previously [facility], and recently started following with [facility]. Last seen on 10/17/23 -Rate control: none [...] no ischemia -Sleep study was ordered by [facility] Cardiology, but patient has not completed it yet Assessment & Plan (11/01/2023 10:37 AM EDT): -Parent Trainer: previously [facility], and recently started following with [facility]. 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 CCA -10/06/23 LVEF 55-60%. Moderately dilated left atrium. Mild dilation of the sinuses of Valsalva measuring 3.80 cm and mild dilation of the ascending aorta measuring 3.90 cm. -Last nuclear stress test with MPI 10/06/23 no ischemia -Sleep study was ordered by [facility] Cardiology, but patient has not completed it yet Assessment & Plan (09/27/2023 5:45 AM EDT): [id number] Score: 3 -Parent Trainer: previously [facility], and recently started following with [facility] -Rate control: none -Rhythm control: none -Anticoagulation: apixaban -Last Holter monitor: 07/10/23 -Last transthoracic echocardiogram: Done at [facility] on 10/25/22 TTE LVEF 55-60%; 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 Ordered by [facility] Cardiology recently -Last stress test 10/07/22 nuclear stress test with MPI wnl -Sleep study was ordered by [facility] Cardiology Assessment & Plan (08/24/2023 4:49 PM EDT): Here from previous ER visit, started on Eliquis for prevention - not tolerating well due to more bleeds - recommend talk to the wildlife conservationist about whether he should continue Eliquis as he is moderate risk by [id number] - he will continue for now and [...] -Started on apixaban since 08/10/23 -Following with [facility] cardiology since August 2023, last seen on [...] 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 - Currently following with [facility] cardiology and transthoracic echocardiogram was ordered Assessment & Plan (06/29/2023 4:46 AM EST): - 10/25/22 TTE normal LV sfunction with EF 55-60%. 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 - Follow-up with wildlife conservationist in 6 mo - TTE at least yearly Assessment & Plan (04/24/2023 6:07 AM EST): - 10/25/22 TTE normal LV sfunction with EF 55-60%. 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 - Follow-up with wildlife conservationist in 6 mo - TTE at least yearly Assessment & Plan (01/05/2023 6:51 AM EDT): - 10/25/22 TTE normal LV sfunction with EF 55-60%. 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 - Follow-up with wildlife conservationist in 6 mo - TTE at least [...] 6:08 PM EST): -evaluated by ENT and emergency department clinician -pt has severe hearing loss -pt is [...] 7:56 AM EST): - previously following with [facility] urology - Transurethral resection of bladder tumor on 11/20/18 Pathology report High-grade papillary urothelial carcinoma - seen by urologist on 11/17/23; upcoming appt on 03/13/24 Assessment & Plan (03/05/2024 11:20 AM EDT): - previously following with [facility] urology - Transurethral resection of bladder tumor on 11/20/18 Pathology report High-grade papillary urothelial carcinoma - seen by urologist on 11/17/23; upcoming appt on 03/13/24 Assessment & Plan (11/01/2023 10:39 AM EDT): - previously following with [facility] urology - Transurethral resection of bladder tumor on 11/20/18 Pathology report High-grade papillary urothelial carcinoma - Referred to urology; upcoming appt Assessment & Plan (09/27/2023 5:53 AM EDT): - previously following with [facility] urology - Transurethral resection of bladder tumor [...] charge - will refer to orthopedist at [facility] for reevaluation - discussed taking Tylenol PRN [...] difficulty walking - pt will benefit from DISPLAY ASSOCIATE service; will check the status of DISPLAY ASSOCIATE service >>ASSESSMENT AND PLAN FOR PRIMARY OSTEOARTHRITIS INVOLVING MULTIPLE JOINTS WRITTEN ON 01/06/2023 7:10 AM BY APOLONIA HARDING MD - previously seen by [facility] providers - pt declines further evaluation by orthopedist due to outstanding charges Assessment & Plan (06/05/2022 6:10 PM EST): - multiple joints - difficulty walking - pt will benefit from DISPLAY ASSOCIATE service [facility] Assessment & Plan (03/05/2024 10:41 AM EDT): -10/07/22 nuclear stress test with MPI wnl -10/25/22 TTE LVEF 55-60%; 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 -Follow up with wildlife conservationist as scheduled Assessment & Plan (09/27/2023 5:44 AM EDT): -10/07/22 nuclear stress test with MPI wnl -10/25/22 TTE LVEF 55-60%; 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 -Follow up with wildlife conservationist as scheduled Assessment & Plan (07/03/2023 6:08 AM EST): -Seen by [facility] wildlife conservationist in November 2022. -Asymptomatic. 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 -Follow up with wildlife conservationist as scheduled -Bradycardiac lately; will schedule Holter monitor Assessment & Plan (04/24/2023 6:06 AM EST): -Seen by [facility] wildlife conservationist in November 2022. -Asymptomatic. 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 -Follow up with wildlife conservationist as scheduled Assessment & Plan (01/06/2023 7:06 AM EDT): -Seen by [facility] wildlife conservationist in November 2022. -Asymptomatic. 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 -Follow up with wildlife conservationist as scheduled Assessment & Plan (10/03/2022 12:26 PM EDT): -Seen by [facility] wildlife conservationist in July 2022. -Asymptomatic. -Possibly starting CCB or BB -Follow up with wildlife conservationist as scheduled -Being scheduled for stress test and has a follow up with wildlife conservationist in near future Assessment & Plan (06/05/2022 6:03 PM EST): -Seen by [facility] wildlife conservationist in Jan 2022. -Asymptomatic. -Possibly starting CCB or BB -Follow up with wildlife conservationist as scheduled Gastroesophageal reflux disease 04/02/2012 Assessment [...] Encounters Date Type Department Care Team Description 09/10/2024 11:30 AM EDT Office Visit [facility] [address] [place] [address] Apolonia Harding MD Ascending aorta dilatation (CMS/HCC) (Primary Dx); Essential hypertension; Paroxysmal atrial fibrillation (CMS/HCC); Pulmonary hypertension (CMS/HCC); Malignant neoplasm of urinary bladder, unspecified site (CMS/HCC); Actinic keratosis; Depressive disorder; Seasonal allergic rhinitis, unspecified trigger 09/10/2024 Travel 09/06/2024 Telephone [facility] [address] [place] [address] Apolonia Harding MD chart prep 08/30/2024 10:00 AM EDT Nurse Only [facility] [place] [address] Tiana Ramirez LPN B12 deficiency (Primary Dx) 08/30/2024 Telephone [facility] [place] [address] Apolonia Harding MD Inform Pt Of New Appointment (New Appointment in Green Team, B12 Injection will no longer be downstairs at the [facility]ine [facility].) 08/09/2024 Refill [facility] [place] [address] Apolonia Harding MD 08/05/2024 Orders Only GENERIC EXTERNAL DATA DEPARTMENT Provider, Generic External Data 08/02/2024 10:15 AM EDT Nurse Only [facility] [place] [address] Tiana Ramirez LPN B12 deficiency (Primary Dx) 08/02/2024 Travel 07/26/2024 Population Health Risk Score [facility] (C[facility]) Department [address] [place] [phone] Provider, Population Health Generic 07/05/2024 10:30 AM EST Nurse Only [facility] [place] [address] Tiana Ramirez LPN B12 deficiency 07/05/2024 Travel 06/28/2024 Orders Only [facility] [place] [address] Apolonia Harding MD B12 deficiency (Primary Dx); Paroxysmal atrial fibrillation (CMS/HCC); Essential hypertension 06/28/2024 Refill [facility] [place] [address] Apolonia Harding MD 06/21/2024 Telephone [facility] [place] [address] Apolonia Harding MD FYI 06/18/2024 6:40 PM EST Office Visit [facility] [place] [address] Jacques Foster MD Fall, initial encounter (Primary Dx); Acute pain of right knee; Abrasion of right elbow, initial encounter 06/18/2024 Telephone [facility] [address] [place], [place] [phone] Apolonia Harding MD Referral 06/18/2024 Telephone [facility] [address] [place] [address] Apolonia Harding MD Nurse Triage from Last 3 Months Immunizations Name Administration [...] once No Known Problems Maternal Grandfather Nii Ning s a mitchell in [place] No Known Problems Maternal Grandmother Lidya Pacemaker Mother [place] at 88 No Known Problems Mother's Brother 1 Abdon No Known Problems Mother's Brother 2 Enrico Loren ent believes he may have passed from a heart attack No Known Problems Mother's Brother 3 Jose No Known Problems Mother's Sister 1 Nelda No Known Problems Mother's Sister 2 Licha Montano No Known Problems Nephew Collin No Known Problems Paternal Grandfather Ron Omar ssed away in 1941 (at 42 years old) No Known Problems Paternal Grandmother Coco Omar ssed away in the mid 1949's No Known Problems Sister Paloma Relation Name [...] Sign Reading Time Taken Comments Blood Pressure 119/68 09/10/2024 11:17 AM EDT Pulse 55 09/10/2024 11:17 AM EDT Temperature 36.5 ??C (97.7 ??F) 09/10/2024 11:17 AM E DT Respiratory Rate 17 09/10/2024 11:17 AM EDT Oxygen Saturation 94% 09/10/2024 11:17 AM EDT Inhaled Oxygen Concentration - - Weight 77.1 kg (170 lb) 09/10/2024 11:17 AM EDT Height 167.6 cm (5' 6 ) 09/10/2024 11:17 AM EDT Body Mass Index 27.44 09/10/2024 11:17 AM EDT Plan of Treatment Upcoming Encounters Date Type Department Care Team (Late st Contact Info) Description 09/30/2024 10:00 AM EDT Clinical Support [facility] [address] [place] [address] 11/08/2024 10:15 AM EDT Office Visit [address] [address] Christiano Temple MD [address] [place] [address] 11/14/2024 11:30 AM EDT Office Visit [address] [address] Apolonia Harding MD [address] [place] [address] Health Maintenance Due Date Last Done Comments Zoster Vaccines (1 of 2) 1991 RSV Patients and Patients Aged 60 years or older (1 - 1-dose 75+ series) 2016 DTaP/Tdap/Td Vaccines (2 - Td or Tdap) 08/11/2021 08/12/2011, 06/09/2006 COVID-19 Vaccine ( - season) 2024 07/28/2020, 06/30/2020 Influenza Vaccine [...] 1:40 PM EDT 08/05/2024 2:21 PM EDT Narrative [facility] - 08/07/2024 3:04 PM EDT ----- ------- Name: Colton Black ? Age/Sex: 84/M ? : 1940 Unit#: [id number] ?? Attend Dr: Ronald Maxwell MD ?Re08/05/24 ?Status: DEP SDC ? Location: [facility] ?Disch: ? ----- ------- SPEC : [id number] ? RECD: 08/05/24-1420 ? STATUS: ??SOUT ? REQ NUM: [id number] ? BETHANY: 08/05/24-0 ? SUBM DR: Ronald [...] Copies To: ?? Ronald Maxwell MD ?? [facility] U[facility] Services ?? [address] ?? [place] [address] ?? [phone] ? CONTINUED ON NEXT PAGE ----- ------- Name: Colton Black ? Age/Sex: 84/M ? : 1940 Unit#: [id number] ?? Attend Dr: Ronald Maxwell MD ?Re08/05/24 ?Status: DEP SDC ? Location: HO.SSS ?Disch: ? ----- ------- SPEC : [id number] ? RECD: 08/05/24 ? STATUS: ??SOUT ? REQ NUM: [id number] ? BETHANY: 08/05/24-1339 ? SUBM DR: Ronald Maxwell MD ? ENTERED: ??08/05/24 ?SP TYPE: Surgical ? OTHR DR: Apolonia Harding MD ? ORDERED: ??Gross Micro L5 ? Copies To: ??(Continued) ?? Apolonia Harding MD ?? [facility] ?? [address] [facility] ?? [place] [address] ?? [phone] ----- ------- Signed (signature on file) Binh Nielsen MD 08/07/24 8682 ? ----- ------- ? END OF REPORT ? us Generic External Data Provider LAB BLOOD ORDERAB LES Final Result [facility] [address] [place] [address] [phone] * Lipid Panel with Reflex to Direct LDL (09/28/2023 8:17 AM EDT) Triglycerides 83 <150 mg/dL [facility] Comment:Desirable Triglyceri de: less than 150 mg/dLBorderline High Triglyceride 150-199 mg/dLHigh Triglyceride: 200-499 mg/dLVery High Triglyceride: greater than or equal to 5OO mg/dL Cholesterol 144 <200 mg/dL [facility] Comment:Desirable Cholestero l: less than 200 mg/dLBorderline High Cholesterol: 200-239 mg/dLHigh Cholesterol: greater than 239 mg/dL LDL Cholesterol Calculated 85 <100 mg/dL [facility] Comment:Desirable LDL: less than 100 mg/dLNear Optimal/Above Optimal LDL: 110- 129 mg/dLBorderline High LDL: 130-159 mg/dLHigh LDL: 160-189 mg/dLVery High LDL: greater than or equal to 190 mg/dL HDL Cholesterol 43 >40 mg/dL [facility] Comment:Desirable HDL: great er than 40 mg/dL Note: This HDL assay may give artificially low results in patients with liver disease. Blood 09/28/2023 8:17 AM EDT 09/28/2023 11:20 AM EDT us Apolonia Harding MD LAB BLOOD ORDERABLES Final Resul t [facility] [address] [place] [phone] from Last 3 Months or Most Recently Relevant to Health Maintenance Insurance [facility] MEDICARE ADVANTAGE HMO Care Teams Mental Health Aide Relationship Specialty Start Date End Date Apolonia Harding MD [address] [place] [address] PCP - General Family Medicine 05/15/18 Julius Beavers [address] 3rd [place] [address] Parent Trainer Cardiology 08/25/23 Ronald Maxwell MD [address] [place] [address] Urology 11/17/23 Marcelino Purcell 175 [facility] [address] [place] [address] Orthopaedic Surgery 08/24/23 Flor Mason RN Care Manager 04/21/23 Kera Wan MD [facility] [address] 11/15/23 Manisha Henao [facility] [address] [facility] [address] [place] [phone] Orthopaedic Surgery 12/07/23
--- OUTSIDE RECORDS SUMMARY | 2024-09-10 15:01 | XMS_ITS | Encounter Summary ---
Author Organization [employer] Address [address] 7t [place] [address] Care Team Providers Care Cement Gun Operator Name Role Phone Apolonia Ragland MD Primary Care Provider [phone] Julius Beavers Unavailable Ronald Maxwell MD Unavailable [phone] Marcelino Purcell Unavailable Reason for Visit * Reason Onset Date Comments Lab Orders 01/19/2024 Encounter Details Date Type Department Care Team (Late st Contact Info) Description 01/19/2024 Telephone [facility] [address] [place], [place] [phone] Apolonia Ragland MD [address] [place], [place] [phone] Lab Orders Social History Tobacco Use Types [...] Description 09/30/2024 10:00 AM EDT Clinical Support [address] [address] 11/08/2024 10:15 AM EDT Office Visit [address] [address] Christiano Temple MD [address] [place] [address] 11/14/2024 11:30 AM EDT Office Visit [address] [address] Apolonia Ragland MD [address] [place] [address] documented as of this encounter Visit Diagnoses Not on filedocumented in this encounter Care Teams Cement Gun Operator Relationship Specialty Start Date End Date Apolonia Ragland MD [address] [place] [address] PCP - General Family Medicine 05/15/18 Julius Beavers [address] 3rd [place] [address] Environmental Compliance Manager Cardiology 08/25/23 Ronald Maxwell MD [address] [place] [address] Urology 11/17/23 Marcelino Purcell [address] [address] Orthopaedic Surgery 08/24/23 Flor Mason RN Care Manager 04/21/23 Kera Wan MD [address] [address] 11/15/23 Manisha Henao [facility] 175 [facility] [address] [place] [phone] Orthopaedic Surgery 12/07/23 documented as of this encounter
--- OUTSIDE RECORDS SUMMARY | 2024-09-10 15:02 | XMS_ITS | Clinical Summary ---
Author Organization [address] [place] [address] Address [address] [place] [address] Phone Care Team Providers Care Analytics Director Name Role Phone Apolonia Ragland MD Primary Care Provider [phone] Allergies Active Allergy Reactions Criticality Noted Date [...] PM EDT Office Visit Orthopedic [facility] [place] [address] [phone] Marcelino Purcell, DPJaniya [address] [address] Health Maintenance Due Date Last Done Comments [...] complete this topic Insurance MEDICARE Care Teams Analytics Director Relationship Specialty Start Date End Date Apolonia Ragland MD [address] [place] [phone] PCP - General 03/25/13
--- OUTSIDE RECORDS SUMMARY | 2024-09-10 15:02 | XMS_ITS | Encounter Summary ---
Author Organization [employer] Address [address] 7t [place] [address] Care Team Providers Care Radiation Physicist Name Role Phone Apolonia Ragland MD Primary Care Provider [phone] Julius Beavers Unavailable Ronald Maxwell MD Unavailable Marcelino Purcell Unavailable Encounter Details Date Type Department Care Team (Late st Contact Info) Description 09/10/2024 11:30 AM EDT Office Visit [facility] [address] [place], [place] [phone] Apolonia Ragland MD 230 [place], [place] [phone] Ascending aorta dilatation (CMS/HCC) (Primary Dx); Essential hypertension; Paroxysmal atrial fibrillation (CMS/HCC); Pulmonary hypertension (CMS/HCC); Malignant neoplasm of urinary bladder, unspecified site (CMS/HCC); Actinic keratosis; Depressive disorder; Seasonal allergic rhinitis, unspecified trigger Social History Tobacco Use Types Packs/Day Years [...] Mass Index 27.44 09/10/2024 11:17 AM EDT documented in this encounter Plan of Treatment Upcoming Encounters Date Type Department Care Team (Late st Contact Info) Description 09/30/2024 10:00 AM EDT Clinical Support [facility] [employer] [place] [address] 11/08/2024 10:15 AM EDT Office Visit [facility] [employer] [place] [address] Christiano Temple MD [address] [employer] [place] [address] 11/14/2024 11:30 AM EDT Office Visit [facility] [employer] [place] [address] Apolonia Ragland MD [address] [employer] [place] [address] documented as of this encounter Visit Diagnoses Diagnosis Ascending aorta dilatation (CMS/HCC)- Primary Thoracic aneurysm without mention of rupture Essential hypertension Unspecified essential hypertension Paroxysmal atrial fibrillation (CMS/HCC) Atrial fibrillation Pulmonary hypertension (CMS/HCC) Other chronic pulmonary heart diseases Malignant neoplasm of urinary bladder, unspecified site (CMS/HCC) Actinic keratosis Depressive disorder Depressive disorder, not elsewhere classified Seasonal allergic rhinitis, unspecified trigger documented in this encounter Additional Health Concerns Assessment Noted Time PHQ-9 Depression Total Score: 3 05/01/20 24 9:55 AM EST documented as of this encounter Care Teams Radiation Physicist Relationship Specialty Start Date End Date Apolonia Ragland MD [address] [employer] [place] [address] PCP - General Family Medicine 05/15/18 Julius Beavers [address]rd [place] [address] Hydraulic Jack Operator Cardiology 08/25/23 Ronald Maxwell MD [address] [place] [address] Urology 11/17/23 Marcelino Purcell [address] [address] Orthopaedic Surgery 08/24/23 Flor Mason laboratory technologist 04/21/23 Kera Wan MD [address] [address] 11/15/23 Manisha Henao [facility] [address] [place] [phone] Orthopaedic Surgery 12/07/23 documented as of this encounter
--- OUTSIDE RECORDS SUMMARY | 2024-09-10 15:02 | XMS_ITS | Encounter Summary ---
Author Organization [employer] Address [address] 7t [place] [address] Care Team Providers Care Cutter And Edge Trimmer Name Role Phone Apolonia Ragland MD Primary Care Provider [phone] Julius Beavers Unavailable Ronald Maxwell MD Unavailable [phone] Marcelino Purcell Unavailable Encounter Details Date Type Department Care Team (Late Contact Info) Description 06/02/2022 Abstract [facility] [address] [place] [address] Apolonia Ragland MD [address] [place] [address] Social History Tobacco Use Types Packs/Day Years [...] Description 09/30/2024 10:00 AM EDT Clinical Support [facility] [address] [place] [address] 11/08/2024 10:15 AM EDT Office Visit [facility] [address] [place] [address] Christiano Temple MD [address] [place] [address] 11/14/2024 11:30 AM EDT Office Visit [facility] [address] [place] [address] Apolonia Ragland MD [address] [place] [address] documented as of this encounter Visit Diagnoses Not on filedocumented in this encounter Care Teams Cutter And Edge Trimmer Relationship Specialty Start Date End Date Apolonia Ragland MD [address] [place] [address] PCP - General Family Medicine 05/15/18 Julius Beavers [address]rd [place] [address] Dredge Pump Operator Cardiology 08/25/23 Ronald Maxwell MD [address] [place] [address] Urology 11/17/23 Marcelino Purcell 175 [facility] 110 [place] [address] Orthopaedic Surgery 08/24/23 Flor Mason RN Care Manager 04/21/23 Kera Wan MD [facility] [address] [place] [address] 11/15/23 Manisha Henao [facility] 175 [facility] [address] [place] [phone] Orthopaedic Surgery 12/07/23 documented as of this encounter
--- OUTSIDE RECORDS SUMMARY | 2024-09-10 15:02 | XMS_ITS | Data Portability ---
Author Organization [facility], [facility] Address [address] [place] [address] Care Team Providers Care Telephone Clerks Supervisor Name Role Phone CHAPIN HARDING Primary Care [...] [email or web address] [facility] (Medical Records) [address], [place], [address], 11/24/2023 16:31:04 01/13/20 24 06/15/2018 imagi ng/di [...] Sports Shoulder completed Kera Wan MD [address], [place], [address], [place] - [facility] 11/15/2023 11:21:03 Imaging Results Imaging Date Name Status LastModified by Organiz ation Details LastModified Time 11/01/2023 XR, knee completed [email or web address] [facility] (Medical Records) [address] [place], [address], 11/24/2023 16:31:04 06/15/2018 imaging/diag nostic result completed Information not available 01/13/2024 01:55:36 06/15/2018 imaging/diag nostic result completed Information not available 01/13/2024 01:55:37 Procedure Notes None recorded. Medical Equipment None Reported. Allergies Allergen ID Allergen Name Allergen Category Reaction Reaction Severity Criticality Documentation Date Start Date Code Code System Note Provider Name and Address Organization Details Recorded Time 67877 tetracycl ine hydrochlo ride medicatio n Not available Not available Not available 07/17/20232018 01373 6 RxNorm Not Available [facility] 12:19:21 Medications Name Sig Start Date [...] Updated DateTime 11/15/2023 170.18 cm 27.4 kg/m2 91149.66 g GABRIEL WATTERS [place] - [facility] 11/15/2023 10:38:25 Social History None recorded. Functional Status None recorded. Mental Status None recorded. Family History Nothing Reported. Medical History No medical history recorded. Past Encounters Encounter ID Performer Location Encounter Start Date Encounter Closed Date Diagnosis/Indication Diagnosis SNOMED-CT Code Diagnosis ICD10 Code Diagnosis Note [id number] [facility] [address] [place] [address] 11/15/2023 10:29:45 11/15/2023 12:48:42 Osteoarthritis of joint of right shoulder region [id number] 46575 M19.011 Health Concerns Section Related Observation LastModified by Organization Detai ls LastModified Time None Recorded Concern Status LastModified by Organization Details LastModified Time None Recorded Advance Directives Directive None Recorded Payers Encounter Date Sequence Insurance Name Policy Number Policy Schmidt Covered Member ID Schmidt Member ID Guarantor Name 11/15/2023 1 MEDICARE B-[place]: [employer] Colton Black [id number] Colton Black Notes Date Note Type Note Provider Name and Address Organization Details Recorded Time 11/15/2023 text/html Chief Complaint: Right shoulder pain HPI: This is an 83-year-old dvpex-epug-ysexgszq gentleman with chronic multi focal joint pain. [...] our office for later review. Impression: 83-year-old iechk-pcag-pqhbroxw gentleman with right shoulder pain due to [...] aches and pains, the patient can take arky-bgu-zrfpmmj medication such as Tylenol or anti-inflammatories as needed; risks and benefits of medication discussed. Should call with more persistent pain. We will leave follow up open ended at this point. However should symptoms worsen or fail to improve to the patient's satisfaction, he is encouraged to give the office a call to be seen back for further evaluation and management. [employer] speech recognition counterintelligence specialist software was used to create portions of this document. An attempt at proofreading has been made to minimize errors. Please call for corrections. Kera Wan MD [address] [place], [place] [address], [place], [address], [facility] - [facility] 11/15/2023 12:09:43
--- OUTSIDE RECORDS SUMMARY | 2024-09-10 15:02 | XMS_ITS | Encounter Summary ---
Author Organization [employer] Address [address] [place] [address] 7t [place] [address] Care Team Providers Care Insurance Broker Name Role Phone Apolonia Ragland MD Primary Care Provider [phone] Julius Beavers Unavailable Ronald Maxwell MD Unavailable [phone] Marcelino Purcell Unavailable Encounter Details Date Type Department Care Team (Late st Contact Info) Description 10/11/2022 Abstract Achille [employer] [address] [place] [address] Apolonia Ragland MD [address] [place], [place] [phone] Social History Tobacco Use Types Packs/Day Years [...] Description 09/30/2024 10:00 AM EDT Clinical Support [facility] [place] [address] 11/08/2024 10:15 AM EDT Office Visit [facility] [place] [address] Christiano Temple MD [address] [facility] [place] [address] 11/14/2024 11:30 AM EDT Office Visit [facility] [place] [address] Apolonia Ragland MD [address] [place] [address] documented as of this encounter Visit Diagnoses Not on filedocumented in this encounter Care Teams Insurance Broker Relationship Specialty Start Date End Date Apolonia Ragland MD [address] [place] [address] PCP - General Family Medicine 05/15/18 Julius Beavers [address] 3rd [place] [address] Souvenir Assembler Cardiology 08/25/23 Ronald Maxwell MD [address] [place] [address] Urology 11/17/23 Marcelino Purcell 175 [facility] 110 [place] [address] Orthopaedic Surgery 08/24/23 Flor Mason raker buffing wheel 04/21/23 Kera Wan MD [address] [address] 11/15/23 Manisha Henao [facility] [address] [facility] [address] [place] [address] Orthopaedic Surgery 12/07/23 documented as of this encounter
--- OUTSIDE RECORDS SUMMARY | 2024-09-10 15:02 | XMS_ITS | Encounter Summary ---
Author Organization [employer] Address [address] 7t [place] [address] Care Team Providers Care Rosin Barrel Filler Name Role Phone Apolonia Ragland MD Primary Care Provider [phone] Julius Beavers Unavailable Ronald Maxwell MD Unavailable [phone] Marcelino Purcell Unavailable Encounter Details Date Type Department Care Team (Latest Contact Info) Description 09/10/2024 Travel Social History Tobacco Use Types Packs/Day [...] Description 09/30/2024 10:00 AM EDT Clinical Support [address] [address] 11/08/2024 10:15 AM EDT Office Visit [address] [address] Christiano Temple MD [address] [place] [address] 11/14/2024 11:30 AM EDT Office Visit [address] [address] Apolonia Ragland MD [address] [place] [address] documented as of this encounter Visit Diagnoses Not on filedocumented in this encounter Additional Health Concerns Assessment Noted Time PHQ-9 Depression Total Score: 3 05/01/20 24 9:55 AM EST documented as of this encounter Care Teams Rosin Barrel Filler Relationship Specialty Start Date End Date Apolonia Ragland MD [address] [place] [address] PCP - General Family Medicine 05/15/18 Julius Beavers [address] 3rd [place] [address] Blood Bank Worker Cardiology 08/25/23 Ronald Maxwell MD [address] [place] [address] Urology 11/17/23 Marcelino Purcell 175 [facility] 110 [place], [place] [phone] Orthopaedic Surgery 08/24/23 Flor Mason RN Care Manager 04/21/23 Kera Wan MD [address] [address] 11/15/[address] [facility] [address] [facility] [address] [place] [address] Orthopaedic Surgery 12/07/23 documented as of this encounter
--- OUTSIDE RECORDS SUMMARY | 2024-09-10 15:02 | XMS_ITS | Encounter Summary ---
Author Organization [employer] Address [address] 7t [place] [address] Care Team Providers Care Outside Operator Name Role Phone Apolonia Ragland MD Primary Care Provider [phone] Julius Beavers Unavailable Ronald Maxwell MD Unavailable [phone] Marcelino Purcell Unavailable Reason for Visit * Reason Onset Date Comments Med Refill 08/16/2022 Encounter Details Date Type Department Care Team (Late st Contact Info) Description 08/16/2022 Telephone [facility] 230 [place], [place] [phone] Apolonia Ragland MD 230 [place], [place] [phone] Med Refill Social History Tobacco Use Types [...] (Norvasc) 2.5 MG tablet Please sent to [facility] - [place], [place] - [address] [place] [address] documented in this encounter Plan of Treatment Upcoming Encounters Date Type Department Care Team (Late st Contact Info) Description 09/30/2024 10:00 AM EDT Clinical Support [address] [address] 11/08/2024 10:15 AM EDT Office Visit [address] [address] Christiano Temple MD [address] [place] [address] 11/14/2024 11:30 AM EDT Office Visit [address] [address] Apolonai Ragland MD [address] [place] [address] documented as of this encounter Visit Diagnoses Not on filedocumented in this encounter Care Teams Outside Operator Relationship Specialty Start Date End Date Apolonia Ragland MD [address] [place] [address] PCP - General Family Medicine 05/15/18 Julius Beavers [address] [facility] 3rd [place] [address] Graining Press Operator Cardiology 08/25/23 Ronald Maxwell MD [address] [place] [address] Urology 11/17/23 Marcelino Purcell 175 [facility] 110 [place] [address] Orthopaedic Surgery 08/24/23 Flor Mason RN Care Manager 04/21/23 Kera Wan MD [facility] [address] [place] [address] 11/15/23 Manisha Henao [facility] [address] [facility] [address] [place] [address] Orthopaedic Surgery 12/07/23 documented as of this encounter
--- OUTSIDE RECORDS SUMMARY | 2024-09-10 15:02 | XMS_ITS | Encounter Summary ---
Author Organization [employer] Address [address] [facility] [address] [address] 7t [place] [address] Care Team Providers Care Staff Nuclear Weapons Officer Name Role Phone Apolonia Ragland MD Primary Care Provider [phone] Julius Beavers Unavailable Ronald Maxwell MD Unavailable [phone] Marcelino Purcell Unavailable Reason for Visit * Reason Onset Date Comments chart prep 09/06/2024 Encounter Details Date Type Department Care Team (Late st Contact Info) Description 09/06/2024 Telephone [facility] 230 [place], [place] [phone] Apolonia Ragland MD [address] [place], [place] [phone] chart prep Social History Tobacco Use Types Packs/Day Years [...] encounter Miscellaneous Notes * Telephone Encounter - Silva Melo [place] - 09/06/2024 11:43 AM EDT ..Chart Prep Labs: not done Images: not applicable Vaccines due: Covid Due and Tdap Due Referrals: Not Applicable Screenings: Not Applicable Overdue care gaps: Disability documented in this encounter Plan of Treatment Upcoming Encounters Date Type Department Care Team (Late st Contact Info) Description 09/30/2024 10:00 AM EDT Clinical Support [facility] [address] [place] [address] 11/08/2024 10:15 AM EDT Office Visit [facility] [address] [place] [address] Christiano Temple MD [address] [place] [address] 11/14/2024 11:30 AM EDT Office Visit [facility] 230 [place] [address] Apolonia Ragland MD 230 [place] [address] documented as of this encounter Visit Diagnoses Not on filedocumented in this encounter Additional Health Concerns Assessment Noted Time PHQ-9 Depression Total Score: 3 05/01/20 9:55 AM EST documented as of this encounter Care Teams Staff Nuclear Weapons Officer Relationship Specialty Start Date End Date Apolonia Ragland MD [address] [place] [address] PCP - General Family Medicine 05/15/18 Julius Beavers [address] 3rd [place] [address] Director Clinical Operations Cardiology 08/25/23 Ronald Maxwell MD [address] [place] [address] Urology 11/17/23 Marcelino Purcell 175 [facility] 110 [place] [address] Orthopaedic Surgery 08/24/23 Flor Mason RN Care Manager 04/21/23 Kera Wan MD [address] [address] 11/15/23 Manisha Henao [facility] 175 [facility] [address] [place] [address] Orthopaedic Surgery 12/07/23 documented as of this encounter
--- OUTSIDE RECORDS SUMMARY | 2024-09-10 15:02 | XMS_ITS | Encounter Summary ---
Author Organization [employer] Address [address] 7t [place] [address] Care Team Providers Care 911 Emergency Dispatcher Name Role Phone Apolonia Ragland MD Primary Care Provider [phone] Julius Beavers Unavailable Ronald Maxwell MD Unavailable [phone] Marcelino Purcell Unavailable Encounter Details Date Type Department Care Team (Late Contact Info) Description 06/07/2022 Telephone [facility] [address] [place] [address] Ana Lancaster LPN Social History Tobacco Use [...] Department Care Team (Late Contact Info) Description 09/30/2024 10:00 AM EDT Clinical Support [address] [address] 11/08/2024 10:15 AM EDT Office Visit [address] [address] Christiano Temple MD 230 [place] [address] 11/14/2024 11:30 AM EDT Office Visit [facility] 230 [place] [address] Apolonia Ragland MD 230 [place] [address] documented as of this encounter Visit Diagnoses Not on filedocumented in this encounter Care Teams 911 Emergency Dispatcher Relationship Specialty Start Date End Date Apolonia Ragland MD 230 [place] [address] PCP - General Family Medicine 05/15/18 Julius Beavers [address] 3rd [place] [address] Forming Machine Upkeep Mechanic Helper Cardiology 08/25/23 Ronald Maxwell MD [address] [place] [address] Urology 11/17/23 Marcelino Purcell [address] [address] Orthopaedic Surgery 08/24/23 Flor Mason RN Care Manager 04/21/23 Kera Wan MD [address] [address] 11/15/23 Manisha Henao [facility] 175 [facility] [address] [place] [address] Orthopaedic Surgery 12/07/23 documented as of this encounter
--- OUTSIDE RECORDS SUMMARY | 2024-09-10 15:02 | XMS_ITS | Encounter Summary ---
Author Organization [employer] Address [address] [facility] [address] 7t [place] [address] Care Team Providers Care Media Analytics Manager Name Role Phone Apolonia Ragland MD Primary Care Provider [phone] Julius Beavers Unavailable Ronald Maxwell MD Unavailable [phone] Marcelino Purcell Unavailable Encounter Details Date Type Department Care Team (Late st Contact Info) Description 05/23/2023 Orders Only [facility] 230 [place], [place] [phone] Apolonia Ragland MD 230 [place], [place] [phone] Frequent PVCs (Primary Dx) Social History Tobacco [...] Description 09/30/2024 10:00 AM EDT Clinical Support [address] [address] 11/08/2024 10:15 AM EDT Office Visit [address] [address] Christiano Temple MD [address] [place] [address] 11/14/2024 11:30 AM EDT Office Visit [address] [address] Apolonia Ragland MD [address] [place] [address] documented as of this encounter Visit Diagnoses Diagnosis Frequent PVCs- Primary documented in this encounter Care Teams Media Analytics Manager Relationship Specialty Start Date End Date Apolonia Ragland MD [address] [place] [address] PCP - General Family Medicine 05/15/18 Julius Beavers [address] 3rd [place] [address] Media Analytics Manager Cardiology 08/25/23 Ronald Maxwell MD [address] [place] [address] Urology 11/17/23 Marcelino Purcell 175 [facility] 110 [place] [address] Orthopaedic Surgery 08/24/23 Flor Mason therapy aide 04/21/23 Kera Wan MD [facility] 300 [place] [address] 11/15/23 Manisha Henao [facility] 175 [facility] [address] [place] [address] Orthopaedic Surgery 12/07/23 documented as of this encounter
[2024-09-10 16:03] LABS: MANUAL DIFF FLAG NO
[2024-09-10 16:07] LABS: Basophils Percent Auto 0.4 % (0-2); Eosinophils Absolute Auto 0.1 X10*3/uL (0.0-0.4); Eosinophils Percent Auto 0.7 % (0-4); Hematocrit 43.6 % (42.0-52.0); Hemoglobin 14.5 g/dl (14.0-18.0); Imm Gran Abs Auto 0.03 X10*3/uL (0.00-0.03); Imm Gran Pct Auto 0.4 % (0.0-0.4); Lymphocytes Absolute Auto 1.2 X10*3/uL (1.2-4.9); Lymphocytes Percent Auto 15.2 % (20-40); Mean Corpuscular HGB Conc 33.3 g/dl (31.0-36.0); Mean Corpuscular Hemoglobin 31.3 pg (27.0-33.0); Mean Corpuscular Volume 94.2 fL (80.0-98.0); Monocytes Absolute Auto 0.7 X10*3/uL (0.1-1.2); Monocytes Percent Auto 8.9 % (2-11); Neutrophils Percent Auto 74.4 % (45-73); Platelet Count 199 X10*3/uL (160-400); Red Blood Count 4.63 X10*6/uL (4.60-5.80); Red Cell Distribution Width 14.2 % (11.0-16.0)
[2024-09-10 16:18] LABS: Alanine Aminotransferase 9 U/L (0-40); Albumin Level 4.2 g/dL (3.5-5.0); Alkaline Phosphatase 62 U/L (39-117); Anion Gap 11 (12-20); Aspartate Amino Transferase 18 U/L (5-37); Bilirubin Total 0.8 mg/dL (0.0-1.0); Blood Urea Nitrogen 11 mg/dL (9-16); Carbon Dioxide 28 mmol/L (22-29); Chloride 105 mmol/L (96-108); Cholesterol 167 mg/dL (<200); Estimated Glomerular Filt Rate > 60; Glucose Random 98 mg/dL (60-115); HDL Cholesterol 40 mg/dL (>40); LDL Cholesterol Calculated 104 mg/dL (<100); Sodium 140 mmol/L (135-145); Total Protein 6.9 g/dL (6.5-8.0); Triglycerides 119 mg/dL (<150)
[2024-09-10 16:27] LABS: Reflex LDLD? No
[2024-09-10 16:36] LABS: Microalbum/Creatinine Ratio Ur 63.8 ug/mg cr (<30)
[2024-09-10 16:51] LABS: Folate 8.7 ng/mL (> or = 4.0); Vitamin B12 419 pg/mL (200-900)
== END 2024-09-10 13:04 | disposition home or self-care (01) ==
LOC: HO.HHCL 13:03
PROVIDERS: Visit Provider Family Medicine
DX: E53.8 Deficiency of other specified B group vitamins (principal); I10 Essential (primary) hypertension
CPT/HCPCS: 36415; 80053; 80061; 82043; 82570; 82607; 82746; 85025

== ENCOUNTER → 2024-09-12 11:05 | Outpatient (REF) | payer MEDICARE, SELFPAY ==
--- OUTSIDE RECORDS SUMMARY | 2024-09-12 12:53 | XMS_ITS | Encounter Summary ---
Author Organization [email or web address] Address [address] [facility] [address] [address] 7t [place] [address] Care Team Providers Care Call Or Contact Centre Team Leader Name Role Phone Apolonia Ragland MD Primary Care Provider [phone] Julius Beavers Unavailable Ronald Maxwell MD Unavailable [phone] Marcelino Purcell Unavailable Reason for Visit * Reason Onset Date Comments Returning Call 03/19/2024 Encounter Details Date Type Department Care Team (Late st Contact Info) Description 03/19/2024 Telephone [facility] 230 [place], [place] [phone] Apolonia Ragland MD 230 [place], [place] [phone] Returning Call Social History Tobacco Use Types [...] outreach. Pt stated she received message in haitian, he stated he does not speak or read haitian and requestsfurther messages to be sent in upper sorbian. documented in this encounter Plan of Treatment Upcoming Encounters Date Type Department Care Team (Late st Contact Info) Description 09/30/2024 10:00 AM EDT Clinical Support [address] [address] 11/08/2024 10:15 AM EDT Office Visit [facility] [address] [place] [address] Christiano Temple MD [address] [place] [address] 11/14/2024 11:30 AM EDT Office Visit [facility] [address] [place] [address] Apolonia Ragland MD [address] [place] [address] documented as of this encounter Visit Diagnoses Not on filedocumented in this encounter Care Teams Call Or Contact Centre Team Leader Relationship Specialty Start Date End Date Apolonia Ragland MD 230 [place] [address] PCP - General Family Medicine 05/15/18 Julius Beavers [address] 3rd [place] [address] Mining Analyst Cardiology 08/25/23 Ronald Maxwell MD [address] [place] [address] Urology 11/17/[address] 175 [facility] 110 [place] [address] Orthopaedic Surgery 08/24/23 Flor Mason RN Care Manager 04/21/23 Kera Wan MD [address] [address] 11/15/23 Manisha Henao [facility] 175 [facility] [address] [place] [address] Orthopaedic Surgery 12/07/23 documented as of this encounter
--- OUTSIDE RECORDS SUMMARY | 2024-09-12 12:54 | XMS_ITS | Encounter Summary ---
Author Organization [employer] Address [address] 7t [place] [address] Care Team Providers Care Last Dipper Name Role Phone Apolonia Ragland MD Primary Care Provider [phone] Julius Beavers Unavailable Ronald Maxwell MD Unavailable [phone] Marcelino Purcell Unavailable Encounter Details Date Type Department Care Team (Late st Contact Info) Description 06/28/2024 Orders Only [facility] [address], [place] [phone] Apolonia Ragland MD [address] [place], [place] [phone] B12 deficiency (Primary Dx); Paroxysmal atrial fibrillation [...] Description 09/30/2024 10:00 AM EDT Clinical Support [address] [address] 11/08/2024 10:15 AM EDT Office Visit [facility] [address] [place] [address] Christiano Temple MD [address] [place] [address] 11/14/2024 11:30 AM EDT Office Visit [facility] [address] [place] [address] Apolonia Ragland MD [address] [place] [address] documented as of this encounter Procedures Procedure Name Priority Date/Time Associated Diagnosis Comments VITAMIN B12/FOLATE, SERUM PANEL Routine 09/10/2024 1:06 PM EDT B12 deficiency LIPID PANEL WITH REFLEX TO DIRECT LDL Routine 09/10/2024 1:06 PM EDT Essential hypertension ALBUMIN, RANDOM URINE W/CREATININE Routine 09/10/2024 1:06 PM EDT Essential hypertension CBC WITH AUTO DIFFERENTIAL Routine 09/10/2024 1:06 PM EDT B12 deficiency COMPREHENSIVE METABOLIC PANEL Routine 09/10/2024 1:06 PM EDT Essential hypertension documented in this encounter Results * (ABNORMAL) Albumin, Random Urine W/Creatinine (09/10/2024 1:06 PM EDT) Creatinine, Urine 95.60 mg/dL [facility] Microalbumin Urine 61.0 mg/L [facility] Microalbum Creatinine Ratio Ur 63.8(H) <30 ug/mg cr [facility] Comment:Albumin/Creatinine R atio Reference Ranges: Normal: < 30 ug/mg creatinine Microalbuminuria: 30 - 300 ug/mg creatinineClinical Albuminuria: > 300 ug/mg creatinine Urine 09/10/2024 1:06 PM EDT 09/10/2024 3:58 PM EDT us Apolonia Ragland MD LAB URINE ORDERABLES Final Resul t [facility] [address] [place] [phone] * (ABNORMAL) Lipid Panel with Reflex to Direct LDL (09/10/2024 1:06 PM EDT) Triglycerides 119 <150 mg/dL [facility] Comment:Desirable Triglyceri de: less than 150 mg/dLBorderline High Triglyceride 150-199 mg/dLHigh Triglyceride: 200-499 mg/dLVery High Triglyceride: greater than or equal to 5OO mg/dL Cholesterol 167 <200 mg/dL [facility] Comment:Desirable Cholestero l: less than 200 mg/dLBorderline High Cholesterol: 200-239 mg/dLHigh Cholesterol: greater than 239 mg/dL LDL Cholesterol Calculated 104(H) <100 mg/dL [facility] Comment:Desirable LDL: less than 100 mg/dLNear Optimal/Above Optimal LDL: 110- 129 mg/dLBorderline High LDL: 130-159 mg/dLHigh LDL: 160-189 mg/dLVery High LDL: greater than or equal to 190 mg/dL HDL Cholesterol 40(L) >40 mg/dL [facility] Comment:Desirable HDL: great er than 40 mg/dL Note: This HDL assay may give artificially low results in patients with liver disease. Blood 09/10/2024 1:06 PM EDT 09/10/2024 3:59 PM EDT us Apolonia Ragland MD LAB BLOOD ORDERABLES Final Resul t [facility] [address] [place] [phone] * (ABNORMAL) Comprehensive Metabolic Panel (09/10/2024 1:06 PM EDT) Sodium 140 135 - 145 mmol/L [facility] Potassium 4.0 3.3 - 5.1 mmol/L [facility] Chloride 105 96 - 108 mmol/L [facility] Carbon Dioxide 28 22 - 29 mmol/L [facility] Anion Gap 11(L) 12 - 20 [facility] Urea Nitrogen (BUN) 11 9 - 16 mg/dL [facility] Creatinine, Serum 0.68 0.5 - 1.4 mg/dL [facility] Estimated Glomerular Filt Rate >60 [facility] Comment:Chronic Kidney Disea se: Estimated GFR < 60 mL/min/[id number] Kidney Disease: Estimated GFR < 15 mL/min/1.73m2 Glucose 98 60 - 115 mg/dL [facility] Calcium 9.0 8.4 - 10.2 mg/dL [facility] Bilirubin, Total 0.8 0.0 - 1.0 mg/dL [facility] Aspartate Amino Transferase 18 5 - 37 U/L [facility] Alanine Aminotransferase 9 0 - 40 U/L [facility] Total Protein 6.9 6.5 - 8.0 g/dL [facility] Albumin Level 4.2 3.5 - 5.0 g/dL [facility] Alkaline Phosphatase 62 39 - 117 U/L [facility] Blood Venous blood specimen / Unknown 09/10/2024 1:06 PM EDT 09/10/2024 3:59 PM EDT us Apolonia Ragland MD LAB BLOOD ORDERABLES Final Resul t [facility] [address] [place] [phone] * (ABNORMAL) CBC auto differential (09/10/2024 1:06 PM EDT) White Blood Count 8.0 4.8 - 10.8 X10*3/uL [facility] Red Blood Count 4.63 4.60 - 5.80 X10*6/uL [facility] Hemoglobin 14.5 14.0 - 18.0 g/dl [facility] Hematocrit 43.6 42.0 - 52.0 % [facility] Mean Corpuscular Volume 94.2 80.0 - 98.0 fL [facility] Mean Corpuscular Hemoglobin 31.3 27.0 - 33.0 pg [facility] Mean Corpuscular HGB Conc 33.3 31.0 - 36.0 g/dl [facility] Red Cell Distribution Width 14.2 11.0 - 16.0 % [facility] Platelet Count 199 160 - 400 X10*3/uL [facility] Mean Platelet Volume 11.0 9.4 - 12.4 fL [facility] Neutrophils Percent Auto 74.4(H) 45 - 73 % [facility] Imm Gran Pct Auto 0.4 0.0 - 0.4 % [facility] Lymphocytes Percent Auto 15.2(L) 20 - 40 % [facility] Monocytes Percent Auto 8.9 2 - 11 % [facility] Eosinophils Percent Auto 0.7 0 - 4 % [facility] Basophils Percent Auto 0.4 0 - 2 % [facility] NRBC Pct Auto 0.0 0.0 - 0.2 /100WBC [facility] Neutrophils Absolute Auto 6.0 2.0 - 8.3 x10*3/uL [facility] Imm Gran Abs Auto 0.03 0.00 - 0.03 X10*3/uL [facility] Lymphocytes Absolute Auto 1.2 1.2 - 4.9 X10*3/uL [facility] Monocytes Absolute Auto 0.7 0.1 - 1.2 X10*3/uL [facility] Eosinophils Absolute Auto 0.1 0.0 - 0.4 X10*3/uL [facility] Basophils Absolute Auto 0.0 0.0 - 0.2 X10*3/uL [facility] NRBC Abs Auto 0.000 0.0 - 0.012 X10*3/uL [facility] Blood Venous blood specimen / Unknown 09/10/2024 1:06 PM EDT 09/10/2024 3:59 PM EDT us Apolonia Ragland MD LAB BLOOD ORDERABLES Final Resul t [facility] [address] [place] [address] [phone] * Vitamin B12 (Cobalamin) and Folate Panel, Serum (09/10/2024 1:06 PM EDT) Vitamin B12 419 200 - 900 pg/mL [facility] Comment:NORMAL 200-900 PG/ML INDETERMINATE 160-199 PG/ML DEFICIENT < 160 PG/ML Folate 8.7 > or = 4.0 ng/mL [facility] Comment:Reference Values:> o r = 4.0 ng/mL< 4.0 ng/mL suggests folate deficiency Methotrexate, aminopterin and folinic acid(leucovorin) are chemotherapeutic agents whose molecularstructures are similar to folate; therefore, the Architectfolate assay cannot be used for patients using these drugs. Blood 09/10/2024 1:06 PM EDT 09/10/2024 3:59 PM EDT Apolonia Ragland MD LAB BLOOD ORDERABLES Final Resul t [facility] [address] [place] [phone] documented in this encounter Visit Diagnoses Diagnosis B12 deficiency- Primary Paroxysmal atrial fibrillation (CMS/HCC) Atrial fibrillation Essential hypertension Unspecified essential hypertension documented in this encounter Additional Health Concerns Assessment Noted Time PHQ-9 Depression Total Score: 3 05/01/20 24 9:55 AM EST documented as of this encounter Care Teams Last Dipper Relationship Specialty Start Date End Date Apolonia Ragland MD [address] [place] [address] PCP - General Family Medicine 05/15/18 Julius Beavers [address] 3rd [place] [address] Principal System Software Engineer Cardiology 08/25/23 Ronald Maxwell MD [address] [place] [address] Urology 11/17/23 Marcelino Purcell 175 [facility] [address] [place] [address] Orthopaedic Surgery 08/24/23 Flor Mason beam dyer operator 04/21/23 Kera Wan MD [address] [address] 11/15/23 Manisha Henao [facility] [address] [facility] [address] [place] [phone] Orthopaedic Surgery 12/07/23 documented as of this encounter
--- OUTSIDE RECORDS SUMMARY | 2024-09-12 12:54 | XMS_ITS | Encounter Summary ---
Author Organization [employer] Address [address] 7t [place] [address] Care Team Providers Care Camp Recreation Specialist Name Role Phone Apolonia Ragland MD Primary Care Provider [phone] Julius Beavers Unavailable Ronald Maxwell MD Unavailable [phone] Marcelion Purcell Unavailable Encounter Details Date Type Department [...] Description 09/30/2024 10:00 AM EDT Clinical Support [address] [address] 11/08/2024 10:15 AM EDT Office Visit [address] [address] Christiano Temple MD [address] [place] [address] 11/14/2024 11:30 AM EDT Office Visit [address] [address] Apolonia Ragland MD [address] [place] [address] documented as of this encounter Visit Diagnoses Not on filedocumented in this encounter Additional Health Concerns Assessment Noted Time PHQ-9 Depression Total Score: 3 05/01/20 24 9:55 AM EST documented as of this encounter Care Teams Camp Recreation Specialist Relationship Specialty Start Date End Date Apolonia Ragland MD [address] [place] [address] PCP - General Family Medicine 05/15/18 Julius Beavers [address] 3rd [place] [address] Powder Line Repairer Cardiology 08/25/23 Ronald Maxwell MD [address] [place] [address] Urology 11/17/23 Marcelino Purcell 175 [facility] [address] [place], [place] [phone] Orthopaedic Surgery 08/24/23 Flor Mason RN Care Manager 04/21/23 Kera Wan MD [address] [address] 11/15/23 Manisha Henao [facility] 175 [facility] [address] [place] [address] Orthopaedic Surgery 12/07/23 documented as of this encounter
--- OUTSIDE RECORDS SUMMARY | 2024-09-12 12:54 | XMS_ITS | Encounter Summary ---
Author Organization [employer] Address [address] 7t [place] [address] Care Team Providers Care Crop Quantitative Geneticist Name Role Phone Apolonia Ragland MD Primary Care Provider [phone] Julius Beavers Unavailable Ronald Maxwell MD Unavailable [phone] Marcelino Purcell Unavailable Reason for Visit * Reason Onset Date Comments Nurse Triage 08/16/2023 Encounter Details Date Type Department Care Team (Late st Contact Info) Description 08/16/2023 Telephone [facility] [address] [place], [place] [phone] Apolonia Ragland MD [address] [place], [place] [phone] Nurse Triage Social History Tobacco Use Types [...] EDT Triage call Pt was seen in [facility] 08/11/23 ED dx of atrial fibrillation. Pt was prescribed eliquis 5mg bid. Pt had been taking ASA 81mg daily . Pt started eliquis 08/14/23 and stopped ASA the same day. Pt is calling regarding some pinkish/reddish colored urine, neg for burning but, always has frequency. Pt also reports having a bloody nose x1 . Pt is advised to come to [facility] for provider to see Pt. Pt reports is in [place] and will try to come to [facility] open till 8pm and other logan will come to [facility] in the morning opens at 830am. Pt is cautioned to seek eval at ED if bleeding should increase and Pt agrees. Pt does have follow up apt [facility] 08/30/23 and another apt with [facility] 08/21/23. Pt agrees with dispostion. Protocol [...] Description 09/30/2024 10:00 AM EDT Clinical Support [address] [address] 11/08/2024 10:15 AM EDT Office Visit [address] [address] Christiano Temple MD [address] [place] [address] 11/14/2024 11:30 AM EDT Office Visit [address] [address] Apolonia Ragland MD [address] [place] [address] documented as of this encounter Visit Diagnoses Not on filedocumented in this encounter Care Teams Crop Quantitative Geneticist Relationship Specialty Start Date End Date Apolonia Ragland MD [address] [place] [address] PCP - General Family Medicine 05/15/18 Julius Beavers [address] 3rd [place] [address] Hog Feeder Cardiology 08/25/23 Ronald Maxwell MD [address] [place] [address] Urology 11/17/23 Marcelino Purcell [address] [place] [address] Orthopaedic Surgery 08/24/23 Flor Mason RN Care Manager 04/21/23 Kera Wan MD [facility] [address] [place] [address] 11/15/23 Manisha Henao [facility] 175 [facility] [address] [place] [phone] Orthopaedic Surgery 12/07/23 documented as of this encounter
--- OUTSIDE RECORDS SUMMARY | 2024-09-12 12:54 | XMS_ITS | Encounter Summary ---
Author Organization [employer] Address [address] 7t [place] [address] Care Team Providers Care Machine Burrer Name Role Phone Apolonia Ragland MD Primary Care Provider [phone] Julius Beavers Unavailable Ronald Maxwell MD Unavailable [phone] Marcelino Purcell Unavailable Reason for Visit * Reason Onset Date Comments Lab Orders 01/19/2024 Encounter Details Date Type Department Care Team (Late st Contact Info) Description 01/19/2024 Telephone [facility] [address] [place], [place] [phone] Apolonia Ragland MD [address] [place], [place] [phone] Lab Orders Social History Tobacco Use Types [...] Description 09/30/2024 10:00 AM EDT Clinical Support [address] [address] 11/08/2024 10:15 AM EDT Office Visit [address] [address] Christiano Temple MD [address] [place] [address] 11/14/2024 11:30 AM EDT Office Visit [address] [address] Apolonia Ragland MD [address] [place] [address] documented as of this encounter Visit Diagnoses Not on filedocumented in this encounter Care Teams Machine Burrer Relationship Specialty Start Date End Date Apolonia Ragland MD [address] [place] [address] PCP - General Family Medicine 05/15/18 Julius Beavers [address] 3rd [place] [address] Warehouse Shipping Clerk Cardiology 08/25/23 Ronald Maxwell MD [address] [place] [address] Urology 11/17/23 Marcelino Purcell [address] [address] Orthopaedic Surgery 08/24/23 Flor Mason RN Care Manager 04/21/23 Kera Wan MD [address] [address] 11/15/23 Manisha Henao [facility] 175 [facility] [address] [place] [phone] Orthopaedic Surgery 12/07/23 documented as of this encounter
--- OUTSIDE RECORDS SUMMARY | 2024-09-12 12:54 | XMS_ITS | Encounter Summary ---
Author Organization [employer] Address [address] [address] [facility] [address] [facility] [address] 7t [place] [address] Care Team Providers Care Frozen Foods Manager Name Role Phone Apolonia Ragland MD Primary Care Provider [phone] Julius Beavers Unavailable Ronald Maxwell MD Unavailable [phone] Marcelino Purcell Unavailable Encounter Details Date Type Department Care Team (Late st Contact Info) Description 05/23/2023 Orders Only [facility] [address] [place], [place] [phone] Apolonia Ragland MD [address] [place], [place] [phone] Frequent PVCs (Primary Dx) Social History Tobacco [...] Description 09/30/2024 10:00 AM EDT Clinical Support [address] [address] 11/08/2024 10:15 AM EDT Office Visit [address] [address] Christiano Temple MD [address] [place] [address] 11/14/2024 11:30 AM EDT Office Visit [address] [address] Apolonia Ragland MD [address] [place] [address] documented as of this encounter Visit Diagnoses Diagnosis Frequent PVCs- Primary documented in this encounter Care Teams Frozen Foods Manager Relationship Specialty Start Date End Date Apolonia Ragland MD [address] [place] [address] PCP - General Family Medicine 05/15/18 Julius Beavers [address] 3rd [place] [address] Magnetic Doctor Cardiology 08/25/23 Ronald Maxwell MD [address] [place] [address] Urology 11/17/23 Marcelino Purcell 175 [facility] 110 [place] [address] Orthopaedic Surgery 08/24/23 Flor Mason financial sales associate 04/21/23 Kera aWn MD [facility] 300 [place] [address] 11/15/23 Manisha Henao [facility] 175 [facility] [address] [place] [phone] Orthopaedic Surgery 12/07/23 documented as of this encounter
--- OUTSIDE RECORDS SUMMARY | 2024-09-12 12:54 | XMS_ITS | Encounter Summary ---
Author Organization [employer] Address [address] [facility] [address] 7t [place] [address] Care Team Providers Care Linemarker Name Role Phone Apolonia Ragland MD Primary Care Provider [phone] Julius Beavers Unavailable Ronald Maxwell MD Unavailable [phone] Marcelino Purcell Unavailable Reason for Visit * Reason Onset Date Comments Nurse Triage 09/28/2023 Encounter Details Date Type Department Care Team (Late st Contact Info) Description 09/28/2023 Telephone [facility] 230 [place], [place] [phone] Apolonia Ragland MD [address] [place], [place] [phone] Nurse Triage Social History Tobacco Use Types [...] accepted this outcome Please contact pt at [phone] documented in this encounter Plan of Treatment Upcoming Encounters Date Type Department Care Team (Late st Contact Info) Description 09/30/2024 10:00 AM EDT Clinical Support [address] [address] 11/08/2024 10:15 AM EDT Office Visit [facility] [address] [place] [address] Christiano Temple MD [address] [place] [address] 11/14/2024 11:30 AM EDT Office Visit [facility] [address] [place] [address] Apolonia Ragland MD [address] [place] [address] documented as of this encounter Visit Diagnoses Not on filedocumented in this encounter Care Teams Linemarker Relationship Specialty Start Date End Date Apolonia Ragland MD [address] [place] [address] PCP - General Family Medicine 05/15/18 Julius Beavers [address]rd [place] [address] Portfolio Director Cardiology 08/25/23 Ronald Maxwell MD [address] [place] [address] Urology 11/17/[address] 175 [facility] 110 [place] [address] Orthopaedic Surgery 08/24/23 Flor Mason drying oven tender 04/21/23 Kera Wan MD [address] [address] 11/15/[address] [facility] 175 [facility] [address] [place] [phone] Orthopaedic Surgery 12/07/23 documented as of this encounter
--- OUTSIDE RECORDS SUMMARY | 2024-09-12 12:54 | XMS_ITS | Data Portability ---
Author Organization [facility], [facility] Address [address] [place] [address] Care Team Providers Care [employer] French Teacher Name Role Phone CHAPIN HARDING Primary Care [...] knee No observ ation record ed. [email or web address] [facility] (Medical Records) [address] [facility], [place], [address], 11/24/2023 16:31:04 01/13/20 24 06/15/2018 imagi ng/di [...] Sports Shoulder completed Kera Wan MD [address], [place], [address], [place] - [facility] 11/15/2023 11:21:03 Imaging Results Imaging Date Name Status LastModified by Organiz ation Details LastModified Time 11/01/2023 XR, knee completed [email or web address] [facility] (Medical Records) [address] [place], [address], 11/24/2023 16:31:04 06/15/2018 imaging/diag nostic result completed Information not available 01/13/2024 01:55:36 06/15/2018 imaging/diag nostic result completed Information not available 01/13/2024 01:55:37 Procedure Notes None recorded. Medical Equipment None Reported. Allergies Allergen ID Allergen Name Allergen Category Reaction Reaction Severity Criticality Documentation Date Start Date Code Code System Note Provider Name and Address Organization Details Recorded Time 84384 tetracycl ine hydrochlo ride medicatio n Not available Not available Not available 07/17/20232018 56019 6 RxNorm Not Available [facility] 12:19:21 Medications Name Sig Start Date [...] Updated DateTime 11/15/2023 170.18 cm 27.4 kg/m2 27640.66 g GABRIEL WATTERS [place] - [facility] 11/15/2023 10:38:25 Social History None recorded. Functional Status None recorded. Mental Status None recorded. Family History Nothing Reported. Medical History No medical history recorded. Past Encounters Encounter ID Performer Location Encounter Start Date Encounter Closed Date Diagnosis/Indication Diagnosis SNOMED-CT Code Diagnosis ICD10 Code Diagnosis Note [id number] [facility] [address] [place] [address] 11/15/2023 10:29:45 11/15/2023 12:48:42 Osteoarthritis of joint of right shoulder region [id number] 97615 M19.011 Health Concerns Section Related Observation LastModified by Organization Detai ls LastModified Time None Recorded Concern Status LastModified by Organization Details LastModified Time None Recorded Advance Directives Directive None Recorded Payers Encounter Date Sequence Insurance Name Policy Number Policy Schmidt Covered Member ID Schmidt Member ID Guarantor Name 11/15/2023 1 MEDICARE B-[place]: [employer] Colton Black [id number] Colton Black Notes Date Note Type Note Provider Name and Address Organization Details Recorded Time 11/15/2023 text/html Chief Complaint: Right shoulder pain HPI: This is an 83-year-old rxzqj-dkfv-rvfkvicg gentleman with chronic multi focal joint pain. [...] xrays here today. Had some recently at [facility], will try to get a copy of his disc to drop off at our office for later review. Impression: 83-year-old kkxwm-xlmj-sfbnqyfp gentleman with right shoulder pain due to [...] aches and pains, the patient can take waxq-wco-irpxvuj medication such as Tylenol or anti-inflammatories as needed; risks and benefits of medication discussed. Should call with more persistent pain. We will leave follow up open ended at this point. However should symptoms worsen or fail to improve to the patient's satisfaction, he is encouraged to give the office a call to be seen back for further evaluation and management. [employer] speech recognition shactor helper software was used to create portions of this document. An attempt at proofreading has been made to minimize errors. Please call for corrections. Kera Wan MD [address] [place], [place] [address], [place], [address], [facility] - [facility] 11/15/2023 12:09:43
--- OUTSIDE RECORDS SUMMARY | 2024-09-12 12:54 | XMS_ITS | Encounter Summary ---
Author Organization [employer] Address [address] [place] [address] Care Team Providers Care Firer Glost Kiln Name Role Phone Apolonia Ragland MD Primary Care Provider [phone] Julius Beavers Unavailable Ronald Maxwell MD Unavailable [phone] Marcelino Purcell Unavailable Reason for Visit * Reason Onset Date Comments Referral 05/22/2023 Encounter Details Date Type Department Care Team (Late st Contact Info) Description 05/22/2023 Telephone [facility] MEDICINE [address] [place], [place] [phone] Apolonia Ragland MD [address] [place], [place] [phone] Referral Social History Tobacco Use Types Packs/Day [...] scheduled was canceled. Please contact pt @ [phone] documented in this encounter Plan of Treatment Upcoming Encounters Date Type Department Care Team (Late st Contact Info) Description 09/30/2024 10:00 AM EDT Clinical Support [address] [address] 11/08/2024 10:15 AM EDT Office Visit [facility] MED[facility]INE [address] [place] [phone] Christiano [place] MD [address] [place] [address] 11/14/2024 11:30 AM EDT Office Visit [facility] MED[facility]INE [address] [place] [address] Apolonia Ragland MD [address] [place] [address] documented as of this encounter Visit Diagnoses Not on filedocumented in this encounter Care Teams Firer Glost Kiln Relationship Specialty Start Date End Date Apolonia Ragland MD [address] [place] [address] PCP - General Family Medicine 05/15/18 Julius Beavers [address] 3rd [place] [address] Director Oracle Cardiology 08/25/23 Ronald [place] MD [address] [place] [address] Urology 11/17/23 Marcelino Purcell [address] [facility] 110 [place] [address] Orthopaedic Surgery 08/24/23 lFor Mason review trainer 04/21/23 Kera Wan MD [address] [address] 11/15/23 Manisha Henao [facility] 175 [facility] [address] [place] [address] Orthopaedic Surgery 12/07/23 documented as of this encounter
--- OUTSIDE RECORDS SUMMARY | 2024-09-12 12:54 | XMS_ITS | Encounter Summary ---
Author Organization [employer] Address [address] 7t [place] [address] Care Team Providers Care Slubber Tender Name Role Phone Apolonia Ragland MD Primary Care Provider [phone] Julius Beavers Unavailable Ronald [place] MD Unavailable [phone] Marcelino Purcell Unavailable Encounter Details Date Type Department Care Team (Late st Contact Info) Description 09/11/2024 Orders Only [facility] MEDICINE 230 [place], [place] [phone] Apolonia Ragland MD 230 [place], [place] [phone] Nocturia (Primary Dx) Social History Tobacco Use Types [...] the past 12 months, has t he [employer], gas, oil or water company threatened to [...] Description 09/30/2024 10:00 AM EDT Clinical Support [facility] [address] [place] [address] 11/08/2024 10:15 AM EDT Office Visit [address] [address] Christiano [place] MD [address] [place] [address] 11/14/2024 11:30 AM EDT Office Visit [facility] MEDICINE [address] [place] [address] Apolonia Ragland MD [address] [place] [address] Scheduled Orders Name Type Priority Associated Diagnoses Orde r Schedule Culture, Urine, Routine Microbiology Routine Nocturia Expected: 09/11/2024 (Approximate), Expires: 09/11/2025 Urinalysis Complete Lab Routine Nocturia Expected: 09/11/2024, Expires: 09/11/2025 documented as of this encounter Visit Diagnoses Diagnosis Nocturia- Primary documented in this encounter Additional Health Concerns Assessment Noted Time PHQ-9 Depression Total Score: 3 05/01/20 24 9:55 AM EST documented as of this encounter Care Teams Slubber Tender Relationship Specialty Start Date End Date Apolonia Ragland MD 230 [place] [address] PCP - General Family Medicine 05/15/18 Julius Beavers [address]rd [place] [address] Recooperer Cardiology 08/25/23 Ronald [place] MD [address] [place] [address] Urology 11/17/23 Marcelino Purcell 175 [facility] 110 [place] [address] Orthopaedic Surgery 08/24/23 Flor Mason van driver 04/21/23 Kera Wan MD [address] [address] 11/15/23 Manisha Henao [facility] [address] [facility] [address] [place] [phone] Orthopaedic Surgery 12/07/23 documented as of this encounter
--- OUTSIDE RECORDS SUMMARY | 2024-09-12 12:54 | XMS_ITS | Encounter Summary ---
Author Organization [employer] Address [address] [place] [address] 7t [place] [address] Care Team Providers Care Manager Adult Name Role Phone Apolonia Ragland MD Primary Care Provider [phone] Julius Beavers Unavailable Ronald [place] MD Unavailable [phone] Marcelino Purcell Unavailable Encounter Details Date Type Department Care Team (Late st Contact Info) Description 10/11/2022 [facility] [employer] [facility] 230 [place] [address] Apolonia Ragland MD 230 [place], [place] [phone] Social History Tobacco Use Types Packs/Day Years [...] Description 09/30/2024 10:00 AM EDT Clinical Support [facility] [place] [address] 11/08/2024 10:15 AM EDT Office Visit [facility] [place] [address] Christiano [place] MD [address] [facility] [place] [address] 11/14/2024 11:30 AM EDT Office Visit [facility] [place] [address] Apolonia Ragland MD 230 [place] [address] documented as of this encounter Visit Diagnoses Not on filedocumented in this encounter Care Teams Manager Adult Relationship Specialty Start Date End Date Apolonia Ragland MD 230 [place] [address] PCP - General Family Medicine 05/15/18 Julius Beavers [address]rd [place] [address] Grounds Maintenance Supervisor Cardiology 08/25/23 Ronald [place] MD [address] [place] [address] Urology 11/17/23 Marcelino Purcell 175 [facility] 110 [place] [address] Orthopaedic Surgery 08/24/23 Flor Mason telesales consultant 04/21/23 Kera Wan MD [address] [address] 11/15/23 Manisha Henao [facility] 175 [facility] [address] [place] [phone] Orthopaedic Surgery 12/07/23 documented as of this encounter
--- OUTSIDE RECORDS SUMMARY | 2024-09-12 12:54 | XMS_ITS | Encounter Summary ---
Author Organization [employer] Address [address] [facility] [address] [place] [address] Care Team Providers Care Head Housekeeper Name Role Phone Apolonia Ragland MD Primary Care Provider [phone] Julius Beavers Unavailable Ronald Maxwell MD Unavailable Marcelino Purcell Unavailable Encounter Details Date Type Department Care Team (Late st Contact Info) Description 08/14/2023 Orders Only [facility] MEDICINE 230 [place], [place] [phone] Apolonia Ragland MD 230 [place], [place] [phone] Primary osteoarthritis involving multiple joints Social History [...] Description 09/30/2024 10:00 AM EDT Clinical Support [facility] [address] [place] [address] 11/08/2024 10:15 AM EDT Office Visit [address] [address] Christiano [place] MD [address] [place] [address] 11/14/2024 11:30 AM EDT Office Visit [address] [address] Apolonia Ragland MD [address] [place] [address] documented as of this encounter Visit Diagnoses Diagnosis Primary osteoarthritis involving multiple joints documented in this encounter Care Teams Head Housekeeper Relationship Specialty Start Date End Date Apolonia Ragland MD [address] [place] [address] PCP - General Family Medicine 05/15/18 Julius Beavers [address] 3rd [place] [address] Public Improvement Inspector Cardiology 08/25/23 Ronald [place] MD [address] [place] [address] Urology 11/17/23 Marcelino Purcell 175 [facility] 110 [place] [address] Orthopaedic Surgery 08/24/23 Flor Mason human resources hr representative 04/21/23 Kera Wan MD [facility] [address] [place] [address] 11/15/23 Manisha Henao [facility] [address] [facility] [address] [place] [phone] Orthopaedic Surgery 12/07/23 documented as of this encounter
--- OUTSIDE RECORDS SUMMARY | 2024-09-12 12:54 | XMS_ITS | Clinical Summary ---
Author Organization [employer] Address [address] [facility] [address] [place] [address] Care Team Providers Care Mining Helper Name Role Phone Apolonia Harding MD Primary Care Provider [phone] Julius Beavers Unavailable Ronald Maxwell MD Unavailable [phone] Marcelino Purcell Unavailable Allergies Active Allergy Reactions [...] 05/30/2024 Actinic keratosis 05/30/2024 Assessment & Plan (09/11/2024 11:14 PM EDT): - previously Dx AK - there are miko suspicious skin lesions (possible BCC or SCC). Refer back to Derm clinic Assessment & Plan (06/04/2024 9:25 AM EST): [...] Assessment & Plan (11/01/2023 10:45 AM EDT): -[id number] Score: 3 - continue apixaban 2.5 mg bid - no rate or rhythm control - advised to complete sleep study - continue risk factor management Assessment & Plan (09/30/2023 6:35 PM EDT): - continue apixaban - patient states apixaban was switched to rivaroxaban by director acute; however, patient seems to be taking 5 [...] Paroxysmal atrial fibrillation 08/20/2023 Assessment & Plan (09/11/2024 11:13 PM EDT): -Adventure Therapist: previously [facility], and recently started following with [facility]. Last seen on 10/17/23 [...] no ischemia -Sleep study was ordered by [facility] Cardiology, but patient has not completed it yet Assessment & Plan (06/03/2024 7:55 AM EST): -Adventure Therapist: previously [facility], and recently started following with [facility]. Last seen on 10/17/23 [...] no ischemia -Sleep study was ordered by [facility] Cardiology, but patient has not completed it yet Assessment & Plan (03/05/2024 10:42 AM EDT): -Adventure Therapist: previously [facility], and recently started following with [facility]. Last seen on 10/17/23 [...] no ischemia -Sleep study was ordered by [facility] Cardiology, but patient has not completed it yet Assessment & Plan (11/01/2023 10:37 AM EDT): -Adventure Therapist: previously [facility], and recently started following with [facility]. Last seen on 10/17/23 [...] no ischemia -Sleep study was ordered by [facility] Cardiology, but patient has not completed it yet Assessment & Plan (09/27/2023 5:45 AM EDT): [id number] Score: 3 -Adventure Therapist: previously [facility], and recently started following with [facility] -Rate control: none -Rhythm control: none -Anticoagulation: apixaban -Last Holter monitor: 07/10/23 -Last transthoracic echocardiogram: Done at [facility] on 10/25/22 TTE LVEF 55-60%; 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 Ordered by [facility] Cardiology recently -Last stress test 10/07/22 nuclear stress test with MPI wnl -Sleep study was ordered by [facility] Cardiology Assessment & Plan (08/24/2023 4:49 PM EDT): Here from previous ER visit, started on Eliquis for prevention - not tolerating well due to more bleeds - recommend talk to the director acute about whether he should continue Eliquis as he is moderate risk by [id number] - he will continue for now and [...] -Started on apixaban since 08/10/23 -Following with [facility] cardiology since August 2023, [...] Ascending aorta dilatation 01/05/2023 Assessment & Plan (09/11/2024 11:12 PM EDT): - 10/25/22 transthoracic echocardiogram Ascending aorta 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 - 10/06/23 transthoracic echocardiogram Mild dilation of the sinuses of Valsalva measuring 3.80 cm and mild dilation of the ascending aorta measuring 3.90 cm. Assessment & Plan (06/03/2024 7:56 AM EST): [...] 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 - Currently following with [facility] cardiology and transthoracic echocardiogram was ordered Assessment & Plan (06/29/2023 4:46 AM EST): - 10/25/22 TTE normal LV sfunction with EF 55-60%. 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 - Follow-up with director acute in 6 mo - TTE at least yearly Assessment & Plan (04/24/2023 6:07 AM EST): - 10/25/22 TTE normal LV sfunction with EF 55-60%. 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 - Follow-up with director acute in 6 mo - TTE at least yearly Assessment & Plan (01/05/2023 6:51 AM EDT): - 10/25/22 TTE normal LV sfunction with EF 55-60%. 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 - Follow-up with director acute in 6 mo - TTE at least yearly Depressive disorder 09/28/2022 Assessment & Plan (09/11/2024 11:13 PM EDT): - pt declines BHS and medication - patient does not want to go to senior center - patient has a therapy animal Assessment & Plan (06/04/2024 9:24 AM EST): [...] 6:08 PM EST): -evaluated by ENT and caddy master -pt has severe hearing loss -pt is [...] of urinary bladder 06/02/2022 Assessment & Plan (09/11/2024 11:13 PM EDT): - previously following with [facility] urology - Transurethral resection of bladder tumor on 11/20/18 Pathology report High-grade papillary urothelial carcinoma - seen by urologist on 11/17/23; upcoming appt on 03/13/24 Assessment & Plan (06/03/2024 7:56 AM EST): - previously following with [facility] urology - Transurethral resection of bladder tumor on 11/20/18 Pathology report High-grade papillary urothelial carcinoma - seen by urologist on 11/17/23; upcoming appt on 03/13/24 Assessment & Plan (03/05/2024 11:20 AM EDT): - previously following with [facility] urology - Transurethral resection of bladder tumor on 11/20/18 Pathology report High-grade papillary urothelial carcinoma - seen by urologist on 11/17/23; upcoming appt on 03/13/24 Assessment & Plan (11/01/2023 10:39 AM EDT): - previously following with [facility] urology - Transurethral resection of bladder tumor on 11/20/18 Pathology report High-grade papillary urothelial carcinoma - Referred to urology; upcoming appt Assessment & Plan (09/27/2023 5:53 AM EDT): - previously following with [facility] urology - Transurethral resection [...] 10/03/22 B12 155pg/ml, low. Normal CBC - 8/18/16 Intrinsic factor antibody negative - in a setting of GERD symptom - pt declines GI referral for possible evaluation with EGD Assessment & Plan (01/06/2023 7:11 AM EDT): - 10/03/22 B12 155pg/ml, low. Normal CBC - 818/ Intrinsic factor antibody negative - in a [...] 07/14/2015 Essential hypertension 2015 Assessment & Plan (09/11/2024 11:12 PM EDT): -Goal BP < 150/90 per [...] mo or sooner prn Assessment & Plan (06/03/2024 7:55 AM EST): [...] Seasonal allergic rhinitis 2015 Assessment & Plan (09/11/2024 11:13 PM EDT): - restart cetirizine and Flonase - consider montelukast Assessment & Plan (03/05/2024 10:42 AM EDT): [...] charge - will refer to orthopedist at [facility] for reevaluation - discussed taking Tylenol [...] difficulty walking - pt will benefit from CSR TECHNICIAN service; will check the status of CSR TECHNICIAN service >>ASSESSMENT AND PLAN FOR PRIMARY OSTEOARTHRITIS INVOLVING MULTIPLE JOINTS WRITTEN ON 01/06/2023 7:10 AM BY APOLONIA HARDING MD - previously seen by [facility] providers - pt declines further evaluation by orthopedist due to outstanding charges Assessment & Plan (06/05/2022 6:10 PM EST): - multiple joints - difficulty walking - pt will benefit from CSR TECHNICIAN service 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 -Follow up with director acute as scheduled Assessment & Plan (09/27/2023 5:44 AM EDT): -10/07/22 nuclear stress test with MPI wnl -10/25/22 TTE LVEF 55-60%; 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 -Follow up with director acute as scheduled Assessment & Plan (07/03/2023 6:08 AM EST): -Seen by [facility] director acute in November 2022. -Asymptomatic. 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 -Follow up with director acute as scheduled -Bradycardiac lately; will schedule Holter monitor Assessment & Plan (04/24/2023 6:06 AM EST): -Seen by [facility] director acute in November 2022. -Asymptomatic. 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 -Follow up with director acute as scheduled Assessment & Plan (01/06/2023 7:06 AM EDT): -Seen by [facility] director acute in November 2022. -Asymptomatic. 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 -Follow up with director acute as scheduled Assessment & Plan (10/03/2022 12:26 PM EDT): -Seen by [facility] director acute in July 2022. -Asymptomatic. -Possibly starting CCB or BB -Follow up with director acute as scheduled -Being scheduled for stress test and has a follow up with director acute in near future Assessment & Plan (06/05/2022 6:03 PM EST): -Seen by [facility] director acute in Jan 2022. -Asymptomatic. -Possibly starting CCB or BB -Follow up with director acute as scheduled Gastroesophageal reflux disease 04/02/2012 Assessment [...] Encounters Date Type Department Care Team Description 09/11/2024 Telephone [facility] [place] [address] Licha Ann, RN Results 09/11/2024 Orders Only [facility] [place] [address] Apolonia Harding MD Nocturia (Primary Dx) 09/10/2024 11:30 AM EDT Office Visit [facility] [place] [address] Apolonia Harding MD Ascending aorta dilatation (CMS/HCC) (Primary Dx); Essential hypertension; Paroxysmal atrial fibrillation (CMS/HCC); Pulmonary hypertension (CMS/HCC); Malignant neoplasm of urinary bladder, unspecified site (CMS/HCC); Actinic keratosis; Depressive disorder; Seasonal allergic rhinitis, unspecified trigger 09/10/2024 Travel 09/06/2024 Telephone [facility] [place] [address] Apolonia Harding MD chart prep 08/30/2024 10:00 AM EDT Nurse Only [facility] [place] [address] Tiana Ramirez LPN B12 deficiency (Primary Dx) 08/30/2024 Telephone [facility] [place] [address] Apolonai Harding MD Inform Pt Of New Appointment (New Appointment in Green Team, B12 Injection will no longer be downstairs at the [facility].) 08/09/2024 Refill [facility] [place] [address] Apolonia Harding MD 08/05/2024 Orders Only GENERIC EXTERNAL DATA DEPARTMENT Provider, Generic External Data 08/02/2024 10:15 AM EDT Nurse Only [facility] [place] [address] Tiana Ramirez LPN B12 deficiency (Primary Dx) 08/02/2024 Travel 07/26/2024 Population Health Risk Score [facility] (C[facility]) Department [address] [place] [phone] Provider, Population Health Generic 07/05/2024 10:30 AM EST Nurse Only [facility] [address] [place] [address] Tiana Ramirez LPN B12 deficiency 07/05/2024 Travel 06/28/2024 Orders Only [facility] [address] [place] [phone] Apolonia Harding MD B12 deficiency (Primary Dx); Paroxysmal atrial fibrillation (CMS/HCC); Essential hypertension 06/28/2024 Refill [facility] [address] [place] [address] Apolonia Harding MD 06/21/2024 Telephone [facility] [address] [place] [address] [phone] Apolonia Harding MD FYI 06/18/2024 6:40 PM EST Office Visit [facility] [address] [place] [address] Jacques Foster MD Fall, initial encounter (Primary Dx); Acute pain of right knee; Abrasion of right elbow, initial encounter 06/18/2024 Telephone [facility] [address] [place] [address] [phone] Apolonia Harding MD Referral 06/18/[address] [address] Apolonia Harding MD Nurse Triage from Last [...] Grandfather Nii Wa s a mitchell in [place] No Known Problems Maternal Grandmother Lidya Pacemaker [...] Coco Pa ssed away in the mid 1949's No [...] Description 09/30/2024 10:00 AM EDT Clinical Support [address] [address] 11/08/2024 10:15 AM EDT Office Visit [facility] [address] [place] [address] Christiano Temple MD [address] [place], [place] [phone] 11/14/2024 11:30 AM EDT Office Visit [facility] [address] [place], [place] [phone] Apolonia Harding MD [address] [place], [place] [phone] Health Maintenance Due Date Last Done Comments Zoster Vaccines (1 of 2) 1991 RSV Patients and Patients Aged 60 years or older (1 - 1-dose 75+ series) 2016 DTaP/Tdap/Td Vaccines (2 - Td or Tdap) 08/11/2021 08/12/2011, 06/09/2006 COVID-19 Vaccine ( season) 2024 07/28/2020, 06/30/2020 Influenza Vaccine (#1) 2024 9, 04/10/2017, 04/20/2016, Additional history exists Alcohol/Substance Use Screening 05/01/2025 05/01/2024 Depression Screening 05/01/2025 05/01/2024, 05/01/20 24 SDOH Screening 05/01/2025 05/01/2024 Tobacco Screening 05/30/2025 05/30/2024 Lipid Panel 09/10/2029 09/10/2024, 0510/2023, 10/03/2022, Additional history exists Hepatitis A Vaccines Aged [...] Procedure Name Priority Date/Time Associated Diagnosis Comments ALBUMIN, RANDOM URINE W/CREATININE Routine 09/10/2024 1:06 PM EDT Essential hypertension LIPID PANEL WITH REFLEX TO DIRECT LDL Routine 09/10/2024 1:06 PM EDT Essential hypertension COMPREHENSIVE METABOLIC PANEL Routine 09/10/2024 1:06 PM EDT Essential hypertension CBC WITH AUTO DIFFERENTIAL Routine 09/10/2024 1:06 PM EDT B12 deficiency VITAMIN B12/FOLATE, SERUM PANEL Routine 09/10/2024 1:06 PM EDT B12 deficiency GROSS AND MICROSCOPIC LEVEL 5 Routine 08/05/2024 1:40 PM EDT from Last 3 Months Results * Vitamin B12 (Cobalamin) and Folate Panel, Serum (09/10/2024 1:06 PM EDT) Vitamin B12 419 200 - 900 pg/mL [facility] Comment:NORMAL 200-900 PG/ML INDETERMINATE 160-199 PG/ML DEFICIENT < 160 PG/ML Folate 8.7 > or = 4.0 ng/mL [facility] Comment:Reference Values:> o r = 4.0 ng/mL< 4.0 ng/mL suggests folate deficiency Methotrexate, aminopterin and folinic acid(leucovorin) are chemotherapeutic agents whose molecularstructures are similar to folate; therefore, the Architectfolate assay cannot be used for patients using these drugs. Blood 09/10/2024 1:06 PM EDT 09/10/2024 3:59 PM EDT us Apolonia Harding MD LAB BLOOD ORDERABLES Final Resul t Performing Organization Address [facility] de Phone Number [facility] [address] [place] [phone] * (ABNORMAL) Lipid Panel with Reflex to Direct LDL (09/10/2024 1:06 PM EDT) Triglycerides 119 <150 mg/dL [facility] Comment:Desirable Triglyceri de: less than 150 mg/dLBorderline High Triglyceride 150-199 mg/dLHigh Triglyceride: 200-499 mg/dLVery High Triglyceride: greater than or equal to 5OO mg/dL Cholesterol 167 <200 mg/dL [facility] Comment:Desirable Cholestero l: less than 200 mg/dLBorderline High Cholesterol: 200-239 mg/dLHigh Cholesterol: greater than 239 mg/dL LDL Cholesterol Calculated 104(H) <100 mg/dL [facility] Comment:Desirable LDL: less than 100 mg/dLNear Optimal/Above Optimal LDL: 110- 129 mg/dLBorderline High LDL: 130-159 mg/dLHigh LDL: 160-189 mg/dLVery High LDL: greater than or equal to 190 mg/dL HDL Cholesterol 40(L) >40 mg/dL [facility] Comment:Desirable HDL: great er than 40 mg/dL Note: This HDL assay may give artificially low results in patients with liver disease. Blood 09/10/2024 1:06 PM EDT 09/10/2024 3:59 PM EDT Apolonia Harding MD LAB BLOOD ORDERABLES Final Resul t Performing Organization Address [facility] Co de Phone Number [facility] [address] [place] [phone] [phone] * (ABNORMAL) Albumin, Random Urine W/Creatinine (09/10/2024 1:06 PM EDT) Creatinine, Urine 95.60 mg/dL [facility] Microalbumin Urine 61.0 mg/L [facility] Microalbum Creatinine Ratio Ur 63.8(H) <30 ug/mg cr [facility] Comment:Albumin/Creatinine R atio Reference Ranges: Normal: < 30 ug/mg creatinine Microalbuminuria: 30 - 300 ug/mg creatinineClinical Albuminuria: > 300 ug/mg creatinine Urine 09/10/2024 1:06 PM EDT 09/10/2024 3:58 PM EDT us Apolonia Harding MD LAB URINE ORDERABLES Final Resul t [facility] [address] [place] [phone] * (ABNORMAL) CBC auto differential (09/10/2024 1:06 PM EDT) White Blood Count 8.0 4.8 - 10.8 X10*3/uL [facility] Red Blood Count 4.63 4.60 - 5.80 X10*6/uL [facility] Hemoglobin 14.5 14.0 - 18.0 g/dl [facility] Hematocrit 43.6 42.0 - 52.0 % [facility] Mean Corpuscular Volume 94.2 80.0 - 98.0 fL [facility] Mean Corpuscular Hemoglobin 31.3 27.0 - 33.0 pg [facility] Mean Corpuscular HGB Conc 33.3 31.0 - 36.0 g/dl [facility] Red Cell Distribution Width 14.2 11.0 - 16.0 % [facility] Platelet Count 199 160 - 400 X10*3/uL [facility] Mean Platelet Volume 11.0 9.4 - 12.4 fL [facility] Neutrophils Percent Auto 74.4(H) 45 - 73 % [facility] Imm Gran Pct Auto 0.4 0.0 - 0.4 % [facility] Lymphocytes Percent Auto 15.2(L) 20 - 40 % [facility] Monocytes Percent Auto 8.9 2 - 11 % [facility] Eosinophils Percent Auto 0.7 0 - 4 % [facility] Basophils Percent Auto 0.4 0 - 2 % [facility] NRBC Pct Auto 0.0 0.0 - 0.2 /100WBC [facility] Neutrophils Absolute Auto 6.0 2.0 - 8.3 x10*3/uL [facility] Imm Gran Abs Auto 0.03 0.00 - 0.03 X10*3/uL [facility] Lymphocytes Absolute Auto 1.2 1.2 - 4.9 X10*3/uL [facility] Monocytes Absolute Auto 0.7 0.1 - 1.2 X10*3/uL [facility] Eosinophils Absolute Auto 0.1 0.0 - 0.4 X10*3/uL [facility] Basophils Absolute Auto 0.0 0.0 - 0.2 X10*3/uL [facility] NRBC Abs Auto 0.000 0.0 - 0.012 X10*3/uL [facility] Blood Venous blood specimen / Unknown 09/10/2024 1:06 PM EDT 09/10/2024 3:59 PM EDT us Apolonia Harding MD LAB BLOOD ORDERABLES Final Resul t [facility] [address] [place] [phone] * (ABNORMAL) Comprehensive Metabolic Panel (09/10/2024 1:06 PM EDT) Sodium 140 135 - 145 mmol/L [facility] Potassium 4.0 3.3 - 5.1 mmol/L [facility] Chloride 105 96 - 108 mmol/L [facility] Carbon Dioxide 28 22 - 29 mmol/L [facility] Anion Gap 11(L) 12 - 20 [facility] Urea Nitrogen (BUN) 11 9 - 16 mg/dL [facility] Creatinine, Serum 0.68 0.5 - 1.4 mg/dL [facility] Estimated Glomerular Filt Rate >60 [facility] Comment:Chronic Kidney Disea se: Estimated GFR < 60 mL/min/[id number] Kidney Disease: Estimated GFR < 15 mL/min/1.73m2 Glucose 98 60 - 115 mg/dL [facility] Calcium 9.0 8.4 - 10.2 mg/dL [facility] Bilirubin, Total 0.8 0.0 - 1.0 mg/dL [facility] Aspartate Amino Transferase 18 5 - 37 U/L [facility] Alanine Aminotransferase 9 0 - 40 U/L [facility] Total Protein 6.9 6.5 - 8.0 g/dL [facility] Albumin Level 4.2 3.5 - 5.0 g/dL [facility] Alkaline Phosphatase 62 39 - 117 U/L [facility] Blood Venous blood specimen / Unknown 09/10/2024 1:06 PM EDT 09/10/2024 3:59 PM EDT us Apolonia Harding MD LAB BLOOD ORDERABLES Final Resul t [facility] [address] [place] [phone] * Gross and Microscopic Level 5 (08/05/2024 1:40 PM EDT) 08/05/2024 1:40 PM EDT 08/05/2024 2:21 PM EDT Kayleigh [facility] - 08/07/2024 3:04 PM EDT ----- ------- Name: Colton Black ? Age/Sex: 84/M ? : 1940 Unit#: [id number] ?? Attend Dr: Ronald Maxwell MD ?Re08/05/24 ?Status: DEP SDC ? Location: [facility] ?Disch: ? ----- ------- SPEC : [id number] ? RECD: 08/05/24-1420 ? STATUS: ??SOUT ? REQ NUM: [id number] ? BETHANY: 08/05/24-1340 ? SUBM DR: Ronald [...] Copies To: ?? Ronald Maxwell MD ?? [facility] Urology Services ?? [address] ?? [place] [address] ?? [phone] ? CONTINUED ON NEXT PAGE ----- ------- Name: Colton Black ? Age/Sex: 84/M ? : 1940 Unit#: [id number] ?? Attend Dr: Ronald Maxwell MD ?Re08/05/24 ?Status: DEP GAC ? Location: [facility] ?Disch: ? ----- ------- SPEC : [id number] ? RECD: 08/05/24 ? STATUS: ??SOUT ? REQ NUM: [id number] ? BETHANY: 08/05/24 ? SUBM DR: Ronald Maxwell MD ? ENTERED: ??08/05/24 ?SP TYPE: Surgical ? OTHR DR: Apolonia Harding MD ? ORDERED: ??Gross Micro L5 ? Copies To: ??(Continued) ?? Apolonia Harding MD ?? [facility] ?? [address] [facility] [address] ?? [place] [address] ?? [phone] ----- ------- Signed (signature on file) Binh Nielsen MD 08/07/24 1504 ? ----- ------- ? END OF REPORT ? us Generic External Data Provider LAB BLOOD ORDERAB LES Final Result Performing Organization Address City/State/[facility] Co de Phone Number [facility] [address] [place], [place] [phone] from Last 3 Months Insurance [employer] [facility] MEDICARE ADVANTAGE HMO Care Teams Mining Helper Relationship Specialty Start Date End Date Apolonia Harding MD [address] [place] [address] PCP - General Family Medicine 05/15/18 Julius Beavers [address] [place] [address] [facility] Cardiology 08/25/23 Ronald Maxwell MD [address] [place] [address] Urology 11/17/23 Marcelino Pur[address] [facility] [address] [place] [address] Orthopaedic Surgery 08/24/23 Flor [place] RN Care Manager 04/21/23 Kera Wan MD [facility] [address] [facility] [place] [phone] 11/15/23 Manisha [facility] [address] [facility] [address] [place] [phone] Orthopaedic Surgery 12/07/23
--- OUTSIDE RECORDS SUMMARY | 2024-09-12 12:54 | XMS_ITS | Encounter Summary ---
Author Organization [employer] Address [address] [facility] [address] [facility] [address] 7t [place] [address] Care Team Providers Care Weaver Hand Name Role Phone Apolonia Ragland MD Primary Care Provider [phone] Julius Beavers Unavailable Ronald Maxwell MD Unavailable [phone] Marcelino Purcell Unavailable Reason for Visit * Reason Onset Date Comments Results 09/11/2024 Encounter Details Date Type Department Care Team (Late st Contact Info) Description 09/11/2024 Telephone [facility] [address] [place] [address] Licha Ann RN Results Social History Tobacco Use Types Packs/Day Years [...] encounter Miscellaneous Notes * Telephone Encounter - Licha Ann RN - 09/11/2024 10:23 AM EDT TC placed to pt to inform of PCP message below regarding most recent blood work showing normal B12 levels and slightly elevated LDL. Pt advised to work on dietary modifications in regards to controlling the elevated cholesterol. Pt instructed that PCP would like a new urine specimen submitted to the lab and pt will come to the lab at the clinic. Orders are in the system. Pt agreeable to all this information and had no further concerns at this time. ----- Message from Apolonia Ragland MD sent at 09/11/2024 8:31 AM EDT ----- Please inform him that his B12 was normal and LDL is higher than previous test. His microalbumin test shows more protein than usual. Please ask him to submit another urine test because last urine specimen was not sent for urine culture. Thank you. * Telephone Encounter - Saul Tang - 09/11/2024 10:05 AM EDT Pt returning call * Telephone Encounter - Licha Ann RN - 09/11/2024 9:20 AM EDT TC placed to pt and LVM to call back the office in regards to results message below ----- Message from Apolonia Ragland MD sent at 09/11/2024 8:31 AM EDT ----- Please inform him that his B12 was normal and LDL is higher than previous test. His microalbumin test shows more protein than usual. Please ask him to submit another urine test because last urine specimen was not sent for urine culture. Thank you. documented in this encounter Plan of Treatment Upcoming Encounters Date Type Department Care Team (Late st Contact Info) Description 09/30/2024 10:00 AM EDT Clinical Support [address] [address] 11/08/2024 10:15 AM EDT Office Visit [address] [address] Christiano Temple MD [address] [place] [address] 11/14/2024 11:30 AM EDT Office Visit [address] [address] Apolonia Ragland MD [address] [place] [address] documented as of this encounter Visit Diagnoses Not on filedocumented in this encounter Additional Health Concerns Assessment Noted Time PHQ-9 Depression Total Score: 3 05/01/20 24 9:55 AM EST documented as of this encounter Care Teams Weaver Hand Relationship Specialty Start Date End Date Apolonia Ragland MD [address] [place] [address] PCP - General Family Medicine 05/15/18 Julius Beavesr [address] 3rd [place] [address] Fibre Composite Technician Cardiology 08/25/23 Ronald Maxwell MD [address] [place] [address] Urology 11/17/23 Marcelino Purcell 175 [facility] 110 [place] [address] Orthopaedic Surgery 08/24/23 Flor Mason RN Care Manager 04/21/23 Kera Wan MD [address] [address] 11/15/23 Manisha Henao [facility] 175 [facility] [address] [place] [address] Orthopaedic Surgery 12/07/23 documented as of this encounter
--- OUTSIDE RECORDS SUMMARY | 2024-09-12 12:55 | XMS_ITS | Encounter Summary ---
Author Organization [employer] Address [address] [facility] [address] 7t [place] [address] Care Team Providers Care Car Porter Name Role Phone Apolonia Ragland MD Primary Care Provider [phone] Julius Beavers Unavailable Ronald Maxwell MD Unavailable [phone] Marcelino Purcell Unavailable Encounter Details Date Type Department Care Team (Late st Contact Info) Description 09/10/2024 11:30 AM EDT Office Visit [facility] 230 [place], [place] [phone] Apolonia Ragland MD 230 [place], [place] [phone] Ascending aorta dilatation (CMS/HCC) (Primary Dx); Essential [...] 11:17 AM EDT documented in this encounter Miscellaneous Notes * Assessment & Plan Note - Marcelle Gaines MA - 09/11/2024 11:14 PM EDT Associated Problem(s): Actinic keratosis - previously Dx [place] - there are miko suspicious skin lesions (possible BCC or SCC). Refer back to Derm clinic * Assessment & Plan Note - Marcelle Gaines MA - 09/11/2024 11:13 PM EDT Associated Problem(s): Depressive disorder - pt declines BHS and medication - patient does not want to go to [facility] - patient has a therapy animal * Assessment & Plan Note - Marcelle Gaines MA - 09/11/2024 11:13 PM EDT Associated Problem(s): Seasonal allergic rhinitis - restart cetirizine and Flonase - consider montelukast * Assessment & Plan Note - Marcelle Gaines MA - 09/11/2024 11:13 PM EDT Associated Problem(s): Malignant tumor of urinary bladder (CMS/HCC) - previously following with [facility] - Transurethral resection of bladder tumor on 11/20/18 Pathology report High-grade papillary urothelial carcinoma - seen by urologist on 11/17/23; upcoming appt on 03/13/24 * Assessment & Plan Note - Marcelle Gaines MA - 09/11/2024 11:13 PM EDT Associated Problem(s): Paroxysmal atrial fibrillation (CMS/HCC) -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 Last seen on 10/17/23 -Rate control: none [...] no ischemia -Sleep study was ordered by [facility], but patient has not completed it yet * Assessment & Plan Note - Marcelle Gaines MA - 09/11/2024 11:12 PM EDT Associated Problem(s): Ascending aorta dilatation (CMS/HCC) - 10/25/22 transthoracic echocardiogram Ascending aorta 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 - 10/06/23 transthoracic echocardiogram Mild dilation of the sinuses of Valsalva measuring 3.80 cm and mild dilation of the ascending aorta measuring 3.90 cm. * Assessment & Plan Note - Marcelle Gaines MA - 09/11/2024 11:12 PM EDT Associated Problem(s): Essential hypertension -Goal BP < 150/90 per JNC-8, < [...] up in 6 mo or sooner prn documented in this encounter Plan of Treatment Upcoming Encounters Date Type Department Care Team (Late st Contact Info) Description 09/30/2024 10:00 AM EDT Clinical Support [facility] [address] [place] [address] 11/08/2024 10:15 AM EDT Office Visit [facility] 230 [place] [address] Christiano Temple MD 230 [place] [address] 11/14/2024 11:30 AM EDT Office Visit [facility] [place] [address] Apolonia Ragland MD 230 [place], [place] documented as of this encounter Visit Diagnoses [...] documented as of this encounter Care Teams Car Porter Relationship Specialty Start Date End Date Apolonia Ragland MD Y[place], [place] PCP - General Family Medicine 05/15/18 Julius Beavers [address] 3rd [place] [address] Control Room Operator Cardiology 08/25/23 Ronald Maxwell MD [address] [place] [address] Urology 11/17/23 Marcelino Purcell [address] [place] [address] Orthopaedic Surgery 08/24/23 Flor Mason RN Care Manager 04/21/23 Kera Wan MD [facility] [address] [place] [address] 11/15/23 Manisha Henao [facility] [address] [place] [address] [place] [phone] Orthopaedic Surgery 12/07/23 documented as of this encounter
--- OUTSIDE RECORDS SUMMARY | 2024-09-12 12:55 | XMS_ITS | Encounter Summary ---
Author Organization [employer] Address [address] [facility] [facility] [address] 7t [place] [address] Care Team Providers Care Retoucher Photoengraving Name Role Phone Apolonia Ragland MD Primary Care Provider [phone] Julius Beavers Unavailable Ronald Maxwell MD Unavailable [phone] Marcelino Purcell Unavailable Encounter Details Date Type Department Care Team (Late Contact Info) Description 06/07/2022 Telephone [facility] [address] [place] [address] Ana Lancaster LPN Social History Tobacco Use [...] Description 09/30/2024 10:00 AM EDT Clinical Support [address] [address] 11/08/2024 10:15 AM EDT Office Visit [address] [address] Christiano Temple MD 230 [place] [address] 11/14/2024 11:30 AM EDT Office Visit [facility] 230 [place] [address] Apolonia Ragland MD 230 [place] [address] documented as of this encounter Visit Diagnoses Not on filedocumented in this encounter Care Teams Retoucher Photoengraving Relationship Specialty Start Date End Date Apolonia Ragland MD 230 [place] [address] PCP - General Family Medicine 05/15/18 Julius Beavers [address] 3rd [place] [address] Masking Machine Feeder Cardiology 08/25/23 Ronald Maxwell MD [address] [place] [address] Urology 11/17/23 Marcelino Purcell [address] [address] Orthopaedic Surgery 08/24/23 Flor Mason RN Care Manager 04/21/23 Kera Wan MD [address] [address] 11/15/23 Manisha Henao [facility] 175 [facility] [address] [place] [phone] Orthopaedic Surgery 12/07/23 documented as of this encounter
--- OUTSIDE RECORDS SUMMARY | 2024-09-12 12:55 | XMS_ITS | Encounter Summary ---
Author Organization [employer] Address [address] [facility] [address] [facility] [address] 7t [place] [address] Care Team Providers Care Survey Research Analyst Name Role Phone Apolonia Ragland MD Primary Care Provider [phone] Julius Beavers Unavailable Ronald Maxwell MD Unavailable [phone] Marcelino Purcell Unavailable Reason for Visit * Reason Onset Date Comments Med Refill 08/16/2022 Encounter Details Date Type Department Care Team (Late st Contact Info) Description 08/16/2022 Telephone [facility] 230 [place], [place] [phone] Apolonia Ragland MD 230 [place], [place] [phone] Med Refill Social History Tobacco Use Types [...] (Norvasc) 2.5 MG tablet Please sent to [facility] - [place], [place] - [address] [place] [address] documented in this encounter Plan of Treatment Upcoming Encounters Date Type Department Care Team (Late st Contact Info) Description 09/30/2024 10:00 AM EDT Clinical Support [address] [address] 11/08/2024 10:15 AM EDT Office Visit [address] [address] Christiano Temple MD [address] [place] [address] 11/14/2024 11:30 AM EDT Office Visit [address] [address] Apolonia Ragland MD [address] [place] [address] documented as of this encounter Visit Diagnoses Not on filedocumented in this encounter Care Teams Survey Research Analyst Relationship Specialty Start Date End Date Apolonia Ragland MD [address] [place] [address] PCP - General Family Medicine 05/15/18 Julius Beavers 11 [facility] 3rd [place] [address] Russian Teacher Cardiology 08/25/23 Ronald Maxwell MD [address] [place] [address] Urology 11/17/23 Marcelino Purcell 175 [facility] 110 [place] [address] Orthopaedic Surgery 08/24/23 Flor Mason RN Care Manager 04/21/23 Kera Wan MD [facility] [address] [place] [phone] 11/15/23 Manisha Henao [facility] 175 [facility] [address] [place] [address] Orthopaedic Surgery 12/07/23 documented as of this encounter
--- OUTSIDE RECORDS SUMMARY | 2024-09-12 12:55 | XMS_ITS | Clinical Summary ---
Author Organization [address] [place] [address] Address 175 [place] [address] Phone Care Team Providers Care Orthopaedic Technologist Name Role Phone Apolonia Ragland MD Primary Care Provider [phone] Allergies Active Allergy Reactions Criticality Noted Date [...] PM EDT Office Visit Orthopedic Surgery - [place] [phone] [phone] Marcelino Purcell, DPJaniya [address] [address] Health Maintenance Due Date Last Done Comments [...] complete this topic Insurance MEDICARE Care Teams Orthopaedic Technologist Relationship Specialty Start Date End Date Apolonia Ragland MD [address] [place] [phone] PCP - General 03/25/13
--- OUTSIDE RECORDS SUMMARY | 2024-09-12 12:55 | XMS_ITS | Encounter Summary ---
Author Organization [employer] Address [address] [facility] [facility] [address] 7[address] [place] [address] Care Team Providers Care Overhead Door Technician Name Role Phone Apolonia Ragland MD Primary Care Provider [phone] Julius Beavers Unavailable Ronald Maxwell MD Unavailable [phone] Marcelino Purcell Unavailable Encounter Details Date Type Department Care Team (Late Contact Info) Description 06/02/2022 Abstract [facility]INE 230 [place] [address] Apolonia Ragland MD 230 [place] [address] Social History Tobacco Use Types Packs/Day Years [...] Description 09/30/2024 10:00 AM EDT Clinical Support [facility] 230 [place] [address] 11/08/2024 10:15 AM EDT Office Visit [facility] 230 [place] [address] Christiano Temple MD 230 [place] [address] 11/14/2024 11:30 AM EDT Office Visit [facility] 230 [place] [address] Apolonia Ragland MD 230 [place] [address] documented as of this encounter Visit Diagnoses Not on filedocumented in this encounter Care Teams Overhead Door Technician Relationship Specialty Start Date End Date Apolonia Ragland MD 230 [place] [address] PCP - General Family Medicine 05/15/18 Julius Beavers [address] 3rd [place] [address] Fire Marshal Cardiology 08/25/23 Ronald Maxwell MD [address] [place] [address] Urology 11/17/[address] [facility] 110 [place] [address] Orthopaedic Surgery 08/24/23 Flor Mason RN Care Manager 04/21/23 Kera Wan MD [facility] 300 [place] [address] 11/15/23 Manisha Henao [facility] 175 [facility] [address] [place] [phone] Orthopaedic Surgery 12/07/23 documented as of this encounter
== END ==
LOC: HO.CARD 11:05
PROVIDERS: PCP Family Medicine; Visit Provider Nurse Practitioner Family
DX: I48.0 Paroxysmal atrial fibrillation (principal)
CPT/HCPCS: 93242

== ENCOUNTER → 2024-09-12 11:09 | Outpatient (BNV) | payer MEDICARE, SELFPAY | PROVIDERS: PCP Family Medicine; Visit Provider Internal Medicine | DX: I48.91 Unspecified atrial fibrillation (principal) | CPT/HCPCS: 93244 ==

== ENCOUNTER 2024-09-20 11:21 | Outpatient (REF) | payer MEDICARE, SELFPAY ==
--- NOTE | ~2024-09-20 | XR_ITS ---
EXAMINATION: XR TOES 2 OR MORE VIEWS RIGHT HISTORY: injured right small toe 1 week ago. COMPARISON: There are no prior studies available for comparison. FINDINGS: Three views of the right toe are submitted. Osseous mineralization is normal. There is no fracture or dislocation. There is narrowing of the DIP and PIP joints. There is moderate osteoarthritis of the tarsometatarsal joints. The soft tissues are unremarkable. XR/XR toe RT min 2V IMPRESSION: No evidence of fracture of the 5th toe. Degenerative changes as described. Electronically signed by: Charlie Mao MD 09/20/2024 01:20 PM EDT
--- OUTSIDE RECORDS SUMMARY | 2024-09-20 11:50 | XMS_ITS | Clinical Summary ---
Author Organization [employer] Address [address] [place] [address] [address] [place] [address] Care Team Providers Care Tea Leaf Reader Name Role Phone Apolonia Harding MD Primary Care Provider [phone] Julius Beavers Unavailable Ronald Maxwell MD Unavailable [phone] Marcelino Purcell Unavailable Allergies Active Allergy Reactions [...] tip and replace cap. 48 g 1 024 Active amLODIPine (Norvasc) 2.5 MG tablet TAKE 1 TABLET BY MOUTH EVERY DAY. MAY TAKE 2 TABLETS IF YOUR BLOOD PRESSURE IS STILL ELEVATED 180 tablet 3 024 Active ammonium lactate (Lac-Hydrin) 12 % lotion Apply topically if needed for dry skin. 024 2024 Active Eliquis 5 MG tablet Take 5 mg by mouth 2 times daily. Active cyanocobalamin (Vitamin B-12) 1000 MCG/ML injection INJECT 1 ML INTRAMUSCULARLY EVERY MONTH 1 mL 11 025 Active Blood Pressure Monitoring (Omron 3 Series BP Monitor) device USE TO CHECK BLOOD PRESSURE EVERY DAY NEEDED 1 each 025 Active chlorhexidine (Peridex) 0.12 % solution RINSE FOR 30 SECONDS WITH A HALF OUNCE (15ml) TWICE DAILY, SPIT OUT -- DO NOT SWALLOW. USE TWICE DAILY IN THE MORNING AND IN THE EVENING DIRECTED 473 mL 025 Active chlorhexidine (Peridex) 0.12 % solution SWISH 15 ML IN THE MOUTH OR THROAT FOR 30 SECONDS THEN SPIT OUT AFTER BRUSHING TEETH, TWICE DAILY IN THE MORNING AND IN THE EVENING UNTIL SYMPTOMS RESOLVED 473 mL 025 2024 Discontinued Hospital, Clinic, [...] Problem Noted Date Diagnosed Date Epistaxis 05/30/2024 Assessment & Plan (09/15/2024 5:05 PM EDT): - waiting for appointment with ENT - recommended to start apixaban at lower dose At high risk for falls 05/30/2024 Actinic keratosis 05/30/2024 Assessment & Plan (09/15/2024 5:09 PM EDT): - previously Dx AK - there are miko suspicious skin lesions (possible BCC or SCC). 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 Last seen in August 2024, recommended to resume apixaban 5 mg bid -Rate control: none -Rhythm control: none -Anticoagulation: [...] -Sleep study was ordered by [facility], but patient has not completed it yet - recommended to resume apixaban 2.5 mg bid since he is concerned about epistaxis; patient agreed to try lower dose. 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 [facility] -10/06/23 LVEF 55-60%. Moderately dilated left atrium. Mild dilation of the sinuses of Valsalva measuring 3.80 cm and mild dilation of the ascending aorta measuring 3.90 cm. 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 Ordered by [facility] recently -Last stress test 10/07/22 nuclear stress test with MPI wnl -Sleep study was ordered by [facility] Assessment & Plan (08/24/2023 4:49 PM EDT): Here from previous ER visit, started on Eliquis for prevention - not tolerating well due to more bleeds - recommend talk to the school library media program director about whether he should continue Eliquis as he is moderate risk by [id number] - he will continue for now and [...] -Started on apixaban since 08/10/23 -Following with [facility] cardiology since August 2023, last seen on [...] & Plan (09/27/2023 5:46 AM EDT): - 6/13/23 TTE normal LV sfunction with EF 55-60%. 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 - Currently following with [facility] cardiology and transthoracic echocardiogram was ordered Assessment & Plan (06/29/2023 4:46 AM EST): - 10/25/22 TTE normal LV sfunction with EF 55-60%. 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 - Follow-up with school library media program director in 6 mo - TTE at least yearly Assessment & Plan (04/24/2023 6:07 AM EST): - 10/25/22 TTE normal LV sfunction with EF 55-60%. 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 - Follow-up with school library media program director in 6 mo - TTE at least yearly Assessment & Plan (01/05/2023 6:51 AM EDT): - 10/25/22 TTE normal LV sfunction with EF 55-60%. 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 - Follow-up with school library media program director in 6 mo - TTE at least yearly Depressive disorder 09/28/2022 Assessment & Plan (09/15/2024 5:09 PM EDT): - pt declines BHS and medication - patient does not want to go to [facility] center - patient had a therapy animal, but his dog recently. 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 - TURBT and mitomycin C installation in July 2024. Plan for immunotherapy / combo mitomycin & cytarabine Assessment & Plan (06/03/2024 7:56 AM EST): - previously following with [facility] urology - Transurethral resection of bladder tumor on 11/20/18 Pathology report High-grade papillary urothelial carcinoma - seen by urologist on 11/17/23; upcoming appt on 03/13/24 Assessment & Plan (03/05/2024 11:20 AM EDT): - previously following with [facility] urology - Transurethral resection of bladder tumor on 11/20/18 Pathology report High-grade papillary urothelial carcinoma - seen by urologist on 11/17/23; upcoming appt on 03/13/24 Assessment & Plan (11/01/2023 10:39 AM EDT): - previously following with [facility] urology - Transurethral resection of bladder tumor on 11/20/18 Pathology report High-grade papillary urothelial carcinoma - Referred to urology; upcoming appt Assessment & Plan (09/27/2023 5:53 AM EDT): - previously following with [facility]rology - Transurethral resection of bladder tumor on 11/20/18 Pathology report High-grade papillary urothelial carcinoma - Referred to urology; will check its status Assessment & Plan (08/24/2023 4:39 PM EDT): Refer to urology due to recurrent hematuria for followup and determination for need of repeat cystoscopy Pulmonary hypertension 06/02/2022 Toothache 02/27/2017 Vitamin B12 deficiency 05/02/2016 Assessment & Plan (09/15/2024 5:10 PM EDT): - continue vitamin B12 IM treatment Assessment & Plan (03/05/2024 11:52 AM EDT): [...] hearing loss, bilateral 05/02/2016 Assessment & Plan (09/15/2024 5:10 PM EDT): -pt is recommended to use hearing aid however pt insurance does not cover hearing aid - pt was supposed to see ENT for another hearing test and hearing aids fitting, but pt did not go to appt. Assessment & Plan (06/03/2024 7:57 AM EST): [...] charge - will refer to orthopedist at 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 -Follow up with school library media program director as scheduled Assessment & Plan (07/03/2023 6:08 AM EST): -Seen by [facility] school library media program director in November 2022. -Asymptomatic. 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 -Follow up with school library media program director as scheduled -Bradycardiac lately; will schedule Holter monitor Assessment & Plan (04/24/2023 6:06 AM EST): -Seen by [facility] school library media program director in November 2022. -Asymptomatic. 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 -Follow up with school library media program director as scheduled Assessment & Plan (01/06/2023 7:06 AM EDT): -Seen by [facility] school library media program director in November 2022. -Asymptomatic. 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 -Follow up with school library media program director as scheduled Assessment & Plan (10/03/2022 12:26 PM EDT): -Seen by [facility] school library media program director in July 2022. -Asymptomatic. -Possibly starting CCB or BB -Follow up with school library media program director as scheduled -Being scheduled for stress test and has a follow up with school library media program director in near future Assessment & Plan (06/05/2022 6:03 PM EST): -Seen by [facility] school library media program director in Jan 2022. -Asymptomatic. -Possibly starting CCB or BB -Follow up with school library media program director as scheduled Gastroesophageal reflux disease 04/02/2012 Assessment [...] Encounters Date Type Department Care Team Description 09/20/2024 10:40 AM EDT Office Visit [facility] [address] [place] [phone] Pain in toe of right foot (Primary Dx); Injury of right toe, initial encounter 09/20/2024 Travel 09/19/2024 Refill [facility] [address] [place] [phone] Apolonia Harding MD 09/11/2024 Telephone [facility] [address] [place] [address] Licha Ann, RN Results 09/11/2024 Orders Only [facility] [address] [place] [address] Apolonia Harding MD Nocturia (Primary Dx) 09/10/2024 11:30 AM EDT Office Visit [address] [address] Apolonia Harding MD Ascending aorta dilatation (CMS/HCC) (Primary Dx); Essential hypertension; Paroxysmal atrial fibrillation (CMS/HCC); Malignant neoplasm of urinary bladder, unspecified site (CMS/HCC); Actinic keratosis; Depressive disorder; Seasonal allergic rhinitis, unspecified trigger; Epistaxis; Sensorineural hearing loss, bilateral; Vitamin B12 deficiency 09/10/2024 Travel 09/06/2024 Telephone [facility] [place] [place] [address] Apolonia Harding MD chart prep 08/30/2024 10:00 AM EDT Nurse Only [facility] [place] [place] [address] Tiana Ramirez LPN B12 deficiency (Primary Dx) 08/30/2024 Telephone [facility] [place] [place] [address] Apolonia Harding MD Inform Pt Of New Appointment (New Appointment in Green Team, B12 Injection will no longer be downstairs at the [facility].) 08/09/2024 Refill [facility] [place] [place] [address] Apolonia Harding MD 08/05/2024 Orders Only GENERIC EXTERNAL DATA DEPARTMENT Provider, Generic External Data 08/02/2024 10:15 AM EDT Nurse Only [facility] [place] [place] [address] Tiana Ramirez LPN B12 deficiency (Primary Dx) 08/02/2024 Travel 07/26/2024 Population Health Risk Score [facility] ([facility]) Department [address] [place] [address] [phone] Provider, Population Health Generic 07/05/2024 10:30 AM EST Nurse Only [facility] [place] [address] Tiana Ramirez LPN B12 deficiency 07/05/2024 Travel 06/28/2024 Orders Only [facility] [place] [place] [address] Apolonia Harding MD B12 deficiency (Primary Dx); Paroxysmal atrial fibrillation (CMS/HCC); Essential hypertension 06/28/2024 Refill [facility] [place] [address] Apolonia Harding MD from Last 3 Months [...] Grandfather Nii Wa s a mitchell in [place] No Known Problems Maternal Grandmother Lidya Pacemaker Mother [place] at 88 No Known Problems Mother's Brother 1 Abdon No Known Problems Mother's Brother 2 Nerico Loren ent believes he may have passed from a heart attack No Known Problems Mother's Brother 3 Jose No Known Problems Mother's Sister 1 Nelda No Known Problems Mother's Sister 2 Ximena No Known Problems Nephew Collin No Known Problems Paternal Grandfather Ron Omar ssed away in 1941 (at 42 years old) No Known Problems Paternal Grandmother Coco Omar ssed away in the mid 1950's No Known Problems Sister Paloma Relation Name [...] Sign Reading Time Taken Comments Blood Pressure 117/73 09/20/2024 10:43 AM EDT Pulse 54 09/20/2024 10:43 AM EDT Temperature 36.7 ??C (98.1 ??F) 09/20/2024 10:43 AM E DT Respiratory Rate 16 09/20/2024 10:43 AM EDT Oxygen Saturation 96% 09/20/2024 10:43 AM EDT Inhaled Oxygen Concentration - - Weight 78.3 kg (172 lb 9.6 oz) 09/20/2024 10:43 AM EDT Height 167.6 cm (5' 6 ) 09/10/2024 11:17 AM EDT Body Mass Index 27.86 09/10/2024 11:17 AM EDT Plan of Treatment Upcoming Encounters Date Type Department Care Team (Late st Contact Info) Description 09/30/2024 10:00 AM EDT Clinical Support [address] [address] 11/08/2024 10:15 AM EDT Office Visit [address] [address] Christiano Temple MD [address] [place] [address] 11/14/2024 11:30 AM EDT Office Visit [address] [phone] Apolonia Harding MD [address] [place] [phone] Health Maintenance Due Date Last Done Comments [...] 24 SDOH Screening 05/01/2025 05/01/2024 Tobacco Screening 09/20/2025 09/20/2024 Lipid Panel 09/10/2029 09/10/2024, 09/12, 10/03/2022, Additional history exists Hepatitis A Vaccines [...] Vitamin B12 419 200 - 900 pg/mL [facility] Comment:NORMAL 200-900 PG/ML INDETERMINATE 160-199 PG/ML DEFICIENT < 160 PG/ML Folate 8.7 > or = 4.0 ng/mL [facility] Comment:Reference Values:> o r = 4.0 ng/mL< 4.0 ng/mL suggests folate deficiency Methotrexate, aminopterin and folinic acid(leucovorin) are chemotherapeutic agents whose molecularstructures are similar to folate; therefore, the Architectfolate assay cannot be used for patients using these drugs. Blood 09/10/2024 1:06 PM EDT 09/10/2024 3:59 PM EDT us Apolonia Harding MD LAB BLOOD ORDERABLES Final Resul t [facility] [address] [place] [address] [phone] * (ABNORMAL) Lipid Panel with Reflex to Direct LDL (09/10/2024 1:06 PM EDT) Triglycerides 119 <150 mg/dL [facility] Comment:Desirable Triglyceri de: less than 150 mg/dLBorderline High Triglyceride 150-199 mg/dLHigh Triglyceride: 200-499 mg/dLVery High Triglyceride: greater than or equal to 5OO mg/dL Cholesterol 167 <200 mg/dL [facility] Comment:Desirable Cholestero l: less than 200 mg/dLBorderline High Cholesterol: 200-239 mg/dLHigh Cholesterol: greater than 239 mg/dL LDL Cholesterol Calculated 104(H) <100 mg/dL [facility] Comment:Desirable LDL: less than 100 mg/dLNear Optimal/Above Optimal LDL: 110- 129 mg/dLBorderline High LDL: 130-159 mg/dLHigh LDL: 160-189 mg/dLVery High LDL: greater than or equal to 190 mg/dL HDL Cholesterol 40(L) >40 mg/dL [facility] Comment:Desirable HDL: great er than 40 mg/dL Note: This HDL assay may give artificially low results in patients with liver disease. Blood 09/10/2024 1:06 PM EDT 09/10/2024 3:59 PM EDT Apolonia Harding MD LAB BLOOD ORDERABLES Final Resul t Performing Organization Address [facility] de Phone Number [facility] [address] [place] [phone] * (ABNORMAL) Albumin, Random Urine W/Creatinine (09/10/2024 1:06 PM EDT) Creatinine, Urine 95.60 mg/dL [facility] Microalbumin Urine 61.0 mg/L [facility] Microalbum Creatinine Ratio Ur 63.8(H) <30 ug/mg cr [facility] Comment:Albumin/Creatinine R atio Reference Ranges: Normal: < 30 ug/mg creatinine Microalbuminuria: 30 - 300 ug/mg creatinineClinical Albuminuria: > 300 ug/mg creatinine Urine 09/10/2024 1:06 PM EDT 09/10/2024 3:58 PM EDT Apolonia Harding MD LAB URINE ORDERABLES Final Resul t Performing Organization Address [facility] Co de Phone Number [facility] [address] [place] [phone] * (ABNORMAL) CBC auto differential (09/10/2024 1:06 PM EDT) White Blood Count 8.0 4.8 - 10.8 X10*3/uL [facility] Red Blood Count 4.63 4.60 - 5.80 X10*6/uL [facility] Hemoglobin 14.5 14.0 - 18.0 g/dl [facility] Hematocrit 43.6 42.0 - 52.0 % [facility] Mean Corpuscular Volume 94.2 80.0 - 98.0 fL [facility] Mean Corpuscular Hemoglobin 31.3 27.0 - 33.0 pg [facility] Mean Corpuscular HGB Conc 33.3 31.0 - 36.0 g/dl [facility] Red Cell Distribution Width 14.2 11.0 - 16.0 % [facility] Platelet Count 199 160 - 400 X10*3/uL [facility] Mean Platelet Volume 11.0 9.4 - 12.4 fL [facility] Neutrophils Percent Auto 74.4(H) 45 - 73 % [facility] Imm Gran Pct Auto 0.4 0.0 - 0.4 % [facility] Lymphocytes Percent Auto 15.2(L) 20 - 40 % [facility] Monocytes Percent Auto 8.9 2 - 11 % [facility] Eosinophils Percent Auto 0.7 0 - 4 % [facility] Basophils Percent Auto 0.4 0 - 2 % [facility] NRBC Pct Auto 0.0 0.0 - 0.2 /100WBC [facility] Neutrophils Absolute Auto 6.0 2.0 - 8.3 x10*3/uL [facility] Imm Gran Abs Auto 0.03 0.00 - 0.03 X10*3/uL [facility] Lymphocytes Absolute Auto 1.2 1.2 - 4.9 X10*3/uL [facility] Monocytes Absolute Auto 0.7 0.1 - 1.2 X10*3/uL [facility] Eosinophils Absolute Auto 0.1 0.0 - 0.4 X10*3/uL [facility] Basophils Absolute Auto 0.0 0.0 - 0.2 X10*3/uL [facility] NRBC Abs Auto 0.000 0.0 - 0.012 X10*3/uL [facility] Blood Venous blood specimen / Unknown 09/10/2024 1:06 PM EDT 09/10/2024 3:59 PM EDT us Apolonia Harding MD LAB BLOOD ORDERABLES Final Resul t [facility] [address] [place] [phone] * (ABNORMAL) Comprehensive Metabolic Panel (09/10/2024 1:06 PM EDT) Sodium 140 135 - 145 mmol/L [facility] Potassium 4.0 3.3 - 5.1 mmol/L [facility] Chloride 105 96 - 108 mmol/L [facility] Carbon Dioxide 28 22 - 29 mmol/L [facility] Anion Gap 11(L) 12 - 20 [facility] Urea Nitrogen (BUN) 11 9 - 16 mg/dL [facility] Creatinine, Serum 0.68 0.5 - 1.4 mg/dL [facility] Estimated Glomerular Filt Rate >60 [facility] Comment:Chronic Kidney Disea se: Estimated GFR < 60 mL/min/[id number] Kidney Disease: Estimated GFR < 15 mL/min/1.73m2 Glucose 98 60 - 115 mg/dL [facility] Calcium 9.0 8.4 - 10.2 mg/dL [facility] Bilirubin, Total 0.8 0.0 - 1.0 mg/dL [facility] Aspartate Amino Transferase 18 5 - 37 U/L [facility] Alanine Aminotransferase 9 0 - 40 U/L [facility] Total Protein 6.9 6.5 - 8.0 g/dL [facility] Albumin Level 4.2 3.5 - 5.0 g/dL [facility] Alkaline Phosphatase 62 39 - 117 U/L [facility] Blood Venous blood specimen / Unknown 09/10/2024 1:06 PM EDT 09/10/2024 3:59 PM EDT us Apolonia Harding MD LAB BLOOD ORDERABLES Final Resul t [facility] [address] [place] [phone] [phone] * Gross and Microscopic Level 5 (08/05/2024 1:40 PM EDT) 08/05/2024 1:40 PM EDT 08/05/2024 2:21 PM EDT [facility] - 08/07/2024 3:04 PM EDT ----- ------- Name: Colton Black ? Age/Sex: 84/M ? : 1940 Unit#: [id number] ?? Attend Dr: Ronald Maxwell MD ?Re08/05/24 ?Status: DEP SDC ? Location: HO.SSS ?Disch: ? ----- ------- SPEC : [id number] ? RECD: 08/05/24-1420 ? STATUS: ??SOUT ? REQ NUM: [id number] ? BETHANY: 08/05/24-1200 ? SUBM DR: Ronald Maxwell MD ? [...] Copies To: ?? Ronald Maxwell MD ?? [facility] ?? [address] ?? [place] [address] ?? [phone] ? CONTINUED ON NEXT PAGE ----- ------- Name: Colton Black ? Age/Sex: 84/M ? : 1940 Unit#: [id number] ?? Attend Dr: Ronald Maxwell MD ?Re08/05/24 ?Status: DEP SDC ? Location: HO.SSS ?Disch: ? ----- ------- SPEC : [id number] ? RECD: 08/05/24 ? STATUS: ??SOUT ? REQ NUM: [id number] ? BETHANY: 08/05/24-2290 ? SUBM DR: Ronald Maxwell MD ? ENTERED: ??08/05/24 ?SP TYPE: Surgical ? OTHR DR: Apolonia Harding MD ? ORDERED: ??Gross Micro L5 ? Copies To: ??(Continued) ?? Apolonia Harding MD ?? [facility] ?? [address] [facility] ?? [place] [address] ?? [phone] ----- ------- Signed (signature on file) Binh Nielsen MD 08/07/24 1504 ? ----- ------- ? END OF REPORT ? us Generic External Data Provider LAB BLOOD ORDERAB LES Final Result [facility] [address] [facility] [place] [phone] from Last 3 Months Insurance [employer] [place] [address] Care Teams Tea Leaf Reader Relationship Specialty Start Date End Date Apolonia Harding MD [address] [place] [address] PCP - General Family Medicine 05/15/18 Julius Beavers [address] [place] [address] [employer] Cardiology 08/25/23 Ronald Maxwell MD [address] [place] [address] Urology 11/17/23 Marcelino Purcell [address] [place] [address] Orthopaedic Surgery 08/24/23 Flor Mason RN Care Manager 04/21/23 Kera Wan MD [address] [address] 11/15/23 Manisha Henao [facility] 175 [facility] [address] [place] [address] Orthopaedic Surgery 12/07/23
--- OUTSIDE RECORDS SUMMARY | 2024-09-20 11:50 | XMS_ITS | Encounter Summary ---
Author Organization [employer] Address [facility] [address] 7t [place] [address] Care Team Providers Care Hi Low Truck Driver Name Role Phone Apolonia Ragland MD Primary Care Provider [phone] Julius Beavers Unavailable Ronald Maxwell MD Unavailable [phone] Marcelino Purcell Unavailable Encounter Details Date Type Department Care Team (Late st Contact Info) Description 08/14/2023 Orders Only [facility] 230 [place], [place] [phone] Apolonia Ragland MD 230 [place], [place] [phone] Primary osteoarthritis involving multiple joints Social History [...] Description 09/30/2024 10:00 AM EDT Clinical Support [address] [address] 11/08/2024 10:15 AM EDT Office Visit [address] [address] Christiano Temple MD [address] [place] [address] 11/14/2024 11:30 AM EDT Office Visit [address] [address] Apolonia Ragland MD [address] [place] [address] documented as of this encounter Visit Diagnoses Diagnosis Primary osteoarthritis involving multiple joints documented in this encounter Care Teams Hi Low Truck Driver Relationship Specialty Start Date End Date Apolonia Ragland MD [address] [place] [address] PCP - General Family Medicine 05/15/18 Julius Beavers [address] 3rd [place] [address] Bingo Caller Cardiology 08/25/23 Ronald Maxwell MD [address] [place] [address] Urology 11/17/23 Marcelino Purcell 175 [facility] 110 [place] [address] Orthopaedic Surgery 08/24/23 Flor Mason manpower development advisor 04/21/23 Kera Wan MD [facility] 300 [place] [address] 11/15/23 Manisha Henao [facility] 175 [facility] [address] [place] [address] Orthopaedic Surgery 12/07/23 documented as of this encounter
--- OUTSIDE RECORDS SUMMARY | 2024-09-20 11:50 | XMS_ITS | Encounter Summary ---
Author Organization [employer] Address [address] [place] [address] 7t [place] [address] Care Team Providers Care Soil Analyst Name Role Phone Apolonia Ragland MD Primary Care Provider [phone] Julius Beavers Unavailable Ronald Maxwell MD Unavailable [phone] Marcelino Purcell Unavailable Encounter Details Date Type Department Care Team (Late Contact Info) Description 10/11/2022 Abstract [facility] Information Management 230 [place] [address] Apolonia Ragland MD 230 [place] [address] Social History Tobacco Use Types Packs/Day Years [...] Description 09/30/2024 10:00 AM EDT Clinical Support [facility] 230 [facility] [place] [address] 11/08/2024 10:15 AM EDT Office Visit [address] [address] Christiano Temple MD 230 [place] [address] 11/14/2024 11:30 [address] EDT [address] [facility] [address] Apolonia Ragland MD 230 [place] [address] documented as of this encounter Visit Diagnoses Not on filedocumented in this encounter Care Teams Soil Analyst Relationship Specialty Start Date End Date Apolonia Ragland MD 230 [place] [address] PCP - General Family Medicine 05/15/18 Julius Beavers [address] 3rd [place] [address] Deliver Driver Cardiology 08/25/23 Ronald Maxwell MD [address] [place] [address] Urology 11/17/23 Marcelino Purcell 175 [facility] 110 [place] [address] Orthopaedic Surgery 08/24/23 Flor Mason RN Care Manager 04/21/23 Kera Wan MD [address] [address] 11/15/23 Manisha Henao [facility] 175 [facility] [address] [place] [phone] Orthopaedic Surgery 12/07/23 documented as of this encounter
--- OUTSIDE RECORDS SUMMARY | 2024-09-20 11:50 | XMS_ITS | Encounter Summary ---
Author Organization [employer] Address [address] [facility] [address] 7t [place] [address] Care Team Providers Care Acupressure Therapist Name Role Phone Apolonia Ragland MD Primary Care Provider [phone] Julius Beavers Unavailable Ronald Maxwell MD Unavailable [phone] Marcelino Purcell Unavailable Encounter Details Date Type Department Care Team (Late st Contact Info) Description 09/11/2024 Orders Only [facility] MED[facility]INE 230 [place], [place] [phone] Apolonia Ragland MD 230 [place], [place] [phone] Nocturia (Primary Dx) Social History Tobacco Use [...] the past 12 months, has t he [employer], gas, oil or water company threatened to [...] Description 09/30/2024 10:00 AM EDT Clinical Support [facility] [address] [place] [address] 11/08/2024 10:15 AM EDT Office Visit [facility] [address] [place] [address] Christiano Temple MD [address] [place] [address] 11/14/2024 11:30 AM EDT Office Visit [facility] [address] [place] [address] Apolonia Ragland MD [address] [place] [address] Scheduled Orders Name Type Priority Associated Diagnoses [...] documented as of this encounter Care Teams Acupressure Therapist Relationship Specialty Start Date End Date Apolonia Ragland MD 230 [place] [address] PCP - General Family Medicine 05/15/18 Julius Beavers [address] 3rd [place] [address] Wet End Supervisor Cardiology 08/25/23 Ronald Maxwell MD [address] [place] [address] Urology 11/17/23 Marcelino Purcell 175 [facility] 110 [place] [address] Orthopaedic Surgery 08/24/23 Flor Mason heel wheeler 04/21/23 Kera Wan MD [address] [address] 11/15/23 Manisha Henao [facility] 175 [facility] [address] [place] [phone] Orthopaedic Surgery 12/07/23 documented as of this encounter
--- OUTSIDE RECORDS SUMMARY | 2024-09-20 11:50 | XMS_ITS | Data Portability ---
Author Organization [facility] Address [address] [place] [address] Care Team Providers Care Linux Administrator Name Role Phone CHAPIN HARDING Primary Care [...] knee No observ ation record ed. [email or web address] [facility] (Medical Records) [address] [facility], [place], [address], 11/24/2023 16:31:04 01/13/20 24 06/15/2018 imagi ng/di [...] Sports Shoulder completed Kera Wan MD [address] [facility] [address], [place], [address], [place] [facility] 11/15/2023 11:21:03 Imaging Results Imaging Date Name Status LastModified by Organiz ation Details LastModified Time 11/01/2023 XR, knee completed [email or web address] [facility] (Medical Records) [address] [place], [address], 11/24/2023 16:31:04 06/15/2018 imaging/diag nostic result completed Information not available 01/13/2024 01:55:36 06/15/2018 imaging/diag nostic result completed Information not available 01/13/2024 01:55:37 Procedure Notes None recorded. Medical Equipment None Reported. Allergies Allergen ID Allergen Name Allergen Category Reaction Reaction Severity Criticality Documentation Date Start Date Code Code System Note Provider Name and Address Organization Details Recorded Time 05913 tetracycl ine hydrochlo ride medicatio n Not available Not available Not available 07/17/20232018 22080 6 RxNorm Not Available [facility] 12:19:21 Medications Name Sig Start [...] Updated DateTime 11/15/2023 170.18 cm 27.4 kg/m2 54360.66 g GABRIEL WATTERS [place] [facility] 11/15/2023 10:38:25 Social History None recorded. Functional Status None recorded. Mental Status None recorded. Family History Nothing Reported. Medical History No medical history recorded. Past Encounters Encounter ID Performer Location Encounter Start Date Encounter Closed Date Diagnosis/Indication Diagnosis SNOMED-CT Code Diagnosis ICD10 Code Diagnosis Note [id number] Kera Wan MD [facility] 2nd floor [address] [place] [address] 11/15/2023 10:29:45 11/15/2023 12:48:42 Osteoarthritis of joint of right shoulder region [id number] M19.011 Health Concerns Section Related Observation LastModified by Organization Detai ls LastModified Time None Recorded Concern Status LastModified by Organization Details LastModified Time None Recorded Advance Directives Directive None Recorded Payers Encounter Date Sequence Insurance Name Policy Number Policy Schmidt Covered Member ID Schmidt Member ID Guarantor Name 11/15/2023 1 MEDICARE B-[place]: [employer] Colton Black [id number] Colton Black Notes Date Note Type Note Provider Name and Address Organization Details Recorded Time 11/15/2023 text/html Chief Complaint: Right shoulder pain HPI: This is an 83-year-old vimvy-fazi-tgoeryho gentleman with chronic multi focal joint pain. [...] xrays here today. Had some recently at [facility], will try to get a copy of his disc to drop off at our office for later review. Impression: 83-year-old qkyjy-uzno-yxzeacje gentleman with right shoulder pain due to [...] aches and pains, the patient can take toag-lia-agyfjbn medication such as Tylenol or anti-inflammatories as needed; risks and benefits of medication discussed. Should call with more persistent pain. We will leave follow up open ended at this point. However should symptoms worsen or fail to improve to the patient's satisfaction, he is encouraged to give the office a call to be seen back for further evaluation and management. [employer] speech recognition screen print operator software was used to create portions of this document. An attempt at proofreading has been made to minimize errors. Please call for corrections. Kera Wan MD [address] [place], [place] [address], [place], [address], [facility] 11/15/2023 12:09:43
--- OUTSIDE RECORDS SUMMARY | 2024-09-20 11:50 | XMS_ITS | Encounter Summary ---
Author Organization [employer] Address 75 [facility] 7t [place] [address] Care Team Providers Care Grid Molder Name Role Phone Apolonia Ragland MD Primary Care Provider [phone] Julius Beavers Unavailable Ronald Maxwell MD Unavailable [phone] BinhMarcelino Unavailable Reason for Visit * Reason Comments Med Refill Encounter Details Date Type Department Care Team (Late st Contact Info) Description 09/19/2024 Refill [facility] MEDICINE 230 [place], [place] [phone] Apolonia Ragland MD 230 [place], [place] [phone] Social History Tobacco Use Types Packs/Day Years [...] the past 12 months, has t he [employer], gas, oil or water company threatened to [...] Description 09/30/2024 10:00 AM EDT Clinical Support [facility] MEDICINE [address] [place] [address] 11/08/2024 10:15 AM EDT Office Visit [facility] [address] [place] [address] Christiano Temple MD [address] [place] [address] 11/14/2024 11:30 AM EDT Office Visit [facility]INE [address] [place] [address] Apolonia Ragland MD [address] [place] [address] documented as of this encounter Visit Diagnoses Not on filedocumented in this encounter Additional Health Concerns Assessment Noted Time PHQ-9 Depression Total Score: 3 05/01/20 24 9:55 AM EST documented as of this encounter Care Teams Grid Molder Relationship Specialty Start Date End Date Apolonia Ragland MD 230 [place] [address] PCP - General Family Medicine 05/15/18 Julius Beavers [address] 3rd [place] [address] Lamp Shade Joiner Cardiology 08/25/23 Ronald Maxwell MD [address] [place] [address] Urology 11/17/23 Marcelino Purcell 175 [facility] 110 [place] [address] Orthopaedic Surgery 08/24/23 Flor Mason RN Care Manager 04/21/23 Kera Wan MD [address] [address] 11/15/[address] [facility] 175 [facility] [address] [place] [phone] Orthopaedic Surgery 12/07/23 documented as of this encounter
--- OUTSIDE RECORDS SUMMARY | 2024-09-20 11:50 | XMS_ITS | Encounter Summary ---
Author Organization [employer] Address [address] [facility] [address] 7t [place] [address] Care Team Providers Care Gas Line Servicer Name Role Phone Apolonia Ragland MD Primary Care Provider [phone] Julius Beavers Unavailable Ronald Maxwell MD Unavailable [phone] Marcelino Purcell Unavailable Reason for Visit * Reason Comments Foot Pain Encounter Details Date Type Department Care Team (Late st Contact Info) Description 09/20/2024 10:40 AM EDT Office Visit [facility] 230 [place] [address] Pain in toe of right foot (Primary Dx); Injury of right toe, initial encounter Social History Tobacco Use Types [...] 9.6 oz) 09/20/2024 10:43 AM EDT Height - - Body Mass Index 27.86 09/10/2024 11:17 AM EDT documented in this encounter Plan of Treatment Upcoming Encounters Date Type Department Care Team (Late st Contact Info) Description 09/30/2024 10:00 AM EDT Clinical Support [facility] [address] [place] [address] 11/08/2024 10:15 AM EDT Office Visit [facility] [address] [place] [address] Christiano Temple MD 230 [place] [address] 11/14/2024 11:30 AM EDT Office Visit [facility] 230 [place] [address] Apolonia Ragland MD 230 [place] [address] Scheduled Orders Name Type Priority Associated Diagnoses Orde r Schedule XR Toes 2+ Views Right Imaging Routine Pain in toe of right foot Injury of right toe, initial encounter Expected: 09/20/2024, Expires: 09/20/2025 documented as of this encounter Visit Diagnoses Diagnosis Pain in toe of right foot- Primary Pain in soft tissues of limb Injury of right toe, initial encounter documented in this encounter Additional Health Concerns Assessment Noted Time PHQ-9 Depression Total Score: 3 05/01/20 24 9:55 AM EST documented as of this encounter Care Teams Gas Line Servicer Relationship Specialty Start Date End Date Apolonia Ragland MD 230 [place] [address] PCP - General Family Medicine 05/15/18 Julius Beavers [address] 3rd [place] [address] Pre Press Proofer Cardiology 08/25/23 Ronald Maxwell MD [address] [place] [address] Urology 11/17/23 Marcelino Purcell 175 [facility] 110 [place] [address] Orthopaedic Surgery 08/24/23 Flro Mason RN Care Manager 04/21/23 Kera Wan MD [address] [address] 11/15/23 Manisha Henao [facility] 175 [facility] [address] [place] [phone] Orthopaedic Surgery 12/07/23 documented as of this encounter
--- OUTSIDE RECORDS SUMMARY | 2024-09-20 11:50 | XMS_ITS | Encounter Summary ---
Author Organization [employer] Address 75 [facility] 7t [place] [address] Care Team Providers Care Operator Receptionist Name Role Phone Apolonia Ragland MD Primary Care Provider [phone] Julius Beavers Unavailable Ronald Maxwell MD Unavailable [phone] Marcelino Purcell Unavailable Encounter Details Date Type Department Care Team (Late Contact Info) Description 06/07/[address] [address] Ana Lancaster LPN Social History Tobacco Use [...] Description 09/30/2024 10:00 AM EDT Clinical Support [address] [address] 11/08/2024 10:15 AM EDT Office Visit [address] [address] Christiano Temple MD 230 [place] [address] 11/14/2024 11:30 AM EDT Office Visit [facility] 230 [place] [address] Apolonia Ragland MD 230 [place], [place] [phone] documented as of this encounter Visit Diagnoses Not on filedocumented in this encounter Care Teams Operator Receptionist Relationship Specialty Start Date End Date Apolonia Ragland MD 230 [place] [address] PCP - General Family Medicine 05/15/18 Julius Beavers [address] 3rd [place] [address] Energy Operations Vice President Cardiology 08/25/23 Ronald Maxwell MD [address] [place] [address] Urology 11/17/23 Marcelino Purcell 175 [facility] 110 [place] [address] Orthopaedic Surgery 08/24/23 Flor Mason RN Care Manager 04/21/23 Kera Wan MD [address] [address] 11/15/23 Manisha Henao [facility] 175 [facility] [address] [place] [phone] Orthopaedic Surgery 12/07/23 documented as of this encounter
--- OUTSIDE RECORDS SUMMARY | 2024-09-20 11:50 | XMS_ITS | Encounter Summary ---
Author Organization [employer] Address [address] [facility] [address] 7t [place] [address] Care Team Providers Care Animal Stunner Name Role Phone Apolonia Ragland MD Primary Care Provider [phone] Julius Beavers Unavailable Ronald Maxwell MD Unavailable [phone] BinhMarcelino Unavailable Reason for Visit * Reason Onset Date Comments Referral 05/22/2023 Encounter Details Date Type Department Care Team (Late st Contact Info) Description 05/22/2023 Telephone [facility] MEDICINE 230 [place], [place] [phone] Apolonia Ragland MD 230 [place], [place] [phone] Referral Social History Tobacco Use Types Packs/Day [...] scheduled was canceled. Please contact pt @ [phone] documented in this encounter Plan of Treatment Upcoming Encounters Date Type Department Care Team (Late st Contact Info) Description 09/30/2024 10:00 AM EDT Clinical Support [facility] [address] [place] [address] 11/08/2024 10:15 AM EDT Office Visit [facility] [address] [place] [address] Christiano Temple MD [address] [place] [address] 11/14/2024 11:30 AM EDT Office Visit [facility] [address] [place] [address] Apolonia Ragland MD [address] [place] [address] documented as of this encounter Visit Diagnoses Not on filedocumented in this encounter Care Teams Animal Stunner Relationship Specialty Start Date End Date Apolonia Ragland MD [address] [place] [address] PCP - General Family Medicine 05/15/18 Julius Beavres [address] 3rd [place] [address] Firer Helper Cardiology 08/25/23 Ronald Maxwell MD [address] [place] [address] Urology 11/17/23 Marcelino Purcell 175 [facility] 110 [place] [address] Orthopaedic Surgery 08/24/23 Flor Mason RN Care Manager 04/21/23 Kera Wan MD [facility] 300 [place] [address] 11/15/23 Manisha [address] [facility] 175 [facility] [address] [place] [address] Orthopaedic Surgery 12/07/23 documented as of this encounter
--- OUTSIDE RECORDS SUMMARY | 2024-09-20 11:50 | XMS_ITS | Encounter Summary ---
Author Organization [employer] Address [address] [facility] [address] 7t [place] [address] Care Team Providers Care Field Research Assistant Name Role Phone Apolonia Ragland MD Primary Care Provider [phone] Julius Beavers Unavailable Ronald Maxwell MD Unavailable [phone] Binh, Loyd Unavailable Reason for Visit * Reason Onset Date Comments Returning Call 03/19/2024 Encounter Details Date Type Department Care Team (Late st Contact Info) Description 03/19/2024 Telephone [facility] MED[facility]INE 230 [place], [place] [phone] Apolonia Ragland MD 230 [place], [place] [phone] Returning Call Social History Tobacco Use Types [...] outreach. Pt stated she received message in swiss, he stated he does not speak or read swiss and requestsfurther messages to be sent in jamaican. documented in this encounter Plan of Treatment Upcoming Encounters Date Type Department Care Team (Late st Contact Info) Description 09/30/2024 10:00 AM EDT Clinical Support [address] [address] 11/08/2024 10:15 AM EDT Office Visit [address] [address] Christiano Temple MD [address] [place] [address] 11/14/2024 11:30 AM EDT Office Visit [address] [address] Apolonia Ragland MD [address] [place] [address] documented as of this encounter Visit Diagnoses Not on filedocumented in this encounter Care Teams Field Research Assistant Relationship Specialty Start Date End Date Apolonia Ragland MD 230 [place] [address] PCP - General Family Medicine 05/15/18 Julius Beavers [address] 3rd [place] [address] Neuroscientist Cardiology 08/25/23 Ronald Maxwell MD [address] [place] [address] Urology 11/17/23 Marcelino Purcell 175 [facility] 110 [place] [address] Orthopaedic Surgery 08/24/23 Flor Mason word processor 04/21/23 Kera Wan MD [facility] [address] [place] [phone] 11/15/23 Manisha Henao [facility] 175 [facility] [address] [place] [address] Orthopaedic Surgery 12/07/23 documented as of this encounter
--- OUTSIDE RECORDS SUMMARY | 2024-09-20 11:50 | XMS_ITS | Encounter Summary ---
Author Organization [employer] Address [address] [facility] [address] 7t [place] [address] Care Team Providers Care Field Engineer Name Role Phone Apolonia Ragland MD Primary Care Provider [phone] Julius Beavers Unavailable Ronald Maxwell MD Unavailable [phone] Binh, Loyd Unavailable Reason for Visit * Reason Onset Date Comments Nurse Triage 09/28/2023 Encounter Details Date Type Department Care Team (Late st Contact Info) Description 09/28/2023 Telephone [facility] MED[facility]INE 230 [place], [place] [phone] Apolonia Ragland MD 230 [place], [place] [phone] Nurse Triage Social History Tobacco Use Types [...] accepted this outcome Please contact pt at [phone] documented in this encounter Plan of Treatment Upcoming Encounters Date Type Department Care Team (Late st Contact Info) Description 09/30/2024 10:00 AM EDT Clinical Support [address] [address] 11/08/2024 10:15 AM EDT Office Visit [facility] [address] [place] [address] Christiano Temple MD [address] [place] [address] 11/14/2024 11:30 AM EDT Office Visit [facility] [address] [place] [address] Apolonia Ragland MD [address] [place] [address] documented as of this encounter Visit Diagnoses Not on filedocumented in this encounter Care Teams Field Engineer Relationship Specialty Start Date End Date Apolonia Ragland MD [address] [place] [address] PCP - General Family Medicine 05/15/18 Julius Beavers [address] 3rd [place] [address] Corporate Account Executive Cardiology 08/25/23 Ronald Maxwell MD [address] [place] [address] Urology 11/17/23 Marcelino Purcell 175 [facility] 110 [place] [address] Orthopaedic Surgery 08/24/23 Flor Mason banquet coordinator 04/21/23 Kera Wan MD [facility] [address] [place] [phone] 11/15/23 Manisha Henao [facility] 175 [facility] [address] [place] [address] Orthopaedic Surgery 12/07/23 documented as of this encounter
--- OUTSIDE RECORDS SUMMARY | 2024-09-20 11:50 | XMS_ITS | Clinical Summary ---
Author Organization [address] [place] [address] Address 175 [place] [address] Phone Care Team Providers Care Boatwright Name Role Phone Apolonia Ragland MD Primary Care Provider [phone] Allergies Active Allergy Reactions Criticality Noted Date [...] Care Team (Late st Contact Info) Description 12/02/2024 10:15 AM EDT Office Visit Orthopedic Surgery - [place] [address] [phone] Marcelino Purcell, DPJaniya [address] [address] Health Maintenance Due Date Last Done Comments [...] complete this topic Insurance MEDICARE Care Teams Boatwright Relationship Specialty Start Date End Date Apolonia Ragland MD [address] [place] [phone] PCP - General 03/25/13
--- OUTSIDE RECORDS SUMMARY | 2024-09-20 11:50 | XMS_ITS | Encounter Summary ---
Author Organization [employer] Address [address] [facility] [address] 7t [place] [address] Care Team Providers Care Viticulturist Name Role Phone Apolonia Ragland MD Primary Care Provider [phone] Julius Beavers Unavailable Ronald Maxwell MD Unavailable [phone] Binh, Marcelino Unavailable Reason for Visit * Reason Onset Date Comments Lab Orders 01/19/2024 Encounter Details Date Type Department Care Team (Late st Contact Info) Description 01/19/2024 Telephone [facility] 230 [place], [place] [phone] Apolonia Ragland MD 230 [place], [place] [phone] Lab Orders Social History Tobacco Use Types [...] Description 09/30/2024 10:00 AM EDT Clinical Support [address] [address] 11/08/2024 10:15 AM EDT Office Visit [address] [address] Christiano Temple MD [address] [place] [address] 11/14/2024 11:30 AM EDT Office Visit [address] [address] Apolonia Ragland MD [address] [place] [address] documented as of this encounter Visit Diagnoses Not on filedocumented in this encounter Care Teams Viticulturist Relationship Specialty Start Date End Date Apolonia Ragland MD 230 [place] [address] PCP - General Family Medicine 05/15/18 Julius Beavers [address] 3rd [place] [address] Clerical Aide Teacher Cardiology 08/25/23 Ronald Maxwell MD [address] [place] [address] Urology 11/17/[address] [facility] 110 [place] [address] Orthopaedic Surgery 08/24/23 Flor Mason cone tender 04/21/23 Kera Wan MD [address] [address] 11/15/23 Manisha Henao [facility] 175 [facility] [address] [place] [phone] Orthopaedic Surgery 12/07/23 documented as of this encounter
--- OUTSIDE RECORDS SUMMARY | 2024-09-20 11:50 | XMS_ITS | Encounter Summary ---
Author Organization [employer] Address 75 [facility] [address] 7t [place] [address] Care Team Providers Care Plugman Name Role Phone Apolonia Ragland MD Primary Care Provider [phone] Julius Beavers Unavailable Ronald Maxwell MD Unavailable [phone] Binh, Loyd Unavailable Reason for Visit * Reason Onset Date Comments Nurse Triage 08/16/2023 Encounter Details Date Type Department Care Team (Late st Contact Info) Description 08/16/2023 Telephone [facility] 230 [place], [place] [phone] Apolonia Ragland MD 230 [place], [place] [phone] Nurse Triage Social History Tobacco Use Types [...] EDT Triage call Pt was seen in [facility] 08/11/23 ED dx of atrial fibrillation. Pt was prescribed eliquis 5mg bid. Pt had been taking ASA 81mg daily . Pt started eliquis 08/14/23 and stopped ASA the same day. Pt is calling regarding some pinkish/reddish colored urine, neg for burning but, always has frequency. Pt also reports having a bloody nose x1 . Pt is advised to come to [facility] for provider to see Pt. Pt reports is in [place] and will try to come to [facility] open till 8pm and other logan will come to [facility] in the morning opens at 830am. Pt is cautioned to seek eval at ED if bleeding should increase and Pt agrees. Pt does have follow up apt [facility] 08/30/23 and another apt with [facility] 08/21/23. Pt agrees with dispostion. Protocol Used: [...] Description 09/30/2024 10:00 AM EDT Clinical Support [address] [address] 11/08/2024 10:15 AM EDT Office Visit [address] [address] Christiano Temple MD [address] [place] [address] 11/14/2024 11:30 AM EDT Office Visit [address] [address] Apolonia Ragland MD [address] [place] [address] documented as of this encounter Visit Diagnoses Not on filedocumented in this encounter Care Teams Plugman Relationship Specialty Start Date End Date Apolonia Ragland MD [address] [place] [address] PCP - General Family Medicine 05/15/18 Julius Beavers [address] 3rd [place] [address] Manager Battery Cardiology 08/25/23 Ronald Maxwell MD [address] [place] [address] Urology 11/17/23 Marcelino Purcell [address] [place] [address] Orthopaedic Surgery 08/24/23 Flor Mason RN Care Manager 04/21/23 Kera Wan MD NEOS [address] [place] [address] 11/15/23 Manisha Henao [facility] [address] [place] [address] [place] [phone] Orthopaedic Surgery 12/07/23 documented as of this encounter
--- OUTSIDE RECORDS SUMMARY | 2024-09-20 11:50 | XMS_ITS | Encounter Summary ---
Author Organization [employer] Address [address] [facility] [address] 7t [place] [address] Care Team Providers Care Residential Real Estate Sales Manager Name Role Phone Apolonia Ragland MD Primary Care Provider [phone] Julius Beavers Unavailable Ronald Maxwell MD Unavailable [phone] BinhMarcelino Unavailable Encounter Details Date Type Department Care Team (Late st Contact Info) Description 05/23/2023 Orders Only [facility] 230 [place], [place] [phone] Aploonia Ragland MD 230 [place], [place] [phone] Frequent PVCs (Primary Dx) Social History Tobacco [...] Description 09/30/2024 10:00 AM EDT Clinical Support [facility] [address] [place] [address] 11/08/2024 10:15 AM EDT Office Visit [address] [address] Christiano [place] MD [address] [place] [address] 11/14/2024 11:30 AM EDT Office Visit [address] [address] Apolonia Ragland MD [address] [place] [address] documented as of this encounter Visit Diagnoses Diagnosis Frequent PVCs- Primary documented in this encounter Care Teams Residential Real Estate Sales Manager Relationship Specialty Start Date End Date Apolonia Ragland MD [address] [place] [address] PCP - General Family Medicine 05/15/18 Julius Beavers [address] 3rd [place] [address] Put In Beat Adjuster Cardiology 08/25/23 Ronald Maxwell MD [address] [place] [address] Urology 11/17/23 Marcelino Purcell 175 [facility] 110 [place] [address] Orthopaedic Surgery 08/24/23 Flor Mason beef lugger 04/21/23 Kera Wan MD NEOS 300 [place] [address] 11/15/23 Manisha Henao [facility] 175 [facility] [address] [place] [phone] Orthopaedic Surgery 12/07/23 documented as of this encounter
--- OUTSIDE RECORDS SUMMARY | 2024-09-20 11:50 | XMS_ITS | Encounter Summary ---
Author Organization [employer] Address [address] [facility] [address] 7t [place] [address] Care Team Providers Care Track Walker Name Role Phone Apolonia Ragland MD Primary Care Provider [phone] Julius Beavers Unavailable Ronald Maxwell MD Unavailable [phone] Marcelino Purcell Unavailable Encounter Details Date Type Department Care Team ([facility] Contact Info) Description 06/02/2022 Abstract [facility] [address] [place] [address] Apolonia Ragland MD 230 [place] [address] Social History Tobacco Use Types Packs/Day Years [...] Description 09/30/2024 10:00 AM EDT Clinical Support [facility] 230 [place] [address] 11/08/2024 10:15 AM EDT Office Visit [facility] [address] [place] [address] Christiano [place] MD 230 [place] [address] 11/14/2024 11:30 AM EDT Office Visit [facility] 230 [place] [address] Apolonia Ragland MD 230 [place] [address] documented as of this encounter Visit Diagnoses Not on filedocumented in this encounter Care Teams Track Walker Relationship Specialty Start Date End Date Apolonia Ragland MD 230 [place] [address] PCP - General Family Medicine 05/15/18 Julius Beavers [address] [facility] [address] 3rd [place] [address] Fisher Troll Line Cardiology 08/25/23 Ronald Maxwell MD [address] [facility] [place] [address] Urology 11/17/23 Marcelino Purcell 175 [facility] 110 [place] [address] Orthopaedic Surgery 08/24/23 Flor Mason market relationship manager 04/21/23 Kera Wan MD [address] [address] 11/15/23 Manisha Henao [facility] 175 [facility] [address] [place] [phone] Orthopaedic Surgery 12/07/23 documented as of this encounter
--- OUTSIDE RECORDS SUMMARY | 2024-09-20 11:50 | XMS_ITS | Encounter Summary ---
Author Organization [employer] Address [address] [facility] [address] 7t [place] [address] Care Team Providers Care Lot Porter Name Role Phone Apolonia Ragland MD Primary Care Provider [phone] Julius Beavers Unavailable Ronald Maxwell MD Unavailable [phone] BinhMarcelino Unavailable Encounter Details Date Type Department Care Team (Late st Contact Info) Description 06/28/2024 Orders Only [facility] 230 [place], [place] [phone] Apolonia Ragland MD 230 [place], [place] [phone] B12 deficiency (Primary Dx); Paroxysmal atrial fibrillation [...] Description 09/30/2024 10:00 AM EDT Clinical Support [address] [address] 11/08/2024 10:15 AM EDT Office Visit [address] [address] Christiano Temple MD [address] [place] [address] 11/14/2024 11:30 AM EDT Office Visit [facility] [address] [place] [address] Apolonia Ragland MD [address] [place] [address] documented as of this encounter Procedures Procedure [...] 1:06 PM EDT) Creatinine, Urine 95.60 mg/dL [facility] Microalbumin Urine 61.0 mg/L H [facility] Microalbum Creatinine Ratio Ur 63.8(H) <30 ug/mg cr [facility] Comment:Albumin/Creatinine R atio Reference Ranges: Normal: < 30 ug/mg creatinine Microalbuminuria: 30 - 300 ug/mg creatinineClinical Albuminuria: > 300 ug/mg creatinine Urine 09/10/2024 1:06 PM EDT 09/10/2024 3:58 PM EDT us Apolonia Ragland MD LAB URINE ORDERABLES Final Resul t [facility] [address] [place] [phone] * (ABNORMAL) Lipid Panel with Reflex to Direct LDL (09/10/2024 1:06 PM EDT) Triglycerides 119 <150 mg/dL [facility] Comment:Desirable Triglyceri de: less than 150 mg/dLBorderline High Triglyceride 150-199 mg/dLHigh Triglyceride: 200-499 mg/dLVery High Triglyceride: greater than or equal to 5OO mg/dL Cholesterol 167 <200 mg/dL [facility] Comment:Desirable Cholestero l: less than 200 mg/dLBorderline High Cholesterol: 200-239 mg/dLHigh Cholesterol: greater than 239 mg/dL LDL Cholesterol Calculated 104(H) <100 mg/dL [facility] Comment:Desirable LDL: less than 100 mg/dLNear Optimal/Above Optimal LDL: 110- 129 mg/dLBorderline High LDL: 130-159 mg/dLHigh LDL: 160-189 mg/dLVery High LDL: greater than or equal to 190 mg/dL HDL Cholesterol 40(L) >40 mg/dL [facility] Comment:Desirable HDL: great er than 40 mg/dL Note: This HDL assay may give artificially low results in patients with liver disease. Blood 09/10/2024 1:06 PM EDT 09/10/2024 3:59 PM EDT us Apolonia Ragland MD LAB BLOOD ORDERABLES Final Resul t [facility] [address] [place] [phone] * (ABNORMAL) Comprehensive Metabolic Panel (09/10/2024 1:06 PM EDT) Sodium 140 135 - 145 mmol/L [facility] Potassium 4.0 3.3 - 5.1 mmol/L [facility] Chloride 105 96 - 108 mmol/L [facility] Carbon Dioxide 28 22 - 29 mmol/L [facility] Anion Gap 11(L) 12 - 20 [facility] Urea Nitrogen (BUN) 11 9 - 16 mg/dL [facility] Creatinine, Serum 0.68 0.5 - 1.4 mg/dL [facility] Estimated Glomerular Filt Rate >60 [facility] Comment:Chronic Kidney Disea se: Estimated GFR < 60 mL/min/1.67h2Ctbyag Kidney Disease: Estimated GFR < 15 mL/min/1.73m2 Glucose 98 60 - 115 mg/dL [facility] Calcium 9.0 8.4 - 10.2 mg/dL [facility] Bilirubin, Total 0.8 0.0 - 1.0 mg/dL [facility] Aspartate Amino Transferase 18 5 - 37 U/L [facility] Alanine Aminotransferase 9 0 - 40 U/L [facility] Total Protein 6.9 6.5 - 8.0 g/dL [facility] Albumin Level 4.2 3.5 - 5.0 g/dL [facility] Alkaline Phosphatase 62 39 - 117 U/L [facility] Blood Venous blood specimen / Unknown 09/10/2024 1:06 PM EDT 09/10/2024 3:59 PM EDT us Apolonia Ragland MD LAB BLOOD ORDERABLES Final Resul t [facility] [address] [place] [address] [phone] * (ABNORMAL) CBC auto differential (09/10/2024 1:06 PM EDT) White Blood Count 8.0 4.8 - 10.8 X10*3/uL [facility] Red Blood Count 4.63 4.60 - 5.80 X10*6/uL [facility] Hemoglobin 14.5 14.0 - 18.0 g/dl [facility] Hematocrit 43.6 42.0 - 52.0 % [facility] Mean Corpuscular Volume 94.2 80.0 - 98.0 fL [facility] Mean Corpuscular Hemoglobin 31.3 27.0 - 33.0 pg [facility] Mean Corpuscular HGB Conc 33.3 31.0 - 36.0 g/dl [facility] Red Cell Distribution Width 14.2 11.0 - 16.0 % [facility] Platelet Count 199 160 - 400 X10*3/uL [facility] Mean Platelet Volume 11.0 9.4 - 12.4 fL [facility] Neutrophils Percent Auto 74.4(H) 45 - 73 % [facility] Imm Gran Pct Auto 0.4 0.0 - 0.4 % [facility] Lymphocytes Percent Auto 15.2(L) 20 - 40 % [facility] Monocytes Percent Auto 8.9 2 - 11 % [facility] Eosinophils Percent Auto 0.7 0 - 4 % [facility] Basophils Percent Auto 0.4 0 - 2 % [facility] NRBC Pct Auto 0.0 0.0 - 0.2 /100WBC [facility] Neutrophils Absolute Auto 6.0 2.0 - 8.3 x10*3/uL [facility] Imm Gran Abs Auto 0.03 0.00 - 0.03 X10*3/uL [facility] Lymphocytes Absolute Auto 1.2 1.2 - 4.9 X10*3/uL [facility] Monocytes Absolute Auto 0.7 0.1 - 1.2 X10*3/uL [facility] Eosinophils Absolute Auto 0.1 0.0 - 0.4 X10*3/uL [facility] Basophils Absolute Auto 0.0 0.0 - 0.2 X10*3/uL [facility] NRBC Abs Auto 0.000 0.0 - 0.012 X10*3/uL [facility] Blood Venous blood specimen / Unknown 09/10/2024 1:06 PM EDT 09/10/2024 3:59 PM EDT us Apolonia Ragland MD LAB BLOOD ORDERABLES Final Resul t [facility] [address] [place], [place] [phone] * Vitamin B12 (Cobalamin) and Folate Panel, Serum (09/10/2024 1:06 PM EDT) Vitamin B12 419 200 - 900 pg/mL [facility] Comment:NORMAL 200-900 PG/ML INDETERMINATE 160-199 PG/ML DEFICIENT < 160 PG/ML Folate 8.7 > or = 4.0 ng/mL [facility] Comment:Reference Values:> o r = 4.0 ng/mL< 4.0 ng/mL suggests folate deficiency Methotrexate, aminopterin and folinic acid(leucovorin) are chemotherapeutic agents whose molecularstructures are similar to folate; therefore, the Architectfolate assay cannot be used for patients using these drugs. Blood 09/10/2024 1:06 PM EDT 09/10/2024 3:59 PM EDT Apolonia Ragland MD LAB BLOOD ORDERABLES Final Resul t [facility] [address] [place] [address] [phone] documented in this encounter Visit Diagnoses Diagnosis B12 deficiency- Primary Paroxysmal atrial fibrillation (CMS/HCC) Atrial fibrillation Essential hypertension Unspecified essential hypertension documented in this encounter Additional Health Concerns Assessment Noted Time PHQ-9 Depression Total Score: 3 05/01/20 24 9:55 AM EST documented as of this encounter Care Teams Lot Porter Relationship Specialty Start Date End Date Apolonia Ragland MD 230 [place] [address] PCP - General Family Medicine 05/15/18 Julius Beavers [address] 3rd [place] [address] Schedule Planning Manager Cardiology 08/25/23 Ronald Maxwell MD [address] [place] [address] Urology 11/17/23 Marcelino Purcell 175 [facility] 110 [place] [address] Orthopaedic Surgery 08/24/23 Flor Mason RN Care Manager 04/21/23 Kera Wan MD [address] [address] 11/15/23 Manisha Henao [facility] 175 [facility] [address] [place] [phone] Orthopaedic Surgery 12/07/23 documented as of this encounter
--- OUTSIDE RECORDS SUMMARY | 2024-09-20 11:50 | XMS_ITS | Encounter Summary ---
Author Organization [employer] Address 75 [facility] 7t [place] [address] Care Team Providers Care Director Of Infection Prevention Name Role Phone Apolonia Ragland MD Primary Care Provider [phone] Julius Beavers Unavailable Ronald Maxwell MD Unavailable Marcelino Purcell Unavailable Reason for Visit * Reason Onset Date Comments Med Refill 08/16/2022 Encounter Details Date Type Department Care Team (Late st Contact Info) Description 08/16/2022 Telephone [facility] 230 [place], [place] [phone] Apolonia Ragland MD 230 [place], [place] [phone] Med Refill Social History Tobacco Use Types [...] today awaiting approval. * Telephone Encounter - Delilahnvajot Nic Sow - 08/16/2022 10:08 AM EDT Tc from pt request new med refill script for amLODIPine (Norvasc) 2.5 MG tablet Please sent to [facility] - [place], [place] - [address] [place] [address] documented in this encounter Plan of Treatment Upcoming Encounters Date Type Department Care Team (Late st Contact Info) Description 09/30/2024 10:00 AM EDT Clinical Support [address] [address] 11/08/2024 10:15 AM EDT Office Visit [facility] [address] [place] [address] Christiano [place] MD [address] [place] [address] 11/14/2024 11:30 AM EDT Office Visit [address] [address] Apolonia Ragland MD [address] [place] [address] documented as of this encounter Visit Diagnoses Not on filedocumented in this encounter Care Teams Director Of Infection Prevention Relationship Specialty Start Date End Date Apolonia Ragland MD [address] [place] [address] PCP - General Family Medicine 05/15/18 Julius Beavers [address] 3rd [place] [address] Educational Sign Language Interpreter Cardiology 08/25/23 Ronald Maxwell MD [address] [place] [address] Urology 11/17/23 Marcelino Purcell 175 [facility] 110 [place] [address] Orthopaedic Surgery 08/24/23 Flor Mason coiled tubing supervisor 04/21/23 Kera Wan MD [address] [phone] 11/15/23 Manisha Henao [facility] 175 [facility] [address] [place] [phone] Orthopaedic Surgery 12/07/23 documented as of this encounter
--- OUTSIDE RECORDS SUMMARY | 2024-09-20 11:50 | XMS_ITS | Encounter Summary ---
Author Organization [employer] Address [address] [facility] [address] 7t [place] [address] Care Team Providers Care Physical Chemistry Professor Name Role Phone Apolonia Ragland MD Primary Care Provider [phone] Julius Beavers Unavailable Ronald Maxwell MD Unavailable [phone] Marcelino Purcell Unavailable Encounter Details Date Type Department Care Team (Latest Contact Info) Description 09/20/2024 Travel Social History Tobacco Use Types Packs/Day [...] Description 09/30/2024 10:00 AM EDT Clinical Support [address] [address] 11/08/2024 10:15 AM EDT Office Visit [address] [address] Christiano Temple MD [address] [place] [address] 11/14/2024 11:30 AM EDT Office Visit [address] [address] Apolonia Ragland MD [address] [place] [address] documented as of this encounter Visit Diagnoses Not on filedocumented in this encounter Additional Health Concerns Assessment Noted Time PHQ-9 Depression Total Score: 3 05/01/20 24 9:55 AM EST documented as of this encounter Care Teams Physical Chemistry Professor Relationship Specialty Start Date End Date Apolonia Ragland MD [address] [place] [address] PCP - General Family Medicine 05/15/18 Julius Beavers [address] 3rd [place] [address] Crate Maker Cardiology 08/25/23 Ronald Maxwell MD [address] [place] [address] Urology 11/17/23 Marcelino Purcell 175 [facility] 110 [place] [address] Orthopaedic Surgery 08/24/23 Flor Mason banking services officer 04/21/23 Kera Wan MD [address] [address] 11/15/23 Manisha Henao [facility] 175 [facility] [address] [place] [phone] Orthopaedic Surgery 12/07/23 documented as of this encounter
[2024-09-20 13:37] LABS: Appearance Urine Clear; Color Urine Yellow; Glucose Urine UA Negative (Negative); Leukocyte Esterase Urine Large (3+) (Negative); Nitrite Urine Negative (Negative); Specific Gravity - Urine <= 1.005 (1.005-1.025); UMIC TRIGGER UA YES; Urine Blood Trace (Negative); Urine Ketones Negative (Negative); Urine Protein Negative (Neg-Trace)
[2024-09-20 13:42] LABS: Bacteria Urine Trace (None Seen); Hyaline Casts Urine 0-2 /LPF (0-2); RBC Urine 0-2 /HPF (0-2); Squamous Epithelial Cell Urine 0-2 /HPF (0-2); WBC Urine >50 /HPF (0-5)
== END 2024-09-20 11:22 | disposition home or self-care (01) ==
LOC: HO.HHCX 11:21
PROVIDERS: Urology; Visit Provider Emergency Medicine
DX: M79.674 Pain in right toe(s) (principal); S99.921A Unspecified injury of right foot, initial encounter; R35.1 Nocturia
CPT/HCPCS: 73660; 81001; 87086

== ENCOUNTER → 2024-09-20 11:22 | Outpatient (BNV) | payer MEDICARE, SELFPAY | PROVIDERS: Visit Provider Radiology Diagnostic Radiology | DX: M19.071 Primary osteoarthritis, right ankle and foot (principal) | CPT/HCPCS: 73660 ==

== ENCOUNTER 2024-09-20 12:18 | Outpatient (REF) | payer MEDICARE, SELFPAY ==
--- OUTSIDE RECORDS SUMMARY | 2024-09-20 12:31 | XMS_ITS | Encounter Summary ---
Author Organization [employer] Address [address] 7[address] [place] [address] Care Team Providers Care Make Up Worker Name Role Phone Apolonia Ragland MD Primary Care Provider [phone] Julius Beavers Unavailable Ronald Maxwell MD Unavailable [phone] Binh, Loyd Unavailable Reason for Visit * Reason Onset Date Comments Returning Call 03/19/2024 Encounter Details Date Type Department Care Team (Late st Contact Info) Description 03/19/2024 Telephone [facility] [address] [place], [place] [phone] Apolonia Ragland MD [address] [place], [place] [phone] Returning Call Social History Tobacco Use Types [...] outreach. Pt stated she received message in mauritian, he stated he does not speak or read mauritian and requestsfurther messages to be sent in south su[place]. documented in this encounter Plan of Treatment Upcoming Encounters Date Type Department Care Team (Late st Contact Info) Description 09/30/2024 10:00 AM EDT Clinical Support [address] [address] 11/08/2024 10:15 AM EDT Office Visit [address] [address] Christiano Temple MD [address] [place] [address] 11/14/2024 11:30 AM EDT Office Visit [address] [address] Apolonia Ragland MD [address] [place] [phone] documented as of this encounter Visit Diagnoses Not on filedocumented in this encounter Care Teams Make Up Worker Relationship Specialty Start Date End Date Apolonia Ragland MD [address] [place] [address] PCP - General Family Medicine 05/15/18 Julius Beavers [address] 3rd [place] [address] Signal Operator Cardiology 08/25/23 Ronald Maxwell MD [address] [place] [address] Urology 11/17/23 Marcelino Purcell [address] [facility] [address] [place] [address] Orthopaedic Surgery 08/24/23 Flor Mason museum guide 04/21/23 Kera Wan MD [facility] [address] [place] [phone] 11/15/23 Manisha Henao [facility] [address] [facility] [address] [place] [address] Orthopaedic Surgery 12/07/23 documented as of this encounter
--- OUTSIDE RECORDS SUMMARY | 2024-09-20 12:32 | XMS_ITS | Clinical Summary ---
Author Organization [employer] Address [address] [place] [address] 7t [place] [address] Care Team Providers Care Rigger Third Name Role Phone Apolonia Harding MD Primary Care Provider [phone] Julius Beavers Unavailable Ronald Maxwell MD Unavailable [phone] Marcelino Purcell Unavailable Allergies Active Allergy Reactions [...] Assessment & Plan (11/01/2023 10:45 AM EDT): -[id number] Score: 3 - continue apixaban 2.5 mg bid - no rate or rhythm control - advised to complete sleep study - continue risk factor management Assessment & Plan (09/30/2023 6:35 PM EDT): - continue apixaban - patient states apixaban was switched to rivaroxaban by separating machine operator; however, patient seems to be taking [...] Assessment & Plan (09/15/2024 5:04 PM EDT): [id number] Score: 3 -Wagon Driver Salesperson: [facility]. Last seen in August 2024, recommended to [...] no ischemia -Sleep study was ordered by [facility] Cardiology, but patient has not completed it yet - recommended to resume apixaban 2.5 mg bid since he is concerned about epistaxis; patient agreed to try lower dose. Assessment & Plan (06/03/2024 7:55 AM EST): -Wagon Driver Salesperson: previously [facility], and recently started following with [facility]. Last seen on 10/17/23 -Rate control: none [...] no ischemia -Sleep study was ordered by [facility] Cardiology, but patient has not completed it yet Assessment & Plan (03/05/2024 10:42 AM EDT): -Wagon Driver Salesperson: previously [facility], and recently started following with [facility]. Last seen on 10/17/23 -Rate control: none [...] no ischemia -Sleep study was ordered by [facility] Cardiology, but patient has not completed it yet Assessment & Plan (11/01/2023 10:37 AM EDT): -Wagon Driver Salesperson: previously [facility], and recently started following with [facility]. 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 [facility] -10/06/23 LVEF 55-60%. Moderately dilated left atrium. Mild dilation of the sinuses of Valsalva measuring 3.80 cm and mild dilation of the ascending aorta measuring 3.90 cm. -Last nuclear stress test with MPI 10/06/23 no ischemia -Sleep study was ordered by [facility] Cardiology, but patient has not completed it yet Assessment & Plan (09/27/2023 5:45 AM EDT): [id number] Score: 3 -Wagon Driver Salesperson: [facility], and recently started following with [facility] -Rate control: none -Rhythm control: none -Anticoagulation: apixaban -Last Holter monitor: 07/10/23 -Last transthoracic echocardiogram: Done at [facility] on 10/25/22 TTE LVEF 55-60%; 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 Ordered by [facility] Cardiology recently -Last stress test 10/07/22 nuclear stress test with MPI wnl -Sleep study was ordered by [facility] Cardiology Assessment & Plan (08/24/2023 4:49 PM EDT): Here from previous ER visit, started on Eliquis for prevention - not tolerating well due to more bleeds - recommend talk to the separating machine operator about whether he should continue Eliquis as he is moderate risk by [id number] - he will continue for now and [...] -Started on apixaban since 08/10/23 -Following with [facility] cardiology since August 2023, last seen on [...] 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 - Currently following with [facility] cardiology and transthoracic echocardiogram was ordered Assessment & Plan (06/29/2023 4:46 AM EST): - 10/25/22 TTE normal LV sfunction with EF 55-60%. 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 - Follow-up with separating machine operator in 6 mo - TTE at least yearly Assessment & Plan (04/24/2023 6:07 AM EST): - 10/25/22 TTE normal LV sfunction with EF 55-60%. 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 - Follow-up with separating machine operator in 6 mo - TTE at least yearly Assessment & Plan (01/05/2023 6:51 AM EDT): - 10/25/22 TTE normal LV sfunction with EF 55-60%. 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 - TURBT and mitomycin C installation in July 2024. Plan for immunotherapy / combo mitomycin & cytarabine Assessment & Plan (06/03/2024 7:56 AM EST): - previously following with [facility] urology - Transurethral resection of bladder tumor on 11/20/18 Pathology report High-grade papillary urothelial carcinoma - seen by urologist on 11/17/23; upcoming appt on 03/13/24 Assessment & Plan (03/05/2024 11:20 AM EDT): - previously following with [facility] urology - Transurethral resection of bladder tumor on 11/20/18 Pathology report High-grade papillary urothelial carcinoma - seen by urologist on 11/17/23; upcoming appt on 03/13/24 Assessment & Plan (11/01/2023 10:39 AM EDT): - previously following with [facility] urology - Transurethral resection of bladder tumor on 11/20/18 Pathology report High-grade papillary urothelial carcinoma - Referred to urology; upcoming appt Assessment & Plan (09/27/2023 5:53 AM EDT): - previously following with [facility] urology - Transurethral resection of bladder tumor [...] charge - will refer to orthopedist at [facility] for reevaluation - discussed taking Tylenol [...] difficulty walking - pt will benefit from [employer] service; will check the status of [employer] service >>ASSESSMENT AND PLAN FOR PRIMARY OSTEOARTHRITIS INVOLVING MULTIPLE JOINTS WRITTEN ON 01/06/2023 7:10 AM BY APOLONIA HARDING MD - previously seen by [facility] providers - pt declines further evaluation by orthopedist due to outstanding charges Assessment & Plan (06/05/2022 6:10 PM EST): - multiple joints - difficulty walking - pt will benefit from [employer] service 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 -Follow up with separating machine operator as scheduled Assessment & Plan (09/27/2023 5:44 AM EDT): -10/07/22 nuclear stress test with MPI wnl -10/25/22 TTE LVEF 55-60%; 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 -Follow up with separating machine operator as scheduled Assessment & Plan (07/03/2023 6:08 AM EST): -Seen by [facility] separating machine operator in November 2022. -Asymptomatic. 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 -Follow up with separating machine operator as scheduled -Bradycardiac lately; will schedule Holter monitor Assessment & Plan (04/24/2023 6:06 AM EST): -Seen by [facility] separating machine operator in November 2022. -Asymptomatic. 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 -Follow up with separating machine operator as scheduled Assessment & Plan (01/06/2023 7:06 AM EDT): -Seen by [facility] separating machine operator in November 2022. -Asymptomatic. 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 -Follow up with separating machine operator as scheduled Assessment & Plan (10/03/2022 12:26 PM EDT): -Seen by [facility] separating machine operator in July 2022. -Asymptomatic. -Possibly starting CCB or BB -Follow up with separating machine operator as scheduled -Being scheduled for stress test and has a follow up with separating machine operator in near future Assessment & Plan (06/05/2022 6:03 PM EST): -Seen by [facility] separating machine operator in Jan 2022. -Asymptomatic. -Possibly starting CCB or BB -Follow up with separating machine operator as scheduled Gastroesophageal reflux disease 04/02/2012 [...] Description 09/20/2024 10:40 AM EDT Office Visit [facility] [address] [place] [phone] Pain in toe of right foot (Primary Dx); Injury of right toe, initial encounter 09/20/2024 Travel 09/19/2024 Refill [facility] [address] [place] [phone] Apolonia Harding MD 09/11/2024 Telephone [facility] [address] [place] [phone] Licha Ann, RN Results 09/11/2024 Orders Only [facility] [address] [place] [phone] Apolonia Harding MD Nocturia (Primary Dx) 09/10/2024 11:30 AM EDT Office Visit [address] [address] Apolonia Harding MD Ascending aorta dilatation (CMS/HCC) (Primary Dx); Essential hypertension; Paroxysmal atrial fibrillation (CMS/HCC); Malignant neoplasm of urinary bladder, unspecified site (CMS/HCC); Actinic keratosis; Depressive disorder; Seasonal allergic rhinitis, unspecified trigger; Epistaxis; Sensorineural hearing loss, bilateral; Vitamin B12 deficiency 09/10/2024 Travel 09/06/2024 Telephone [facility] [place] [address] Apolonia Harding MD chart prep 08/30/2024 10:00 AM EDT Nurse Only [facility] [place] [address] Tiana Ramirez LPN B12 deficiency (Primary Dx) 08/30/2024 Telephone [facility] [place] [address] Apolonia Harding MD Inform Pt Of New Appointment (New Appointment in Green Team, B12 Injection will no longer be downstairs at the [facility].) 08/09/2024 Refill [facility] [place] [address] Apolonia Harding MD 08/05/2024 Orders Only GENERIC EXTERNAL DATA DEPARTMENT Provider, Generic External Data 08/02/2024 10:15 AM EDT Nurse Only [facility] [place] [address] Tiana Ramirez LPN B12 deficiency (Primary Dx) 08/02/2024 Travel 07/26/2024 Population Health Risk Score [facility] (C[facility]) Department [address] [place] [phone] Provider, Population Health Generic 07/05/2024 10:30 AM EST Nurse Only [facility] [place] [address] Tiana Ramirez LPN B12 deficiency 07/05/2024 Travel 06/28/2024 Orders Only [facility] [place] [address] Apolonia Harding MD B12 deficiency (Primary Dx); Paroxysmal atrial fibrillation (CMS/HCC); Essential hypertension 06/28/2024 Refill [facility] [place] [address] Apolonia Harding MD from Last 3 Months [...] Grandfather Nii Wa s a [facility] in [place] No Known Problems Maternal Grandmother Lidya Pacemaker [...] Description 09/30/2024 10:00 AM EDT Clinical Support [address] [address] 11/08/2024 10:15 AM EDT Office Visit [address] [address] Christiano Temple MD [address] [place] [address] 11/14/2024 11:30 AM EDT Office Visit [address] [phone] Apolonia Harding MD [address] [place] [phone] Health Maintenance Due Date Last Done Comments [...] Vitamin B12 419 200 - 900 pg/mL [facility] Comment:NORMAL 200-900 PG/ML INDETERMINATE 160-199 PG/ML DEFICIENT < 160 PG/ML Folate 8.7 > or = 4.0 ng/mL [facility] Comment:Reference Values:> o r = 4.0 ng/mL< 4.0 ng/mL suggests folate deficiency Methotrexate, aminopterin and folinic acid(leucovorin) are chemotherapeutic agents whose molecularstructures are similar to folate; therefore, the Architectfolate assay cannot be used for patients using these drugs. Blood 09/10/2024 1:06 PM EDT 09/10/2024 3:59 PM EDT us Apolonia Harding MD LAB BLOOD ORDERABLES Final Resul t [facility] [address] [place] [address] [phone] * (ABNORMAL) Lipid Panel with Reflex to Direct LDL (09/10/2024 1:06 PM EDT) Triglycerides 119 <150 mg/dL [facility] Comment:Desirable Triglyceri de: less than 150 mg/dLBorderline High Triglyceride 150-199 mg/dLHigh Triglyceride: 200-499 mg/dLVery High Triglyceride: greater than or equal to 5OO mg/dL Cholesterol 167 <200 mg/dL [facility] Comment:Desirable Cholestero l: less than 200 mg/dLBorderline High Cholesterol: 200-239 mg/dLHigh Cholesterol: greater than 239 mg/dL LDL Cholesterol Calculated 104(H) <100 mg/dL [facility] Comment:Desirable LDL: less than 100 mg/dLNear Optimal/Above Optimal LDL: 110- 129 mg/dLBorderline High LDL: 130-159 mg/dLHigh LDL: 160-189 mg/dLVery High LDL: greater than or equal to 190 mg/dL HDL Cholesterol 40(L) >40 mg/dL [facility] Comment:Desirable HDL: great er than 40 mg/dL Note: This HDL assay may give artificially low results in patients with liver disease. Blood 09/10/2024 1:06 PM EDT 09/10/2024 3:59 PM EDT Apolonia Harding MD LAB BLOOD ORDERABLES Final Resul t Performing Organization Address [facility] de Phone Number [facility] [address] [place] [phone] * (ABNORMAL) Albumin, Random Urine W/Creatinine (09/10/2024 1:06 PM EDT) Creatinine, Urine 95.60 mg/dL [facility] Microalbumin Urine 61.0 mg/L [facility] Microalbum Creatinine Ratio Ur 63.8(H) <30 ug/mg cr [facility] Comment:Albumin/Creatinine R atio Reference Ranges: Normal: < 30 ug/mg creatinine Microalbuminuria: 30 - 300 ug/mg creatinineClinical Albuminuria: > 300 ug/mg creatinine Urine 09/10/2024 1:06 PM EDT 09/10/2024 3:58 PM EDT Apolonia Harding MD LAB URINE ORDERABLES Final Resul t Performing Organization Address [facility] Co de Phone Number [facility] [address] [place] [phone] * (ABNORMAL) CBC auto differential (09/10/2024 1:06 PM EDT) White Blood Count 8.0 4.8 - 10.8 X10*3/uL [facility] Red Blood Count 4.63 4.60 - 5.80 X10*6/uL [facility] Hemoglobin 14.5 14.0 - 18.0 g/dl [facility] Hematocrit 43.6 42.0 - 52.0 % [facility] Mean Corpuscular Volume 94.2 80.0 - 98.0 fL [facility] Mean Corpuscular Hemoglobin 31.3 27.0 - 33.0 pg [facility] Mean Corpuscular HGB Conc 33.3 31.0 - 36.0 g/dl [facility] Red Cell Distribution Width 14.2 11.0 - 16.0 % [facility] Platelet Count 199 160 - 400 X10*3/uL [facility] Mean Platelet Volume 11.0 9.4 - 12.4 fL [facility] Neutrophils Percent Auto 74.4(H) 45 - 73 % [facility] Imm Gran Pct Auto 0.4 0.0 - 0.4 % [facility] Lymphocytes Percent Auto 15.2(L) 20 - 40 % [facility] Monocytes Percent Auto 8.9 2 - 11 % [facility] Eosinophils Percent Auto 0.7 0 - 4 % [facility] Basophils Percent Auto 0.4 0 - 2 % [facility] NRBC Pct Auto 0.0 0.0 - 0.2 /100WBC [facility] Neutrophils Absolute Auto 6.0 2.0 - 8.3 x10*3/uL [facility] Imm Gran Abs Auto 0.03 0.00 - 0.03 X10*3/uL [facility] Lymphocytes Absolute Auto 1.2 1.2 - 4.9 X10*3/uL [facility] Monocytes Absolute Auto 0.7 0.1 - 1.2 X10*3/uL [facility] Eosinophils Absolute Auto 0.1 0.0 - 0.4 X10*3/uL [facility] Basophils Absolute Auto 0.0 0.0 - 0.2 X10*3/uL [facility] NRBC Abs Auto 0.000 0.0 - 0.012 X10*3/uL [facility] Blood Venous blood specimen / Unknown 09/10/2024 1:06 PM EDT 09/10/2024 3:59 PM EDT us Apolonia Harding MD LAB BLOOD ORDERABLES Final Resul t [facility] [address] [place] [address] [phone] * (ABNORMAL) Comprehensive Metabolic Panel (09/10/2024 1:06 PM EDT) Sodium 140 135 - 145 mmol/L [facility] Potassium 4.0 3.3 - 5.1 mmol/L [facility] Chloride 105 96 - 108 mmol/L [facility] Carbon Dioxide 28 22 - 29 mmol/L [facility] Anion Gap 11(L) 12 - 20 [facility] Urea Nitrogen (BUN) 11 9 - 16 mg/dL [facility] Creatinine, Serum 0.68 0.5 - 1.4 mg/dL [facility] Estimated Glomerular Filt Rate >60 [facility] Comment:Chronic Kidney Disea se: Estimated GFR < 60 mL/min/1.63l4Eftpfu Kidney Disease: Estimated GFR < 15 mL/min/1.73m2 Glucose 98 60 - 115 mg/dL [facility] Calcium 9.0 8.4 - 10.2 mg/dL [facility] Bilirubin, Total 0.8 0.0 - 1.0 mg/dL [facility] Aspartate Amino Transferase 18 5 - 37 U/L [facility] Alanine Aminotransferase 9 0 - 40 U/L [facility] Total Protein 6.9 6.5 - 8.0 g/dL [facility] Albumin Level 4.2 3.5 - 5.0 g/dL [facility] Alkaline Phosphatase 62 39 - 117 U/L [facility] Blood Venous blood specimen / Unknown 09/10/2024 1:06 PM EDT 09/10/2024 3:59 PM EDT us Apolonia Harding MD LAB BLOOD ORDERABLES Final Resul t [facility] [address] [place] [address] [phone] * Gross and Microscopic Level 5 (08/05/2024 1:40 PM EDT) 08/05/2024 1:40 PM EDT 08/05/2024 2:21 PM EDT [facility] - 08/07/2024 3:04 PM EDT ----- ------- Name: Colton Black ? Age/Sex: 84/M ? : 1940 Unit#: [id number] ?? Attend Dr: Ronald Maxwell MD ?Re08/05/24 ?Status: DEP SDC ? Location: HO.SSS ?Disch: ? ----- ------- SPEC : [id number] ? RECD: 08/05/24-1420 ? STATUS: ??SOUT ? REQ NUM: [id number] ? BETHANY: 08/05/24-3140 ? SUBM DR: Ronald Maxwell MD ? [...] Copies To: ?? Ronald Maxwell MD ?? [facility] Urology Services ?? [address] ?? [place] [address] ?? [phone] ? CONTINUED ON NEXT PAGE ----- ------- Name: Colton Black ? Age/Sex: 84/M ? : 1940 Unit#: [id number] ?? Attend Dr: Ronald Maxwell MD ?Re08/05/24 ?Status: DEP SDC ? Location: HO.SSS ?Disch: ? ----- ------- SPEC : [id number] ? RECD: 08/05/24 ? STATUS: ??SOUT ? REQ NUM: [id number] ? BETHANY: 08/05/24-0044 ? SUBM DR: Ronald Maxwell MD ? ENTERED: ??08/05/24 ?SP TYPE: Surgical ? OTHR DR: Apolonia Harding MD ? ORDERED: ??Gross Micro L5 ? Copies To: ??(Continued) ?? Apolonia Harding MD ?? [facility] ?? [address] [facility] ?? [place] [address] ?? [phone] ----- ------- Signed (signature on file) Binh Nielsen MD 08/07/24 1504 ? ----- ------- ? END OF REPORT ? us Generic External Data Provider LAB BLOOD ORDERAB LES Final Result [facility] [address] [facility] [place] [phone] from Last 3 Months Insurance [employer] MEDICARE ADVANTAGE HMO Care Teams Rigger Third Relationship Specialty Start Date End Date Apolonia Harding MD [address] [place] [address] PCP - General Family Medicine 05/15/18 Julius Beavers [address] 3[address] [place] [address] Wagon Driver Salesperson Cardiology 08/25/23 Ronald Maxwell MD [address] [place] [address] Urology 11/17/23 Marcelino Purcell [address] [place] [phone] Orthopaedic Surgery 08/24/23 Flor Mason RN Care Manager 04/21/23 Kera Wan MD [address] [phone] 11/15/23 Manisha Henao [facility] [address] [facility] [address] [place] [phone] Orthopaedic Surgery 12/07/23
--- OUTSIDE RECORDS SUMMARY | 2024-09-20 12:32 | XMS_ITS | Encounter Summary ---
Author Organization [employer] Address [facility] [address] [address]t [place] [address] Care Team Providers Care Skein Yarn Dyer Name Role Phone Apolonia Ragland MD Primary Care Provider Julius Beavers Unavailable Ronald Maxwell MD Unavailable [phone] Marcelino Purcell Unavailable Encounter Details Date Type Department Care Team (Late st Contact Info) Description 08/14/2023 Orders Only [facility] 230 [place], [place] [phone] Apolonia Ragland MD 230 [place], [place] [phone] Primary osteoarthritis involving multiple joints Social History [...] 09/30/2024 10:00 AM EDT Clinical Support [address] [address] 11/08/2024 10:15 AM EDT Office Visit [address] [address] Christiano Temple MD [address] [place] [address] 11/14/2024 11:30 AM EDT Office Visit [address] [address] Apolonia Ragland MD [address] [place] [address] documented as of this encounter Visit Diagnoses Diagnosis Primary osteoarthritis involving multiple joints documented in this encounter Care Teams Skein Yarn Dyer Relationship Specialty Start Date End Date Apolonia Ragland MD [address] [place] [address] PCP - General Family Medicine 05/15/18 Julius Beavers [address] 3rd [place] [address] Editor Map Cardiology 08/25/23 Ronald Maxwell MD [address] [place] [address] Urology 11/17/23 Marcelino Purcell 175 [facility] 110 [place] [address] Orthopaedic Surgery 08/24/23 Flor Mason dog bather 04/21/23 Kera Wan MD [facility] 300 [place] [address] 11/15/23 Manisha Henao [facility] 175 [facility] [address] [place] [phone] Orthopaedic Surgery 12/07/23 documented as of this encounter
--- OUTSIDE RECORDS SUMMARY | 2024-09-20 12:32 | XMS_ITS | Encounter Summary ---
Author Organization [employer] Address [address] [facility] [address] 7t [place] [address] Care Team Providers Care Digital Media Associate Name Role Phone Apolonia Ragland MD Primary Care Provider [phone] Julius Beavers Unavailable Ronald Maxwell MD Unavailable [phone] BinhMarcelino Unavailable Encounter Details Date Type Department Care Team (Late st Contact Info) Description 05/23/2023 Orders Only [facility] 230 [place], [place] [phone] Apolonia Ragland MD 230 [place], [place] [phone] Frequent PVCs (Primary Dx) Social History Tobacco [...] Description 09/30/2024 10:00 AM EDT Clinical Support [facility] [address] [place] [address] 11/08/2024 10:15 AM EDT Office Visit [address] [address] Christiano Temple MD [address] [place] [address] 11/14/2024 11:30 AM EDT Office Visit [address] [address] Apolonia Ragland MD [address] [place] [address] documented as of this encounter Visit Diagnoses Diagnosis Frequent PVCs- Primary documented in this encounter Care Teams Digital Media Associate Relationship Specialty Start Date End Date Apolonia Ragland MD [address] [place] [address] PCP - General Family Medicine 05/15/18 Julius Beavers [address] 3rd [place] [address] Construction Coordinator Cardiology 08/25/23 Ronald Maxwell MD [address] [place] [address] Urology 11/17/23 Marcelino Purcell 175 [facility] 110 [place] [address] Orthopaedic Surgery 08/24/23 Flor Mason cellophane tester 04/21/23 Kera Wan MD [facility] 300 [place] [address] 11/15/[address] [facility] 175 [facility] [address] [place] [phone] Orthopaedic Surgery 12/07/23 documented as of this encounter
--- OUTSIDE RECORDS SUMMARY | 2024-09-20 12:32 | XMS_ITS | Encounter Summary ---
Author Organization [employer] Address 75 [facility] 7t [place] [address] Care Team Providers Care Steamfitter Apprentice Name Role Phone Apolonia Ragland MD Primary Care Provider [phone] Julius Beavers Unavailable Ronald Maxwell MD Unavailable [phone] Marcelino Purcell Unavailable Reason for Visit * Reason Onset Date Comments Med Refill 08/16/2022 Encounter Details Date Type Department Care Team (Late st Contact Info) Description 08/16/2022 Telephone [facility] 230 [place], [place] [phone] Apolonia Ragland MD 230 [place], [place] [phone] Med Refill Social History Tobacco Use Types [...] today awaiting approval. * Telephone Encounter - Delilahnavjot Nic Sow - 08/16/2022 10:08 AM EDT Tc from pt request new med refill script for amLODIPine (Norvasc) 2.5 MG tablet Please sent to [facility] - [place], [place] - [address] [place] [address] documented in this encounter Plan of Treatment Upcoming Encounters Date Type Department Care Team (Late st Contact Info) Description 09/30/2024 10:00 AM EDT Clinical Support [address] [address] 11/08/2024 10:15 AM EDT Office Visit [facility] [address] [place] [address] Christiano Temple MD [address] [place] [address] 11/14/2024 11:30 AM EDT Office Visit [address] [address] Apolonia Ragland MD [address] [place] [address] documented as of this encounter Visit Diagnoses Not on filedocumented in this encounter Care Teams Steamfitter Apprentice Relationship Specialty Start Date End Date Apolonia Ragland MD [address] [place] [address] PCP - General Family Medicine 05/15/18 Julius Beavers [address] 3rd [place] [address] Summer Clerk Cardiology 08/25/23 Ronald Maxwell MD [address] [place] [address] Urology 11/17/[address] [facility] 110 [place] [address] Orthopaedic Surgery 08/24/23 Flor Mason data software engineer 04/21/23 Kera Wan MD [address] [address] 11/15/23 Manisha Henao [facility] 175 [facility] [address] [place] [phone] Orthopaedic Surgery 12/07/23 documented as of this encounter
--- OUTSIDE RECORDS SUMMARY | 2024-09-20 12:32 | XMS_ITS | Encounter Summary ---
Author Organization [employer] Address 75 [facility] [address] 7t [place] [address] Care Team Providers Care Foreman Or Supervisor And Operator Name Role Phone Apolonia Ragland MD Primary Care Provider [phone] Julius Beavers Unavailable Ronald Maxwell MD Unavailable [phone] Marcelino Purcell Unavailable Encounter Details Date Type Department Care Team ([facility] Contact Info) Description 06/02/2022 Abstract [facility] [address] [place] [address] Apolonia Ragland MD 230 [place] [address] Social History Tobacco Use Types Packs/Day Years [...] Description 09/30/2024 10:00 AM EDT Clinical Support [facility] 230 [place] [address] 11/08/2024 10:15 AM EDT Office Visit [facility] [address] [place] [address] Christiano Temple MD 230 [place] [address] 11/14/2024 11:30 AM EDT Office Visit [facility] 230 [place] [address] Apolonia Ragland MD 230 [place] [address] documented as of this encounter Visit Diagnoses Not on filedocumented in this encounter Care Teams Foreman Or Supervisor And Operator Relationship Specialty Start Date End Date Apolonia Ragland MD 230 [place] [address] PCP - General Family Medicine 05/15/18 Julius Beavers [address] [facility] [address] [facility] [address] 3rd [place] [address] Clinical Manager Cardiology 08/25/23 Ronald Maxwell MD [address] [place] [address] Urology 11/17/23 Marcelino Purcell 175 [facility] 110 [place] [address] Orthopaedic Surgery 08/24/23 Flor Mason delphi programmer 04/21/23 Kera Wan MD [address] [address] 11/15/23 Manisha Henao [facility] 175 [facility] [address] [place] [address] Orthopaedic Surgery 12/07/23 documented as of this encounter
--- OUTSIDE RECORDS SUMMARY | 2024-09-20 12:32 | XMS_ITS | Encounter Summary ---
Author Organization [employer] Address [address] [facility] [address] 7t [place] [address] Care Team Providers Care Vice President Of Customer Service Name Role Phone Apolonia Ragland MD Primary Care Provider [phone] Julius Beavers Unavailable Ronald Maxwell MD Unavailable [phone] Marcelino Purcell Unavailable Encounter Details Date [...] 09/30/2024 10:00 AM EDT Clinical Support [address] [address] 11/08/2024 10:15 AM EDT Office Visit [address] [address] Christiano Temple MD [address] [place] [address] 11/14/2024 11:30 AM EDT Office Visit [address] [address] Apolonia Ragland MD [address] [place] [address] documented as of this encounter Visit Diagnoses Not on filedocumented in this encounter Additional Health Concerns Assessment Noted Time PHQ-9 Depression Total Score: 3 05/01/20 24 9:55 AM EST documented as of this encounter Care Teams Vice President Of Customer Service Relationship Specialty Start Date End Date Apolonia Ragland MD [address] [place] [address] PCP - General Family Medicine 05/15/18 Julius Beavers [address] 3rd [place] [address] Casino Gaming Worker Cardiology 08/25/23 Ronald Maxwell MD [address] [place] [address] Urology 11/17/[address] 175 [facility] 110 [place] [address] Orthopaedic Surgery 08/24/23 Flor Mason store host 04/21/23 Kera Wan MD [address] [address] 11/15/23 Manisha Henao [facility] 175 [facility] [address] [place] [phone] Orthopaedic Surgery 12/07/23 documented as of this encounter
--- OUTSIDE RECORDS SUMMARY | 2024-09-20 12:32 | XMS_ITS | Encounter Summary ---
Author Organization [employer] Address [address] [facility] [address] 7t [place] [address] Care Team Providers Care Commissions Coordinator Name Role Phone Apolonia Ragland MD Primary Care Provider [phone] Julius Beavers Unavailable Ronald Maxwell MD Unavailable [phone] Marcelino Purcell Unavailable Encounter Details Date Type Department Care Team (Late Contact Info) Description 06/07/[address] [address] Ana [place] LPN Social History Tobacco Use [...] Description 09/30/2024 10:00 AM EDT Clinical Support [address] [address] 11/08/2024 10:15 AM EDT Office Visit [address] [address] Christiano Temple MD 230 [place] [address] 11/14/2024 11:30 AM EDT Office Visit [facility] 230 [place] [address] Apolonia Ragland MD 230 [place], [place] [phone] documented as of this encounter Visit Diagnoses Not on filedocumented in this encounter Care Teams Commissions Coordinator Relationship Specialty Start Date End Date Apolonia Ragland MD 230 [place] [address] PCP - General Family Medicine 05/15/18 Julius Beavers [address] 3rd [place] [address] Dock Associate Cardiology 08/25/23 Ronald Maxwell MD [address] [place] [address] Urology 11/17/23 Marcelino Purcell 175 [facility] 110 [place] [address] Orthopaedic Surgery 08/24/23 Flor Mason RN Care Manager 04/21/23 Kera Wan MD [address] [address] 11/15/23 Manisha Henao [facility] 175 [facility] [address] [place] [phone] Orthopaedic Surgery 12/07/23 documented as of this encounter
--- OUTSIDE RECORDS SUMMARY | 2024-09-20 12:32 | XMS_ITS | Encounter Summary ---
Author Organization [employer] Address [address] [facility] [address] 7t [place] [address] Care Team Providers Care Staffing Consultant Name Role Phone Apolonia Ragland MD Primary Care Provider [phone] Julius Beavers Unavailable Ronald Maxwell MD Unavailable [phone] Marcelino Purcell Unavailable Encounter Details Date Type Department Care Team (Late st Contact Info) Description 09/11/2024 Orders Only [facility] 230 [place], [place] [phone] Apolonia Ragland MD 230 [place], [place] [phone] Nocturia (Primary Dx) Social History Tobacco Use [...] the past 12 months, has t he [employer], gas, oil or water company threatened to [...] Support [facility] [address] [place] [address] 11/08/2024 10:15 AM EDT Office Visit [facility] [address] [place] [address] Christiano Temple MD [address] [place] [address] 11/14/2024 11:30 AM EDT Office Visit [facility] [address] [place] [address] Apolonia Ragland MD [address] [place] [address] Scheduled Orders Name Type Priority Associated Diagnoses [...] documented as of this encounter Care Teams Staffing Consultant Relationship Specialty Start Date End Date Apolonia Ragland MD 230 [place] [address] PCP - General Family Medicine 05/15/18 Julius Beavers [address] 3rd [place] [address] Director Of Clinical Trials Cardiology 08/25/23 Ronald Maxwell MD [address] [place] [address] Urology 11/17/23 Marcelino Purcell 175 [facility] 110 [address] Orthopaedic Surgery 08/24/23 Flor Mason folding machine setter 04/21/23 Kera Wan MD [address] [address] 11/15/23 Manisha Henao [facility] 175 [facility] [address] [place] [phone] Orthopaedic Surgery 12/07/23 documented as of this encounter
--- OUTSIDE RECORDS SUMMARY | 2024-09-20 12:32 | XMS_ITS | Encounter Summary ---
Author Organization [employer] Address [address] [facility] [address] 7t [place] [address] Care Team Providers Care Manager Progressive Care Name Role Phone Apolonia Ragland MD Primary Care Provider [phone] Julius Beavers Unavailable Ronald Maxwell MD Unavailable [phone] Binh, Loyd Unavailable Reason for Visit * Reason Onset Date Comments Nurse Triage 08/16/2023 Encounter Details Date Type Department Care Team (Late st Contact Info) Description 08/16/2023 Telephone [facility] 230 [place], [place] [phone] Apolonia Ragland MD 230 [place], [place] [phone] Nurse Triage Social History Tobacco Use Types [...] EDT Triage call Pt was seen in [facility] [place] ED dx of atrial fibrillation. Pt was prescribed eliquis 5mg bid. Pt had been taking ASA 81mg daily . Pt started eliquis 08/14/23 and stopped ASA the same day. Pt is calling regarding some pinkish/reddish colored urine, neg for burning but, always has frequency. Pt also reports having a bloody nose x1 . Pt is advised to come to [facility] for provider to see Pt. Pt reports is in [place] and will try to come to [facility] open till 8pm and other logan will come to [facility] in the morning opens at 830am. Pt is cautioned to seek eval at ED if bleeding should increase and Pt agrees. Pt does have follow up apt [facility] 08/30[facility]23 and another apt with [facility] 08/21/23. Pt agrees with dispostion. Protocol [...] 09/30/2024 10:00 AM EDT Clinical Support [address] [address] 11/08/2024 10:15 AM EDT Office Visit [address] [address] Christiano Temple MD [address] [place] [address] 11/14/2024 11:30 AM EDT Office Visit [address] [address] Apolonia Ragland MD [address] [place] [address] documented as of this encounter Visit Diagnoses Not on filedocumented in this encounter Care Teams Manager Progressive Care Relationship Specialty Start Date End Date Apolonia Ragland MD [address] [place] [address] PCP - General Family Medicine 05/15/18 Julius Beavers [address] 3rd [place] [address] Neck Band Maker Cardiology 08/25/23 Ronald Maxwell MD [address] [place] [address] Urology 11/17/23 Marcelino Purcell [address] [place] [address] Orthopaedic Surgery 08/24/23 Flor Mason RN Care Manager 04/21/23 Kera Wan MD [facility] [address] [place] [address] 11/15/23 Manisha Henao [facility] [address] [place] [address] [place] [address] Orthopaedic Surgery 12/07/23 documented as of this encounter
--- OUTSIDE RECORDS SUMMARY | 2024-09-20 12:32 | XMS_ITS | Clinical Summary ---
Author Organization [address] [place] [address] Address 175 [place] [address] Phone Care Team Providers Care Domain Architect Name Role Phone Apolonia Ragland MD Primary Care Provider [phone] Allergies Active Allergy Reactions Criticality Noted Date [...] AM EDT Office Visit [facility] [place] [phone] [phone] Marcelino Purcell, DPJaniya [address] [address] Health Maintenance Due Date Last Done Comments [...] complete this topic Insurance MEDICARE Care Teams Domain Architect Relationship Specialty Start Date End Date Apolonia Ragland MD [address] [place] [phone] PCP - General 03/25/13
--- OUTSIDE RECORDS SUMMARY | 2024-09-20 12:32 | XMS_ITS | Encounter Summary ---
Author Organization [employer] Address [address] 7t [place] [address] Care Team Providers Care Funnel Coater Name Role Phone Apolonia Ragland MD Primary Care Provider [phone] Julius Beavers Unavailable Ronald Maxwell MD Unavailable [phone] BinhMarcelino Unavailable Encounter Details Date Type Department Care Team (Late st Contact Info) Description 06/28/2024 Orders Only [facility] MEDICINE [address] [place], [place] [phone] Apolonia Ragland MD [address] [place], [place] [phone] B12 deficiency (Primary Dx); Paroxysmal atrial fibrillation [...] Description 09/30/2024 10:00 AM EDT Clinical Support [address] [address] 11/08/2024 10:15 AM EDT Office Visit [address] [address] Christiano Temple MD [address] [place] [address] 11/14/2024 11:30 AM EDT Office Visit [facility] MEDICINE [address] [place] [address] Apolonia Ragland MD [address] [place] [address] documented as of this encounter Procedures Procedure [...] 1:06 PM EDT) Creatinine, Urine 95.60 mg/dL [facility] Microalbumin Urine 61.0 mg/L H [facility] Microalbum Creatinine Ratio Ur 63.8(H) <30 ug/mg cr [facility] Comment:Albumin/Creatinine R atio Reference Ranges: Normal: < 30 ug/mg creatinine Microalbuminuria: 30 - 300 ug/mg creatinineClinical Albuminuria: > 300 ug/mg creatinine Urine 09/10/2024 1:06 PM EDT 09/10/2024 3:58 PM EDT us Apolonia Ragland MD LAB URINE ORDERABLES Final Resul t [facility] [address] [place] [phone] * (ABNORMAL) Lipid Panel with Reflex to Direct LDL (09/10/2024 1:06 PM EDT) Triglycerides 119 <150 mg/dL [facility] Comment:Desirable Triglyceri de: less than 150 mg/dLBorderline High Triglyceride 150-199 mg/dLHigh Triglyceride: 200-499 mg/dLVery High Triglyceride: greater than or equal to 5OO mg/dL Cholesterol 167 <200 mg/dL [facility] Comment:Desirable Cholestero l: less than 200 mg/dLBorderline High Cholesterol: 200-239 mg/dLHigh Cholesterol: greater than 239 mg/dL LDL Cholesterol Calculated 104(H) <100 mg/dL [facility] Comment:Desirable LDL: less than 100 mg/dLNear Optimal/Above Optimal LDL: 110- 129 mg/dLBorderline High LDL: 130-159 mg/dLHigh LDL: 160-189 mg/dLVery High LDL: greater than or equal to 190 mg/dL HDL Cholesterol 40(L) >40 mg/dL [facility] Comment:Desirable HDL: great er than 40 mg/dL Note: This HDL assay may give artificially low results in patients with liver disease. Blood 09/10/2024 1:06 PM EDT 09/10/2024 3:59 PM EDT us Apolonai Ragland MD LAB BLOOD ORDERABLES Final Resul t [facility] [address] [place] [phone] * (ABNORMAL) Comprehensive Metabolic Panel (09/10/2024 1:06 PM EDT) Sodium 140 135 - 145 mmol/L [facility] Potassium 4.0 3.3 - 5.1 mmol/L [facility] Chloride 105 96 - 108 mmol/L [facility] Carbon Dioxide 28 22 - 29 mmol/L [facility] Anion Gap 11(L) 12 - 20 [facility] Urea Nitrogen (BUN) 11 9 - 16 mg/dL [facility] Creatinine, Serum 0.68 0.5 - 1.4 mg/dL [facility] Estimated Glomerular Filt Rate >60 [facility] Comment:Chronic Kidney Disea se: Estimated GFR < 60 mL/min/[id number] Kidney Disease: Estimated GFR < 15 mL/min/1.73m2 Glucose 98 60 - 115 mg/dL [facility] Calcium 9.0 8.4 - 10.2 mg/dL [facility] Bilirubin, Total 0.8 0.0 - 1.0 mg/dL [facility] Aspartate Amino Transferase 18 5 - 37 U/L [facility] Alanine Aminotransferase 9 0 - 40 U/L [facility] Total Protein 6.9 6.5 - 8.0 g/dL [facility] Albumin Level 4.2 3.5 - 5.0 g/dL [facility] Alkaline Phosphatase 62 39 - 117 U/L [facility] Blood Venous blood specimen / Unknown 09/10/2024 1:06 PM EDT 09/10/2024 3:59 PM EDT us Apolonia Ragland MD LAB BLOOD ORDERABLES Final Resul t [facility] [address] [place] [address] [phone] * (ABNORMAL) CBC auto differential (09/10/2024 1:06 PM EDT) White Blood Count 8.0 4.8 - 10.8 X10*3/uL [facility] Red Blood Count 4.63 4.60 - 5.80 X10*6/uL [facility] Hemoglobin 14.5 14.0 - 18.0 g/dl [facility] Hematocrit 43.6 42.0 - 52.0 % [facility] Mean Corpuscular Volume 94.2 80.0 - 98.0 fL [facility] Mean Corpuscular Hemoglobin 31.3 27.0 - 33.0 pg [facility] Mean Corpuscular HGB Conc 33.3 31.0 - 36.0 g/dl [facility] Red Cell Distribution Width 14.2 11.0 - 16.0 % [facility] Platelet Count 199 160 - 400 X10*3/uL [facility] Mean Platelet Volume 11.0 9.4 - 12.4 fL [facility] Neutrophils Percent Auto 74.4(H) 45 - 73 % [facility] Imm Gran Pct Auto 0.4 0.0 - 0.4 % [facility] Lymphocytes Percent Auto 15.2(L) 20 - 40 % [facility] Monocytes Percent Auto 8.9 2 - 11 % [facility] Eosinophils Percent Auto 0.7 0 - 4 % [facility] Basophils Percent Auto 0.4 0 - 2 % [facility] NRBC Pct Auto 0.0 0.0 - 0.2 /100WBC [facility] Neutrophils Absolute Auto 6.0 2.0 - 8.3 x10*3/uL [facility] Imm Gran Abs Auto 0.03 0.00 - 0.03 X10*3/uL [facility] Lymphocytes Absolute Auto 1.2 1.2 - 4.9 X10*3/uL [facility] Monocytes Absolute Auto 0.7 0.1 - 1.2 X10*3/uL [facility] Eosinophils Absolute Auto 0.1 0.0 - 0.4 X10*3/uL [facility] Basophils Absolute Auto 0.0 0.0 - 0.2 X10*3/uL [facility] NRBC Abs Auto 0.000 0.0 - 0.012 X10*3/uL [facility] Blood Venous blood specimen / Unknown 09/10/2024 1:06 PM EDT 09/10/2024 3:59 PM EDT us Apolonia Ragland MD LAB BLOOD ORDERABLES Final Resul t [facility] [address] [place], [place] [phone] * Vitamin B12 (Cobalamin) and Folate Panel, Serum (09/10/2024 1:06 PM EDT) Vitamin B12 419 200 - 900 pg/mL [facility] Comment:NORMAL 200-900 PG/ML INDETERMINATE 160-199 PG/ML DEFICIENT < 160 PG/ML Folate 8.7 > or = 4.0 ng/mL [facility] Comment:Reference Values:> o r = 4.0 ng/mL< 4.0 ng/mL suggests folate deficiency Methotrexate, aminopterin and folinic acid(leucovorin) are chemotherapeutic agents whose molecularstructures are similar to folate; therefore, the Architectfolate assay cannot be used for patients using these drugs. Blood 09/10/2024 1:06 PM EDT 09/10/2024 3:59 PM EDT Apolonia Ragland MD LAB BLOOD ORDERABLES Final Resul t [facility] [address] [place] [phone] [phone] documented in this encounter Visit Diagnoses Diagnosis B12 deficiency- Primary Paroxysmal atrial fibrillation (CMS/HCC) Atrial fibrillation Essential hypertension Unspecified essential hypertension documented in this encounter Additional Health Concerns Assessment Noted Time PHQ-9 Depression Total Score: 3 05/01/20 24 9:55 AM EST documented as of this encounter Care Teams Funnel Coater Relationship Specialty Start Date End Date Apolonia Ragland MD [address] [place] [address] PCP - General Family Medicine 05/15/18 Julius Beavers [address] 3rd [place] [address] Cornetist Cardiology 08/25/23 Ronald Maxwell MD [address] [place] [address] Urology 11/17/23 Marcelino Purcell 175 [facility] 110 [place] [address] Orthopaedic Surgery 08/24/23 Flor Mason RN Care Manager 04/21/23 Kera Wan MD [address] [address] 11/15/23 Manisha Henao [facility] 175 [facility] [address] [place] [phone] Orthopaedic Surgery 12/07/23 documented as of this encounter
--- OUTSIDE RECORDS SUMMARY | 2024-09-20 12:32 | XMS_ITS | Encounter Summary ---
Author Organization [employer] Address [address] [place] [address] 7t [place] [address] Care Team Providers Care Chicken Sexer Name Role Phone Apolonia Ragland MD Primary Care Provider [phone] Julius Beavers Unavailable Ronald Maxwell MD Unavailable Marcelino Purcell Unavailable Encounter Details Date Type Department Care Team (Late Contact Info) Description 10/11/2022 [facility] Information Management 230 [place] [address] Apolonia Ragland MD 230 [place] [address] Social History Tobacco Use Types Packs/Day Years [...] AM EDT Clinical Support [facility] [place] [address] 11/08/2024 10:15 AM EDT Office Visit [address] [address] Christiano Temple MD 230 [place] [address] 11/14/2024 11:30 AM EDT Office Visit [facility] [place] [address] Apolonia Ragland MD 230 [place] [address] documented as of this encounter Visit Diagnoses Not on filedocumented in this encounter Care Teams Chicken Sexer Relationship Specialty Start Date End Date Apolonia Ragland MD 230 [place] [address] PCP - General Family Medicine 05/15/18 Julius Beavers [address] 3rd [place] [address] Rim Technician Cardiology 08/25/23 Ronald Maxwell MD [address] [place] [address] Urology 11/17/23 Marcelino Purcell 175 [facility] 110 [place] [address] Orthopaedic Surgery 08/24/23 Flor Mason RN Care Manager 04/21/23 Kera Wan MD [address] [address] 11/15/23 Manisha Henao [facility] 175 [facility] [address] [place] [phone] Orthopaedic Surgery 12/07/23 documented as of this encounter
--- OUTSIDE RECORDS SUMMARY | 2024-09-20 12:32 | XMS_ITS | Encounter Summary ---
Author Organization [employer] Address [address] 7t [place] [address] Care Team Providers Care Rotary Driller Name Role Phone Apolonia Ragland MD Primary Care Provider [phone] Julius Beavers Unavailable Ronald Maxwell MD Unavailable [phone] Marcelino Purcell Unavailable Reason for Visit * Reason Comments Foot Pain Encounter Details Date Type Department Care Team (Late st Contact Info) Description 09/20/2024 10:40 AM EDT Office Visit [facility] 230 [place] [address] Pain in toe of right foot (Primary [...] Description 09/30/2024 10:00 AM EDT Clinical Support [facility] MEDICINE [address] [place] [address] 11/08/2024 10:15 AM EDT Office Visit [facility] MEDICINE [address] [place] [address] Christiano Temple MD 230 [place] [address] 11/14/2024 11:30 AM EDT Office Visit [facility] MEDICINE 230 [place] [address] Apolonia Ragland MD 230 [place] [address] Scheduled Orders Name Type Priority Associated Diagnoses [...] documented as of this encounter Care Teams Rotary Driller Relationship Specialty Start Date End Date Apolonia Ragland MD 230 [place] [address] PCP - General Family Medicine 05/15/18 Julius Beavers [address] 3rd [place] [address] Administrative Officer Cardiology 08/25/23 Ronald Maxwell MD [address] [place] [address] Urology 11/17/23 Marcelino Purcell 175 [facility] 110 [place] [address] Orthopaedic Surgery 08/24/23 Flor Mason RN Care Manager 04/21/23 Kera Wan MD [address] [address] 11/15/23 Manisha Henao [facility] 175 [facility] [address] [place] [phone] Orthopaedic Surgery 12/07/23 documented as of this encounter
--- OUTSIDE RECORDS SUMMARY | 2024-09-20 12:32 | XMS_ITS | Encounter Summary ---
Author Organization [employer] Address [address] 7t [place] [address] Care Team Providers Care Refueling Ramp Supervisor Name Role Phone Apolonia Ragland MD Primary Care Provider [phone] Julius Beavers Unavailable Ronald Maxwell MD Unavailable [phone] Binh, Loyd Unavailable Reason for Visit * Reason Onset Date Comments Nurse Triage 09/28/2023 Encounter Details Date Type Department Care Team (Late st Contact Info) Description 09/28/2023 Telephone [facility] MEDICINE 230 [place], [place] [phone] Apolonia Ragland MD 230 [place], [place] [phone] Nurse Triage Social History Tobacco Use Types [...] accepted this outcome Please contact pt at [phone] documented in this encounter Plan of Treatment Upcoming Encounters Date Type Department Care Team (Late st Contact Info) Description 09/30/2024 10:00 AM EDT Clinical Support [address] [address] 11/08/2024 10:15 AM EDT Office Visit [facility] MEDICINE [address] [place] [address] Christiano Temple MD [address] [place] [address] 11/14/2024 11:30 AM EDT Office Visit [facility] MEDICINE [address] [place] [address] Apolonia Ragland MD [address] [place] [address] documented as of this encounter Visit Diagnoses Not on filedocumented in this encounter Care Teams Refueling Ramp Supervisor Relationship Specialty Start Date End Date Apolonia Ragland MD [address] [place] [address] PCP - General Family Medicine 05/15/18 Julius Beavers [address] 3rd [place] [address] Aquatic Performer Cardiology 08/25/23 Ronald Maxwell MD [address] [place] [address] Urology 11/17/[address] [facility] 110 [place] [address] Orthopaedic Surgery 08/24/23 Flor Mason strategic planner 04/21/23 Kera Wan MD [facility]OS [address] [place] [phone] 11/15/23 Manisha Henao [facility] 175 [facility] [address] [place] [phone] Orthopaedic Surgery 12/07/23 documented as of this encounter
--- OUTSIDE RECORDS SUMMARY | 2024-09-20 12:32 | XMS_ITS | Encounter Summary ---
Author Organization [employer] Address [address] [facility] 7t [place] [address] Care Team Providers Care Timber Trimmer Name Role Phone Apolonia Ragland MD Primary Care Provider [phone] Julius Beavers Unavailable Ronald Maxwell MD Unavailable [phone] BinhMarcelino Unavailable Reason for Visit * Reason Comments Med Refill Encounter Details Date Type Department Care Team (Late st Contact Info) Description 09/19/2024 Refill [facility] MEDICINE 230 [place], [place] [phone] Apolonia Ragland MD 230 [place], [place] [phone] Social History Tobacco Use Types Packs/Day Years [...] the past 12 months, has t he [employer], gas, oil or water company threatened to [...] Clinical Support [facility] MEDICINE [address] [place] [address] 11/08/2024 10:15 AM EDT Office Visit [facility] MEDICINE [address] [place] [address] Christiano Temple MD [address] [place] [address] 11/14/2024 11:30 AM EDT Office Visit [facility] MEDICINE [address] [place] [address] Apolonia Ragland MD [address] [place] [address] documented as of this encounter Visit Diagnoses Not on filedocumented in this encounter Additional Health Concerns Assessment Noted Time PHQ-9 Depression Total Score: 3 05/01/20 24 9:55 AM EST documented as of this encounter Care Teams Timber Trimmer Relationship Specialty Start Date End Date Apolonia Ragland MD 230 [place] [address] PCP - General Family Medicine 05/15/18 Julius Beavers [address] 3rd [place] [address] Delivery Crew Member Cardiology 08/25/23 Ronald Maxwell MD [address] [place] [address] Urology 11/17/23 Marcelino Purcell 175 [facility] 110 [place] [address] Orthopaedic Surgery 08/24/23 Flor Mason RN Care Manager 04/21/23 Kera Wan MD [address] [address] 11/15/23 Manisha Henao [facility] 175 [facility] [address] [place] [phone] Orthopaedic Surgery 12/07/23 documented as of this encounter
--- OUTSIDE RECORDS SUMMARY | 2024-09-20 12:32 | XMS_ITS | Encounter Summary ---
Author Organization [employer] Address [address] [facility] [address] 7t [place] [address] Care Team Providers Care Military Equipment Specialist Name Role Phone Apolonia Ragland MD Primary Care Provider [phone] Julius Beavers Unavailable Ronald Maxwell MD Unavailable [phone] BinhMarcelino Unavailable Reason for Visit * Reason Onset Date Comments Referral 05/22/2023 Encounter Details Date Type Department Care Team (Late st Contact Info) Description 05/22/2023 Telephone [facility] MEDICINE 230 [place], [place] [phone] Apolonia Ragland MD 230 [place], [place] [phone] Referral Social History Tobacco Use Types Packs/Day [...] scheduled was canceled. Please contact pt @ [phone] documented in this encounter Plan of Treatment Upcoming Encounters Date Type Department Care Team (Late st Contact Info) Description 09/30/2024 10:00 AM EDT Clinical Support [facility] MEDICINE [address] [place] [address] 11/08/2024 10:15 AM EDT Office Visit [facility] MEDICINE [address] [place] [address] Christiano Temple MD [address] [place] [address] 11/14/2024 11:30 AM EDT Office Visit [facility] MEDICINE [address] [place] [address] Apolonia Ragland MD [address] [place] [address] documented as of this encounter Visit Diagnoses Not on filedocumented in this encounter Care Teams Military Equipment Specialist Relationship Specialty Start Date End Date Apolonia Ragland MD [address] [place] [address] PCP - General Family Medicine 05/15/18 Julius Beavers [address] 3rd [place] [address] Supervisor Train Operations Cardiology 08/25/23 Ronald Maxwell MD [address] [place] [address] Urology 11/17/23 Marcelino Purcell 175 [facility] 110 [place] [address] Orthopaedic Surgery 08/24/23 Flor Mason RN Care Manager 04/21/23 Kera Wan MD [facility] 300 [place] [address] 11/15/23 Manisha Henao [facility] 175 [facility] [address] [place] [phone] Orthopaedic Surgery 12/07/23 documented as of this encounter
--- OUTSIDE RECORDS SUMMARY | 2024-09-20 12:32 | XMS_ITS | Encounter Summary ---
Author Organization [email or web address] Address [address] [facility] [address] [facility] [address]t [place] [address] Care Team Providers Care Senior Net Software Engineer Name Role Phone Apolonia Ragland MD Primary Care Provider Julius Beavers Unavailable Ronald Maxwell MD Unavailable [phone] Binh, Marcelino Unavailable Reason for Visit * Reason Onset Date Comments Lab Orders 01/19/2024 Encounter Details Date Type Department Care Team (Late st Contact Info) Description 01/19/2024 Telephone [facility] MEDICINE 230 [place], [place] [phone] Apolonia Ragland MD 230 [place], [place] [phone] Lab Orders Social History Tobacco Use Types [...] 09/30/2024 10:00 AM EDT Clinical Support [address] [address] 11/08/2024 10:15 AM EDT Office Visit [address] [address] Christiano Temple MD [address] [place] [address] 11/14/2024 11:30 AM EDT Office Visit [address] [address] Apolonia Ragland MD [address] [place] [address] documented as of this encounter Visit Diagnoses Not on filedocumented in this encounter Care Teams Senior Net Software Engineer Relationship Specialty Start Date End Date Apolonia Ragland MD 230 [place] [address] PCP - General Family Medicine 05/15/18 Julius Beavers [address] 3rd [place] [address] Nursing Care Attendant Cardiology 08/25/23 Ronald Maxwell MD [address] [place] [address] Urology 11/17/23 Marcelino Purcell 175 [facility] 110 [place] [address] Orthopaedic Surgery 08/24/23 Flor Mason product support engineer 04/21/23 Kera Wan MD [address] [address] 11/15/23 Manisha Henao [facility] 175 [facility] [address] [place] [phone] Orthopaedic Surgery 12/07/23 documented as of this encounter
== END 2024-09-20 12:19 | disposition home or self-care (01) ==
LOC: HO.HHCL 12:18
PROVIDERS: Visit Provider Family Medicine
DX: Z13.89 Encounter for screening for other disorder (principal)

== ENCOUNTER 2024-11-06 11:03 | Outpatient (AMB) | payer MEDICARE, SELFPAY ==
--- NOTE | 2024-11-06 11:06 | A.OFFVIS_ITS ---
Intake Visit Reasons: follow up oncology Intake Note: Patient is present via telehealth for a follow up Bca , urgency Urology Medication:Tamsulosin ,Azo Antibiotic Allergy:TETRACYCLINE Blood Thinner:eliquis Ladies' Locker Room Attendant Required: No Accompanied by: Self / Same As Patient Allergies tetracycline (TETRACYCLINE) Allergy (Intermediate, Verified 11/06/24 11:14) RASH HPI Comments Details: Colton is a pleasant male. He is a patient of Dr. Ragland. He has seen for the following urologic conditions. - hematuria - bladder cancer Follow-up from induction Has had some urgency and frequency Tolerated 5 total doses Will have him follow-up in 3 months for office cystoscopy Imaging stable - 05/07 CT Urinary bladder is unremarkable. No focal bladder wall thickening identified. Prostate calcifications present. No inguinal or pelvic lymphadenopathy. 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 TURBT 2019 high-grade T1 TURBT 08/06 Procedure: Transurethral resection Tumor site: Multiple sites Histologic type: Papillary carcinoma Histologic grade: High grade Muscularis propria: Present Extent of invasion: Lamina propria Lymphovascular invasion: Not identified Induction mitomycin-C with cytarabine PFSH Medical History Bilateral tinnitus Ascending aorta dilatation Afib Arrhythmia Epistaxis Hypersomnia Paroxysmal atrial fibrillation Subdural hematoma History of kidney stones Dysthymic disorder Calculus of gallbladder without cholangitis or cholecystitis Ganglion cyst of finger of left hand B12 deficiency Sensorineural hearing loss Pes planovalgus Malignant neoplasm of urinary bladder Actinic keratosis Osteoarthritis Depression Allergic rhinitis Primary osteoarthritis involving multiple joints Pulmonary hypertension Essential hypertension Pain, dental GERD (gastroesophageal reflux disease) Frequent PVCs Surgical History Hx of tonsillectomy Social History Alcohol intake: never Comment: slippery outside Patient Tobacco Use Status: Former Tobacco user Review of Systems Const Denies chills and Denies fever(s) Card Reports no additional complaints and Denies syncope Resp Denies cough GI Denies abdominal pain and Denies heartburn Reports as per HPI and Denies change in libido Neuro Denies syncope Psych Denies change in libido Endo Denies change in libido Physical Exam Const General: cooperative, healthy appearing, comfortable and no acute distress Orientation/consciousness: patient oriented x3 HEENT Face and sinus: Yes normal facial exam Mouth: moist mucous membranes Neck Neck: Yes normal visual inspection, Yes full ROM and Yes trachea midline Chest Chest palpation & inspection: normal inspection of the chest Resp Effort & Inspection: normal respiratory effort, able to speak in complete sentences and no respiratory distress GI Inspection: Yes normal to inspection Back/Spine/Pelvis Cervical Spine: normal cervical lordosis Thoracic/Lumbar Spine: thoracic and lumbar spine normal to inspection Skin General skin exam: no rashes or lesions noted Neuro General: patient oriented x3, gait normal, tone normal and moves all extremities Extrem General: Yes normal to inspection and Yes capillary refill normal Results AMB Urinalysis, Automated UA Leukoctes 70 Leila/uL Last Edit by Shena Delgado MA on 11/06/24 12:16 UA Nitrite Negative Last Edit by Shena Delgado MA on 11/06/24 12:16 UA Urobilinogen 3.5 mg/dL Last Edit by Shena Delgado MA on 11/06/24 12:16 UA Protein 0 mg/dL Last Edit by Shena Delgado MA on 11/06/24 12:16 UA pH 6.0 Last Edit by Shena Delgado MA on 11/06/24 12:16 UA Blood 0 Diego/uL Last Edit by Shena Delgado MA on 11/06/24 12:16 UA Specific [place] 1.010 Last Edit by Shena Delgado MA on 11/06/24 12:16 UA Ketone Negative Last Edit by Shena Delgado MA on 11/06/24 12:16 UA Bilirubin 0 mg/dL Last Edit by Shena Delgado MA on 11/06/24 12:16 UA Glucose 0 mg/dL Last Edit by Shena Delgado MA on 11/06/24 12:16 Results Reviewed Results Reviewed: Laboratory Last Values Urine pH (Auto) 6.0 11/06/24 11:24 Specific [place] (Auto) 1.010 11/06/24 11:24 Urine Protein (Auto) 0 mg/dL 11/06/24 11:24 Glucose (UA)(Auto) 0 mg/dL 11/06/24 11:24 Urine Ketones (Auto) Negative 11/06/24 11:24 Urine Blood (Auto) 0 Diego/uL 11/06/24 11:24 Urine Nitrite (Auto) Negative 11/06/24 11:24 Urine Bilirubin (Auto) 0 mg/dL 11/06/24 11:24 Urine Urobilinogen (Auto) 3.5 mg/dL 11/06/24 11:24 Leukocyte Esterase (Auto) 70 Leila/uL 11/06/24 11:24 Assessment & Plan Assessment & Plan (1) Malignant neoplasm of urinary bladder: Code(s): C67.9 - Malignant neoplasm of bladder, unspecified Category: Medical (2) Urinary urgency: Code(s): R39.15 - Urgency of urination Category: Medical Plan Refill Flomax Orders: Orders AMB Urinalysis Automated Today Z13.9 - Encounter for screening, unspecified Medications: Refilled tamsulosin (Flomax) 0.4 mg PO BEDTIME 30 tabs 1RF 30 days R39.15 - Urgency of urination Patient Instructions: This note is constructed using voice recognition software. While every effort has been made to ensure accuracy sock turner errors may have been included. Imaging studies, laboratory and physical exam results were discussed and reviewed in detail. No major barriers to patient understanding were identified. An opportunity to ask questions regarding the treatment plan was provided. All questions were answered. The patient expressed understanding and agreement with the above treatment plan. The patient is aware they should contact our office by phone for worsening of their current condition or the appearance of new urologic symptoms. Compliance is encouraged with any medications and followup testing that is ordered. It is a privilege to participate in the urologic care of your patient. If you have any questions or concerns regarding treatment for the above conditions, or other urologic issues, please do not hesitate to contact me. The office telephone contact is [phone]. Sincerely, Dr Ronald Maxwell MD, [facility] - Urology Compassionate Specialist Care for the Genitourinary System Coding Level of Care Code Est Pt Level 3 (77136) Diagnoses Malignant neoplasm of urinary bladder C67.9 Urinary urgency R39.15
--- OUTSIDE RECORDS SUMMARY | 2024-11-06 13:09 | XMS_ITS | Encounter Summary ---
Author Organization [employer] Address [address] [place] [address] 7 [place] [address] Care Team Providers Care Binder Layer Name Role Phone Apolonia Ragland MD Primary Care Provider [phone] Julius Beavers Unavailable Ronald Maxwell MD Unavailable [phone] Binh, Loyd Unavailable Reason for Visit * Reason Onset Date Comments Returning Call 03/19/2024 Encounter Details Date Type Department Care Team (Late st Contact Info) Description 03/19/2024 Telephone [facility] MEDICINE [address] [place], [place] [phone] Apolonia Ragland MD [address] [place], [place] [phone] Returning Call Social History Tobacco Use Types [...] outreach. Pt stated she received message in costa rican, he stated he does not speak or read costa rican and requestsfurther messages to be sent in tajik. documented in this encounter Plan of Treatment Upcoming Encounters Date Type Department Care Team (Late st Contact Info) Description 11/06/2024 3:00 PM EDT Clinical Support [address] [address] 11/08/2024 10:15 AM EDT Office Visit [address] [address] Christiano Temple MD [address] [place] [phone] 11/14/2024 11:30 AM EDT Office Visit [address] [address] Apolonia Ragland MD [address] [place] [phone] documented as of this encounter Visit Diagnoses Not on filedocumented in this encounter Care Teams Binder Layer Relationship Specialty Start Date End Date Apolonia Ragland MD [address] [place] [address] PCP - General Family Medicine 05/15/18 Julius Beavers [address] [place] [address] Neighborhood Conservation Officer Cardiology 08/25/23 Ronald Maxwell MD [address] [place] [address] Urology 11/17/23 Marcelino Purcell [address] [facility] [address] [place] [address] Orthopaedic Surgery 08/24/23 Flor Mason laborer livestock 04/21/23 Kera Wan MD [facility] [address] [place] [phone] 11/15/23 Manisha Henao [facility] [address] [facility] [address] [place] [address] Orthopaedic Surgery 12/07/23 documented as of this encounter
== END 2024-11-06 12:03 | disposition home or self-care (01) ==
LOC: HO.HUSH 11:04
PROVIDERS: Visit Provider Urology
DX: C67.9 Malignant neoplasm of bladder, unspecified (principal); R39.15 Urgency of urination; Z13.9 Encounter for screening, unspecified
CPT/HCPCS: 99213

== ENCOUNTER → 2024-11-06 11:03 | Outpatient (BNVA) | payer MEDICARE, SELFPAY | PROVIDERS: Visit Provider Urology | DX: C67.9 Malignant neoplasm of bladder, unspecified (principal); R39.15 Urgency of urination | CPT/HCPCS: 81003; 99212 ==

== ENCOUNTER 2024-12-26 13:27 | Outpatient (AMB) | payer MEDICARE, SELFPAY ==
--- NOTE | 2024-12-26 13:55 | MHC.OFFVIS ---
Vital Signs 12/26/24 13:56 Height 5 ft 4 in Weight 176 lb 12.972 oz BMI 30.3 BP 108/62 Blood Pressure Location Lt brachial Position Sitting Pulse 57 Pulse Source Monitor Intake Visit Reasons: 4 mth f/up Color Checker Required: No Allergies tetracycline (TETRACYCLINE) Allergy (Intermediate, Verified 12/26/24 13:59) RASH Medication List - Last Reconciled 12/26/24 by Diamond Ventura [facility]-C acetaminophen 500 - 1,000 mg PO BID PRN amlodipine 2.5 mg PO DAILY ammonium lactate 12% 1 appl topical DAILY apixaban (Eliquis) 2.5 mg PO ONCE cholecalciferol (vitamin D3) (Vitamin D3) 25 mcg PO DAILY cyanocobalamin (vitamin B-12) 1,000 mcg IM QMONTH fluticasone propionate 50 mcg/actuation 1 spray intranasal BID loratadine (Allergy Relief (loratadine)) 10 mg PO DAILY tamsulosin (Flomax) 0.4 mg PO BEDTIME 30 days HPI HPI 4 mth f/up: Details: Colton is 84-year-old male with past medical history of hypertension, bladder cancer, paroxysmal AFib, epistaxis who presents for follow-up. Today he reports that he has been taking a half a tablet of Eliquis once a day. He did have cauterization in the left side of his nose. He continues to have more mild intermittent epistaxis episodes. He has not had any recent issues with hematuria. He is aware of the stroke risk that he carries on this low dose Eliquis. He has not had neurological changes, speech disturbances. He has not felt any heart palpitations, no lightheadedness, presyncope, syncope. No chest discomfort at rest or with activity. No shortness of breath, PND, orthopnea. He does get some swelling in his legs which is not new. He reports light physical activities only. [facility] Medical History Bilateral tinnitus Ascending aorta dilatation Afib Arrhythmia Epistaxis Hypersomnia Paroxysmal atrial fibrillation Subdural hematoma History of kidney stones Dysthymic disorder Calculus of gallbladder without cholangitis or cholecystitis Ganglion cyst of finger of left hand B12 deficiency Sensorineural hearing loss Pes planovalgus Malignant neoplasm of urinary bladder Actinic keratosis Osteoarthritis Depression Allergic rhinitis Primary osteoarthritis involving multiple joints Pulmonary hypertension Essential hypertension Pain, dental GERD (gastroesophageal reflux disease) Frequent PVCs Surgical History Hx of tonsillectomy Social History Alcohol intake: never Comment: slippery outside Patient Tobacco Use Status: Former Tobacco user Review of Systems Const All systems reviewed & are unremarkable except as noted in HPI and below ENT Denies dizziness Card Denies chest pain, Denies chest pain at rest, Denies chest pain with activity, Denies rapid heart rate, Denies pedal edema, Denies edema, Denies leg edema, Denies lightheadedness, Denies palpitations, Denies dyspnea, Denies dyspnea on exertion and Denies orthopnea Resp Denies cough, Denies dyspnea and Denies dyspnea on exertion GI Denies hematochezia and Denies change in stool character Musc Denies abnormal gait, Denies limited range of motion, Denies muscle cramps, Denies muscle weakness, Denies numbness, Denies radiating pain into limb, Denies stiffness and Denies tingling Neuro Denies abnormal gait, Denies dizziness, Denies numbness and Denies tingling Endo Denies palpitations Physical Exam Vital Signs: Last Vital Signs Pulse 57 12/26/24 13:56 BP 108/62 12/26/24 13:56 BMI result Body Mass Index 30.3 Const General: cooperative, healthy appearing, comfortable and no acute distress Orientation/consciousness: patient oriented x3 Neck Neck: Yes normal visual inspection and Yes no JVD Resp Effort & Inspection: normal respiratory effort Auscultation: clear to auscultation bilaterally, no rales, no rhonchi and no wheezes Cardio Rate: regular rate Rhythm: abnormal rhythm Heart sounds: S1 normal heart sound present, S2 normal heart sound present, no murmurs and no rubs Neuro General: patient oriented x3 Extrem General: Yes normal to inspection and No no pedal edema Psych Appearance: grossly normal Mental Status: mental status grossly normal Speech and movement: Normal speech and movement present Office Procedures EKG Details: Today, read by me, sinus bradycardia, rate 57, Qtc 404ms [id number], Complete Assessment & Plan Assessment & Plan (1) Paroxysmal atrial fibrillation: Comment: follows with [facility] Code(s): I48.0 - Paroxysmal atrial fibrillation Category: Medical Plan: History of paroxysmal atrial fibrillation, asymptomatic and currently treated with heart rate control. Echocardiogram done 10/06/2023 showed EF 55-60%, left atrium moderately dilated. Nuclear stress test done 10/13/2023 showed normal myocardial perfusion imaging. Holter monitor 09/12/2024 for 3 days shows sinus rhythm alternating with atrial fibrillation/flutter, average rate 69, AFib burden 43% with longest episode 11 hours 31 minutes, fastest 107 beats per minute. Ventricular ectopy burden 1.7%. He has not required any rate slowing medications. Currently taking Eliquis 2.5 mg once daily. He should be on 5 mg b.i.d.. He has had issues with epistaxis and previously with hematuria. Instructed him to go back to ENT provider to discuss further cauterization.Stroke risk while on suboptimal doses of anticoagulation reviewed with him in detail and he states understanding. Watchman procedure discussed with him and he is reluctant at this time. EKG done today is showing sinus rhythm, rate 57. Will check with his primary clinical resource director about possible rhythm control. Cardiology follow up 3 mo, sooner if needed (2) Epistaxis: Code(s): R04.0 - Epistaxis Category: Medical Plan: As above (3) Malignant neoplasm of urinary bladder: Code(s): C67.9 - Malignant neoplasm of bladder, unspecified Category: Medical Plan: Being treated by Dr. Maxwell. (4) Anticoagulant long-term use: Code(s): Z79.01 - group home (current) use of anticoagulants Category: Medical Plan: As above. Plan I discussed with the patient the ongoing issue of epistaxis and the need to reconsult an ENT specialist since bleeding persists. We reviewed the use of a Watchman device as an alternative to blood thinners for bleeding cannot be controlled. I emphasized the importance of managing atrial fibrillation to reduce stroke risk and suggested maintaining regular follow-ups with his primary clinical resource director to explore medication options. I provided a pamphlet on the Watchman device to help him understand the procedure and its benefits. Patient Instructions: - Follow up with ENT specialist for nosebleeds. - Recommended Eliquis dose 5 mg b.i.d. - Increased stroke risk with lower doses present. - Discuss atrial fibrillation management with primary clinical resource director. - Consider Watchman device if advised by clinical resource director. Patient was informed and verbally consented to the use of an ambient scribe for clinic note documentation during this visit. Visit time spent on chart review, interview, assessment, orders, documentation. Coding Level of Care Code Est Pt Level 4 (34428) Complex EM visit Add On G2211 Diagnoses Paroxysmal atrial fibrillation I48.0 Epistaxis R04.0 Malignant neoplasm of urinary bladder C67.9 Anticoagulant long-term use Z79.01 CPT Codes EKG - CPT: 74644-[id number], Complete ([id number]) Time Spent (min) 28
[2024-12-26 13:56] VITALS: BP 108/62; PULSE 57; BMI 30.3
--- OUTSIDE RECORDS SUMMARY | 2024-12-26 14:20 | XMS_ITS | Clinical Summary ---
Author Organization [facility] Address [address] [place], [place] [id number] Phone Care Team Providers Care Payroll Director Name Role Phone Unavailable Primary Care Provider Unavailabl e Social History Tobacco Use Types Packs/Day Years Used Date Smoking Tobacco: Never Assessed Education Answer Date Recorded Are you interested in more education? Not on marcel e 09/09/2022 Are you concerned about learning? Not on file 09/09/2022 No 09/09/2022 No 09/09/2022 Digital Access Answer Date Recorded No 10/11/2022 No 10/11/2022 No 10/11/2022 Reliable internet access at home? Not on file 10/11/2022 Device with a working camera? Not on file Sex and Gender Information Value Date Recorded Sex Assigned at Not on file Legal Sex Male 11:04 AM EDT Gender Identity Not on file Sexual Orientation Not on file Plan of Treatment Not on file Medical Devices Not on file Insurance MEDICARE PART A & B [facility] FULL MEDICARE PART A & B [facility]alcerion [facility] FULL MEDICARE PART A & B HEALTH SAFETY NET FULL MEDICARE PART A & B HEALTH SAFETY NET FULL MEDICARE PART A & B [employer] NET FULL MEDICARE PART A & B Healcerion SAF[employer] NET FULL MEDICARE PART A & B NET FULL MEDICARE PART A & B FULL MEDICARE PART A & B [facility] FULL Additional Source Comments The information contained in this document represents components of the legal health record. It is not the complete legal health record.[facility]
--- OUTSIDE RECORDS SUMMARY | 2024-12-26 14:20 | XMS_ITS | Encounter Summary ---
Author Organization [employer] Address [address] [place] [address] 7 [place] [address] Care Team Providers Care Heddler Tier Name Role Phone Apolonia Ragland MD Primary Care Provider [phone] Julius Beavers Unavailable Ronald Maxwell MD Unavailable [phone] Binh, Loyd Unavailable Reason for Visit * Reason Onset Date Comments Returning Call 03/19/2024 Encounter Details Date Type Department Care Team (Late st Contact Info) Description 03/19/2024 Telephone [facility] MEDICINE [address] [place], [place] [phone] Apolonia Ragland MD [address] [place], [place] [phone] Returning Call Social History Tobacco Use Types [...] outreach. Pt stated she received message in portuguese, he stated he does not speak or read portuguese and requestsfurther messages to be sent in british. documented in this encounter Plan of Treatment Upcoming Encounters Date Type Department Care Team (Late st Contact Info) Description 01/09/2025 1:00 PM EDT Clinical Support [address] [address] 01/10/2025 11:00 AM EDT Office Visit [facility] MEDICINE [address] [place] [address] Christiano Temple MD [address] [place] [phone] documented as of this encounter Visit Diagnoses Not on filedocumented in this encounter Care Teams Heddler Tier Relationship Specialty Start Date End Date Apolonia Ragland MD [address] [place] [address] PCP - General Family Medicine 05/15/18 Julius Beavers [address] [place] [address] Senior Staff Specialized Employment Cardiology 08/25/23 Ronald Maxwell MD [address] [place] [address] Urology 11/17/23 Binh Marcelino 175 [facility] [address] [place] [address] Orthopaedic Surgery 08/24/23 Flor Mason RN Care Manager 04/21/23 Kear Wan MD [address] [phone] 11/15/23 Manisha Henao [facility] [address] [facility] [address] [place] [phone] Orthopaedic Surgery 12/07/23 documented as of this encounter
--- OUTSIDE RECORDS SUMMARY | 2024-12-26 14:20 | XMS_ITS | Clinical Summary ---
Author Organization [address] [place] [address] Address [address] [place] [address] Phone Care Team Providers Care Quality Control Operator Name Role Phone Apolonia Ragland MD Primary Care Provider [phone] Allergies Active Allergy Reactions Criticality Noted Date [...] 04/10/2024 1:38 PM EST Plan of Treatment Health Maintenance Due Date Last Done Comments Zoster Vaccines (1 of 2) 1991 RSV Immunization Adult Patients (1 - 1-dose 75+ series) 2016 DTaP,Tdap,and Td Vaccines (3 - Td or Tdap) 08/11/2021 08/12/2011, 06/09/2006 Cholesterol Screening (Lipid Panel) 12/12/2023 Falls Risk Assessment 12/12/2023 Hypertension/CHF/CAD Annual BMP Blood Test 12/12/2023 Medicare Annual Wellness Visit 12/12/2023 Social Influencers of Health Screening 12/12/2023 COVID-19 Vaccine ( season) 2024 07/28/2020, 06/30/2020 Depression Screening 05/15/2024 Influenza Vaccine (#1) 2025 9, 04/10/2017, 04/20/2016, Additional history exists Hepatitis [...] complete this topic Insurance MEDICARE Care Teams Quality Control Operator Relationship Specialty Start Date End Date Apolonia Ragland MD [address] [place] [phone] PCP - General 03/25/13
== END 2024-12-26 14:35 | disposition home or self-care (01) ==
LOC: HO.HCS 13:28
PROVIDERS: PCP Family Medicine; Visit Provider Nurse Practitioner Family
DX: R00.1 Bradycardia, unspecified (principal)
CPT/HCPCS: 93010

== ENCOUNTER → 2024-12-26 13:27 | Outpatient (BNVA) | payer MEDICARE, SELFPAY | PROVIDERS: PCP Family Medicine; Visit Provider Nurse Practitioner Family | DX: I48.0 Paroxysmal atrial fibrillation (principal); R04.0 Epistaxis; C67.9 Malignant neoplasm of bladder, unspecified; Z79.01 Long term (current) use of anticoagulants; R00.1 Bradycardia, unspecified | CPT/HCPCS: 93005; 99212 ==

== ENCOUNTER 2025-02-17 13:13 | Outpatient (REF) | payer MEDICARE, OTHER, SELFPAY ==
--- OUTSIDE RECORDS SUMMARY | 2025-02-15 10:20 | XMS_ITS | Encounter Summary ---
Author Organization [employer] Address [address] 7t [place] [address] Care Team Providers Care Jig Fitter Name Role Phone Apolonia Ragland MD Primary Care Provider [phone] Julius Beavers Unavailable Ronald Maxwell MD Unavailable [phone] Marcelino Purcell Unavailable Encounter Details Date Type Department Care Team (Late st Contact Info) Description 02/15/2025 10:20 AM EDT Office Visit [facility] [address] [place], [place] [phone] Jacques Foster MD 230 [place], [place] [phone] Laceration of right thumb without damage to nail, foreign body presence unspecified, initial encounter (Primary Dx); Rash Social History Tobacco Use Types Packs/Day Years [...] Sign Reading Time Taken Comments Blood Pressure 111/81 02/15/2025 10:14 AM EDT Pulse 83 02/15/2025 10:14 AM EDT Temperature 36.2 C (97.1 F) 02/15/2025 10:14 AM EDT Respiratory Rate 19 02/15/2025 10:14 AM EDT Oxygen Saturation 98% 02/15/2025 10:14 AM EDT Inhaled Oxygen Concentration - - Weight 78 kg (172 lb) 02/15/2025 10:14 AM EDT Height 167.6 cm (5' 6 ) 02/15/2025 10:14 AM EDT Body Mass Index 27.76 02/15/2025 10:14 AM EDT documented in this encounter Progress Notes * Jacques Foster MD - 02/15/2025 10:20 AM EDT Subjective History was provided by the patient. Colton Black is a 84 y.o. male who presents for an evaluation of right thumb laceration on the volar aspect while opening a metal can, sustained last night. Approximately 2cm in width. Able to stop bleeding with pressure, but bleeding returned when he removed band-aids. States sensation is intact distally. Currently on Eliquis for atrial fibrillation. States he is doing well otherwise without significant pain. He is overdue for Td/Tdap vaccine, but declines any further vaccinations. Also recently noticed an annular rash on his right forearm with small, red bumps on the periphery. Denies itching or pain. No known insect bite. Objective Vitals: 02/15/25 1014 BP: 111/81 BP Location: Left arm Patient Position: Sitting BP Cuff Size: Adult Pulse: 83 Resp: 19 Temp: 97.1 ??F (36.2 ??C) TempSrc: Oral SpO2: 98% Weight: 172 lb (78 kg) Height: 5' 6 (1.676 m) Physical Exam Constitutional: General: He is not in acute distress. Appearance: Normal appearance. He is not ill-appearing, toxic-appearing or diaphoretic. HENT: Mouth/Throat: Mouth: Mucous membranes are moist. Pharynx: Oropharynx is clear. Eyes: Extraocular Movements: Extraocular movements intact. Conjunctiva/sclera: Conjunctivae normal. Pulmonary: Effort: Pulmonary effort is normal. Musculoskeletal: General: Normal range of motion. Cervical back: Neck supple. Skin: General: Skin is warm and dry. Findings: Rash (Right distal forearm with 2cm annular plaque with erythematous papules at the periphery; has a central punctum; also with several small ecchymoses in various stages of healing throughout the body) present. Comments: Right thumb (volar aspect; distal phalanx) with 2cm laceration with active bleeding. No surrounding erythema; sensation intact distally; capillary refills brisk at <2 sec Neurological: General: No focal deficit present. Mental Status: He is alert and oriented to person, place, and time. Psychiatric: Mood and Affect: Mood normal. Behavior: Behavior normal. Diagnoses and all orders for this visit: Laceration of right thumb without damage to nail, foreign body presence unspecified, initial encounter (Primary) - lidocaine (Xylocaine) 1 % injection 10 mg Rash - clotrimazole (Lotrimin) 1 % cream; Apply topically 2 times daily for 7 days. Patient presents to Monday [facility] due to right thumb laceration sustained the night prior while opening a metal can No current clinical evidence of cellulitis, but has active bleeding without applying pressure Discussed treatment options Risks, benefits, and alternatives of suture repair discussed Patient signed an informed consent The area was prepared with betadine swabs, then 1% Xylocaine (1mL) was infiltrated to the area for local anesthesia in a sterile manner Using 5-0 Vicryl absorbable suture (non-absorbable suture was not available for this size), 3 sutures were placed in simple interrupted manner No complications noted Patient tolerated the procedure well Antibiotic gauze applied and the area was wrapped with a dressing Dressing supply provided for the patient Informed patient that I would like to administer Td vaccine today; however, patient refused any further vaccinations Informed of potential risks of tetanus that include respiratory compromise and Patient demonstrated understanding Patient did not exhibit any neurovascular compromise after the procedure Wound care discussed Right distal forearm rash appears tinea, but EM rash cannot be ruled out (denies any prolonged timespent outside or known insect bites) Trial of topical antifungal discussed Patient has a scheduled PCP appointment on 02/17/2025 Appointment also made for next Monday (in 1 week) for suture removal and wound evaluation Advised to monitor for any increased bleeding, pain, fever, or any other concerns Indications for UC/ER use reviewed documented in this encounter Plan of Treatment Upcoming Encounters Date Type Department Care Team (Late st Contact Info) Description 02/22/2025 9:40 AM EDT Office Visit [facility] [address] [place] [address] 03/12/2025 2:00 PM EDT Clinical Support [facility] [address] [place] [address] documented as of this encounter Visit Diagnoses Diagnosis Laceration of right thumb without damage to nail, foreign body presence unspecified, initial encounter- Primary Rash Rash and other nonspecific skin eruption documented in this encounter Administered Medications Inactive Administered Medications - up to 3 most recent administrations Medication Order MAR Action Action Date Dose Rate Site lidocaine (Xylocaine) 1 % injection 10 mg 10 mg (1 mL), Injection, Once, On 02/15/25 at 1200, For 1 doseIndications:Laceration of right thumb without damage to nail, foreign body presence unspecified, initial encounter Given 02/15/2025 12:00 PM EDT 10 mg Other documented in this encounter Additional Health Concerns Assessment Noted Time PHQ-9 Depression Total Score: 3 05/01/20 24 9:55 AM EST documented as of this encounter Care Teams Jig Fitter Relationship Specialty Start Date End Date Apolonia Ragland MD 230 [place] [address] PCP - General Family Medicine 05/15/18 Julius Beavers [address] 3rd [place] [address] Farm Equipment Mechanic Apprentice Cardiology 08/25/23 Ronald Maxwell MD [address] [place] [address] Urology 11/17/23 Marcelino Purcell 175 [facility] 110 [place] [address] Orthopaedic Surgery 08/24/23 Flor Mason electric range servicer 04/21/23 Kera Wan MD [address] [address] 11/15/23 Manisha Henao [facility] 175 [facility] [address] [place] [phone] Orthopaedic Surgery 12/07/23 documented as of this encounter
--- OUTSIDE RECORDS SUMMARY | 2025-02-17 11:30 | XMS_ITS | Encounter Summary ---
Author Organization [employer] Address [address] 7t [place] [address] Care Team Providers Care State Director Name Role Phone Apolonia Ragland MD Primary Care Provider [phone] Julius Beavers Unavailable Ronald Maxwell MD Unavailable BinhMarcelino Unavailable Encounter Details Date Type Department Care Team (Latest Contact Info) Description 02/17/2025 11:30 AM EDT Office Visit [facility] 230 [place], [place] [phone] Apolonia Ragland MD 230 [place], [place] [phone] Abdominal bloating (Primary Dx); Primary osteoarthritis involving multiple joints Social History [...] Sign Reading Time Taken Comments Blood Pressure 120/70 02/17/2025 11:44 AM EDT Pulse 63 02/17/2025 11:44 AM EDT Temperature 36.2 C (97.1 F) 02/17/2025 11:44 AM EDT Respiratory Rate 20 02/17/2025 11:44 AM EDT Oxygen Saturation 98% 02/17/2025 11:44 AM EDT Inhaled Oxygen Concentration - - Weight 78 kg (172 lb) 02/17/2025 11:44 AM EDT Height 167.6 cm (5' 6 ) 02/17/2025 11:44 AM EDT Body Mass Index 27.76 02/17/2025 11:44 AM EDT documented in this encounter Plan of Treatment Upcoming Encounters Date Type Department Care Team (Late st Contact Info) Description 02/22/2025 9:40 AM EDT Office Visit [facility] [address] [phone] 03/12/2025 2:00 PM EDT Clinical Support [facility] [address] [place] [address] Scheduled Orders Name Type Priority Associated Diagnoses Orde r Schedule Helicobacter pylori Antigen, EIA, Stool Lab Routine Abdominal bloating Expected: 02/17/2025 (Approximate), Expires: 02/17/2026 documented as of this encounter Visit Diagnoses Diagnosis Abdominal bloating- Primary Flatulence, eructation, and gas pain Primary osteoarthritis involving multiple joints documented in this encounter Additional Health Concerns Assessment Noted Time PHQ-9 Depression Total Score: 3 05/01/20 24 9:55 AM EST documented as of this encounter Care Teams State Director Relationship Specialty Start Date End Date Apolonia Ragland MD 230 [place] [address] PCP - General Family Medicine 05/15/18 Julius Beavers [address] 3rd [place] [address] Clinical Informatics Strategist Cardiology 08/25/23 Ronald Maxwell MD [address] [place] [address] Urology 11/17/23 Marcelino Purcell 175 [facility] 110 [place] [address] Orthopaedic Surgery 08/24/[address] bailiff 04/21/23 Kera Wan MD [address] [address] 11/15/23 Manisha Henao [facility] [address] [facility] [address] [place] [phone] Orthopaedic Surgery 12/07/23 documented as of this encounter
--- OUTSIDE RECORDS SUMMARY | 2025-02-17 15:39 | XMS_ITS | Encounter Summary ---
Author Organization [employer] Address [address] [place] [address] 7t [place] [address] Care Team Providers Care Uncrater Name Role Phone Apolonia Ragland MD Primary Care Provider Julius Beavers Unavailable Ronald Maxwell MD Unavailable [phone] Binh, Loyd Unavailable Reason for Visit * Reason Onset Date Comments Nurse Triage 08/16/2023 Encounter Details Date Type Department Care Team (Late st Contact Info) Description 08/16/2023 Telephone [facility] 230 [place], [place] [phone] Apolonia Ragland MD 230 [place], [place] [phone] Nurse Triage Social History Tobacco Use Types [...] call Pt was seen in [facility] [place] ED dx of atrial fibrillation. Pt was prescribed eliquis 5mg bid. Pt had been taking ASA 81mg daily . Pt started eliquis 08/14/23 and stopped ASA the same day. Pt is calling regarding some pinkish/reddish colored urine, neg for burning but, always has frequency. Pt also reports having a bloody nose x1 . Pt is advised to come to [facility] for provider to see Pt. Pt reports is in [place] and will try to come to [facility] open till 8pm and other logan will come to [facility] in the morning opens at 830am. Pt is cautioned to seek eval at ED if bleeding should increase and Pt agrees. Pt does have follow up apt [facility] 08/30/23 and another apt with [facility] 08/21/23. Pt agrees with dispostion. Protocol [...] Description 02/22/2025 9:40 AM EDT Office Visit [facility] 230 [place] [address] 03/12/2025 2:00 PM EDT Clinical Support [facility] [address] [place] [address] documented as of this encounter Visit Diagnoses Not on filedocumented in this encounter Care Teams Uncrater Relationship Specialty Start Date End Date Apolonia Ragland MD 230 [place] [address] PCP - General Family Medicine 05/15/18 Julius Beavers [address] 3rd [place] [address] Director Equipment Cardiology 08/25/23 Ronald Maxwell MD [address] [place] [address] Urology 11/17/23 Marcelino Purcell 175 [facility] 110 [place] [address] Orthopaedic Surgery 08/24/23 Flor Mason RN Care Manager 04/21/23 Kera Wan MD [address] [address] 11/15/23 Manisha Henao [facility] 175 [facility] [address] [place] [phone] Orthopaedic Surgery 12/07/23 documented as of this encounter
--- OUTSIDE RECORDS SUMMARY | 2025-02-17 15:39 | XMS_ITS | Encounter Summary ---
Author Organization [employer] Address [address] [place] [address] 7t [place] [address] Care Team Providers Care Engineering Program Manager Name Role Phone pAolonia Ragland MD Primary Care Provider [phone] Julius Beavers Unavailable Ronald Maxwell MD Unavailable [phone] Binh, Loyd Unavailable Reason for Visit * Reason Onset Date Comments Call Back Request 12/27/2024 Encounter Details Date Type Department Care Team (Late st Contact Info) Description 12/27/2024 Telephone [facility] 230 [place], [place] [phone] Apolonia Ragland MD 230 [place], [place] [phone] Call Back Request Social History Tobacco Use Types Packs/Day Years [...] encounter Miscellaneous Notes * Telephone Encounter - Apolonia Ragland MD - 12/31/2024 5:59 PM EDT Referred. * Telephone Encounter - Sheree Valiente RN - 12/30/2024 4:02 PM EDT Telephone call to pt who reports had cardiology appt 12/26/24, plan copied below. Pt reports that hehas only been taking eliquis 2.5 once daily to avoid nosebleeds/bleeding. He states they are betternow but still gets them when blowing his norse/sneezing.Reviewed with him per cardiology note the importance of taking recommended eliquis 5mg BID to reduce stroke risk, pt stated he is aware of thisbut wants to meet with ENT first. As recommended, he went to ENT specialist (Dr Avalos?) but was told the doctor retired and new doctor wont be available until march. He is asking for sooner ENT referral. He asked to reschedule RN visit for [facility], rescheduled this. Advised him will send message to PCP toadvise and get back to him with any updates, pt verbalized understanding. --- Diamond Ventura NP at [facility] Cardiology, 12/27/23 (under Encounters) Plan I discussed with the patient the ongoing issue of epistaxis and the need to reconsult an ENT specialist since bleeding persists. We reviewed the use of a Watchman device as an alternative to blood thinners for bleeding cannot be controlled. I emphasized the importance of managing atrial fibrillation to reduce stroke risk and suggested maintaining regular follow-ups with his primary inclined railway operator to explore medication options. I provided a pamphlet on the Watchman device to help him understand the procedure and its benefits. * Telephone Encounter - Alize Steward - 12/27/2024 9:32 AM EDT Tc from pt requesting a call back to discuss ENT paperwork Contact pt at [phone] documented in this encounter Plan of Treatment Upcoming Encounters Date Type Department Care Team (Late st Contact Info) Description 02/22/2025 9:40 AM EDT Office Visit [facility] [address] [place] [address] 03/12/2025 2:00 PM EDT Clinical Support [facility] [address] [place] [address] documented as of this encounter Visit Diagnoses Not on filedocumented in this encounter Additional Health Concerns Assessment Noted Time PHQ-9 Depression Total Score: 3 05/01/20 24 9:55 AM EST documented as of this encounter Care Teams Engineering Program Manager Relationship Specialty Start Date End Date Apolonia Ragland MD [address] [place] [address] PCP - General Family Medicine 05/15/18 Julius Beavers [address] 3rd [place] [address] Fireman Helper Cardiology 08/25/23 Ronald Maxwell MD [address] [place] [address] Urology 11/17/23 Marcelino Purcell 175 [facility] 110 [place], [place] [phone] Orthopaedic Surgery 08/24/23 Flor Mason RN Care Manager 04/21/23 Kera Wan MD [address] [address] 11/15/23 Manisha Henao [facility] 175 [facility] [address] [place] [phone] Orthopaedic Surgery 12/07/23 documented as of this encounter
--- OUTSIDE RECORDS SUMMARY | 2025-02-17 15:39 | XMS_ITS | Encounter Summary ---
Author Organization [employer] Address [address] 7t [place] [address] Care Team Providers Care Electronic Data Interchange Specialist Name Role Phone Apolonia Ragland MD Primary Care Provider [phone] Julius Beavers Unavailable Ronald Maxwell MD Unavailable [phone] Marcelino Purcell Unavailable Encounter Details Date Type Department Care Team (Late st Contact Info) Description 11/21/2024 Orders Only [facility] 230 [place], [place] [phone] Apolonia Ragland MD 230 [place], [place] [phone] Primary osteoarthritis involving multiple joints Social History [...] Description 02/22/2025 9:40 AM EDT Office Visit [facility] [address] [place] [address] 03/12/2025 2:00 PM EDT Clinical Support [facility] [address] [place] [address] documented as of this encounter Visit Diagnoses Diagnosis Primary osteoarthritis involving multiple joints documented in this encounter Additional Health Concerns Assessment Noted Time PHQ-9 Depression Total Score: 3 05/01/20 24 9:55 AM EST documented as of this encounter Care Teams Electronic Data Interchange Specialist Relationship Specialty Start Date End Date Apolonia Ragland MD [address] [place] [address] PCP - General Family Medicine 05/15/18 Julius Beavers [address] 3rd [place] [address] Ore Dryer Cardiology 08/25/23 Ronald Maxwell MD [address] [place] [address] Urology 11/17/23 Marcelino Purcell 175 [facility] 110 [place] [address] Orthopaedic Surgery 08/24/23 Flor Mason RN Care Manager 04/21/23 Kera Wan MD [address] [address] 11/15/23 [facility] 175 [facility] [address] [place] [phone] Orthopaedic Surgery 12/07/23 documented as of this encounter
--- OUTSIDE RECORDS SUMMARY | 2025-02-17 15:39 | XMS_ITS | Encounter Summary ---
Author Organization [employer] Address [address] [place] [address] 7 [place] [address] Care Team Providers Care Architecture Analyst Name Role Phone Apolonia Ragland MD Primary Care Provider [phone] Julius Beavers Unavailable Ronald Maxwell MD Unavailable [phone] Binh, Loyd Unavailable Reason for Visit * Reason Onset Date Comments Returning Call 03/19/2024 Encounter Details Date Type Department Care Team (Late st Contact Info) Description 03/19/[address] [facility] 230 [place], [place] [phone] Apolonia Ragland MD 230 [place], [place] [phone] Returning Call Social History Tobacco Use Types [...] outreach. Pt stated she received message in maltese, he stated he does not speak or read maltese and requestsfurther messages to be sent in citizen of [place]. documented in this encounter Plan of Treatment Upcoming Encounters Date Type Department Care Team (Late st Contact Info) Description 02/22/2025 9:40 AM EDT Office Visit [facility] [address] [place] [address] 03/12/2025 2:00 PM EDT Clinical Support [facility] [address] [place] [address] documented as of this encounter Visit Diagnoses Not on filedocumented in this encounter Care Teams Architecture Analyst Relationship Specialty Start Date End Date Apolonia Ragland MD [address] [place] [address] PCP - General Family Medicine 05/15/18 Julius Beavers [address] [place] [address] Drive 3rd [place] [address] Deputy Clerk Cardiology 08/25/23 Ronald Maxwell MD [address] [place] [address] Urology 11/17/23 Marcelino Purcell 175 [facility] 110 [place] [address] Orthopaedic Surgery 08/24/23 Flor Mason wire walker 04/21/23 Kera Wan MD [address] [address] 11/15/23 Manisha Henao [facility] 175 [facility] [address] [place] [phone] Orthopaedic Surgery 12/07/23 documented as of this encounter
--- OUTSIDE RECORDS SUMMARY | 2025-02-17 15:39 | XMS_ITS | Encounter Summary ---
Author Organization [employer] Address [address] [place] [address] 7t [place] [address] Care Team Providers Care Mission Coordinator Name Role Phone Apolonia Ragland MD Primary Care Provider [phone] Julius Beavers Unavailable Ronald Maxwell MD Unavailable [phone] BinhMarcelino Unavailable Reason for Visit * Reason Onset Date Comments Referral 05/22/2023 Encounter Details Date Type Department Care Team (Late st Contact Info) Description 05/22/2023 Telephone [facility] 230 [place], [place] [phone] Apolonia Ragland MD 230 [place], [place] [phone] Referral Social History Tobacco Use Types Packs/Day [...] Miscellaneous Notes * Telephone Encounter - Himanshu Valdesrero - 05/22/2023 4:26 PM EST Tc from pt requesting A new Cardiovascular doctor due to pt current one not accepting insurance andpt owing money to facility so appt previously scheduled was canceled. Please contact pt @ [phone] documented in this encounter Plan of Treatment Upcoming Encounters Date Type Department Care Team (Late st Contact Info) Description 02/22/2025 9:40 AM EDT Office Visit [facility] [address] [place] [address] 03/12/2025 2:00 PM EDT Clinical Support [facility] [address] [place] [address] documented as of this encounter Visit Diagnoses Not on filedocumented in this encounter Care Teams Mission Coordinator Relationship Specialty Start Date End Date Apolonia Ragland MD 230 [place] [address] PCP - General Family Medicine 05/15/18 Julius Beavers [address] 3rd [place] [address] Aquarium Tank Attendant Cardiology 08/25/23 Ronald Maxwell MD [address] [place] [address] Urology 11/17/23 Marcelino Purcell [address] [phone] Orthopaedic Surgery 08/24/23 Flor Mason anesthetist 04/21/23 Kera Wan MD [facility] 300 [place] [address] 11/15/23 Manisha Henao [facility] [address] [phone] Orthopaedic Surgery 12/07/23 documented as of this encounter
--- OUTSIDE RECORDS SUMMARY | 2025-02-17 15:39 | XMS_ITS | Encounter Summary ---
Author Organization [employer] Address [address] 7[address] [place] [address] Care Team Providers Care Patient Intake Coordinator Name Role Phone Apolonia Ragland MD Primary Care Provider [phone] Julius Beavers Unavailable Ronald Maxwell MD Unavailable Marcelino Purcell Unavailable Encounter Details Date Type Department Care Team ([facility] Contact Info) Description 06/02/2022 Abstract [facility] [address] [place] [id number] Apolonia Ragland MD [address] [place] [address] [id number] Social History Tobacco Use Types Packs/Day Years [...] Department Care Team (Late Contact Info) Description 02/22/2025 9:40 AM EDT Office Visit [facility] [address] [place], [place] [phone] 03/12/2025 2:00 PM EDT Clinical Support [facility] [address] [place] [address] documented as of this encounter Visit Diagnoses Not on filedocumented in this encounter Care Teams Patient Intake Coordinator Relationship Specialty Start Date End Date Apolonia Ragland MD [address] [place] [address] PCP - General Family Medicine 05/15/18 Julius Beavers [address] 3rd [place] [address] Oracle Database Administrator Cardiology 08/25/23 Ronald Maxwell MD [address] [place] [address] Urology 11/17/23 Marcelino Purcell [address] [facility] [address] [place] [address] Orthopaedic Surgery 08/24/23 Flor Mason lending consultant 04/21/23 Kera Wan MD [address] [phone] 11/15/23 Manisha Henao [facility] [address] [facility] [address] [place] [phone] Orthopaedic Surgery 12/07/23 documented as of this encounter
--- OUTSIDE RECORDS SUMMARY | 2025-02-17 15:39 | XMS_ITS | Clinical Summary ---
Author Organization [email or web address] Address [address] [place] [address] 7t [place] [address] Care Team Providers Care Programmer Analyst Health It Name Role Phone Apolonia Harding MD Primary Care Provider [phone] Julius Beavers Unavailable Ronald Maxwell MD Unavailable [phone] Marcelino Purcell Unavailable Allergies Active Allergy Reactions Criticality Noted Date Comments Lisinopril 01/15/2013 Other reaction(s): weakness Tetracycline Rash,Unknown High 07/05/2018 Tetracyclines & Related 05/19/2010 Other reaction(s): unspecified Medications fluticasone (Flonase) 50 MCG/ACT nasal spray Administer [...] needed for dry skin. 024 2024 Active apixaban (Eliquis) 2.5 MG tablet Take 2.5 mg by mouth in the morning and 2.5 mg in the evening. Active cyanocobalamin (Vitamin B-12) 1000 MCG/ML injection INJECT 1 ML INTRAMUSCULARLY EVERY MONTH 1 mL 025 Active Blood Pressure Monitoring (Omron 3 Series BP Monitor) device USE TO CHECK BLOOD PRESSURE EVERY DAY NEEDED 1 each Active cetirizine (ZyrTEC) 5 MG tablet Take 1 tablet (5 mg) by mouth Once per day. 90 tablet 3 025 2025 Active cholecalciferol (Vitamin D High Potency) 25 MCG (1000 UT) capsuleIndicatio ns:Primary osteoarthritis involving multiple joints TAKE 1 CAPSULE BY MOUTH DAILY IN THE MORNING 90 capsule 3 025 Active chlorhexidine (Peridex) 0.12 % solution SWISH 15 ML IN THE MOUTH OR THROAT FOR 30 SECONDS THEN SPIT OUT TWICE DAILY IN THE MORNING AND IN THE EVENING DIRECTED, DO NOT SWALLOW 473 mL 2 Active clotrimazole (Lotrimin) 1 % creamIndications :Rash Apply topically 2 times daily for 7 days. 30 g 025 2024 Active Acetaminophen Extra Strength 500 MG tabletIndication s:Primary osteoarthritis involving multiple joints Take 1 or 2 tablets by mouth every 8 hours as needed for pain or fever. 90 tablet 1 025 Active Acetaminophen Extra Strength 500 MG tabletIndication s:Primary osteoarthritis involving multiple joints TAKE 1 OR 2 TABLETS BY MOUTH ONE OR TWO TIMES DAILY NEEDED 90 tablet 1 024 2024 Discontinued( Reorder (will not trigger notification to Pharmacy)) chlorhexidine (Peridex) 0.12 % solution SWISH 15 ML IN THE MOUTH OR THROAT FOR 30 SECONDS THEN SPIT OUT TWICE DAILY IN THE MORNING AND IN THE EVENING DIRECTED, DO NOT SWALLOW 473 mL 025 2024 Discontinued Hospital, Clinic, or Other Facility Administered Medication Ordered Dose Route Frequency Start Date End Date Status lidocaine (Xylocaine) 1 % injection 10 mgIndications:Laceration of right thumb without damage to nail, foreign body presence unspecified, initial encounter 10 mg IJ Once 02/15/2025 02/15/2025 Ended Active Problems Patient Care Coordination No te Formatting of this note migh t be different from the original. C3/CM Flor Mason RN Problem Noted Date Diagnosed Date Epistaxis 05/30/2024 Assessment & Plan (11/28/2024 10:14 AM EDT): - on apixaban 2.5 mg bid - Plan for cauterization by ENT Assessment & Plan (09/15/2024 5:05 PM EDT): - waiting for appointment with ENT - recommended to start apixaban at lower dose At high risk for falls 05/30/2024 Actinic keratosis 05/30/2024 Assessment & Plan (11/28/2024 10:18 AM EDT): - previously Dx AK - Lesions on right muslim and forearm. - Re-evaluated in [facility]; plan for cryotherapy and biopsy. - Discussed about UV protection Assessment & Plan (09/15/2024 5:09 PM EDT): [...] risk for cardiovascular disease Assessment & Plan (11/28/2024 10:14 AM EDT): - he does not want to take statin - work on lifestyle modifications Assessment & Plan (06/04/2024 9:23 AM EST): - he does not want to take statin - work on lifestyle modifications Assessment & Plan (11/01/2023 10:45 AM EDT): -[id number] Score: 3 - continue apixaban 2.5 mg bid - no rate or rhythm control - advised to complete sleep study - continue risk factor management Assessment & Plan (09/30/2023 6:35 PM EDT): - continue apixaban - patient states apixaban was switched to rivaroxaban by well drill operator; however, patient seems to be taking [...] right glenohumeral joint 08/20/2023 Paroxysmal atrial fibrillation (CMS/HCC) 024 Assessment & Plan (11/28/2024 10:12 AM EDT): -Loan Examiner: [facility]. Last seen in August 2024, recommended to resume apixaban 5 mg bid -Rate control: none -Rhythm control: none -Anticoagulation: apixaban 2.5 mg bid -Last Holter monitor: 07/10/23 -Transthoracic echocardiogram: -10/25/22 LVEF 55-60%; 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 [facility] -10/06/23 LVEF 55-60%. Moderately dilated left atrium. Mild dilation of the sinuses of Valsalva measuring 3.80 cm and mild dilation of the ascending aorta measuring 3.90 cm. -Last nuclear stress test with MPI 10/06/23 no ischemia -Sleep study was ordered by [facility] Cardiology, but patient has not completed it yet Assessment & Plan (09/15/2024 5:04 PM EDT): [id number] Score: 3 -Loan Examiner: [facility]. Last seen in August 2024, recommended to [...] no ischemia -Sleep study was ordered by [facility] Cardiology, but patient has not completed it yet - recommended to resume apixaban 2.5 mg bid since he is concerned about epistaxis; patient agreed to try lower dose. Assessment & Plan (06/03/2024 7:55 AM EST): -Loan Examiner: previously [facility], and recently started following with [facility]. Last seen on 10/17/23 -Rate control: none [...] no ischemia -Sleep study was ordered by [facility] Cardiology, but patient has not completed it yet Assessment & Plan (03/05/2024 10:42 AM EDT): -Loan Examiner: previously [facility], and recently started following with [facility]. Last seen on 10/17/23 -Rate control: none [...] no ischemia -Sleep study was ordered by [facility] Cardiology, but patient has not completed it yet Assessment & Plan (11/01/2023 10:37 AM EDT): -Loan Examiner: previously [facility], and recently started following with [facility]. 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 [facility] -10/06/23 LVEF 55-60%. Moderately dilated left atrium. Mild dilation of the sinuses of Valsalva measuring 3.80 cm and mild dilation of the ascending aorta measuring 3.90 cm. -Last nuclear stress test with MPI 10/06/23 no ischemia -Sleep study was ordered by [facility] Cardiology, but patient has not completed it yet Assessment & Plan (09/27/2023 5:45 AM EDT): [id number] Score: 3 -Loan Examiner: previously [facility], and recently started following with [facility] -Rate control: none -Rhythm control: none -Anticoagulation: apixaban -Last Holter monitor: 07/10/23 -Last transthoracic echocardiogram: Done at [facility] on 10/25/22 TTE LVEF 55-60%; 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 Ordered by [facility] Cardiology recently -Last stress test 10/07/22 nuclear stress test with MPI wnl -Sleep study was ordered by [facility] Cardiology Assessment & Plan (08/24/2023 4:49 PM EDT): Here from previous ER visit, started on Eliquis for prevention - not tolerating well due to more bleeds - recommend talk to the well drill operator about whether he should continue Eliquis as he is moderate risk by [id number] - he will continue for now and [...] -Started on apixaban since 08/10/23 -Following with [facility] cardiology since August 2023, last seen on [...] 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 - Currently following with [facility] cardiology and transthoracic echocardiogram was ordered Assessment & Plan (06/29/2023 4:46 AM EST): - 10/25/22 TTE normal LV sfunction with EF 55-60%. 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 - Follow-up with well drill operator in 6 mo - TTE at least yearly Assessment & Plan (04/24/2023 6:07 AM EST): - 10/25/22 TTE normal LV sfunction with EF 55-60%. 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 - Follow-up with well drill operator in 6 mo - TTE at least yearly Assessment & Plan (01/05/2023 6:51 AM EDT): - 10/25/22 TTE normal LV sfunction with EF 55-60%. 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 - TURBT and mitomycin C installation in July 2024. Plan for immunotherapy / combo mitomycin & cytarabine - Completed 4th of 5 ordered instillation with mitomycin / cytarabine on 10/25/24, and cancelled 5th bladder instillation (approved by Dr. Maxwell). - Continue tamsulosin. 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 - TURBT and mitomycin C installation in July 2024. Plan for immunotherapy / combo mitomycin & cytarabine Assessment & Plan (06/03/2024 7:56 AM EST): - previously following with [facility] urology - Transurethral resection of bladder tumor on 11/20/18 Pathology report High-grade papillary urothelial carcinoma - seen by urologist on 11/17/23; upcoming appt on 03/13/24 Assessment & Plan (03/05/2024 11:20 AM EDT): - previously following with [facility] urology - Transurethral resection of bladder tumor on 11/20/18 Pathology report High-grade papillary urothelial carcinoma - seen by urologist on 11/17/23; upcoming appt on 03/13/24 Assessment & Plan (11/01/2023 10:39 AM EDT): - previously following with [facility] urology - Transurethral resection of bladder tumor on 11/20/18 Pathology report High-grade papillary urothelial carcinoma - Referred to urology; upcoming appt Assessment & Plan (09/27/2023 5:53 AM EDT): - previously following with [facility] urology - Transurethral resection of bladder tumor on 11/20/18 Pathology report High-grade papillary urothelial carcinoma - Referred to urology; will check its status Assessment & Plan (08/24/2023 4:39 PM EDT): Refer to urology due to recurrent hematuria for followup and determination for need of repeat cystoscopy Pulmonary hypertension (CMS/HCC) 06/02/2022 Toothache 02/27/2017 Vitamin B12 deficiency 05/02/2016 [...] 07/14/2015 Essential hypertension 2015 Assessment & Plan (11/28/2024 10:13 AM EDT): -Goal BP < 130 per ACC/AHA guideline. -BP at goal today -Encouraged to work on life style modifications. -Echo on 10/25/22 EF 55-60%. Ascending aorta 4.0 cm. Previously pulmonary HTN, no mention in most recent study -Continue amlodipine 2.5 mg once daily, may take 2 tablets if SBP is > 140 -Last lipid profile: 09/10/24 -Continue lifestyle modification. Assessment & Plan (09/11/2024 11:12 PM EDT): [...] charge - will refer to orthopedist at [facility] for reevaluation - discussed taking Tylenol PRN [...] difficulty walking - pt will benefit from PUBLIC WORKS SUPERVISOR service; will check the status of PUBLIC WORKS SUPERVISOR service >>ASSESSMENT AND PLAN FOR PRIMARY OSTEOARTHRITIS INVOLVING MULTIPLE JOINTS WRITTEN ON 01/06/2023 7:10 AM BY APOLONIA HARDING MD - previously seen by [facility] providers - pt declines further evaluation by orthopedist due to outstanding charges Assessment & Plan (06/05/2022 6:10 PM EST): - multiple joints - difficulty walking - pt will benefit from PUBLIC WORKS SUPERVISOR service 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 -Follow up with well drill operator as scheduled Assessment & Plan (09/27/2023 5:44 AM EDT): -10/07/22 nuclear stress test with MPI wnl -10/25/22 TTE LVEF 55-60%; 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 -Follow up with well drill operator as scheduled Assessment & Plan (07/03/2023 6:08 AM EST): -Seen by [facility] well drill operator in November 2022. -Asymptomatic. 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 -Follow up with well drill operator as scheduled -Bradycardiac lately; will schedule Holter monitor Assessment & Plan (04/24/2023 6:06 AM EST): -[facility] November [facility]. -Asymptomatic. 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 -Follow up with well drill operator as scheduled Assessment & Plan (01/06/2023 7:06 AM EDT): -Seen by [facility] well drill operator in November 2022. -Asymptomatic. 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 -Follow up with well drill operator as scheduled Assessment & Plan (10/03/2022 12:26 PM EDT): -Seen by [facility] well drill operator in July 2022. -Asymptomatic. -Possibly starting CCB or BB -Follow up with well drill operator as scheduled -Being scheduled for stress test and has a follow up with well drill operator in near future Assessment & Plan (06/05/2022 6:03 PM EST): -Seen by [facility] well drill operator in Jan 2022. -Asymptomatic. -Possibly starting CCB or BB -Follow up with well drill operator as scheduled Gastroesophageal reflux disease 04/02/2012 [...] Encounters Date Type Department Care Team Description 02/17/2025 11:30 AM EDT Office Visit [address] [address] Apolonia Harding MD Abdominal bloating (Primary Dx); Primary osteoarthritis involving multiple joints 02/17/2025 Travel 02/15/2025 10:20 AM EDT Office Visit [facility] [address] [address] Jacques Foster MD Laceration of right thumb without damage to nail, foreign body presence unspecified, initial encounter (Primary Dx); Rash 02/15/2025 Travel 02/14/2025 Telephone [facility] [address] [address] Isidoro Stacia [place] 02/10/2025 1:00 PM EDT Clinical Support [address] [address] Licha Ann RN Vitamin B12 deficiency 02/10/2025 Patient Outreach [facility] [address] [place], [place] [phone] Apolonia Harding MD Pre-visit Planning ([facility] unable to reach, Disconnected) 02/10/2025 Travel 01/20/2025 Refill [facility] [address] [place] [phone] Apolonia Harding MD 01/10/2025 11:00 AM EDT Office Visit [address] [address] Christiano Temple MD Actinic keratosis (Primary Dx); Fibroma; Benign nevus 01/10/2025 Travel 01/09/2025 1:00 PM EDT Clinical Support [address] [address] Licha Ann RN B12 deficiency 01/09/2025 Travel 01/08/[address] [address] Apolonia Harding MD 01/02/2025 1:00 PM EDT Clinical Support [address] [address] Licha Ann RN Memory changes 01/02/2025 Travel 01/01/2025 Refill [facility] [address] [place] [phone] Apolonia Harding MD 12/31/2024 Orders Only [facility] [place] [address] Apolonia Harding MD Epistaxis (Primary Dx); Seasonal allergic rhinitis, unspecified trigger; Paroxysmal atrial fibrillation ([facility]/HCC) 12/27/2024 Telephone [facility] [place] [address] Apolonia Harding MD Call Back Request 12/12/2024 Telephone [facility] [place] [address] Apolonia Harding MD fyi; Referral 12/12/2024 Telephone [facility] [place] [address] Apolonia Harding MD Durable Medical Equipment (DME Request: Shower Chair) 12/09/2024 11:00 AM EDT Clinical Support [facility] [place] [address] Licha Ann RN Vitamin B12 deficiency 12/09/2024 Travel 12/03/2024 Refill [facility] [place] [address] Nika Barrientos MD 11/21/2024 Orders Only [facility] [place] [address] Apolonia Harding MD Primary osteoarthritis involving multiple joints 11/20/2024 Telephone [facility] [place] [address] Apolonia Harding MD Reuqesting call 11/20/2024 Refill [facility] [place] [address] Apolonia Harding MD Primary osteoarthritis involving multiple joints from Last 3 Months Immunizations Immunization Administration Dates Next Due Hep A, Adult 07/13/2006,06/09/2006 Hep B, adult 10/17/2007,07/13/2006,06/09/2006 Influenza injectable quadriv alent IIV4 with preservative 04/10/2017,02/05/2015 Influenza injectable quadriv alent preservative free 02/14/2019,04/20/2016,02/12/2014 Influenza, IIV3, injectable 02/04/2011,1 06/01/2009,04/28/2009,02/26,06/09/2006 Influenza, Split (incl. alex fied surface antigen) 01/14/2015,03/15/2013,04/27/2012 MMR 09/12/2006 Pneumococcal Conjugate PCV 13 2015 Pneumococcal Polysaccharide PPSV23 04/15/2015, TD (adult), 2 Lf tetanus tox oid, preservative free, adsorbed 06/09/2006 Tdap 02/17/2025,08/12/2011 Family History Medical History Relation Name Comments Heart disease Father Rey at 70 No Known Problems Father's Brother Charlie Palmer nelsontamir Relationship-only met once No Known Problems Maternal [...] Coco Pa ssed away in the mid 1950's No [...] Mass Index 27.76 02/17/2025 11:44 AM EDT Plan of Treatment Upcoming Encounters Date Type Department Care Team (Demarco st Contact Info) Description 02/22/2025 9:40 AM EDT Office Visit [facility] [address] [place] [address] 03/12/2025 2:00 PM EDT Clinical Support [facility] [address] [place] [address] Health Maintenance Due Date Last Done Comments Zoster Vaccines (1 of 2) 1991 RSV Patients and Patients Aged 60 years or older (1 - 1-dose 75+ series) 2016 COVID-19 Vaccine (3 - 2024- season) 2025 07/28/2020, 06/30/2020 Influenza Vaccine (#1) 2025 9, 04/10/2017, 04/20/2016, Additional history exists Alcohol/Substance Use Screening 05/01/2025 05/01/2024 Depression Screening 05/01/2025 05/01/2024, 05/01/20 24 SDOH Screening 05/01/2025 05/01/2024 Tobacco Screening 02/17/2026 02/17/2025 Lipid Panel 09/10/2029 09/10/2024, 05/10/2023, 10/03/2022, Additional history exists DTaP/Tdap/Td Vaccines (3 - Td or Tdap) 02/17/2035 02/17/2025, 08/12/2011, 06/09/2006 Hepatitis A Vaccines Aged Out 07/13/2006, 06/09/19 [...] Procedure Name Priority Date/Time Associated Diagnosis Comments LIPID PANEL WITH REFLEX TO DIRECT LDL Routine 09/10/2024 1:06 PM EDT Essential hypertension from Last 3 Months or Most Recently Relevant to Health Maintenance Results * (ABNORMAL) Lipid Panel with Reflex to Direct LDL (09/10/2024 1:06 PM EDT) Triglycerides 119 <150 mg/dL [facility] Comment:Desirable Triglyceri de: less than 150 mg/dLBorderline High Triglyceride 150-199 mg/dLHigh Triglyceride: 200-499 mg/dLVery High Triglyceride: greater than or equal to 5OO mg/dL Cholesterol 167 <200 mg/dL [facility] Comment:Desirable Cholestero l: less than 200 mg/dLBorderline High Cholesterol: 200-239 mg/dLHigh Cholesterol: greater than 239 mg/dL LDL Cholesterol Calculated 104(H) <100 mg/dL [facility] Comment:Desirable LDL: less than 100 mg/dLNear Optimal/Above Optimal LDL: 110- 129 mg/dLBorderline High LDL: 130-159 mg/dLHigh LDL: 160-189 mg/dLVery High LDL: greater than or equal to 190 mg/dL HDL Cholesterol 40(L) >40 mg/dL [facility] Comment:Desirable HDL: great er than 40 mg/dL Note: This HDL assay may give artificially low results in patients with liver disease. Blood 09/10/2024 1:06 PM EDT 09/10/2024 3:59 PM EDT us Apolonia Harding MD LAB BLOOD ORDERABLES Final Resul t [facility] [address] [place] [phone] from Last 3 Months or Most Recently Relevant to Health Maintenance Insurance [employer] MEDICARE ADVANTAGE HMO [facility] [place] [phone] Care Teams Programmer Analyst Health It Relationship Specialty Start Date End Date Apolonia Harding MD [address] [place] [address] PCP - General Family Medicine 05/15/18 Julius Beavers [address]rd [place] [address] Loan Examiner Cardiology 08/25/23 Ronald Maxwell MD [address] [place] [address] Urology 11/17/23 Marcelino Purcell 175 [facility] [address] [place], [place] [phone] Orthopaedic Surgery 08/24/23 Flor Mason scout 04/21/23 Kera Wan MD [address] [phone] 11/15/23 Manisha Henao [facility] 175 [facility] [address] [place] [phone] Orthopaedic Surgery 12/07/23
--- OUTSIDE RECORDS SUMMARY | 2025-02-17 15:39 | XMS_ITS | Clinical Summary ---
Author Organization [facility] Address [address] [facility] [address] [place], [place] [phone] Phone Care Team Providers Care Backend Developer Name Role Phone Unavailable Primary Care Provider [...] file Insurance MEDICARE PART A & B [facility] FULL MEDICARE PART A & B [facility] FULL MEDICARE PART A & B HEALTH SAFETY NET FULL MEDICARE PART A & B HEALTH SAFETY NET FULL MEDICARE PART A & B [employer] NET FULL MEDICARE PART A & B [employer] NET FULL MEDICARE PART A & B NET FULL MEDICARE PART A & B FULL MEDICARE PART A & B [facility]LY [facility] FULL Additional Source Comments The information contained in this document represents components of the legal health record. It is not the complete legal health record.[facility]
--- OUTSIDE RECORDS SUMMARY | 2025-02-17 15:39 | XMS_ITS | Encounter Summary ---
Author Organization [employer] Address [address] [facility] [facility] [facility] [address] 7t [place] [address] Care Team Providers Care Wet Mixer Name Role Phone Apolonia Ragland MD Primary Care Provider [phone] Julius Beavers Unavailable Ronald [place] MD Unavailable [phone] Marcelino Purcell Unavailable Encounter Details Date Type Department Care Team (Latest Contact Info) Description 02/15/2025 Travel Social History Tobacco Use Types Packs/Day [...] Description 02/22/2025 9:40 AM EDT Office Visit [facility] [address] [place] [address] 03/12/2025 2:00 PM EDT Clinical Support [facility] [address] [place] [address] documented as of this encounter Visit Diagnoses Not on filedocumented in this encounter Additional Health Concerns Assessment Noted Time PHQ-9 Depression Total Score: 3 05/01/20 24 9:55 AM EST documented as of this encounter Care Teams Wet Mixer Relationship Specialty Start Date End Date Apolonia Ragland MD 230 [place] [address] PCP - General Family Medicine 05/15/18 Julius Beavers [address] 3rd [place] [address] Industrial Gas Service Helper Cardiology 08/25/23 Ronald [place] MD [address] [place] [address] Urology 11/17/23 Marcelino Purcell [address] [place] [address] Orthopaedic Surgery 08/24/23 Flor Mason radar technician 04/21/23 Kera Wan MD [facility]S [address] [place], [place] [address]an[address] [place] [address] 11/15/23 Manisha Henao [facility] [address] [place] [phone] Orthopaedic Surgery 12/07/23 documented as of this encounter
--- OUTSIDE RECORDS SUMMARY | 2025-02-17 15:39 | XMS_ITS | Encounter Summary ---
Author Organization [employer] Address [address] [place] [address] 7 [place] [address] Care Team Providers Care Forging Die Finisher Name Role Phone Apolonia Ragland MD Primary Care Provider [phone] Julius Beavers Unavailable Ronald [place] MD Unavailable [phone] Marcelino Purcell Unavailable Reason for Referral * Consultation (Urgent) - Closed Specialty Diagnoses / Procedures Referred By Contac t Referred To Contact Otolaryngology Diagnoses Epistaxis Seasonal allergic rhinitis, unspecified trigger Paroxysmal atrial fibrillation (CMS/HCC) (HCC) Apolonia Ragland MD 230 [place] [address] Phone: tel: fax: [facility] [address] Phone: tel: fax: Referral ID Status Reason Start Date Expiration Date V isits Requested Visits Authorized [id number] Closed Specialty Services Required 12/31/2024 12/31/2025 1 1 Encounter Details Date Type Department Care Team (Late st Contact Info) Description 12/31/2024 Orders Only [facility] 230 [place] [address] Apolonia Ragland MD 230 [place], [place] [phone] Epistaxis (Primary Dx); Seasonal allergic rhinitis, unspecified trigger; Paroxysmal atrial fibrillation (CMS/HCC) Social History Tobacco Use Types Packs/Day Years [...] Description 02/22/2025 9:40 AM EDT Office Visit [facility] [address] [place] [address] 03/12/2025 2:00 PM EDT Clinical Support [facility] [address] [place] [address] Pending Results Name Type Priority Associated Diagnoses Date /Time Referral to ENT Outpatient Referral Urgent Epistaxis Seasonal allergic rhinitis, unspecified trigger Paroxysmal atrial fibrillation (CMS/HCC) 01/01/2025 Scheduled Referrals Name Type Priority Associated Diagnoses Orde r Schedule Referral to ENT Outpatient Referral Urgent Epistaxis Seasonal allergic rhinitis, unspecified trigger Paroxysmal atrial fibrillation (CMS/HCC) Expected: 12/31/2024 (Approximate), Expires: 12/31/2025 documented as of this encounter Visit Diagnoses Diagnosis Epistaxis- Primary Seasonal allergic rhinitis, unspecified trigger Paroxysmal atrial fibrillation (CMS/HCC) (HCC) Atrial fibrillation documented in this encounter Additional Health Concerns Assessment Noted Time PHQ-9 Depression Total Score: 3 05/01/20 24 9:55 AM EST documented as of this encounter Care Teams Forging Die Finisher Relationship Specialty Start Date End Date Apolonia Ragland MD [address] [place] [address] PCP - General Family Medicine 05/15/18 Julius Beavers [address] 3rd [place] [address] Electrode Cleaning Machine Operator Cardiology 08/25/23 Ronald [place] MD [address] [place] [address] Urology 11/17/23 Marcelino Purcell 175 [facility] 110 [place] [address] Orthopaedic Surgery 08/24/23 Flor Mason RN Care Manager 04/21/23 Kera Wan MD [facility] [address] [place] [phone] 11/15/23 Manisha Henao [facility] 175 [facility] [address] [place] [phone] Orthopaedic Surgery 12/07/23 documented as of this encounter
--- OUTSIDE RECORDS SUMMARY | 2025-02-17 15:39 | XMS_ITS | Encounter Summary ---
Author Organization [employer] Address [address] [place] [address] 7t [place] [address] Care Team Providers Care Stock Cutter Name Role Phone Apolonia Ragland MD Primary Care Provider [phone] Julius Beavers Unavailable Ronald [place] MD Unavailable BinhMarcelino Unavailable Reason for Visit * Reason Onset Date Comments Med Refill 08/16/2022 Encounter Details Date Type Department Care Team (Late st Contact Info) Description 08/16/2022 Telephone [facility] 230 [place], [place] [phone] Apolonia Ragland MD 230 [place], [place] [phone] Med Refill Social History Tobacco Use Types [...] awaiting approval. * Telephone Encounter - Courtneydeirdre Lucero Sow - 08/16/2022 10:08 AM EDT Tc from pt request new med refill script for amLODIPine (Norvasc) 2.5 MG tablet Please sent to [facility] - [place], [place] - [address] [place] [address] documented in this encounter Plan of Treatment Upcoming Encounters Date Type Department Care Team (Late st Contact Info) Description 02/22/2025 9:40 AM EDT Office Visit [facility] [address] [place] [address] 03/12/2025 2:00 PM EDT Clinical Support [facility] [address] [place] [address] documented as of this encounter Visit Diagnoses Not on filedocumented in this encounter Care Teams Stock Cutter Relationship Specialty Start Date End Date Apolonia Ragland MD 230 [place] [address] PCP - General Family Medicine 05/15/18 Julius Beavers [address] 3rd [place] [address] Recycling Worker Cardiology 08/25/23 Ronald [place] MD [address] [place] [address] Urology 11/17/23 Marcelino Purcell [address] [place] [address] Orthopaedic Surgery 08/24/23 Flor Mason RN Care Manager 04/21/23 Kera Wan MD [facility] [address] [facility] [place] [address] 11/15/23 Manisha Henao [facility] [address] [place] [address] [address] [place] [address] Orthopaedic Surgery 12/07/23 documented as of this encounter
--- OUTSIDE RECORDS SUMMARY | 2025-02-17 15:39 | XMS_ITS | Encounter Summary ---
Author Organization [facility] Address [address] [place] [address] Phone Care Team Providers Care Shoe Lay Out Planner Name Role Phone Unavailable Primary Care Provider Unavailabl e Encounter Details Date Type Department Care Team (Late st Contact Info) Description 12/21/2018 Ancillary Orders [facility] [address], [address] [place] [address] Lizy Ho MD 50 [place] [address] [email or web address] Social History Tobacco Use Types Packs/Day Years Used Date Smoking Tobacco: Never Assessed Sex and Gender Information Value Date Recorded Sex Assigned at Not on file Legal Sex Male 11:04 AM EDT Gender Identity Not on file Sexual Orientation Not on file documented as of this encounter Plan of Treatment Not on file documented as of this encounter Visit Diagnoses Not on filedocumented in this encounter Additional Source Comments The information contained in this document represents components of the legal health record. It is not the complete legal health record.[facility]
--- OUTSIDE RECORDS SUMMARY | 2025-02-17 15:39 | XMS_ITS | Encounter Summary ---
Author Organization [employer] Address [address] [place] [address] 7t [place] [address] Care Team Providers Care Steam Power Plant Operator Name Role Phone Apolonia Ragland MD Primary Care Provider [phone] Julius Beavers Unavailable Ronald [place] MD Unavailable [phone] Binh, Loyd Unavailable Reason for Visit * Reason Onset Date Comments Lab Orders 01/19/2024 Encounter Details Date Type Department Care Team (Late st Contact Info) Description 01/19/2024 Telephone [facility] 230 [place], [place] [phone] Apolonia Ragland MD 230 [place], [place] [phone] Lab Orders Social History Tobacco Use Types [...] Description 02/22/2025 9:40 AM EDT Office Visit [facility] [address] [place] [address] 03/12/2025 2:00 PM EDT Clinical Support [facility] [address] [place] [address] documented as of this encounter Visit Diagnoses Not on filedocumented in this encounter Care Teams Steam Power Plant Operator Relationship Specialty Start Date End Date Apolonia Ragland MD 230 [place] [address] PCP - General Family Medicine 05/15/18 Julius Beavers [address] 3rd [place] [address] Train Gateman Cardiology 08/25/23 Ronald [place] MD [address] [place] [address] Urology 11/17/23 BinhMarcelino 175 [facility] 110 [place] [address] Orthopaedic Surgery 08/24/23 Flor Mason RN Care Manager 04/21/23 Kera Wan MD [facility] 300 [place] [address] 11/15/23 Manisha Henao [facility] [address] [facility] [address] [place] [phone] Orthopaedic Surgery 12/07/23 documented as of this encounter
--- OUTSIDE RECORDS SUMMARY | 2025-02-17 15:39 | XMS_ITS | Encounter Summary ---
Author Organization [employer] Address [address] [facility] [address] 7t [place] [address] Care Team Providers Care Construction Trades Contractor Name Role Phone Apolonia Ragland MD Primary Care Provider [phone] Julius Beavers Unavailable Ronald [place] MD Unavailable [phone] Marcelino Purcell Unavailable Encounter Details Date Type Department Care Team (Late Contact Info) Description 06/07/2022 Telephone [facility] [address] [place] [address] Ana Lancaster LPN Social History Tobacco Use [...] AM EDT Office Visit [facility] [address] [place] [phone] 03/12/2025 2:00 PM EDT Clinical Support [facility] [address] [place] [address] documented as of this encounter Visit Diagnoses Not on filedocumented in this encounter Care Teams Construction Trades Contractor Relationship Specialty Start Date End Date Apolonia Ragland MD 230 [place] [address] PCP - General Family Medicine 05/15/18 Julius Beavers [address] 3rd [place] [address] Printer Operator Cardiology 08/25/23 Ronald [place] MD [address] [place] [address] Urology 11/17/23 Marcelino Purcell 175 [facility] 110 [place] [address] Orthopaedic Surgery 08/24/23 Flor Mason kennel manager dog track 04/21/23 Kera Wan MD [facility] 300 [place] [address] 11/15/23 Manisha Henao [facility] 175 [facility] [address] [place] [phone] Orthopaedic Surgery 12/07/23 documented as of this encounter
--- OUTSIDE RECORDS SUMMARY | 2025-02-17 15:39 | XMS_ITS | Encounter Summary ---
Author Organization [employer] Address [address] [facility] [address] 7t [place] [address] Care Team Providers Care Survey Cad Technician Name Role Phone Apolonia Ragland MD Primary Care Provider [phone] Julius Beavers Unavailable Ronald [place] MD Unavailable [phone] BinhMarcelino Unavailable Encounter Details Date Type Department Care Team (Late st Contact Info) Description 06/28/2024 Orders Only [facility] 230 [place], [place] [phone] Apolonia Ragland MD 230 [place], [place] [phone] B12 deficiency (Primary Dx); Paroxysmal atrial fibrillation [...] Description 02/22/2025 9:40 AM EDT Office Visit [facility] [address] [place] [address] 03/12/2025 2:00 PM EDT Clinical Support [facility] [address] [place] [address] documented as of this encounter Procedures Procedure [...] 1:06 PM EDT) Creatinine, Urine 95.60 mg/dL [facility] Microalbumin Urine 61.0 mg/L H [facility] Microalbum Creatinine Ratio Ur 63.8(H) <30 ug/mg cr [facility] Comment:Albumin/Creatinine R atio Reference Ranges: Normal: < 30 ug/mg creatinine Microalbuminuria: 30 - 300 ug/mg creatinineClinical Albuminuria: > 300 ug/mg creatinine Urine 09/10/2024 1:06 PM EDT 09/10/2024 3:58 PM EDT us Apolonia Ragland MD LAB URINE ORDERABLES Final Resul t [facility] [address] [place] [phone] * (ABNORMAL) Lipid Panel with Reflex to Direct LDL (09/10/2024 1:06 PM EDT) Triglycerides 119 <150 mg/dL [facility] Comment:Desirable Triglyceri de: less than 150 mg/dLBorderline High Triglyceride 150-199 mg/dLHigh Triglyceride: 200-499 mg/dLVery High Triglyceride: greater than or equal to 5OO mg/dL Cholesterol 167 <200 mg/dL [facility] Comment:Desirable Cholestero l: less than 200 mg/dLBorderline High Cholesterol: 200-239 mg/dLHigh Cholesterol: greater than 239 mg/dL LDL Cholesterol Calculated 104(H) <100 mg/dL [facility] Comment:Desirable LDL: less than 100 mg/dLNear Optimal/Above Optimal LDL: 110- 129 mg/dLBorderline High LDL: 130-159 mg/dLHigh LDL: 160-189 mg/dLVery High LDL: greater than or equal to 190 mg/dL HDL Cholesterol 40(L) >40 mg/dL [facility] Comment:Desirable HDL: great er than 40 mg/dL Note: This HDL assay may give artificially low results in patients with liver disease. Blood 09/10/2024 1:06 PM EDT 09/10/2024 3:59 PM EDT us Apolonia Ragland MD LAB BLOOD ORDERABLES Final Resul t [facility] [address] [place] [address] [phone] * (ABNORMAL) Comprehensive Metabolic Panel (09/10/2024 1:06 PM EDT) Sodium 140 135 - 145 mmol/L [facility] Potassium 4.0 3.3 - 5.1 mmol/L [facility] Chloride 105 96 - 108 mmol/L [facility] Carbon Dioxide 28 22 - 29 mmol/L [facility] Anion Gap 11(L) 12 - 20 [facility] Urea Nitrogen (BUN) 11 9 - 16 mg/dL [facility] Creatinine, Serum 0.68 0.5 - 1.4 mg/dL [facility] Estimated Glomerular Filt Rate >60 [facility] Comment:Chronic Kidney Disea se: Estimated GFR < 60 mL/min/[id number] Kidney Disease: Estimated GFR < 15 mL/min/1.73m2 Glucose 98 60 - 115 mg/dL [facility] Calcium 9.0 8.4 - 10.2 mg/dL [facility] Bilirubin, Total 0.8 0.0 - 1.0 mg/dL [facility] Aspartate Amino Transferase 18 5 - 37 U/L [facility] Alanine Aminotransferase 9 0 - 40 U/L [facility] Total Protein 6.9 6.5 - 8.0 g/dL [facility] Albumin Level 4.2 3.5 - 5.0 g/dL [facility] Alkaline Phosphatase 62 39 - 117 U/L [facility] Blood Venous blood specimen / Unknown 09/10/2024 1:06 PM EDT 09/10/2024 3:59 PM EDT us Apolonia Ragland MD LAB BLOOD ORDERABLES Final Resul t [facility] [address] [place] [address] [phone] * (ABNORMAL) CBC auto differential (09/10/2024 1:06 PM EDT) White Blood Count 8.0 4.8 - 10.8 X10*3/uL [facility] Red Blood Count 4.63 4.60 - 5.80 X10*6/uL [facility] Hemoglobin 14.5 14.0 - 18.0 g/dl [facility] Hematocrit 43.6 42.0 - 52.0 % [facility] Mean Corpuscular Volume 94.2 80.0 - 98.0 fL [facility] Mean Corpuscular Hemoglobin 31.3 27.0 - 33.0 pg [facility] Mean Corpuscular HGB Conc 33.3 31.0 - 36.0 g/dl [facility] Red Cell Distribution Width 14.2 11.0 - 16.0 % [facility] Platelet Count 199 160 - 400 X10*3/uL [facility] Mean Platelet Volume 11.0 9.4 - 12.4 fL [facility] Neutrophils Percent Auto 74.4(H) 45 - 73 % [facility] Imm Gran Pct Auto 0.4 0.0 - 0.4 % [facility] Lymphocytes Percent Auto 15.2(L) 20 - 40 % [facility] Monocytes Percent Auto 8.9 2 - 11 % [facility] Eosinophils Percent Auto 0.7 0 - 4 % [facility] Basophils Percent Auto 0.4 0 - 2 % [facility] NRBC Pct Auto 0.0 0.0 - 0.2 /100WBC [facility] Neutrophils Absolute Auto 6.0 2.0 - 8.3 x10*3/uL [facility] Imm Gran Abs Auto 0.03 0.00 - 0.03 X10*3/uL [facility] Lymphocytes Absolute Auto 1.2 1.2 - 4.9 X10*3/uL [facility] Monocytes Absolute Auto 0.7 0.1 - 1.2 X10*3/uL [facility] Eosinophils Absolute Auto 0.1 0.0 - 0.4 X10*3/uL [facility] Basophils Absolute Auto 0.0 0.0 - 0.2 X10*3/uL [facility] NRBC Abs Auto 0.000 0.0 - 0.012 X10*3/uL [facility] Blood Venous blood specimen / Unknown 09/10/2024 1:06 PM EDT 09/10/2024 3:59 PM EDT Apolonia Ragland MD LAB BLOOD ORDERABLES Final Resul t Performing Organization Address [facility] de Phone Number [facility] [address] [place] [phone] * Vitamin B12 (Cobalamin) and Folate Panel, Serum (09/10/2024 1:06 PM EDT) Vitamin B12 419 200 - 900 pg/mL [facility] Comment:NORMAL 200-900 PG/M L INDETERMINATE 160-199 PG/ML DEFICIENT < 160 PG/ML Folate 8.7 > or = 4.0 ng/mL [facility] Comment:Reference Values:> o r = 4.0 ng/mL< 4.0 ng/mL suggests folate deficiency Methotrexate, aminopterin and folinic acid(leucovorin) are chemotherapeutic agents whose molecularstructures are similar to folate; therefore, the Architectfolate assay cannot be used for patients using these drugs. Blood 09/10/2024 1:06 PM EDT 09/10/2024 3:59 PM EDT Apolonia Ragland MD LAB BLOOD ORDERABLES Final Resul t Performing Organization Address [facility] Co de Phone Number [facility] [address] [place] [address] [phone] documented in this encounter Visit Diagnoses Diagnosis B12 deficiency- Primary Paroxysmal atrial fibrillation (CMS/HCC) (HCC) Atrial fibrillation Essential hypertension Unspecified essential hypertension documented in this encounter Additional Health Concerns Assessment Noted Time PHQ-9 Depression Total Score: 3 05/01/20 24 9:55 AM EST documented as of this encounter Care Teams Survey Cad Technician Relationship Specialty Start Date End Date Apolonia Ragland MD 230 [place] [address] PCP - General Family Medicine 05/15/18 Julius Beavers [address] 3rd [place] [address] Emergency Department Rn Cardiology 08/25/23 Ronald [place] MD [address] [place] [address] Urology 11/17/23 Marcelino Purcell 175 [facility] 110 [place] [address] Orthopaedic Surgery 08/24/23 Flor [place] RN Care Manager 04/21/23 Kera Wan MD [facility] 300 [place] [address] 11/15/23 Manisha Henao [facility] 175 [facility] [address] [place] [phone] Orthopaedic Surgery 12/07/23 documented as of this encounter
--- OUTSIDE RECORDS SUMMARY | 2025-02-17 15:39 | XMS_ITS | Encounter Summary ---
Author Organization [employer] Address [address] [facility] [address] 7t [place] [address] Care Team Providers Care Farm Worker Name Role Phone Apolonia Ragland MD Primary Care Provider [phone] Julius Beavers Unavailable Ronald [place] MD Unavailable [phone] Marcelino Purcell Unavailable Encounter Details Date Type Department Care Team (Latest Contact Info) Description 02/17/2025 Travel Social History Tobacco Use Types Packs/Day [...] Description 02/22/2025 9:40 AM EDT Office Visit [facility] 230 [place] [address] 03/12/2025 2:00 PM EDT Clinical Support [facility] [address] [place] [address] documented as of this encounter Visit Diagnoses Not on filedocumented in this encounter Additional Health Concerns Assessment Noted Time PHQ-9 Depression Total Score: 3 05/01/20 24 9:55 AM EST documented as of this encounter Care Teams Farm Worker Relationship Specialty Start Date End Date Apolonia Ragland MD 230 [place] [address] PCP - General Family Medicine 05/15/18 Julius Beavers [address] 3rd [place] [address] Hydraulic Riveter Cardiology 08/25/23 Ronald Maxewll MD [address] [place] [address] Urology 11/17/23 Marcelino Purcell [address] [place] [address] Orthopaedic Surgery 08/24/23 Flor Mason tutorial laboratory supervisor 04/21/23 Kera Wan MD [facility] [address] [place], [place] [address]an[address] [place] [address] 11/15/23 Manisha Henao [facility] [address] [place] [phone] Orthopaedic Surgery 12/07/23 documented as of this encounter
--- OUTSIDE RECORDS SUMMARY | 2025-02-17 15:39 | XMS_ITS | Clinical Summary ---
Author Organization [address] [place] [address] Address 175 [place] [address] Phone Care Team Providers Care Parquetry Layer Name Role Phone Apolonia Ragland MD Primary Care Provider [phone] Allergies Active Allergy Reactions Criticality Noted Date [...] 12/12/2023 Social Influencers of Health Screening 12/12/2023 Depression Screening 05/15/2024 COVID-19 Vaccine ( - season) 2025 07/28/2020, 06/30/2020 Influenza Vaccine (#1) [...] complete this topic Insurance MEDICARE Care Teams Parquetry Layer Relationship Specialty Start Date End Date Apolonia Ragland MD [address] [place] [phone] PCP - General 03/25/13
--- OUTSIDE RECORDS SUMMARY | 2025-02-17 15:39 | XMS_ITS | Encounter Summary ---
Author Organization [employer] Address [address] [place] [address] 7t [place] [address] Care Team Providers Care Supervisor Border Department Name Role Phone Apolonia Ragland MD Primary Care Provider [phone] Julius Beavers Unavailable Ronald Maxwell MD Unavailable [phone] Binh, Loyd Unavailable Reason for Visit * Reason Onset Date Comments Nurse Triage 09/28/2023 Encounter Details Date Type Department Care Team (Late st Contact Info) Description 09/28/2023 Telephone [facility] [address] [place], [place] [phone] Apolonia Ragland MD 230 [place], [place] [phone] Nurse Triage Social History Tobacco Use Types [...] accepted this outcome Please contact pt at [phone] documented in this encounter Plan of Treatment Upcoming Encounters Date Type Department Care Team (Late st Contact Info) Description 02/22/2025 9:40 AM EDT Office Visit [facility] [address] [place] [address] 03/12/2025 2:00 PM EDT Clinical Support [facility] [address] [place] [address] documented as of this encounter Visit Diagnoses Not on filedocumented in this encounter Care Teams Supervisor Border Department Relationship Specialty Start Date End Date Apolonia Ragland MD [address] [place] [address] PCP - General Family Medicine 05/15/18 Julius Beavers [address] 3rd [place] [address] Technical Services Assistant Cardiology 08/25/23 Ronald Maxwell MD [address] [place] [address] Urology 11/17/23 Marcelino Purcell 175 [facility] 110 [place], [place] [phone] Orthopaedic Surgery 08/24/23 Flor Mason learning center coordinator 04/21/23 Kera Wan MD [facility] 300 [place] [address] 11/15/23 Manisha Henao [facility] 175 [facility] 250 [place] [address] Orthopaedic Surgery 12/07/23 documented as of this encounter
--- OUTSIDE RECORDS SUMMARY | 2025-02-17 15:39 | XMS_ITS | Encounter Summary ---
Author Organization [employer] Address [address] [facility] [address] [facility] [address] 7t [place] [address] Care Team Providers Care Fruit Dryer Name Role Phone Apolonia Ragland MD Primary Care Provider [phone] Julius Beavers Unavailable Ronald Maxwell MD Unavailable Marcelino Purcell Unavailable Encounter Details Date Type Department Care Team (Late st Contact Info) Description 09/23/2024 Orders Only [facility] 230 [place], [place] [phone] Apolonia Ragland MD 230 [place], [place] [phone] Social History Tobacco Use Types Packs/Day Years [...] Description 02/22/2025 9:40 AM EDT Office Visit [facility] [address] [place] [address] 03/12/2025 2:00 PM EDT Clinical Support [facility] [address] [place] [address] documented as of this encounter Visit Diagnoses Not on filedocumented in this encounter Additional Health Concerns Assessment Noted Time PHQ-9 Depression Total Score: 3 05/01/20 24 9:55 AM EST documented as of this encounter Care Teams Fruit Dryer Relationship Specialty Start Date End Date Apolonia Ragland MD [address] [place] [address] PCP - General Family Medicine 05/15/18 Julius Beavers [address] [place] [address] Drive 3rd [place] [address] Seater Assembler Cardiology 08/25/23 Ronald Maxwell MD [address] [place] [address] Urology 11/17/23 Marcelino Purcell 175 [facility] 110 [place] [address] Orthopaedic Surgery 08/24/23 Flor Mason marshmallow runner 04/21/23 Kera Wan MD [address] [address] 11/15/23 [facility] 175 [facility] [address] [place] [phone] Orthopaedic Surgery 12/07/23 documented as of this encounter
--- OUTSIDE RECORDS SUMMARY | 2025-02-17 15:39 | XMS_ITS | Encounter Summary ---
Author Organization [employer] Address [address] [facility] [facility] [address] 7t [place] [address] Care Team Providers Care Heel Burnisher Name Role Phone Apolonia Ragland MD Primary Care Provider [phone] Julius Beavers Unavailable Ronald Maxwell MD Unavailable [phone] Marcelino Purcell Unavailable Encounter Details Date Type Department Care Team (Late st Contact Info) Description 02/14/2025 Telephone [facility] 230 [place] [address] [place], [place] Social History Tobacco Use Types Packs/Day Years [...] encounter Miscellaneous Notes * Telephone Encounter - Stacia Chaudhry [place] - 02/14/2025 10:06 AM EDT Chart Prep Labs: done Images: done Referrals: closed Vaccines due: Covid, Flu, Tdap, and RSV Screenings: not applicable Overdue care gaps: Tobacco documented in this encounter Plan of Treatment Upcoming Encounters Date Type Department Care Team (Late st Contact Info) Description 02/22/2025 9:40 AM EDT Office Visit [facility] [address] [place] [address] 03/12/2025 2:00 PM EDT Clinical Support [facility] 230 [place] [address] documented as of this encounter Visit Diagnoses Not on filedocumented in this encounter Additional Health Concerns Assessment Noted Time PHQ-9 Depression Total Score: 3 05/01/20 24 9:55 AM EST documented as of this encounter Care Teams Heel Burnisher Relationship Specialty Start Date End Date Apolonia Ragland MD 230 [place] [address] PCP - General Family Medicine 05/15/18 Julius Beavers [address] 3rd [place] [address] Mix House Operator Cardiology 08/25/23 Ronald Maxwell MD [address] [place] [address] Urology 11/17/23 Marcelino Purcell [address] [address] Orthopaedic Surgery 08/24/23 Flor Mason RN Care Manager 04/21/23 Kera Wan MD [address] [address] 11/15/23 Manisha Henao [facility] 175 [facility] [address] [place] [address] Orthopaedic Surgery 12/07/23 documented as of this encounter
--- OUTSIDE RECORDS SUMMARY | 2025-02-17 15:39 | XMS_ITS | Encounter Summary ---
Author Organization [facility] Address [address] [place] [address] Phone Care Team Providers Care Farm Manager Name Role Phone Unavailable Primary Care Provider Unavailabl e Encounter Details Date Type Department Care Team (Latest Contact Info) Description 12/21/2018 Ancillary Orders [facility] [address] [place] [address] [place] [address] Lizy Ho MD [address] [place] [phone] [email or web address] Ventricular premature depolarization Social History Tobacco Use Types Packs/Day Years Used Date Smoking Tobacco: Never Assessed Sex and Gender Information Value Date Recorded Sex Assigned at Not on file Legal Sex Male 11:04 AM EDT Gender Identity Not on file Sexual Orientation Not on file documented as of this encounter Plan of Treatment Not on file documented as of this encounter Results * Holter Monitor 24 Hours (12/21/2018 12:19 PM EDT) Anatomical Region Laterality Modality Heart Other Narrative 12/21/2018 12:37 PM EDT 24-hour monitor: Baseline rhythm is sinus with a minimum heart rate minute. Longest pauses 1.8 seconds at 2:28 AM, presumably during hours. There is a minor increase in frequency of atrial ectopy, about 1200 atrial ectopic beats during the 24 hours, with mainly isolated PACs and occasional brief runs of atrial tachycardia, longest duration 4 beats. There is a moderate increase in frequency of ventricular ectopic beats, 4627 during the 24 hours. These are mainly isolated PVCs with occasional couplets. There is no patient diary returned. Patient event marker during sinus rhythm with PACs. Impression: Abnormal 24-hour monitor for increase in frequency of atrial ectopy, moderate increase in frequency of ventricular ectopy, details above. 2 patient event markers occurred baseline rhythm was sinus with PACs and PVCs. No diary returned. Procedure Note Placido Faustin MD - 12/21/2018 24-hour monitor: Baseline rhythm is sinus with a minimum heart rateminute. Longest pauses 1.8 seconds at 2:28 AM, presumably during hours.There is a minor increase in frequency of atrial ectopy, about 1200 atrialectopic beats during the 24 hours, with mainly isolated PACs andoccasional brief runs of atrial tachycardia, longest duration 4 beats.There is a moderate increase in frequency of ventricular ectopic beats,4627 during the 24 hours. These are mainly isolated PVCs with occasionalcouplets. There is no patient diary returned. Patient event markerduring sinus rhythm with PACs. Impression: Abnormal 24-hour monitor for increase in frequency of atrialectopy, moderate increase in frequency of ventricular ectopy, detailsabove. 2 patient event markers occurred baseline rhythm was sinus withPACs and PVCs. No diary returned. Lizy Ho MD [facility] Final Result documented in this encounter Visit Diagnoses Diagnosis Ventricular premature depolarization Other premature beats Ventricular premature depolarization Other premature beats documented in this encounter Additional Source Comments The information contained in this document represents components of the legal health record. It is not the complete legal health record.[facility]
--- OUTSIDE RECORDS SUMMARY | 2025-02-17 15:39 | XMS_ITS | Encounter Summary ---
Author Organization [employer] Address [address] 7t [place] [address] Care Team Providers Care Laborer Prestressed Concrete Name Role Phone Apolonia Ragland MD Primary Care Provider [phone] Julius Beavers Unavailable Ronald Maxwell MD Unavailable [phone] Marcelino Purcell Unavailable Encounter Details Date Type Department Care Team (Late st Contact Info) Description 09/11/2024 Orders Only [facility] 230 [place], [place] [phone] Apolonia Ragland MD 230 [place], [place] [phone] Nocturia (Primary Dx) Social History Tobacco Use [...] the past 12 months, has t he [employer], gas, oil or water company threatened to [...] as of this encounter Miscellaneous Notes * Result Encounter Note - Nika Guzman MD - 09/11/2024 8:31 AM EDT I called pt who reports having chronic urinary symptoms since had procedure 2 months ago, stateshaving noticing increase urinary frequency in am but mainly at night. Noted dripping after urination, ,denies dysuria but describes discomfort at end of urination, denies fever,chills nor pain States he mentioned it to his urologist but not had an answer .from PCP record pt did have UTI after procedure and was tx w ATB Hi I was forward this UA reported noted large LE, WBC >50 . I will hold on ATB for now and told pt that he will receive a call from clinic with culture result to see if there is need for ATB but given chronic symptoms will hold for now given pyuria can be from his recent urologic procedure, bladdermalignancy. I also advised pt to call Monday his urologist for ongoing symptoms after procedure documented in this encounter Plan of Treatment Upcoming Encounters Date Type Department Care Team (Late st Contact Info) Description 02/22/2025 9:40 AM EDT Office Visit [facility] 230 [place] [address] 03/12/2025 2:00 PM EDT Clinical Support [facility] 230 [place] [address] documented as of this encounter Procedures Procedure Name Priority Date/Time Associated Diagnosis Comments URINALYSIS, COMPLETE Routine 09/20/2024 12:29 PM EDT Nocturia CULTURE, URINE, ROUTINE Routine 09/20/2024 12:29 PM EDT Nocturia documented in this encounter Results * (ABNORMAL) Urinalysis Complete (09/20/2024 12:29 PM EDT) Color Urine Yellow [facility] Appearance Urine Clear [facility] PH 7.0 5.0 - 9.0 [facility] Glucose Urine UA Negative Negative mg/dL [facility] Urine Blood Trace(A) Negative [facility] Specific [place] - Urine <=1.005 1.005 - 1.025 [facility] Urine Protein Negative Neg-Trace mg/dL [facility] Urine Ketones Negative Negative mg/dL [facility] Nitrite Urine Negative Negative [facility] Leukocyte Esterase Urine Large (3+)(A) Negative [facility] RBC Urine 0-2 0 - 2 /HPF [facility] Urine WBC >50(A) 0 - 5 /HPF [facility] Urine Squamous Epithelial Cell 0-2 0 - 2 /HPF [facility] Urine Bacteria Trace None Seen [facility] Hyaline Casts, Urine 0-2 0 - 2 /LPF [facility] Urine (Urine, Random) 09/20/2024 12:29 PM EDT 09/20/2024 1:04 PM EDT us Apolonia Sakurai MD LAB URINE ORDERABLES Final Resul t Performing Organization Address [facility] de Phone Number [facility] [address] [place] [phone] * Culture, Urine, Routine (09/20/2024 12:29 PM EDT) Urine Urine specimen obtained by clean catch procedure / Unknown 09/20/2024 12:29 PM EDT 09/20/2024 1:04 PM EDT Comment:[facility] - 10/03/2024 2:16 PM EDT Gram negative aminta Quant > 100,000 cfu/mL 10/03/24 Ps.aeruginosa INT OTTO AMIKACIN S <16 CEFEPIME S <2 CEFTAZIDIME S 4 CIPROFLOXACIN S <0.25 GENTAMICIN S <2 IMIPENEM S <1 LEVOFLOXACIN S <0.5 MEROPENEM S <1 PIP/TAZOBACTAM S <8 TOBRAMYCIN S <2 S = Susceptible I = Intermediate R = Resistant NS = Not susceptible SDD = Susceptible Dose Dependent * = Not Tested NR = Not Reported NN = See Therapy Comments Test performed by: [email or web address] [employer] [address] [place] [address], [place] [address] Director: Nirali Monte MD CLIA: [id number] Specimen Source: Urine clean catch us Apolonia Ragland MD LAB MICROBIOLOGY - GENERAL ORDER VICK Final Result Performing Organization Address [facility] Co de Phone Number [facility] [address] [place] [phone] documented in this encounter Visit Diagnoses Diagnosis Nocturia- Primary documented in this encounter Additional Health Concerns Assessment Noted Time PHQ-9 Depression Total Score: 3 05/01/20 24 9:55 AM EST documented as of this encounter Care Teams Laborer Prestressed Concrete Relationship Specialty Start Date End Date Apolonia Ragland MD [address] [place] [address] PCP - General Family Medicine 05/15/18 Julius Beavers [address] 3rd [place] [address] Ehs Teacher Cardiology 08/25/23 Ronald Maxwell MD [address] [place] [address] Urology 11/17/23 Marcelino Purcell 175 [facility] 110 [place] [address] Orthopaedic Surgery 08/24/23 Flor Mason RN Care Manager 04/21/23 Kera Wan MD [address] [address] 11/15/23 Manisha Henao [facility] 175 [facility] [address] [place] [address] Orthopaedic Surgery 12/07/23 documented as of this encounter
--- OUTSIDE RECORDS SUMMARY | 2025-02-17 15:39 | XMS_ITS | Encounter Summary ---
Author Organization [employer] Address [address] [place] [address] 7 [place] [address] Care Team Providers Care Oil Separator Name Role Phone Apolonia Ragland MD Primary Care Provider [phone] Julius Beavers Unavailable Ronald Maxwell MD Unavailable Marcelino Purcell Unavailable Encounter Details Date Type Department Care Team (Late Contact Info) Description 10/11/2022 Abstract [facility] Information Management 230 [place] [address] Apolonia Ragland MD 230 [place] [address] Social History Tobacco Use Types Packs/Day Years [...] Description 02/22/2025 9:40 AM EDT Office Visit [facility] 230 [place] [address] 03/12/2025 2:00 PM EDT Clinical Support [facility] 230 [place] [address] documented as of this encounter Visit Diagnoses Not on filedocumented in this encounter Care Teams Oil Separator Relationship Specialty Start Date End Date Apolonia Ragland MD 230 [place] [address] PCP - General Family Medicine 05/15/18 Julius Beavers [address] 3rd [place] [address] Hand Alterations Tailor Cardiology 08/25/23 Ronald Maxwell MD [address] [place] [address] Urology 11/17/23 Marcelino Purcell 175 [facility] 110 [place] [address] Orthopaedic Surgery 08/24/23 Flor Mason capsule filling machine operator 04/21/23 Kera Wan MD [address] [address] 11/15/23 Manisha Henao [facility] 175 [facility] [address] [place] [phone] Orthopaedic Surgery 12/07/23 documented as of this encounter
--- OUTSIDE RECORDS SUMMARY | 2025-02-17 15:39 | XMS_ITS | Encounter Summary ---
Author Organization [employer] Address [address] 7t [place] [address] Care Team Providers Care International Bank Manager Name Role Phone Apolonia Ragland MD Primary Care Provider [phone] Julius Beavers Unavailable Ronald Maxwell MD Unavailable [phone] BinhMarcelino Unavailable Encounter Details Date Type Department Care Team (Late st Contact Info) Description 08/14/2023 Orders Only [facility] 230 [place], [place] [phone] Apolonia Ragland MD 230 [place], [place] [phone] Primary osteoarthritis involving multiple joints Social History [...] Description 02/22/2025 9:40 AM EDT Office Visit [facility] [address] [place] [address] 03/12/2025 2:00 PM EDT Clinical Support [facility] [address] [place] [address] documented as of this encounter Visit Diagnoses Diagnosis Primary osteoarthritis involving multiple joints documented in this encounter Care Teams International Bank Manager Relationship Specialty Start Date End Date Apolonia Ragland MD 230 [place] [address] PCP - General Family Medicine 05/15/18 Julius Beavers [address] 3rd [place] [address] Speech And Language Tutor Cardiology 08/25/23 Ronald Maxwell MD [address] [place] [address] Urology 11/17/23 Marcelino Purcell 175 [facility] 110 [place] [address] Orthopaedic Surgery 08/24/23 Flor Mason RN Care Manager 04/21/23 Kera Wan MD [facility] [address] [place] [phone] 11/15/23 Manisha Henao [facility] [address] [place] [phone] Orthopaedic Surgery 12/07/23 documented as of this encounter
--- OUTSIDE RECORDS SUMMARY | 2025-02-17 15:39 | XMS_ITS | Encounter Summary ---
Author Organization [employer] Address [address] 7t [place] [address] Care Team Providers Care Mis Specialist Name Role Phone Apolonia Ragland MD Primary Care Provider [phone] Julius Beavers Unavailable Ronald Maxwell MD Unavailable [phone] BinhMarcelino Unavailable Encounter Details Date Type Department Care Team (Late st Contact Info) Description 05/23/[address] [facility] 230 [place], [place] [phone] Apolonia Ragland MD 230 [place], [place] [phone] Frequent PVCs (Primary Dx) Social History Tobacco [...] Description 02/22/2025 9:40 [address] EDT [address] [facility] [address] [place] [address] 03/12/2025 2:00 PM EDT Clinical Support [facility] [address] [place] [address] documented as of this encounter Visit Diagnoses Diagnosis Frequent PVCs- Primary documented in this encounter Care Teams Mis Specialist Relationship Specialty Start Date End Date Apolonia Ragland MD 230 [place] [address] PCP - General Family Medicine 05/15/18 Julius Beavers [address] 3rd [place] [address] Maintenance Specialist Cardiology 08/25/23 Ronald Maxwell MD [address] [place] [address] Urology 11/17/23 Marcelino Purcell [address] [address] Orthopaedic Surgery 08/24/23 Flor Mason RN Care Manager 04/21/23 Kera Wan MD [address] [address] 11/15/23 Manisha Henao [facility] [address] [place] [phone] Orthopaedic Surgery 12/07/23 documented as of this encounter
== END 2025-02-17 13:14 | disposition home or self-care (01) ==
LOC: HO.HHCL 13:13
PROVIDERS: PCP Family Medicine; Visit Provider Family Medicine
DX: Z13.89 Encounter for screening for other disorder (principal)

== ENCOUNTER 2025-02-21 12:04 | Outpatient (REF) | payer MEDICARE, OTHER, SELFPAY | END 2025-02-21 12:05 | disposition home or self-care (01) | LOC: HO.HHCL 12:04 | PROVIDERS: PCP Family Medicine; Visit Provider Family Medicine | DX: R14.0 Abdominal distension (gaseous) (principal) | CPT/HCPCS: 87338 ==

== ENCOUNTER 2025-03-13 11:08 | Outpatient (AMB) | payer MEDICARE, MEDICAID, SELFPAY ==
--- NOTE | 2025-03-13 11:12 | MHC.OFFVIS ---
Intake Visit Reasons: cysto Intake Note: Patient is present for Cystoscopy Urology Medication:Tamsulosin Antibiotic Allergy:TETRACYCLINE Blood Thinner:[employer] Insurance Manager Required: No Accompanied by: Self / Same As Patient Allergies tetracycline (TETRACYCLINE) Allergy (Intermediate, Verified 03/13/25 11:12) RASH HPI Comments Details: Colton is a pleasant male. He is a patient of Dr. Ragland. He has seen for the following urologic conditions. - hematuria - bladder cancer Here for office cysto Will need three-month boost bladder therapy No discrete tumors Does suffer from urinary urgency and frequency. Was exacerbated by bladder treatment with mitomycin-C. Whilst this has controlled the bladder cancer it has significantly increased bladder instability and non sensed voiding episodes. 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 TURBT 2018 high-grade T1 10/06 Induction [facility] with cytarabine - 5 doses TURBT 08/06 Procedure: Transurethral resection Tumor site: Multiple sites Histologic type: Papillary carcinoma Histologic grade: High grade Muscularis propria: Present Extent of invasion: Lamina propria Lymphovascular invasion: Not identified Imaging stable - 05/07 CT Urinary bladder is unremarkable. No focal bladder wall thickening identified. Prostate calcifications present. No inguinal or pelvic lymphadenopathy. [facility] History Bilateral tinnitus Ascending aorta dilatation Afib Arrhythmia Epistaxis Hypersomnia Paroxysmal atrial fibrillation Subdural hematoma History of kidney stones Dysthymic disorder Calculus of gallbladder without cholangitis or cholecystitis Ganglion cyst of finger of left hand B12 deficiency Sensorineural hearing loss Pes planovalgus Malignant neoplasm of urinary bladder Actinic keratosis Osteoarthritis Depression Allergic rhinitis Primary osteoarthritis involving multiple joints Pulmonary hypertension Essential hypertension Pain, dental GERD (gastroesophageal reflux disease) Frequent PVCs Surgical History Hx of tonsillectomy Social History Alcohol intake: never Comment: slippery outside Patient Tobacco Use Status: Former Tobacco user Review of Systems Const Denies chills and Denies fever(s) Card Reports no additional complaints and Denies syncope Resp Denies cough GI Denies abdominal pain and Denies heartburn Reports as per HPI and Denies change in libido Neuro Denies syncope Psych Denies change in libido Endo Denies change in libido Physical Exam Const General: cooperative, healthy appearing, comfortable and no acute distress Orientation/consciousness: patient oriented x3 HEENT Face and sinus: Yes normal facial exam Mouth: moist mucous membranes Neck Neck: Yes normal visual inspection, Yes full ROM and Yes trachea midline Chest Chest palpation & inspection: normal inspection of the chest Resp Effort & Inspection: normal respiratory effort, able to speak in complete sentences and no respiratory distress GI Inspection: Yes normal to inspection Back/Spine/Pelvis Cervical Spine: normal cervical lordosis Thoracic/Lumbar Spine: thoracic and lumbar spine normal to inspection Skin General skin exam: no rashes or lesions noted Neuro General: patient oriented x3, gait normal, tone normal and moves all extremities Extrem General: Yes normal to inspection and Yes capillary refill normal Office Procedures Cystoscopy Consent Discussed risk and benefit or proposed procedure with the patient. Information consent for procedure given to the patient. Discussed technical aspects, risks, benefits and alternatives in full. Addressed all of the patient's questions and concerns regarding the procedure. The patient demonstrated knowledge and understanding. They wish to proceed with this procedure. Preparation The patient was prepped in the usual manner. A paste mixer liquid was present and in the room. Genitalia was prepped with betadine solution in a sterile manner. Lidocaine Jelly 2% was placed into the urethra and 16Fr flexible Olympus cystoscope was inserted into the meatus after adequate lubrication. Procedure Cystoscopy performed using a disposable Urovue digital 16 Ug[place]an cystoscope. Meatus circumcised Urethra anterior and posterior urethra normal Prostatic Urethra unremarkable Bladder examination with retroflexion of cystoscope Bladder Orifices normal shape and position Bladder Capacity reduce Trabeculations grade 2 Cellule Formation scattered Diverticulum Formation None Mucosal Erythema irritated Bladder Tumor None [id number] DISPOSABLE SCOPE URO-G FLEXIBLE SCOPE Procedure code (CPT) selection complete Office Meds lidocaine HCl 2 % mucosal jelly in applicator Performing Provider: Ronald Maxwell MD [place] [facility] [place] [facility] Administered by: Shanae Ross RN on 03/13/25 11:48 Dose Route Admin Location Dispensed Lot Number Expiration Date [facility] Drafting Engineer 10 mL intra-urethral 10 mL nitrofurantoin monohydrate/macrocrystals 100 mg capsule Performing Provider: Ronald Maxwell MD [place] [facility] [place] [facility] Administered by: Shanae Ross RN on 03/13/25 11:48 Dose Route Admin Location Dispensed Lot Number Expiration Date [employer] Drafting Engineer 100 mg PO 1 cap Results AMB Urinalysis, Automated UA Leukoctes 15 Leila/uL Last Edit by Shena Danny, [facility] on 03/13/25 11:32 UA Nitrite Negative Last Edit by Shena Colon, [facility] on 03/13/25 11:32 UA Urobilinogen 0.2 mg/dL Last Edit by Shena Colon, [facility] on 03/13/25 11:32 UA Protein 0 mg/dL Last Edit by Shena Wheatland, [facility] on 03/13/25 11:32 UA pH 6.0 Last Edit by Shena Colon, [facility] on 03/13/25 11:32 UA Blood 0 Diego/uL Last Edit by [facility], [facility] on 03/13/25 11:32 UA Specific [place] 1.010 Last Edit by Shena Colon, [facility] on 03/13/25 11:32 UA Ketone Negative Last Edit by Shena Wheatland, [facility] on 03/13/25 11:32 UA Bilirubin 0 mg/dL Last Edit by Shena Wheatland, [facility] on 03/13/25 11:32 UA Glucose 0 mg/dL Last Edit by [facility], [facility] on 03/13/25 11:32 Results Reviewed Results Reviewed: Laboratory Last Values Urine pH (Auto) 6.0 03/13/25 11:32 Specific [place] (Auto) 1.010 03/13/25 11:32 Urine Protein (Auto) 0 mg/dL 03/13/25 11:32 Glucose (UA)(Auto) 0 mg/dL 03/13/25 11:32 Urine Ketones (Auto) Negative 03/13/25 11:32 Urine Blood (Auto) 0 Diego/uL 03/13/25 11:32 Urine Nitrite (Auto) Negative 03/13/25 11:32 Urine Bilirubin (Auto) 0 mg/dL 03/13/25 11:32 Urine Urobilinogen (Auto) 0.2 mg/dL 03/13/25 11:32 Leukocyte Esterase (Auto) 15 Leila/uL 03/13/25 11:32 Assessment & Plan Assessment & Plan (1) Malignant neoplasm of urinary bladder: Code(s): C67.9 - Malignant neoplasm of bladder, unspecified Category: Medical (2) Urinary urgency: Code(s): R39.15 - Urgency of urination Category: Medical Plan Bladder immunotherapy Bladder immuno/chemotherapy was discussed today. These medications are used to create an immune reaction against bladder cancer. The intention is to destroy any tumor cells left on the bladder surface. Since BCG and gemcitabine involved immunostimulation they are not indicated in situations where there is immune weakness. Medications are placed directly into the bladder. It should be held for one to 2 hours. The toilet should be disinfected with a cap full of household bleach prior to urination. Side effects from BCG and gemcitabine generally include mucosa-related changes such as urinary urgency and/or frequency, and hematuria BCG may also invoke an infection type response. An elevated temperature may be indicative of more serious issues and should be reported to the Dr. The intention with bladder immunotherapy is to reduce the frequency of bladder cancer recurrence by 50%. Availability of BCG is highly variable. There is a single manufacture who has had difficulty with software quality specialist since 2016. Multiple protocols are available - mitomycin-C for alkalinization - 40mg/200mg in 40cc NSal - A Randomized Clinical Trial of Intravesical Instillation of Mitomycin-C and Combination of Mitomycin-C and Cytarabine (Shayy-C) in Non-Muscle Invasive Bladder Cancer - Gasper Avendano BJU Int. 2021;129(4):534-541. 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 Crossref DOI link:?https://doi.org/10.1200/JCO.2023.41.6_suppl.507) Will undergo - three-week gemcitabine boost in combination with docetaxel Orders: Orders FISH Bladder Cancer 03/13/25 C67.9 - Malignant neoplasm of bladder, unspecified AMB Cystoscopy 03/13/25 C67.9 - Malignant neoplasm of bladder, unspecified Patient Instructions: This note is constructed using voice recognition software. While every effort has been made to ensure accuracy public health program manager errors may have been included. Imaging studies, laboratory and physical exam results were discussed and reviewed in detail. No major barriers to patient understanding were identified. An opportunity to ask questions regarding the treatment plan was provided. All questions were answered. The patient expressed understanding and agreement with the above treatment plan. The patient is aware they should contact our office by phone for worsening of their current condition or the appearance of new urologic symptoms. Compliance is encouraged with any medications and followup testing that is ordered. It is a privilege to participate in the urologic care of your patient. If you have any questions or concerns regarding treatment for the above conditions, or other urologic issues, please do not hesitate to contact me. The office telephone contact is [phone]. Sincerely, Dr Ronald Maxwell MD, [facility] - Urology Compassionate Specialist Care for the Genitourinary System Coding Level of Care Code Est Pt Level 3 (74417) Complex EM visit Add On G2211 Diagnoses Malignant neoplasm of urinary bladder C67.9 Urinary urgency R39.15 CPT Codes Cystoscopy - CPT: 33430-[id number] ([id number])
--- OUTSIDE RECORDS SUMMARY | 2025-03-13 13:58 | XMS_ITS | Encounter Summary ---
Author Organization [employer] Address [address] [place] [address] 7 [place] [address] Care Team Providers Care Delivery And Mail Sorter Name Role Phone Apolonia Ragland MD Primary Care Provider [phone] Juilus Beavers Unavailable Ronald Maxwell MD Unavailable [phone] Marcelino Purcell Unavailable Reason for Referral * Consultation (Urgent) - Closed Specialty Diagnoses / Procedures Referred By Contac t Referred To Contact Otolaryngology Diagnoses Epistaxis Seasonal allergic rhinitis, unspecified trigger Paroxysmal atrial fibrillation (CMS/HCC) (HCC) Apolonia Ragland MD [address] [place] [address] Phone: tel: fax: [facility] [address] Phone: tel: fax: Referral ID Status Reason Start Date Expiration Date V isits Requested Visits Authorized [id number] Closed Specialty Services Required 12/31/2024 12/31/2025 1 1 Encounter Details Date Type Department Care Team (Late st Contact Info) Description 12/31/2024 Orders Only [facility] [address] [place] [address] Apolonia Ragland MD [address] [place], [place] [id number] Epistaxis (Primary Dx); Seasonal allergic rhinitis, unspecified [...] as of this encounter Plan of Treatment Pending Results Name Type Priority Associated Diagnoses [...] documented as of this encounter Care Teams Delivery And Mail Sorter Relationship Specialty Start Date End Date Apolonia Ragland MD [address] [place] [address] PCP - General Family Medicine 05/15/18 Julius Beavers [address] [place] [address] Occupational Analyst Cardiology 08/25/23 Ronald Maxwell MD [address] [place] [address] Urology 11/17/23 Marcelino Purcell [address] [facility] [address] [place] [address] Orthopaedic Surgery 08/24/23 Flor Mason environmental technology professor 04/21/23 Kera Wan MD [address] [id number] 11/15/23 Manisha Henao [facility] [address] [facility] [address] [place] [id number] Orthopaedic Surgery 12/07/23 documented as of this encounter
--- OUTSIDE RECORDS SUMMARY | 2025-03-13 13:58 | XMS_ITS | Clinical Summary ---
Author Organization [employer] Address [address] [place] [address] 7t [place] [address] Care Team Providers Care Museum Guide Name Role Phone Apolonia Harding MD Primary Care Provider [phone] Julius Beavers Unavailable Ronald Maxwell MD Unavailable [phone] Marcelino Purcell Unavailable Allergies Active Allergy Reactions [...] EVERY DAY NEEDED 1 each 025 Active cetirizine (ZyrTEC) 5 MG tablet Take [...] DIRECTED, DO NOT SWALLOW 473 mL 2 025 Active Acetaminophen Extra Strength 500 MG [...] Reorder (will not trigger notification to Pharmacy)) clotrimazole (Lotrimin) 1 % creamIndications :Rash Apply topically 2 times daily for 7 days. 30 g 025 2024 Hospital, Clinic, or Other Facility Administered Medication [...] Diagnosed Date Epistaxis 05/30/2024 Assessment & Plan (02/22/2025 7:18 AM EDT): - on apixaban 2.5 mg bid - evaluated by ENT in Jan 2025 - previously had cauterization - Recommended aggressive hydration using saline nasal spray at least 4 times daily, followed by saline gel after every use to help retain moisture in the nose - Recommended humidifier at home Assessment & Plan (11/28/2024 10:14 AM EDT): [...] previously Dx [place] - Lesions on right orthodox and forearm. - Re-evaluated in [facility] Clinic; [...] Assessment & Plan (11/01/2023 10:45 AM EDT): -[id number] Score: 3 - continue apixaban 2.5 mg bid - no rate or rhythm control - advised to complete sleep study - continue risk factor management Assessment & Plan (09/30/2023 6:35 PM EDT): - continue apixaban - patient states apixaban was switched to rivaroxaban by drain tiler; however, patient seems to be taking 5 [...] atrial fibrillation (CMS/HCC) 024 Assessment & Plan (02/22/2025 7:16 AM EDT): -Cnc Manager: [facility] [place]. Last seen in December 2024, recommended to resume apixaban 5 mg bid -[id number] Score: 3 -Rate control: none -Rhythm control: none -Anticoagulation: apixaban 2.5 mg bid (prescribed 5 mg bid, but patient is having epistaxis and has been adjusting to 2.5 mg bid or daily) -Last Holter monitor: 07/10/23 -Transthoracic echocardiogram: -10/25/22 LVEF 55-60%; 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 HFCCA -10/06/23 LVEF 55-60%. Moderately dilated left atrium. Mild dilation of the sinuses of Valsalva measuring 3.80 cm and mild dilation of the ascending aorta measuring 3.90 cm. -Last nuclear stress test with MPI 10/06/23 no ischemia -Sleep study was ordered by [facility] [place] [place] [facility], but patient has not completed it yet Assessment & Plan (11/28/2024 10:12 AM EDT): -Cnc Manager: [facility] [place]. Last seen in August 2024, recommended to [...] no ischemia -Sleep study was ordered by [facility] [place] [place] [facility], but patient has not completed it yet Assessment & Plan (09/15/2024 5:04 PM EDT): [id number] Score: 3 -Cnc Manager: [facility] [place]. Last seen in August 2024, recommended to [...] no ischemia -Sleep study was ordered by [facility] [place] [place] [facility], but patient has not completed it yet - recommended to resume apixaban 2.5 mg bid since he is concerned about epistaxis; patient agreed to try lower dose. Assessment & Plan (06/03/2024 7:55 AM EST): -Cnc Manager: previously [facility], and recently started following with [facility] [place]. Last seen on 10/17/23 -Rate control: none [...] no ischemia -Sleep study was ordered by [facility] [place] [place] [facility], but patient has not completed it yet Assessment & Plan (03/05/2024 10:42 AM EDT): -Cnc Manager: previously [facility], and recently started following with [facility] [place]. Last seen on 10/17/23 -Rate control: none [...] no ischemia -Sleep study was ordered by [facility] [place] [place] [facility], but patient has not completed it yet Assessment & Plan (11/01/2023 10:37 AM EDT): -Cnc Manager: previously [facility], and recently started following with [facility] [place] [place]. Last seen on 10/17/23 -Rate control: none [...] no ischemia -Sleep study was ordered by [facility] [place] [place] [facility], but patient has not completed it yet Assessment & Plan (09/27/2023 5:45 AM EDT): [id number] Score: 3 -Cnc Manager: previously [facility], and recently started following with [facility] [place] [place] -Rate control: none -Rhythm control: none -Anticoagulation: apixaban -Last Holter monitor: 07/10/23 -Last transthoracic echocardiogram: Done at [facility] on 10/25/22 TTE LVEF 55-60%; 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 Ordered by [facility] [place] [place] [facility] recently -Last stress test 10/07/22 nuclear stress test with MPI wnl -Sleep study was ordered by [facility] [place] [place] [facility] Assessment & Plan (08/24/2023 4:49 PM EDT): Here from previous ER visit, started on Eliquis for prevention - not tolerating well due to more bleeds - recommend talk to the drain tiler about whether he should continue Eliquis as he is moderate risk by [id number] - he will continue for now and [...] -Started on apixaban since 08/10/23 -Following with [facility] [place] [place] cardiology since August 2023, last seen on [...] Ascending aorta dilatation 01/05/2023 Assessment & Plan (02/22/2025 7:16 AM EDT): - 10/25/22 transthoracic echocardiogram Ascending aorta 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 - 10/06/23 transthoracic echocardiogram Mild dilation of the sinuses of Valsalva measuring 3.80 cm and mild dilation of the ascending aorta measuring 3.90 cm. - followed by [facility] [place] [place] [facility] Assessment & Plan (09/11/2024 11:12 PM EDT): [...] 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 - Currently following with [facility] [place] [place] cardiology and transthoracic echocardiogram was ordered Assessment & Plan (06/29/2023 4:46 AM EST): - 10/25/22 TTE normal LV sfunction with EF 55-60%. 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 - Follow-up with drain tiler in 6 mo - TTE at least yearly Assessment & Plan (04/24/2023 6:07 AM EST): - 10/25/22 TTE normal LV sfunction with EF 55-60%. 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 - Follow-up with drain tiler in 6 mo - TTE at least yearly Assessment & Plan (01/05/2023 6:51 AM EDT): - 10/25/22 TTE normal LV sfunction with EF 55-60%. 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 - Follow-up with drain tiler in 6 mo - TTE at least yearly Depression 09/28/2022 Assessment & Plan (02/22/2025 7:23 AM EDT): - pt declines BHS and medication - patient does not want to go to senior center - patient had a therapy animal, but his dog recently - patient was concerned that he was developing dementia. He performed well on cognitive test, and he was reassured that his cognition is excellent Assessment & Plan (09/15/2024 5:09 PM EDT): [...] 6:08 PM EST): -evaluated by ENT and transportation manager -pt has severe hearing loss -pt is [...] of urinary bladder 06/02/2022 Assessment & Plan (02/22/2025 7:19 AM EDT): - currently following with [facility] [place] [place] urology - Transurethral resection of bladder tumor [...] Maxwell). - Continue tamsulosin. 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 - TURBT and mitomycin C installation in July 2024. Plan for immunotherapy / combo mitomycin & cytarabine Assessment & Plan (06/03/2024 7:56 AM EST): - previously following with [facility] [place] [place] u[place] - Transurethral resection of bladder tumor on 11/20/18 Pathology report High-grade papillary urothelial carcinoma - seen by urologist on 11/17/23; upcoming appt on 03/13/24 Assessment & Plan (03/05/2024 11:20 AM EDT): - previously following with [facility] [place] [place] - Transurethral resection of bladder tumor on 11/20/18 Pathology report High-grade papillary urothelial carcinoma - seen by urologist on 11/17/23; upcoming appt on 03/13/24 Assessment & Plan (11/01/2023 10:39 AM EDT): - previously following with [facility] [place] [place] - Transurethral resection of bladder tumor on 11/20/18 Pathology report High-grade papillary urothelial carcinoma - Referred to urology; upcoming appt Assessment & Plan (09/27/2023 5:53 AM EDT): - previously following with [facility] [place] [place] u[facility] - Transurethral resection of bladder tumor [...] 07/14/2015 Essential hypertension 2015 Assessment & Plan (02/22/2025 7:15 AM EDT): -Goal BP < 130 per ACC/AHA guideline. -BP at goal today -Encouraged to work on life style modifications. -Echo on 10/25/22 EF 55-60%. Ascending aorta 4.0 cm. Previously pulmonary HTN, no mention in most recent study -Continue amlodipine 2.5 mg once daily, may take 2 tablets if SBP is > 140 -Last lipid profile: 09/10/24 -Continue lifestyle modification. Assessment & Plan (11/28/2024 10:13 AM EDT): [...] consider montelukast Osteoarthritis 11/13/2014 Assessment & Plan (02/21/2025 1:04 AM EDT): - following with [facility] providers, last seen on 12/05/23, received steroid injection to right shoulder - pt declined further evaluation by orthopedist due to outstanding charge - continue taking Tylenol PRN for pain - encouraged ice and heat therapy Assessment & Plan (06/04/2024 9:26 AM EST): [...] charge - will refer to orthopedist at [facility] for reevaluation - discussed taking Tylenol [...] difficulty walking - pt will benefit from RECEPTIONIST CLERK service; will check the status of RECEPTIONIST CLERK service >>ASSESSMENT AND PLAN FOR PRIMARY OSTEOARTHRITIS INVOLVING MULTIPLE JOINTS WRITTEN ON 01/06/2023 7:10 AM BY APOLONIA HARDING MD - previously seen by [facility] providers - pt declines further evaluation by orthopedist due to outstanding charges Assessment & Plan (06/05/2022 6:10 PM EST): - multiple joints - difficulty walking - pt will benefit from RECEPTIONIST CLERK service [facility]2012 Assessment & Plan (03/05/2024 10:41 AM EDT): -10/07/22 nuclear stress test with MPI wnl -10/25/22 TTE LVEF 55-60%; 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 -Follow up with drain tiler as scheduled Assessment & Plan (09/27/2023 5:44 AM EDT): -10/07/22 nuclear stress test with MPI wnl -10/25/22 TTE LVEF 55-60%; 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 -Follow up with drain tiler as scheduled Assessment & Plan (07/03/2023 6:08 AM EST): -Seen by [facility] drain tiler in November 2022. -Asymptomatic. 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 -Follow up with drain tiler as scheduled -Bradycardiac lately; will schedule Holter monitor Assessment & Plan (04/24/2023 6:06 AM EST): -Seen by [facility] drain tiler in November 2022. -Asymptomatic. 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 -Follow up with drain tiler as scheduled Assessment & Plan (01/06/2023 7:06 AM EDT): -Seen by [facility] drain tiler in November 2022. -Asymptomatic. 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 -Follow up with drain tiler as scheduled Assessment & Plan (10/03/2022 12:26 PM EDT): -Seen by [facility] drain tiler in July 2022. -Asymptomatic. -Possibly starting CCB or BB -Follow up with drain tiler as scheduled -Being scheduled for stress test and has a follow up with drain tiler in near future Assessment & Plan (06/05/2022 6:03 PM EST): -Seen by [facility] drain tiler in Jan 2022. -Asymptomatic. -Possibly starting CCB or BB -Follow up with drain tiler as scheduled Gastroesophageal reflux disease 04/02/2012 Assessment [...] Encounters Date Type Department Care Team Description 03/10/2025 Telephone [facility] [address] [place] [address] Apolonia Harding MD Results 03/10/[address] [address] Apolonia Harding MD Nurse Triage 02/22/2025 9:40 AM EDT Office Visit [facility] [address] [address] Jacques Foster MD Laceration of right thumb without damage to nail, foreign body presence unspecified, subsequent encounter (Primary Dx) 02/22/2025 Travel 02/17/2025 11:30 AM EDT Office Visit [facility] [address] [place] [address] Apolonia Harding MD Abdominal bloating (Primary Dx); Primary osteoarthritis involving multiple joints; Paroxysmal atrial fibrillation (CMS/HCC) (HCC); Essential hypertension; Ascending aorta dilatation (CMS/HCC); Epistaxis; Malignant neoplasm of urinary bladder, unspecified site (HCC); Persistent depressive disorder 02/17/2025 Travel 02/15/2025 10:20 AM EDT Office Visit [facility] [address] [place] [address] Jacques Foster MD Laceration of right thumb without damage to nail, foreign body presence unspecified, initial encounter (Primary Dx); Rash 02/15/2025 Travel 02/14/2025 Telephone [facility] [address] [address] Stacia Chaudhry [place] 02/10/2025 1:00 PM EDT Clinical Support [address] [address] Licha Ann RN Vitamin B12 deficiency 02/10/2025 Patient Outreach [facility] [address] [place], [place] [phone] Apolonia Harding MD Pre-visit Planning ([facility] unable to reach, Disconnected) 02/10/2025 Travel 01/20/[address] [address] Apolonia Harding MD 01/10/2025 11:00 AM EDT Office Visit [address] [address] Christiano Temple MD Actinic keratosis (Primary Dx); Fibroma; Benign nevus 01/10/2025 Travel 01/09/2025 1:00 PM EDT Clinical Support [address] [address] Licha Ann RN B12 deficiency 01/09/2025 Travel 01/08/[address] [address] Apolonia Harding MD 01/02/2025 1:00 PM EDT Clinical Support [address] [address] Licha Ann RN Memory changes 01/02/2025 Travel 01/01/[address] [address] Apolonia Harding MD 12/31/2024 Orders Only [address] [address] Apolonia Harding MD Epistaxis (Primary Dx); Seasonal allergic rhinitis, unspecified trigger; Paroxysmal atrial fibrillation ([facility]/HCC) 12/27/2024 Telephone [facility] [address] [place], [place] [phone] Apolonia Harding MD Call Back Request 12/12/2024 Telephone [facility] [address] [place] [address] Apolonia Harding MD fyi; Referral 12/12/2024 Telephone [facility] [address] [place] [address] Apolonia Harding MD Durable Medical Equipment (DME Request: Shower Chair) from Last 3 Months Immunizations Immunization Administration [...] Grandfather Nii Ning s a mitchell in [place] No Known Problems Maternal Grandmother Lidya Pacemaker [...] Sign Reading Time Taken Comments Blood Pressure 121/79 02/22/2025 9:38 AM EDT Pulse 70 02/22/2025 9:38 AM EDT Temperature 36.2 C (97.2 F) 02/22/2025 9:38 AM EDT Respiratory Rate 20 02/22/2025 9:38 AM EDT Oxygen Saturation 97% 02/22/2025 9:38 AM EDT Inhaled Oxygen Concentration - - Weight 78 kg (172 lb) 02/22/2025 9:38 AM EDT Height 167.6 cm (5' 6 ) 02/22/2025 9:38 AM EDT Body Mass Index 27.76 02/22/2025 9:38 AM EDT Plan of Treatment Health Maintenance Due Date Last Done Comments Zoster Vaccines (1 of 2) 1991 RSV Patients and Patients Aged 60 years or older (1 - 1-dose 75+ series) 2016 COVID-19 Vaccine ( season) 2025 07/28/2020, 06/30/2020 Influenza Vaccine (#1) 2025 9, 04/10/2017, 04/20/2016, Additional history exists Alcohol/Substance Use Screening 05/01/2025 05/01/2024 Depression Screening 05/01/2025 05/01/2024, 05/01/20 24 SDOH Screening 05/01/2025 05/01/2024 Tobacco Screening 02/22/2026 02/22/2025 Lipid Panel 09/10/2029 09/10/2024, 05/10/2023, 10/03/2022, Additional [...] Procedure Name Priority Date/Time Associated Diagnosis Comments HELICOBACTER PYLORI AG, EIA, STOOL Routine 02/21/2025 1:26 PM EDT Abdominal bloating LIPID PANEL WITH REFLEX TO DIRECT LDL Routine 09/10/2024 1:06 PM EDT Essential hypertension from Last 3 Months or Most Recently Relevant to Health Maintenance Results * Helicobacter pylori??Antigen, EIA, Stool (02/21/2025 1:26 PM EDT) H pylori Ag Stool SEE NOTE [facility] Comment:HELICOBACTER PYLORI AG, EIA, STOOL Micro Number: [id number] Test Status: Final Specimen Source: Stool Specimen Quality: Adequate H.pylori Ag: Not Detected Antimicrobials, proton pump inhibitors, and bismuth preparations inhibit H. pylori and ingestion up to two weeks prior to testing may cause false negative results. If clinically indicated the test should be repeated on a new specimen obtained two weeks after discontinuing treatment. Reference Range: Not DetectedTHIS TEST WAS PERFORMED AT:[facility] [place] [id number] HAWKINS MD Stool Rectal contents / Unknown 02/21/2025 1:26 PM EDT 02/21/2025 1:26 PM EDT Apolonia Harding MD LAB BODY FLUIDS AND STOOLS ORDER VICK Final Result Performing Organization Address [facility] Co de Phone Number [facility] [address] [place] [phone] * (ABNORMAL) Lipid Panel with Reflex to Direct LDL (09/10/2024 1:06 PM EDT) Triglycerides 119 <150 mg/dL [facility] Comment:Desirable Triglyceri de: less than 150 mg/dLBorderline High Triglyceride 150-199 mg/dLHigh Triglyceride: 200-499 mg/dLVery High Triglyceride: greater than or equal to 5OO mg/dL Cholesterol 167 <200 mg/dL [facility] Comment:Desirable Cholestero l: less than 200 mg/dLBorderline High Cholesterol: 200-239 mg/dLHigh Cholesterol: greater than 239 mg/dL LDL Cholesterol Calculated 104(H) <100 mg/dL [facility] Comment:Desirable LDL: less than 100 mg/dLNear Optimal/Above Optimal LDL: 110- 129 mg/dLBorderline High LDL: 130-159 mg/dLHigh LDL: 160-189 mg/dLVery High LDL: greater than or equal to 190 mg/dL HDL Cholesterol 40(L) >40 mg/dL [facility] Comment:Desirable HDL: great er than 40 mg/dL Note: This HDL assay may give artificially low results in patients with liver disease. Blood 09/10/2024 1:06 PM EDT 09/10/2024 3:59 PM EDT Apolonia Harding MD LAB BLOOD ORDERABLES Final Resul t Performing Organization Address City/[facility]/ZIP Co de Phone Number [facility] [address] [place] [address] [phone] from Last 3 Months or Most Recently Relevant to Health Maintenance Insurance [facility] MEDICARE ADVANTAGE HMO [facility] [place] [phone] Care Teams Museum Guide Relationship Specialty Start Date End Date Apolonia Harding MD [address] [place] [address] PCP - General Family Medicine 05/15/18 Julius Beavers [address] 3rd [place] [address] Cnc Manager Cardiology 08/25/23 Ronald Maxwell MD [address] [place] [address] Urology 11/17/23 Marcelino Purcell [address] [facility] [address] [place] [address] Orthopaedic Surgery 08/24/23 Flor Mason safety fire boss 04/21/23 Kera Wan MD [address] [phone] 11/15/23 Manisha Henao [facility] [address] [facility] [address] [place] [phone] Orthopaedic Surgery 12/07/23
--- OUTSIDE RECORDS SUMMARY | 2025-03-13 13:58 | XMS_ITS | Clinical Summary ---
Author Organization [facility] Address [address] [facility] [address] [place], [place] [phone] Phone Care Team Providers Care Television Host Name Role Phone Unavailable Primary Care Provider [...] file Insurance MEDICARE PART A & B [facility] FULL MEDICARE PART A & B [employer] [facility] FULL MEDICARE PART A & B HEALTH SAF[employer] NET FULL MEDICARE PART A & B HEALTH SAF[employer] NET FULL MEDICARE PART A & B [employer] NET FULL MEDICARE PART A & B [employer] SAF[employer] NET FULL MEDICARE PART A & B NET FULL MEDICARE PART A & B FULL MEDICARE PART A & B [facility] FULL Additional Source Comments The information contained in this document represents components of the legal health record. It is not the complete legal health record.[facility]
--- OUTSIDE RECORDS SUMMARY | 2025-03-13 13:58 | XMS_ITS | Encounter Summary ---
Author Organization [employer] Address [address] [place] [address] 7t [place] [address] Care Team Providers Care Overhead Crane Inspector Name Role Phone Apolonia Ragland MD Primary Care Provider [phone] Julius Beavers Unavailable Ronald Maxwell MD Unavailable [phone] Binh, Loyd Unavailable Reason for Visit * Reason Onset Date Comments Nurse Triage 08/16/2023 Encounter Details Date Type Department Care Team (Late st Contact Info) Description 08/16/2023 Telephone [facility] [address] [place], [place] [phone] Apoolnia Ragland MD [address] [place], [place] [phone] Nurse Triage Social History Tobacco Use Types [...] EDT Triage call Pt was seen in [facility] 08/11/23 ED dx of atrial fibrillation. Pt was prescribed eliquis 5mg bid. Pt had been taking ASA 81mg daily . Pt started eliquis 08/14/23 and stopped ASA the same day. Pt is calling regarding some pinkish/reddish colored urine, neg for burning but, always has frequency. Pt also reports having a bloody nose x1 . Pt is advised to come to [facility] for provider to see Pt. Pt reports is in [place] and will try to come to [facility] open till 8pm and other logan will come to [facility] in the morning opens at 830am. Pt is cautioned to seek eval at ED if bleeding should increase and Pt agrees. Pt does have follow up apt [facility] 08/30/23 and another apt with [facility] 08/21/23. Pt agrees with dispostion. Protocol Used: [...] documented in this encounter Plan of Treatment Not on file documented as of this encounter Visit Diagnoses Not on filedocumented in this encounter Care Teams Overhead Crane Inspector Relationship Specialty Start Date End Date Apolonia Ragland MD [address] [place] [address] PCP - General Family Medicine 05/15/18 Julius Beavers [address] [place] [address] Operations And Maintenance Supervisor Cardiology 08/25/23 Ronald Maxwell MD [address] [place] [address] Urology 11/17/23 Marcelino Purcell 175 [facility] [address] [place] [address] Orthopaedic Surgery 08/24/23 Flor Mason RN Care Manager 04/21/23 Kera Wan MD [address] [phone] 11/15/23 Manisha Henao [facility] [address] [facility] [address] [place] [phone] Orthopaedic Surgery 12/07/23 documented as of this encounter
--- OUTSIDE RECORDS SUMMARY | 2025-03-13 13:58 | XMS_ITS | Encounter Summary ---
Author Organization [employer] Address [address] [place] [address] 7t [place] [address] Care Team Providers Care Progressive Care Manager Name Role Phone Apolonia Ragland MD Primary Care Provider [phone] Julius Beavers Unavailable Ronald Maxwell MD Unavailable [phone] Binh, Loyd Unavailable Reason for Visit * Reason Onset Date Comments Lab Orders 01/19/2024 Encounter Details Date Type Department Care Team (Late st Contact Info) Description 01/19/[address] [facility] MEDICINE [address] [place], [place] [phone] Apolonia Ragland MD [address] [place], [place] [phone] Lab Orders Social History Tobacco Use Types [...] on filedocumented in this encounter Care Teams Progressive Care Manager Relationship Specialty Start Date End Date Apolonia Ragland MD [address] [place] [address] PCP - General Family Medicine 05/15/18 Julius Beavers [address] 3rd [place] [address] Design Manager Cardiology 08/25/23 Ronald Maxwell MD [address] [place] [address] Urology 11/17/23 Marcelino Purcell [address] [address] Orthopaedic Surgery 08/24/23 Flor Mason RN Care Manager 04/21/23 Kera Wan MD [facility] [address] [place] [address] 11/15/23 Manisha Henao [facility] [address] [place] [address] Orthopaedic Surgery 12/07/23 documented as of this encounter
--- OUTSIDE RECORDS SUMMARY | 2025-03-13 13:58 | XMS_ITS | Encounter Summary ---
Author Organization [employer] Address [address] [place] [address] 7t [place] [address] Care Team Providers Care Mine Engineering Manager Name Role Phone Apolonia Ragland MD Primary Care Provider [phone] Julius Beavers Unavailable Ronald Maxwell MD Unavailable [phone] Binh, Loyd Unavailable Reason for Visit * Reason Onset Date Comments Call Back Request 12/27/2024 Encounter Details Date Type Department Care Team (Late st Contact Info) Description 12/27/2024 Telephone [facility] MEDICINE 230 [place], [place] [phone] Apolonia Ragland MD 230 [place], [place] [phone] Call Back Request Social History Tobacco Use [...] verbalized understanding. --- Diamond Ventura NP [place] [facility] [place], 12/27/23 (under Encounters) Plan I discussed [...] suggested maintaining regular follow-ups with his primary lighting adviser to explore medication options. I provided a pamphlet on the Watchman device to help him understand the procedure and its benefits. * Telephone Encounter - Alize Steward - 12/27/2024 9:32 AM EDT Tc from pt requesting a call back to discuss ENT paperwork Contact pt at [phone] documented in this encounter Plan of Treatment Not on file documented as of this encounter Visit Diagnoses Not on filedocumented in this encounter Additional Health Concerns Assessment Noted Time PHQ-9 Depression Total Score: 3 05/01/20 9:55 AM EST documented as of this encounter Care Teams Mine Engineering Manager Relationship Specialty Start Date End Date Apolonia Ragland MD [address] [place] [address] PCP - General Family Medicine 05/15/18 Julius Beavers [address] 3rd [place] [address] Cotton Chopper Cardiology 08/25/23 Ronald Maxwell MD [address] [place] [address] Urology 11/17/23 Marcelino Purcell 175 [facility] [address] [place] [address] Orthopaedic Surgery 08/24/23 Flor Mason director pharmaceutical 04/21/23 Kera Wan MD [facility] 300 [place] [address] 11/15/23 Manisha Henao [facility] 175 [facility] [address] [place] [address] Orthopaedic Surgery 12/07/23 documented as of this encounter
--- OUTSIDE RECORDS SUMMARY | 2025-03-13 13:58 | XMS_ITS | Data Portability ---
Author Organization [place] [facility], Allergy Address [address] [address] Care Team Providers Care Regulatory Technician Name Role Phone MEHDI LENA Referring Provider [phone] Assessment Encounter Date Assessment Date Assessment LastModified by Organization Details LastModified Time 01/31/2025 01/31/2025 84 year old male , with a history of hypertension and anticoagulated on apixaban for atrial fibrillation, presents for evaluation of epistaxis. Nasal mucosa is intact but dry with no prominent blood vessel or source of bleeding that requires cautery in the office today. Strongly recommend aggressive hydration using a saline nasal spray at least four times daily, followed by saline gel after every use to help retain moisture in the nose, in addition to a humidifier at home. If nosebleeds persist despite direct pressure to the base of the nose, patient was instructed to soak a cotton ball with oxymetazoline (Afrin) and insert it into the affected nostril while applying pressure. Epistaxis pamphlet was provided. Patient may return to the office as needed or go to the emergency room if episodes are severe. All questions were answered. [email or web address] Not available 01/31/2025 13:45:04 Plan of Treatment Reminders Order Date Submit Date Provider Last Modified By Organization Details Last Modified Time Details Appointments None recorded. Lab None recorded. Referral None recorded. Procedures None recorded. Surgeries None recorded. Imaging None recorded. Medication Orders Chatom Saline nasal gel 025 025 [facility], [address] [place] [address], [id number], 11:31:36 Saline Mist 0.65 % nasal spray aerosol 025 025 [facility], [address] [place], [place], [id number], 5 11:36:57 Afrin (oxymetaz oline) 0.05 % nasal spray 025 025 [facility], [address] [place], [place], [id number], 5 11:36:57 Patient TargetsNo targets recorded. Patient InstructionsNo instructions recorded. Reason for Referral None Reported. Problems Name Problem SNOMED Code Status Onset Date Resolution Date Notes Provider Name and Address Organization Details Recorded Time Sensorine ural hearing loss of bilateral ears 895704116 Active 2021 Sensorine ural hearing loss, bilateral ; Note: Date Diagnosed : 12/03/2021 2:13 PM (H90.3) Not Available [facility] 4 03:26:12 Bilateral tinnitus 00921073893 02 Active 2021 Tinnitus, bilateral ; Note: Date Diagnosed : 12/03/2021 2:13 PM (H93.13) Not Available [facility] 4 03:26:12 Anterior epistaxis 222237444 Active 2024 FANY RODRIGUEZ [address] [place] [address],[place] [address], [place], [address] , [facility] 5 12:10:32 Essential hypertens ion 80547599 Active 2024 FANY RODRIGUEZ [address] [place] [address],[place] [address], [place], [address] , [facility] 5 13:44:22 Problem Notes None recorded. Medical Equipment None Reported. Allergies Allergen ID Allergen Name Allergen Category Reaction Reaction Severity Criticality Documentation Date Start Date Code Code System Note Provider Name and Address Organization Details Recorded Time 689484 tetracycl ine medicatio n hives Not available Not available 09/26/2023 54306 RxNorm React ion: skin rashe s, hives ;; Not Available [facility] 4 01:25:03 Medications Name Sig Start Date Stop Date Status Note LastModified by Organization Details LastModified Time Saline Mist 0.65 % nasal spray aerosol Take 1 spray 4 times a day by nasal route as directed . 2024 active Not Available Not Available Not Avai lable ammonium lactate 12 % lotion APPLY TOPICALL Y TO THE AFFECTED AREA(S) EVERY DAY NEEDED FOR DRY SKIN active Not Available Not Available No t Available cefpodoxi me 100 mg tablet TAKE 1 TABLET BY MOUTH TWICE DAILY FOR 7 DAYS active Not Available Not Available No t Available cetirizin e 5 mg tablet TAKE 1 TABLET BY MOUTH EVERY DAY active Not Available Not Available No t Available cyanocoba britney (vit B-12) 1,000 mcg tablet active Medicati on ID: [id number] B rand Name: cyanocob alamin (vitamin B-12) Se nd Method: E-Prescr ibed Sub s Allowed: subs OK Speci al Instruct ion: TAKE 1 TABLET BY MOUTH ONCE DAILY Me dication GenericN vijay: cyanocob alamin (vitamin B-12) Not Available Not Available Not Available amlodipin e 2.5 mg tablet TAKE 1 TABLET BY MOUTH EVERY DAY, MAY INCREASE TO 2 TABLETS IF YOUR BLOOD PRESSURE IS still high active Not Available Not Available No t Available sulfameth oxazole 800 mg-trimet hoprim 160 mg tablet TAKE 1 TABLET BY MOUTH TWICE DAILY FOR 5 DAYS active Not Available Not Available No t Available Chatom Saline nasal gel Take 1 applicat ion 4 times a day by nasal route as directed . 2024 active Not Available Not Available Not Avai lable phenazopy ridine 100 mg tablet TAKE 1 TABLET BY MOUTH EVERY 8 HOURS NEEDED FOR PAIN active Not Available Not Available No t Available cyanocoba britney (vit B-12) 1,000 mcg/mL injection solution INJECT 1 ML INTRAMUS CULARLY EVERY MONTH active Not Available Not Available No t Available omeprazol e 20 mg capsule,d elayed release active Medicati on ID: [id number] B rand Name: omeprazo le Send Method: E-Prescr ibed Sub s Allowed: subs OK Speci al Instruct ion: TAKE 1 CAPSULE BY MOUTH EVERY DAY Medi cationGe nericNam e: omeprazo le Not Available Not Available Not Available fluticaso ne propionat e 50 mcg/actua tion nasal spray,priyanka pension INSTILL 1 SPRAY IN EACH NOSTRIL TWICE DAILY active Not Available Not Available No t Available amoxicill in 875 mg-potass ium clavulana te 125 mg tablet TAKE 1 TABLET BY MOUTH TWICE DAILY FOR 7 DAYS active Not Available Not Available No t Available Afrin (oxymetaz oline) 0.05 % nasal spray [place] 2 sprays as needed by intranas al route as directed . 2024 active Not Available Not Available Not Avai lable Vitamin D3 25 mcg (1,000 unit) capsule TAKE 1 CAPSULE BY MOUTH EVERY DAY IN THE MORNING active Not Available Not Available No t Available chlorhexi dine gluconate 0.12 % mouthwash RINSE FOR 30 SECONDS WITH A HALF OUNCE (15ml) TWICE DAILY, SPIT OUT -- DO NOT SWALLOW. active Not Available Not Available No t Available Xarelto 20 mg tablet TAKE 1 TABLET BY MOUTH EVERY DAY WITH DINNER 01/31 completed Not Available Not Available Not Available Eliquis 5 mg tablet TAKE 1 TABLET BY MOUTH TWICE DAILY active Not Available Not Available No t Available Omron Blood Pressure Monitor-3 Series kit USE TO CHECK BLOOD PRESSURE DIRECTED active Not Available Not Available No t Available Vitals Date Recorded Body height Body mass index (BMI) Body weight Provider Name and Address Organization Details Last Updated DateTime 01/31/2025 167.64 cm 28.2 kg/m2 97201.66 g Cherelle Lyman [place] - [facility] 01/31/2025 11:36:34 Social History None recorded. Functional Status Question Answer Note LastModified by Organization D etails LastModified Time What is your level of alcohol consumption? None [email or web address] Information not available 01/31/2025 Mental Status None recorded. Family History Nothing Reported. Medical History Condition Response Heart Attack ([place]) Cancer Y Arthritis Y Hypertension Y Past Encounters Encounter ID Performer Location Encounter Start Date Encounter Closed Date Diagnosis/Indication Diagnosis SNOMED-CT Code Diagnosis ICD10 Code Diagnosis IMO Codes Diagnosis Note [id number] FANY RODRIGUEZ [facility] [address] [address] 01/31/2025 10:56:01 01/31/2025 12:17:49 Anterior epistaxis 777531099 R04.0 32222232 Essential hypertension 07743865 I10 81643 Anticoagulant effect 101 [address]96[address] Z79.01 3021891918 Health Concerns Section Related Observation LastModified by Organization Detai ls LastModified Time None Recorded Concern Status LastModified by Organization Details LastModified Time None Recorded Advance Directives Directive None Recorded Payers Insurance Date Sequence Insurance Name Policy Number Policy Schmidt Covered Member ID Schmidt Member ID Guarantor Name 01/30/2025 1 [facility] (MEDICARE REPLACEMENT/ ADVANTAGE - HMO) [id number] Sushil Yepez Wayne [id number] Glenroyflavia Yepez Wayne 01/31/2025 2 [place] [facility] Colton Yepez Wayne [id number] Simonbrad Yepez Wayne 01/30/2025 1 [facility] Simonbrad Yepez Wayne [id number] Colton Marleni Wayne Notes Date Note Type Note Provider Name and Address Organization Details Recorded Time 01/31/2025 text/html ROS as noted in the HPI 84 year old male presents for evaluation of epistaxis. Patient reports he was evicted from his house last year and developed atrial fibrillation, which was likely stress related. He was prescribed Eliquis 10 mg by his marine animal trainer, however he experienced severely frequent nosebleeds. Patient was temporarily switched to Xarelto with no improvement and ultimately placed back on Eliquis. He admits to taking only 2.5 mg a day to prevent them from recurring. Episodes are primarily on the left side. Patient was seen by Dr. Browne at some point and had cautery done. He still has 2-3 bleeds a week which are mostly spontaneous, but often triggered by nose blowing. Last episode was 3 days ago. Hypertension is well-managed with amlodipine. FANY RODRIGUEZ [address] [place] [address],[place] [address], [place], [address], [facility] - [facility] 01/31/2025 13:46:02
--- OUTSIDE RECORDS SUMMARY | 2025-03-13 13:58 | XMS_ITS | Data Portability ---
Author Organization [facility], [facility] Address [address] [place] [address] Care Team Providers Care Snow Groomer Name Role Phone CHAPIN HARDING Primary Care [...] knee No observ ation record ed. [email or web address] [facility] (Medical Records) [address] [place], [address], 11/24/2023 16:31:04 01/13/20 24 06/15/2018 imagi ng/di [...] Sports Shoulder completed Kera Wan MD [address], [place], [address], [facility] - [facility] 11/15/2023 11:21:03 Imaging Results None recorded. Procedure Notes None recorded. Medical Equipment None Reported. Allergies Allergen ID Allergen Name Allergen Category Reaction Reaction Severity Criticality Documentation Date Start Date Code Code System Note Provider Name and Address Organization Details Recorded Time 50518 tetracycl ine hydrochlo ride medicatio n Not available Not available Not available 07/17/20232018 58570 6 RxNorm Not Available [facility] 12:19:21 Medications Name Sig Start [...] Updated DateTime 11/15/2023 170.18 cm 27.4 kg/m2 68494.66 g GABRIEL DUONG MD - [facility] 11/15/2023 10:38:25 Social History None recorded. Functional Status None recorded. Mental Status None recorded. Family History Nothing Reported. Medical History No medical history recorded. Past Encounters Encounter ID Performer Location Encounter Start Date Encounter Closed Date Diagnosis/Indication Diagnosis SNOMED-CT Code Diagnosis ICD10 Code Diagnosis IMO Codes Diagnosis Note [id number] MD Brandyn Kendall 2nd [place] [address] [place] [address] 11/15/2023 10:29:45 11/15/2023 12:48:42 Osteoarthritis of joint of right shoulder region 0817681589 58651 M19.011 Health Concerns Section Related Observation LastModified by Organization Detai ls LastModified Time None Recorded Concern Status LastModified by Organization Details LastModified Time None Recorded Advance Directives Directive None Recorded Payers Insurance Date Sequence Insurance Name Policy Number Policy Schmidt Covered Member ID Schmidt Member ID Guarantor Name 12/25/2023 2 [place] Colton Black [id number] Colton Black 12/25/2023 2 [place] Colton Black [id number] Colton Black 02/01/2024 1 [place] Colton Black [id number] Colton Black Notes Date Note Type Note Provider Name and Address Organization Details Recorded Time 11/15/2023 text/html Chief Complaint: Right shoulder pain HPI: This is an 83-year-old guzmt-vego-svxjrmku gentleman with chronic multi focal joint pain. [...] xrays here today. Had some recently at [facility], will try to get a copy of his disc to drop off at our office for later review. Impression: 83-year-old onjvs-oppt-bdwyizrp gentleman with right shoulder pain due to [...] aches and pains, the patient can take aetd-pwt-dngntsm medication such as Tylenol or anti-inflammatories as needed; risks and benefits of medication discussed. Should call with more persistent pain. We will leave follow up open ended at this point. However should symptoms worsen or fail to improve to the patient's satisfaction, he is encouraged to give the office a call to be seen back for further evaluation and management. [employer] speech recognition car mechanic helper software was used to create portions of this document. An attempt at proofreading has been made to minimize errors. Please call for corrections. Kera Wan MD [address] [place], [place] [address], [place], [address], [facility] - [facility] 11/15/2023 12:09:43
--- OUTSIDE RECORDS SUMMARY | 2025-03-13 13:58 | XMS_ITS | Encounter Summary ---
Author Organization [employer] Address [address] [place] [address] 7t [place] [address] Care Team Providers Care Enterprise Systems Engineer Name Role Phone Apolonia Ragland MD Primary Care Provider [phone] Julius Beavers Unavailable Ronald Maxwell MD Unavailable [phone] Binh, Loyd Unavailable Reason for Visit * Reason Onset Date Comments Nurse Triage 09/28/2023 Encounter Details Date Type Department Care Team (Late st Contact Info) Description 09/28/2023 Telephone [facility] 230 [place], [place] [phone] Apolonia Ragland MD [address] [place], [place] [phone] Nurse Triage Social History Tobacco Use Types [...] accepted this outcome Please contact pt at [phone] documented in this encounter Plan of Treatment Not on file documented as of this encounter Visit Diagnoses Not on filedocumented in this encounter Care Teams Enterprise Systems Engineer Relationship Specialty Start Date End Date Apolonia Ragland MD [address] [place] [address] PCP - General Family Medicine 05/15/18 Julius Beavers [address] 3rd [place] [address] Tanning Drum Operator Cardiology 08/25/23 Ronald Maxwell MD [address] [place] [address] Urology 11/17/23 Marcelino Purcell [address] [address] Orthopaedic Surgery 08/24/23 Flor Mason RN Care Manager 04/21/[address] [facility] [address] [place] [address] 11/15/23 Manisha Henao [facility] 175 [facility] [address] [place] [address] Orthopaedic Surgery 12/07/23 documented as of this encounter
--- OUTSIDE RECORDS SUMMARY | 2025-03-13 13:58 | XMS_ITS | Encounter Summary ---
Author Organization [employer] Address [address] [address] [address] 7t [place] [address] Care Team Providers Care Flattening Press Operator Name Role Phone Apolonia Ragland MD Primary Care Provider Julius Beavers Unavailable Ronald Maxwell MD Unavailable [phone] BinhMarcelino Unavailable Encounter Details Date Type Department Care Team (Late st Contact Info) Description 08/14/2023 Orders Only [facility] MEDICINE 230 [place], [place] [phone] Apolonia Ragland MD [address] [place], [place] [phone] Primary osteoarthritis involving multiple joints Social History [...] joints documented in this encounter Care Teams Flattening Press Operator Relationship Specialty Start Date End Date Apolonia Ragland MD [address] [place] [address] PCP - General Family Medicine 05/15/18 Julius Beavers [address] 3rd [place] [address] Warehouse Manager Cardiology 08/25/23 Ronald Maxwell MD [address] [place] [address] Urology 11/17/23 Marcelino Purcell 175 [facility] [address] [place] [address] Orthopaedic Surgery 08/24/23 Flor Mason RN Care Manager 04/21/23 Kera Wan MD [facility] [address] [place] [address] 11/15/23 Manisha Henao [facility] 175 [facility] [address] [place] [address] Orthopaedic Surgery 12/07/23 documented as of this encounter
--- OUTSIDE RECORDS SUMMARY | 2025-03-13 13:58 | XMS_ITS | Encounter Summary ---
Author Organization [employer] Address [address] [place] [address] 7 [place] [address] Care Team Providers Care Quality Analyst Name Role Phone Apolonia Ragland MD Primary Care Provider [phone] Julius Beavers Unavailable Ronald Maxwell MD Unavailable [phone] Binh, Loyd Unavailable Reason for Visit * Reason Onset Date Comments Returning Call 03/19/2024 Encounter Details Date Type Department Care Team (Late st Contact Info) Description 03/19/2024 Telephone [facility] MEDICINE 230 [place], [place] [phone] Apolonia Ragland MD 230 [place], [place] [phone] Returning Call Social History Tobacco Use Types [...] outreach. Pt stated she received message in belarusian, he stated he does not speak or read belarusian and requestsfurther messages to be sent in central african. documented in this encounter Plan of Treatment Not on file documented as of this encounter Visit Diagnoses Not on filedocumented in this encounter Care Teams Quality Analyst Relationship Specialty Start Date End Date Apolonia Ragland MD [address] [place] [address] PCP - General Family Medicine 05/15/18 Julius Beavers [address] 3rd [place] [address] Geriatric Care Manager Cardiology 08/25/23 Ronald Maxwell MD [address] [place] [address] Urology 11/17/23 Marcelino Purcell [address] [address] Orthopaedic Surgery 08/24/23 Flor Mason director of psychology 04/21/23 Kera Wan MD [facility] 300 [facility] [place] [address] 11/15/23 Manisha Henao [facility] [address] [address] Orthopaedic Surgery 12/07/23 documented as of this encounter
--- OUTSIDE RECORDS SUMMARY | 2025-03-13 13:58 | XMS_ITS | Encounter Summary ---
Author Organization [employer] Address [address] 7t [place] [address] Care Team Providers Care Vamp Liner Name Role Phone Apolonia Ragland MD Primary Care Provider [phone] Julius Beavers Unavailable Ronald Maxwell MD Unavailable [phone] BinhMarcelino Unavailable Encounter Details Date Type Department Care Team (Late st Contact Info) Description 06/28/2024 Orders Only [facility] [address] [place], [place] [phone] Apolonia Ragland MD [address] [place], [place] [phone] B12 deficiency (Primary Dx); Paroxysmal atrial fibrillation [...] on file documented as of this encounter Procedures Procedure [...] 1:06 PM EDT) Creatinine, Urine 95.60 mg/dL [facility] Microalbumin Urine 61.0 mg/L H [facility] Microalbum Creatinine Ratio Ur 63.8(H) <30 ug/mg cr [facility] Comment:Albumin/Creatinine R at Reference Ranges: Normal: < 30 ug/mg creatinine Microalbuminuria: 30 - 300 ug/mg creatinineClinical Albuminuria: > 300 ug/mg creatinine Urine 09/10/2024 1:06 PM EDT 09/10/2024 3:58 PM EDT Apolonia Ragland MD LAB URINE ORDERABLES Final Resul t [facility] [address] [place] [phone] * (ABNORMAL) Lipid Panel with Reflex to Direct LDL (09/10/2024 1:06 PM EDT) Triglycerides 119 <150 mg/dL [facility] Comment:Desirable Triglyceri de: less than 150 mg/dLBorderline High Triglyceride 150-199 mg/dLHigh Triglyceride: 200-499 mg/dLVery High Triglyceride: greater than or equal to 5OO mg/dL Cholesterol 167 <200 mg/dL [facility] Comment:Desirable Cholestero l: less than 200 mg/dLBorderline High Cholesterol: 200-239 mg/dLHigh Cholesterol: greater than 239 mg/dL LDL Cholesterol Calculated 104(H) <100 mg/dL [facility] Comment:Desirable LDL: less than 100 mg/dLNear Optimal/Above Optimal LDL: 110- 129 mg/dLBorderline High LDL: 130-159 mg/dLHigh LDL: 160-189 mg/dLVery High LDL: greater than or equal to 190 mg/dL HDL Cholesterol 40(L) >40 mg/dL [facility] Comment:Desirable HDL: great er than 40 mg/dL Note: This HDL assay may give artificially low results in patients with liver disease. Blood 09/10/2024 1:06 PM EDT 09/10/2024 3:59 PM EDT Apolonia Ragland MD LAB BLOOD ORDERABLES Final Resul t Performing Organization Address City/[facility]/ZIP Co de Phone Number [facility] [address] [place] [address] [phone] * (ABNORMAL) Comprehensive Metabolic Panel (09/10/2024 1:06 PM EDT) Sodium 140 135 - 145 mmol/L [facility] Potassium 4.0 3.3 - 5.1 mmol/L [facility] Chloride 105 96 - 108 mmol/L [facility] Carbon Dioxide 28 22 - 29 mmol/L [facility] Anion Gap 11(L) 12 - 20 [facility] Urea Nitrogen (BUN) 11 9 - 16 mg/dL [facility] Creatinine, Serum 0.68 0.5 - 1.4 mg/dL [facility] Estimated Glomerular Filt Rate >60 [facility] Comment:Chronic Kidney Disea se: Estimated GFR < 60 mL/min/1.84l5Kaopbm Kidney Disease: Estimated GFR < 15 mL/min/1.73m2 Glucose 98 60 - 115 mg/dL [facility] Calcium 9.0 8.4 - 10.2 mg/dL [facility] Bilirubin, Total 0.8 0.0 - 1.0 mg/dL [facility] Aspartate Amino Transferase 18 5 - 37 U/L [facility] Alanine Aminotransferase 9 0 - 40 U/L [facility] Total Protein 6.9 6.5 - 8.0 g/dL [facility] Albumin Level 4.2 3.5 - 5.0 g/dL [facility] Alkaline Phosphatase 62 39 - 117 U/L [facility] Blood Venous blood specimen / Unknown 09/10/2024 1:06 PM EDT 09/10/2024 3:59 PM EDT Apolonia Ragland MD LAB BLOOD ORDERABLES Final Resul t Performing Organization Address City/[facility]/ZIP Co de Phone Number [facility] [address] [place] [phone] [phone] * (ABNORMAL) CBC auto differential (09/10/2024 1:06 PM EDT) White Blood Count 8.0 4.8 - 10.8 X10*3/uL [facility] Red Blood Count 4.63 4.60 - 5.80 X10*6/uL [facility] Hemoglobin 14.5 14.0 - 18.0 g/dl [facility] Hematocrit 43.6 42.0 - 52.0 % [facility] Mean Corpuscular Volume 94.2 80.0 - 98.0 fL [facility] Mean Corpuscular Hemoglobin 31.3 27.0 - 33.0 pg [facility] Mean Corpuscular HGB Conc 33.3 31.0 - 36.0 g/dl [facility] Red Cell Distribution Width 14.2 11.0 - 16.0 % [facility] Platelet Count 199 160 - 400 X10*3/uL [facility] Mean Platelet Volume 11.0 9.4 - 12.4 fL [facility] Neutrophils Percent Auto 74.4(H) 45 - 73 % [facility] Imm Gran Pct Auto 0.4 0.0 - 0.4 % [facility] Lymphocytes Percent Auto 15.2(L) 20 - 40 % [facility] Monocytes Percent Auto 8.9 2 - 11 % [facility] Eosinophils Percent Auto 0.7 0 - 4 % [facility] Basophils Percent Auto 0.4 0 - 2 % [facility] NRBC Pct Auto 0.0 0.0 - 0.2 /100WBC [facility] Neutrophils Absolute Auto 6.0 2.0 - 8.3 x10*3/uL [facility] Imm Gran Abs Auto 0.03 0.00 - 0.03 X10*3/uL [facility] Lymphocytes Absolute Auto 1.2 1.2 - 4.9 X10*3/uL [facility] Monocytes Absolute Auto 0.7 0.1 - 1.2 X10*3/uL [facility] Eosinophils Absolute Auto 0.1 0.0 - 0.4 X10*3/uL [facility] Basophils Absolute Auto 0.0 0.0 - 0.2 X10*3/uL [facility] NRBC Abs Auto 0.000 0.0 - 0.012 X10*3/uL [facility] Blood Venous blood specimen / Unknown 09/10/2024 1:06 PM EDT 09/10/2024 3:59 PM EDT Apolonia Ragland MD LAB BLOOD ORDERABLES Final Resul t Performing Organization Address [facility] Co de Phone Number [facility] [address] [place] [phone] * Vitamin B12 (Cobalamin) and Folate Panel, Serum (09/10/2024 1:06 PM EDT) Vitamin B12 419 200 - 900 pg/mL [facility] Comment:NORMAL 200-900 PG/ML INDETERMINATE 160-199 PG/ML DEFICIENT < 160 PG/ML Folate 8.7 > or = 4.0 ng/mL [facility] Comment:Reference Values:> o r = 4.0 ng/mL< 4.0 ng/mL suggests folate deficiency Methotrexate, aminopterin and folinic acid(leucovorin) are chemotherapeutic agents whose molecularstructures are similar to folate; therefore, the Architectfolate assay cannot be used for patients using these drugs. Blood 09/10/2024 1:06 PM EDT 09/10/2024 3:59 PM EDT Apolonia Ragland MD LAB BLOOD ORDERABLES Final Resul t Performing Organization Address [facility] Co de Phone Number [facility] [address] [place] [address] [phone] documented in this encounter Visit Diagnoses Diagnosis B12 deficiency- Primary Paroxysmal atrial fibrillation (CMS/HCC) (HCC) Atrial fibrillation Essential hypertension Unspecified essential hypertension documented in this encounter Additional Health Concerns Assessment Noted Time PHQ-9 Depression Total Score: 3 05/01/20 24 9:55 AM EST documented as of this encounter Care Teams Vamp Liner Relationship Specialty Start Date End Date Apolonia Ragland MD [address] [place] [address] PCP - General Family Medicine 05/15/18 Julius Beavers [address] 3rd [place] [address] Customer Advisor Specialist Cardiology 08/25/23 Ronald Maxwell MD [address] [place] [address] Urology 11/17/23 Marcelino Purcell 175 [facility] [address] [place] [address] Orthopaedic Surgery 08/24/23 Flor Mason RN Care Manager 04/21/23 Kera Wan MD [address] [address] 11/15/23 Manisha Henao [facility] [address] [facility] [address] [place] [phone] Orthopaedic Surgery 12/07/23 documented as of this encounter
--- OUTSIDE RECORDS SUMMARY | 2025-03-13 13:58 | XMS_ITS | Encounter Summary ---
Author Organization [facility] Address [address] [place] [address] Phone Care Team Providers Care Continuity Clerk Name Role Phone Unavailable Primary Care Provider Unavailabl e Encounter Details Date Type Department Care Team (Latest Contact Info) Description 12/21/2018 Ancillary Orders [facility] [address] [place] [address] [place] [address] Lizy Ho MD [address] [place] [phone] [email or web address] Ventricular premature depolarization Social History Tobacco Use [...] It is not the complete legal health record.[facility]
--- OUTSIDE RECORDS SUMMARY | 2025-03-13 13:58 | XMS_ITS | Encounter Summary ---
Author Organization [facility] Address [address] [place] [address] Phone Care Team Providers Care Programmer Business Name Role Phone Unavailable Primary Care Provider Unavailabl e Encounter Details Date Type Department Care Team (Late st Contact Info) Description 12/21/2018 Ancillary Orders [facility] [address] [facility] [address], [address] [place] [address] Lizy Ho MD [address] [place] [address] [email or web address] Social History Tobacco Use Types Packs/Day Years [...] It is not the complete legal health record.[facility]
--- OUTSIDE RECORDS SUMMARY | 2025-03-13 13:59 | XMS_ITS | Encounter Summary ---
Author Organization [employer] Address [address] 7t [place] [address] Care Team Providers Care Range Technician Name Role Phone Apolonia Ragland MD Primary Care Provider [phone] Julius Beavers Unavailable Ronald Maxwell MD Unavailable [phone] Marcelino Purcell Unavailable Encounter Details Date Type Department Care Team (Late st Contact Info) Description 09/11/2024 Orders Only [facility] 230 [place], [place] [phone] Apolonia Ragland MD 230 [place], [place] [phone] Nocturia (Primary Dx) Social History Tobacco Use [...] the past 12 months, has t he [employer], gas, oil or water company threatened to [...] (09/20/2024 12:29 PM EDT) Color Urine Yellow [facility] Appearance Urine Clear [facility] PH 7.0 5.0 - 9.0 [facility] Glucose Urine UA Negative Negative mg/dL [facility] Urine Blood Trace(A) Negative [facility] Specific [place] - Urine <=1.005 1.005 - 1.025 [facility] Urine Protein Negative Neg-Trace mg/dL [facility] Urine Ketones Negative Negative mg/dL [facility] Nitrite Urine Negative Negative [facility] Leukocyte Esterase Urine Large (3+)(A) Negative [facility] RBC Urine 0-2 0 - 2 /HPF [facility] Urine WBC >50(A) 0 - 5 /HPF [facility] Urine Squamous Epithelial Cell 0-2 0 - 2 /HPF [facility] Urine Bacteria Trace None Seen [facility] Hyaline Casts, Urine 0-2 0 - 2 /LPF [facility] Urine (Urine, Random) 09/20/2024 12:29 PM EDT 09/20/2024 1:04 PM EDT us Apolonia Ragland MD LAB URINE ORDERABLES Final Resul t [facility] [address] [place] [address] [phone] * Culture, Urine, Routine (09/20/2024 12:29 PM EDT) Urine Urine specimen obtained by clean catch procedure / Unknown 09/20/2024 12:29 PM EDT 09/20/2024 1:04 PM EDT Comment:[facility] - 10/03/2024 2:16 PM EDT [...] = See Therapy Comments Test performed by: [employer] [address] [place] [address], [place] [address] Director: Nirali Monte MD CLIA: [id number] Specimen Source: Urine clean catch us Apolonia Ragland MD LAB MICROBIOLOGY - GENERAL ORDER VICK Final Result [facility] [address] [place] [address] [phone] documented in this encounter Visit Diagnoses Diagnosis Nocturia- Primary documented in this encounter Additional Health Concerns Assessment Noted Time PHQ-9 Depression Total Score: 3 05/01/20 24 9:55 AM EST documented as of this encounter Care Teams Range Technician Relationship Specialty Start Date End Date Apolonia Ragland MD [address] [place] [address] PCP - General Family Medicine 05/15/18 Julius Beavers [address] 3rd [place] [address] Radiographer Cardiac Catheterization Cardiology 08/25/23 Ronald Maxwell MD [address] [place] [address] Urology 11/17/23 Marcelino Purcell [address] [address] Orthopaedic Surgery 08/24/23 Flor Mason RN Care Manager 04/21/23 Kera Wan MD [address] [address] 11/15/23 Manisha Henao [facility] 175 [facility] 250 [place] [address] Orthopaedic Surgery 12/07/23 documented as of this encounter
--- OUTSIDE RECORDS SUMMARY | 2025-03-13 13:59 | XMS_ITS | Encounter Summary ---
Author Organization [employer] Address [address] 7t [place] [address] Care Team Providers Care Data Communications Analyst Name Role Phone Apolonia Ragland MD Primary Care Provider [phone] Julius Beavers Unavailable Ronald Maxwell MD Unavailable [phone] Marcelino Purcell Unavailable Encounter Details Date Type Department Care Team (Late st Contact Info) Description 11/21/2024 Orders Only [facility] 230 [place], [place] [phone] Apolonia Ragland MD [address] [place], [place] [phone] Primary osteoarthritis involving multiple joints Social History [...] the past 12 months, has t he [employer], gas, oil or water company threatened [...] documented as of this encounter Care Teams Data Communications Analyst Relationship Specialty Start Date End Date Apolonia Ragland MD [address] [place] [address] PCP - General Family Medicine 05/15/18 Julius Beavers [address] 3rd [place] [address] Paste Thinner Cardiology 08/25/23 Ronald Maxwell MD [address] [place] [address] Urology 11/17/23 Marcelion Purcell [address] [address] Orthopaedic Surgery 08/24/23 Flor Mason senior graduate advisor 04/21/[address] [facility] [address] [place] [phone] 11/15/23 Manisha Henao [facility] [address] [place] [phone] Orthopaedic Surgery 12/07/23 documented as of this encounter
--- OUTSIDE RECORDS SUMMARY | 2025-03-13 13:59 | XMS_ITS | Encounter Summary ---
Author Organization [employer] Address [address] [place] [address] 7t [place] [address] Care Team Providers Care Bleach Chlorinator Name Role Phone Apolonia Ragland MD Primary Care Provider [phone] Julius Beavers Unavailable Ronald Maxwell MD Unavailable [phone] BinhMarcelino Unavailable Encounter Details Date Type Department Care Team (Late st Contact Info) Description 06/02/2022 Abstract [facility] 230 [place] [address] Apolonia Ragland MD 230 [place] [address] Social History Tobacco Use Types Packs/Day Years [...] on filedocumented in this encounter Care Teams Bleach Chlorinator Relationship Specialty Start Date End Date Apolonia Ragland MD 230 [place] [address] PCP - General Family Medicine 05/15/18 Julius Beavers [address] 3rd [place] [address] Foil Cutter Cardiology 08/25/23 Ronald Maxwell MD [address] [place] [address] Urology 11/17/23 Marcelino Purcell [address] [address] Orthopaedic Surgery 08/24/23 Flor Mason wig stylist 04/21/23 Kera Wan MD [facility] [address] [place] [phone] 11/15/23 Manisha Henao [facility] 175 [facility] [address] [place] [phone] Orthopaedic Surgery 12/07/23 documented as of this encounter
--- OUTSIDE RECORDS SUMMARY | 2025-03-13 13:59 | XMS_ITS | Encounter Summary ---
Author Organization [employer] Address [address] 7t [place] [address] Care Team Providers Care Automotive Electrical Fitter Name Role Phone Apolonia Ragland MD Primary Care Provider [phone] Julius Beavers Unavailable Ronald Maxwell MD Unavailable [phone] Marcelino Purcell Unavailable Encounter Details Date Type Department Care Team (Late st Contact Info) Description 09/23/[address] [facility] 230 [place], [place] [phone] Apolonia Ragland MD 230 [place], [place] [phone] Social History Tobacco Use Types Packs/Day Years [...] documented as of this encounter Care Teams Automotive Electrical Fitter Relationship Specialty Start Date End Date Apolonia Ragland MD 230 [place] [address] PCP - General Family Medicine 05/15/18 Julius Beavers [address] 3rd [place] [address] Food Service Director Cardiology 08/25/23 Ronald Maxwell MD [address] [place] [address] Urology 11/17/23 Marcelino Purcell [address] [address] Orthopaedic Surgery 08/24/23 Flor Mason lab head 04/21/23 Kera Wan MD [facility] [address] [facility] [place] [address] 11/15/23 Manisha Henao [facility] [address] [place] [phone] Orthopaedic Surgery 12/07/23 documented as of this encounter
--- OUTSIDE RECORDS SUMMARY | 2025-03-13 13:59 | XMS_ITS | Encounter Summary ---
Author Organization [employer] Address [address] [place] [address] 7t [place] [address] Care Team Providers Care Solar System Installer Name Role Phone Apolonia Ragland MD Primary Care Provider [phone] Julius Beavers Unavailable Ronald Maxwell MD Unavailable [phone] BinhMarcelino Unavailable Reason for Visit * Reason Onset Date Comments Referral 05/22/2023 Encounter Details Date Type Department Care Team (Late st Contact Info) Description 05/22/2023 Telephone [facility] 230 [place], [place] [phone] Apolonia Ragland MD 230 [place], [place] [phone] Referral Social History Tobacco Use Types Packs/Day [...] encounter Miscellaneous Notes * Telephone Encounter - Himnashu Sow - 05/22/2023 4:26 PM EST Tc from pt requesting A new Cardiovascular doctor due to pt current one not accepting insurance andpt owing money to facility so appt previously scheduled was canceled. Please contact pt @ [phone] documented in this encounter Plan of Treatment Not on file documented as of this encounter Visit Diagnoses Not on filedocumented in this encounter Care Teams Solar System Installer Relationship Specialty Start Date End Date Apolonia Ragland MD 230 [place] [address] PCP - General Family Medicine 05/15/18 Julius Beavers [address] 3rd [place] [address] Process Manager Cardiology 08/25/23 Ronald Maxwell MD [address] [place] [address] Urology 11/17/23 Marcelino Purcell [address] [address] Orthopaedic Surgery 08/24/23 Flor Mason RN Care Manager 04/21/23 Kera Wan MD [facility] [address] [place] [address] 11/15/[address] [facility] [address] [place] [address] [place] [phone] Orthopaedic Surgery 12/07/23 documented as of this encounter
--- OUTSIDE RECORDS SUMMARY | 2025-03-13 13:59 | XMS_ITS | Encounter Summary ---
Author Organization [employer] Address [address] 7t [place] [address] Care Team Providers Care Supervisor Mails Name Role Phone Apolonia Ragland MD Primary Care Provider [phone] Julius Beavers Unavailable Ronald Maxwell MD Unavailable [phone] BinhMarcelino Unavailable Encounter Details Date Type Department Care Team (Late st Contact Info) Description 05/23/2023 Orders Only [facility] 230 [place], [place] [phone] Apolonia Ragland MD 230 [place], [place] [phone] Frequent PVCs (Primary Dx) Social History Tobacco [...] Primary documented in this encounter Care Teams Supervisor Mails Relationship Specialty Start Date End Date Apolonia Ragland MD 230 [place] [address] PCP - General Family Medicine 05/15/18 Julius Beavers [address] 3rd [place] [address] Stripping Machine Operator Cardiology 08/25/23 Ronald Maxwell MD [address] [place] [address] Urology 11/17/23 Marcelino Purcell 175 [facility] 110 [place] [address] Orthopaedic Surgery 08/24/23 Flor Mason RN Care Manager 04/21/23 Kera Wan MD [facility] 300 [place] [address] 11/15/23 Manisha Henao [facility] 175 [facility] [address] [place] [phone] Orthopaedic Surgery 12/07/23 documented as of this encounter
--- OUTSIDE RECORDS SUMMARY | 2025-03-13 13:59 | XMS_ITS | Encounter Summary ---
Author Organization [employer] Address [address] [place] [address] 7t [place] [address] Care Team Providers Care Control Systems Developer Name Role Phone Apolonia Ragland MD Primary Care Provider [phone] Julius Beavers Unavailable Ronald Maxwell MD Unavailable [phone] BinhMarcelino Unavailable Reason for Visit * Reason Onset Date Comments Results 03/10/2025 Encounter Details Date Type Department Care Team (Late st Contact Info) Description 03/10/2025 Telephone [facility] 230 [place], [place] [phone] Apolonia Ragland MD 230 [place] [address] Results Social History Tobacco Use Types Packs/Day [...] encounter Miscellaneous Notes * Telephone Encounter - Sheree Valiente RN - 03/11/2025 10:34 AM EDT Pt informed, please see other encounter dated 03/10/25. * Telephone Encounter - Lon Lennon - 03/10/2025 11:23 AM EDT Tc from pt requesting a call back regarding the results of the Stool sample taken on 02/21 Contact pt at [phone] documented in this encounter Plan of Treatment Not on file documented as of this encounter Visit Diagnoses Not on filedocumented in this encounter Additional Health Concerns Assessment Noted Time PHQ-9 Depression Total Score: 3 05/01/20 24 9:55 AM EST documented as of this encounter Care Teams Control Systems Developer Relationship Specialty Start Date End Date Apolonia Ragland MD 230 [place] [address] PCP - General Family Medicine 05/15/18 Julius Beavers [address] 3rd [place] [address] Oncology Registrar Cardiology 08/25/23 Ronald Maxwell MD [address] [place] [address] Urology 11/17/23 Marcelino Purcell [address] [address] Orthopaedic Surgery 08/24/23 Flor Mason RN Care Manager 04/21/23 Kera Wan MD [address] [phone] 11/15/23 Manisha Henao [facility] [address] [facility] [address] [place] [phone] Orthopaedic Surgery 12/07/23 documented as of this encounter
--- OUTSIDE RECORDS SUMMARY | 2025-03-13 13:59 | XMS_ITS | Encounter Summary ---
Author Organization [email or web address] Address [address] [place] [address] 7t [place] [address] Care Team Providers Care Auto Service Writer Name Role Phone Apolonia Ragland MD Primary Care Provider [phone] Julius Beavers Unavailable Ronald Maxwell MD Unavailable Binh, Loyd Unavailable Reason for Visit * Reason Onset Date Comments Nurse Triage 03/10/2025 Encounter Details Date Type Department Care Team (Late st Contact Info) Description 03/10/2025 Telephone [facility] [address] [place], [place] [phone] Apolonia Ragland MD 230 [place], [place] [phone] Nurse Triage Social History Tobacco Use Types [...] Telephone Encounter - Sheree Valiente RN - 03/10/2025 1:51 PM EDT Telephone call to pt who reports swollen lower left eyelid x1 week, bottom lip edge is red with white pimple on it. Pt wonders if it is from changing cat litter (not new) or cleaning products. Denies pain, discharge, fever, no changes to vision. Reports cleansing eye with warm water and using allergy relief eyedrops, he thinks eye is improving but slowly. Offered pt appt this week for provider evaluation, pt declines appt at this time, states he will call back if unimproved in 1-2 days. Educated on home care measures: keeping eye clean and dry, cleansing with warm water, applying warm compress, do not squeeze pimple. Gave red flags: painful pimple, spreading redness or swelling, changes to vision. Advised of [place] hours, extended/Sat clinic, NTTS combat control manager. Pt verbalized understanding, no further questions. Multiple (2) protocols were used on this call. Disposition for Call: See in Office or Video Visit within 3 Days Protocol Used: Sty (Adult) Protocol-Based Disposition: See in Office or Video Visit within 3 Days Video visit offer not recorded Positive Triage Question: * After 5 days of treatment per Sty Care Advice and not better * All higher-acuity triage questions were negative Care Advice Discussed: * Local Heat * Reasons To Call Back - Eyelid becomes red or swollen - Sty is not better by 5 days - Sty has not gone away by 10 days - Styes occur frequently - You become worse Protocol Used: Eye - Pus or Discharge (Adult) Care Advice Discussed: * Keep Your Eyelids Clean * Reasons To Call Back - Pus lasts over 3 days (72 hours) on treatment - Blurred vision occurs - Light bothers your eyes - More than just mild eye discomfort - You become worse * Telephone Encounter - Lon Lennon - 03/10/2025 11:22 AM EDT Symptom: Eye Redness Without Pus or Discharge Outcome: Schedule an urgent appointment (within 4 hours) or talk to a nurse or provider soon Reason: bottom Eyelid is red and swollen The caller accepted this outcome. Contac pt at [phone] documented in this encounter Plan of Treatment Not on file documented as of this encounter Visit Diagnoses Not on filedocumented in this encounter Additional Health Concerns Assessment Noted Time PHQ-9 Depression Total Score: 3 05/01/20 24 9:55 AM EST documented as of this encounter Care Teams Auto Service Writer Relationship Specialty Start Date End Date Apolonia Ragland MD [address] [place] [address] PCP - General Family Medicine 05/15/18 Julius Beavers [address] [place] [address] [address] [place] [address] Music Ministries Director Cardiology 08/25/23 Ronald Maxwell MD [address] [place] [address] Urology 11/17/23 Marcelino Purcell 175 [facility] 110 [place] [address] Orthopaedic Surgery 08/24/23 Flor Mason RN Care Manager 04/21/23 Kera Wan MD [facility] [address] [place] [address] 11/15/23 Manisha Henao [facility] 175 [facility] [address] [place] [phone] Orthopaedic Surgery 12/07/23 documented as of this encounter
--- OUTSIDE RECORDS SUMMARY | 2025-03-13 13:59 | XMS_ITS | Encounter Summary ---
Author Organization [employer] Address [address] [place] [address] 7 [place] [address] Care Team Providers Care Advertising Clerk Name Role Phone Apolonia Ragland MD Primary Care Provider [phone] Julius Beavers Unavailable Ronald Maxwell MD Unavailable Marcelino Purcell Unavailable Encounter Details Date Type Department Care Team (Late st Contact Info) Description 10/11/2022 Abstract [facility] Information Management [address] [place] [address] Apolonia Ragland MD 230 [place] [address] Social History Tobacco Use Types Packs/Day Years [...] on filedocumented in this encounter Care Teams Advertising Clerk Relationship Specialty Start Date End Date Apolonia Ragland MD 230 [place] [address] PCP - General Family Medicine 05/15/18 Julius Beavers [address] 3rd [place] [address] Commercial Management Accountant Cardiology 08/25/23 Ronald Maxwell MD [address] [place] [address] Urology 11/17/23 Marcelino Purcell 175 [facility] 110 [place] [address] Orthopaedic Surgery 08/24/23 Flor Mason eyeglass maker 04/21/23 Kera Wan MD [address] [phone] 11/15/23 Manisha Henao [facility] 175 [facility] [address] [place] [phone] Orthopaedic Surgery 12/07/23 documented as of this encounter
--- OUTSIDE RECORDS SUMMARY | 2025-03-13 13:59 | XMS_ITS | Encounter Summary ---
Author Organization [employer] Address [address] [place] [address] 7t [place] [address] Care Team Providers Care Irrigation Manager Name Role Phone Apolonia Ragland MD Primary Care Provider Julius Beavers Unavailable Ronald Maxwell MD Unavailable [phone] Marcelino Purcell Unavailable Encounter Details Date Type Department Care Team (Late st Contact Info) Description 06/07/2022 Telephone [facility] MEDICINE [address] [place] [address] Ana Lancaster LPN Social History Tobacco Use [...] on filedocumented in this encounter Care Teams Irrigation Manager Relationship Specialty Start Date End Date Apolonia Ragland MD 230 [place] [address] PCP - General Family Medicine 05/15/18 Julius Beavers [address]rd [place] [address] Slitter Operator Cardiology 08/25/23 Ronald Maxwell MD [address] [place] [address] Urology 11/17/23 Marcelino Purcell 175 [facility] 110 [place] [address] Orthopaedic Surgery 08/24/23 Flor Mason RN Care Manager 04/21/23 Kera Wan MD [facility] [address] [place] [phone] 11/15/23 Manisha Henao [facility] 175 [facility] [address] [place] [address] Orthopaedic Surgery 12/07/23 documented as of this encounter
--- OUTSIDE RECORDS SUMMARY | 2025-03-13 13:59 | XMS_ITS | Clinical Summary ---
Author Organization [address] [place] [address] Address 175 [place] [address] Phone Care Team Providers Care House Supervisor Name Role Phone Apolonia Ragland MD Primary Care Provider [phone] Allergies Active Allergy Reactions Criticality Noted Date [...] complete this topic Insurance MEDICARE Care Teams House Supervisor Relationship Specialty Start Date End Date Apolonia Ragland MD [address] [place] [phone] PCP - General 03/25/13
--- OUTSIDE RECORDS SUMMARY | 2025-03-13 13:59 | XMS_ITS | Encounter Summary ---
Author Organization [employer] Address [address] [place] [address] 7t [place] [address] Care Team Providers Care Director Of Pupil Personnel Program Name Role Phone Apolonia Ragland MD Primary Care Provider [phone] Julius Beavers Unavailable Ronald Maxwell MD Unavailable BinhMarcelino Unavailable Reason for Visit * Reason Onset Date Comments Med Refill 08/16/2022 Encounter Details Date Type Department Care Team (Late st Contact Info) Description 08/16/2022 Telephone [facility] 230 [place], [place] [phone] Apolonia Ragland MD 230 [place], [place] [phone] Med Refill Social History Tobacco Use Types [...] awaiting approval. * Telephone Encounter - Himanshu Lucero Sow - 08/16/2022 10:08 AM EDT Tc from pt request new med refill script for amLODIPine (Norvasc) 2.5 MG tablet Please sent to [facility] - [place], [place] - [address] [facility] documented in this encounter Plan of Treatment Not on file documented as of this encounter Visit Diagnoses Not on filedocumented in this encounter Care Teams Director Of Pupil Personnel Program Relationship Specialty Start Date End Date Apolonia Ragland MD 230 [facility] [place] [address] PCP - General Family Medicine 05/15/18 Julius Beavers [address]rd [place] [address] Display Artist Cardiology 08/25/23 Ronald Maxwell MD [address] [place] [address] Urology 11/17/23 Marcelino Purcell 175 [facility] 110 [place] [address] Orthopaedic Surgery 08/24/23 Flor Mason RN Care Manager 04/21/23 Kera Wan MD [facility] [address] [place] [address] 11/15/23 Manisha Henao [facility] Medical [facility] 175 [facility] [address] [place] [phone] Orthopaedic Surgery 12/07/23 documented as of this encounter
== END 2025-03-13 12:10 | disposition home or self-care (01) ==
LOC: HO.HUSH 11:09
PROVIDERS: PCP Family Medicine; Visit Provider Urology
DX: C67.9 Malignant neoplasm of bladder, unspecified (principal); R39.15 Urgency of urination
CPT/HCPCS: 52000; 99213; G2211

== ENCOUNTER 2025-03-13 11:08 | Outpatient (REF) | payer MEDICARE, MEDICAID, SELFPAY | END 2025-03-13 11:09 | disposition home or self-care (01) | LOC: HO.LAB 11:08 | PROVIDERS: PCP Family Medicine; Visit Provider Urology | DX: C67.9 Malignant neoplasm of bladder, unspecified (principal) | CPT/HCPCS: 52000; 88121; 99212 ==

== ENCOUNTER 2025-04-21 10:23 | Outpatient (AMB) | payer MEDICARE, MEDICAID, SELFPAY ==
--- NOTE | 2025-04-21 10:33 | A.OFFVIS_ITS ---
Vital Signs 04/21/25 10:36 Height 5 ft 4 in Weight 176 lb 12.972 oz BMI 30.3 BP 120/62 Blood Pressure Location Lt brachial Position Sitting Pulse 58 Pulse Source Pulse Oximeter Intake Visit Reasons: 3m follow up Intake Note: 3 mth f/up Supervisor Extruding Department Required: No Accompanied by: Self / Same As Patient Allergies tetracycline (TETRACYCLINE) Allergy (Intermediate, Verified 03/13/25 11:12) RASH Medication List - Last Reconciled 04/21/25 by Julius Beavers MD acetaminophen 500 - 1,000 mg PO BID PRN amlodipine 2.5 mg PO DAILY ammonium lactate 12% 1 appl topical DAILY apixaban (Eliquis) 2.5 mg PO BID cholecalciferol (vitamin D3) (Vitamin D3) 25 mcg PO DAILY cyanocobalamin (vitamin B-12) 1,000 mcg IM QMONTH fluticasone propionate 50 mcg/actuation 1 spray intranasal BID loratadine (Allergy Relief (loratadine)) 10 mg PO DAILY tamsulosin (Flomax) 0.4 mg PO BEDTIME 30 days HPI Comments Details: 85-year-old gentleman with background history of paroxysmal atrial fibrillation. He is on apixaban 5 mg twice a day. He returns for follow-up today. He is saying that he was getting left nostril nosebleeds and he has been using Eliquis twice a day 3 times a week. We discussed in detail that this strategy is not studied and he still has stroke risk if he does not take Eliquis regularly. He unfortunately also has been diagnosed with bladder cancer and will require surgery. He is quite concerned about bleeding and apprehensive about the surgery. He had Lexiscan recently which is normal. His ECHO did not show any LV dysfunction. He is denying any chest pain or shortness of breath otherwise too. 04/21/2025: He is here for follow-up. He said that he was getting frequent epistaxis episodes and he cut the apixaban to half tablet twice a day. He is saying that after doing that is nosebleeds are better. He was previously advised to see ENT and he said he saw someone but does not remember. He is saying that he is using nasal spray which she got from pharmacy. He has bladder cancer and underwent surgery and is now getting local chemotherapy through urology. [facility] Medical History Bilateral tinnitus Ascending aorta dilatation Afib Arrhythmia Epistaxis Hypersomnia Paroxysmal atrial fibrillation Subdural hematoma History of kidney stones Dysthymic disorder Calculus of gallbladder without cholangitis or cholecystitis Ganglion cyst of finger of left hand B12 deficiency Sensorineural hearing loss Pes planovalgus Malignant neoplasm of urinary bladder Actinic keratosis Osteoarthritis Depression Allergic rhinitis Primary osteoarthritis involving multiple joints Pulmonary hypertension Essential hypertension Pain, dental GERD (gastroesophageal reflux disease) Frequent PVCs Surgical History Hx of tonsillectomy Social History Alcohol intake: never Comment: slippery outside Patient Tobacco Use Status: Former Tobacco user Review of Systems Const Denies chills, Denies fatigue, Denies fever(s), Denies frequent falls, Denies weakness, Denies weight gain and Denies weight loss ENT Denies dizziness Card Denies chest pain, Denies leg edema, Denies lightheadedness, Denies palpitations, Denies dyspnea and Denies dyspnea on exertion Resp Denies cough, Denies dyspnea and Denies dyspnea on exertion GI Denies hematochezia Musc Denies abnormal gait, Denies muscle weakness, Denies numbness, Denies radiating pain into limb and Denies tingling Neuro Denies abnormal gait, Denies dizziness, Denies frequent falls, Denies numbness, Denies tingling and Denies weakness Endo Denies fatigue and Denies palpitations Physical Exam Vital Signs: Last Vital Signs Pulse 58 04/21/25 10:36 BP 120/62 04/21/25 10:36 BMI result Body Mass Index 30.3 GENERAL APPEARANCE: in no acute distress, pleasant. NECK: no carotid bruit, no jugular venous distention. SKIN: no suspicious lesions, warm and dry. HEART: no murmurs, regular rate and rhythm. LUNGS: clear to auscultation bilaterally. ABDOMEN: soft, nontender. EXTREMITIES: no edema. PERIPHERAL PULSES: equal. NEUROLOGIC: No gross deficits, AAO X 3 Assessment & Plan Assessment & Plan (1) Paroxysmal atrial fibrillation: Code(s): I48.0 - Paroxysmal atrial fibrillation Category: Medical (2) Epistaxis: Code(s): R04.0 - Epistaxis Category: Medical Plan [age] gentleman who is here for follow-up. He has background history of bladder cancer in his getting bladder immunotherapy at this point. He has been doing fine with that. No significant hematuria episodes. He did have epistaxis before and on his own he has cut the Eliquis to 2.5 mg twice a day. With that he is doing better and has less bleeding. He does not qualify for lower dose of Eliquis but there is some research data of low-dose use in elderly population which did show that the stroke risk was similar and so was the bleeding risk. I think he is doing better from epistaxis point of view. He is not interested in doing Watchman device. I have advised him to continue 2.5 mg of Eliquis twice a day. He is in sinus rhythm currently. He will see us back in 6 months. Thank you for allowing me to participate in the care of your patient. Please feel free to contact me if you have any questions. Medications: New apixaban 2.5 mg PO BID 60 tabs 6RF Coding Level of Care Code Est Pt Level 4 (19015) Diagnoses Paroxysmal atrial fibrillation I48.0 Epistaxis R04.0
[2025-04-21 10:36] VITALS: BP 120/62; PULSE 58; BMI 30.3
== END 2025-04-21 11:21 | disposition home or self-care (01) ==
LOC: HO.HCS 10:24
PROVIDERS: PCP Family Medicine; Visit Provider Internal Medicine Cardiovascular Disease
DX: I48.0 Paroxysmal atrial fibrillation (principal); R04.0 Epistaxis
CPT/HCPCS: 99214

== ENCOUNTER → 2025-04-21 10:23 | Outpatient (BNVA) | payer MEDICARE, MEDICAID, SELFPAY | PROVIDERS: PCP Family Medicine; Visit Provider Internal Medicine Cardiovascular Disease | DX: I48.0 Paroxysmal atrial fibrillation (principal); R04.0 Epistaxis | CPT/HCPCS: 99212 ==